=== PATIENT | female | born 1960 | race Two or more races ===

== ENCOUNTER 2021-04-17 10:52 | Outpatient (REF) | payer OTHER, SELFPAY ==
[2021-04-17 12:49] LABS: Thyroid Stimulating Hormone 1.47 uIU/mL (0.32-4.0)
[2021-04-17 12:56] LABS: Alanine Aminotransferase 59 U/L (0-31); Albumin Level 3.8 g/dL (3.5-5.0); Alkaline Phosphatase 232 U/L (39-117); Anion Gap 12 (12-20); Aspartate Amino Transferase 63 U/L (5-31); Bilirubin Total 1.5 mg/dL (0.0-1.0); Blood Urea Nitrogen 18 mg/dL (9-16); C Reactive Protein 2.39 mg/dL (< or = 0.50); Calcium 9.5 mg/dL (8.4-10.2); Carbon Dioxide 27 mmol/L (22-29); Chloride 106 mmol/L (96-108); Estimated Glomerular Filt Rate > 60; Glucose Fasting 97 mg/dL (60-99); Potassium 4.5 mmol/L (3.3-5.1); Rheumatoid Factor < 15.0 IU/mL (<15.0); Sodium 140 mmol/L (135-145); Total Protein 7.2 g/dL (6.5-8.0)
[2021-04-17 13:26] LABS: Erythrocyte Sedimentation Rate 28 MM/HR (0-20)
[2021-04-18 14:31] LABS: Cyclic Citrullinated Peptide <16 UNITS
[2021-04-19 22:56] LABS: Anti Nuclear Antibody Screen POSITIVE (NEGATIVE)
[2021-04-19 23:06] LABS: Anti Nuclear Antibody Pattern Mitotic, Centrosome; Anti Nuclear Antibody Titer 1:40 titer
[2021-04-22 13:25] LABS: Vitamin D 25-OH, D2 <4 ng/mL; Vitamin D 25-OH, D3 29 ng/mL; Vitamin D 25-OH, Total 29 ng/mL (30-100)
[2021-04-22 15:00] LABS: HLA B27 Negative (Negative)
== END 2021-04-17 10:53 | disposition home or self-care (01) ==
LOC: HO.LAB 10:52
PROVIDERS: PCP Internal Medicine; Visit Provider Internal Medicine
DX: M25.50 Pain in unspecified joint (principal); G44.52 New daily persistent headache (NDPH); L65.9 Nonscarring hair loss, unspecified; E55.9 Vitamin D deficiency, unspecified
CPT/HCPCS: 36415; 80053; 82306; 84443; 85652; 86038; 86039; 86140; 86200; 86431; 86812

== ENCOUNTER 2021-05-31 08:30 | Outpatient (REF) | payer OTHER, SELFPAY ==
--- NOTE | ~2021-05-31 | MR_ITS ---
MRI OF THE BRAIN WITHOUT IV CONTRAST INDICATION: New daily persistent headache. COMPARISON: None available. TECHNIQUE: Multiplanar multisequence MR imaging of the brain was obtained without IV contrast. FINDINGS: There is a possible 1.2 cm lesion within the left jugular foramen or alternatively this could reflect a patulous left jugular bulb with altered signal characteristics. An IAC protocol MRI with and without IV contrast inclusive of this area would be helpful in further assessment. There is no hydrocephalus, extra-axial surface collection, or herniation. Mild chronic microangiopathy. The major flow voids at the skull base are preserved. There is no acute infarct on diffusion-weighted imaging. There is no intracranial hemorrhage on the gradient recalled echo acquisition. The midline structures are normal. The cerebellar tonsils are normally positioned. The cerebellum and brainstem are normal. The craniocervical junction is normal. MR/MR head/brain wo con IMPRESSION: There is a possible 1.2 cm lesion within the left jugular foramen or alternatively this could reflect a patulous left jugular bulb with altered signal characteristics. An IAC protocol MRI with and without IV contrast inclusive of this area would be helpful in further assessment.
== END 2021-05-31 08:31 | disposition home or self-care (01) ==
LOC: HO.MRI 08:30
PROVIDERS: Visit Provider Internal Medicine
DX: G44.52 New daily persistent headache (NDPH) (principal)
CPT/HCPCS: 70551

== ENCOUNTER 2021-09-11 08:55 | Outpatient (REF) | payer OTHER, SELFPAY ==
[2021-09-11 09:22] LABS: MANUAL DIFF FLAG NO
[2021-09-11 09:51] LABS: Basophils Absolute Auto 0.1 X10*3/uL (0.0-0.2); Basophils Percent Auto 0.8 % (0-2); Eosinophils Absolute Auto 0.2 X10*3/uL (0.0-0.4); Eosinophils Percent Auto 2.1 % (0-4); Hematocrit 47.9 % (37.0-47.0); Hemoglobin 15.9 g/dl (12.0-16.0); Imm Gran Abs Auto 0.07 X10*3/uL (0.00-0.03); Imm Gran Pct Auto 0.8 % (0.0-0.4); Lymphocytes Absolute Auto 2.5 X10*3/uL (1.2-4.9); Lymphocytes Percent Auto 29.7 % (20-40); Mean Corpuscular HGB Conc 33.2 g/dl (31.0-35.0); Mean Corpuscular Hemoglobin 30.7 pg (27.0-33.0); Mean Corpuscular Volume 92.5 fL (80.0-98.0); Mean Platelet Volume 10.7 fL (9.4-12.3); Monocytes Absolute Auto 0.6 X10*3/uL (0.1-1.2); Monocytes Percent Auto 7.6 % (2-11); Neutrophils Absolute Auto 4.9 x10*3/uL (2.0-8.3); Platelet Count 166 X10*3/uL (160-400); Red Blood Count 5.18 X10*6/uL (4.20-5.50); Red Cell Distribution Width 14.1 % (11.0-16.0); White Blood Count 8.4 X10*3/uL (4.8-10.8)
[2021-09-11 10:22] LABS: Alanine Aminotransferase 84 U/L (0-31); Albumin Level 3.9 g/dL (3.5-5.0); Alkaline Phosphatase 211 U/L (39-117); Anion Gap 13 (12-20); Aspartate Amino Transferase 57 U/L (5-31); Bilirubin Total 3.3 mg/dL (0.0-1.0); Blood Urea Nitrogen 15 mg/dL (9-16); Calcium 10.3 mg/dL (8.4-10.2); Carbon Dioxide 27 mmol/L (22-29); Chloride 105 mmol/L (96-108); Cholesterol 225 mg/dL; Estimated Glomerular Filt Rate > 60; Glucose Fasting 117 mg/dL (60-99); HDL Cholesterol 27 mg/dL; LDL Cholesterol Calculated 171 mg/dl; Potassium 4.7 mmol/L (3.3-5.1); Rheumatoid Factor < 15.0 IU/mL (<15.0); Sodium 140 mmol/L (135-145); Total Protein 7.7 g/dL (6.5-8.0); Triglycerides 139 mg/dL
[2021-09-11 11:03] LABS: Erythrocyte Sedimentation Rate 20 MM/HR (0-20)
[2021-09-13 01:32] LABS: Cyclic Citrullinated Peptide <16 UNITS
[2021-09-18 14:46] LABS: Vitamin D 25-OH, D2 <4 ng/mL; Vitamin D 25-OH, D3 24 ng/mL; Vitamin D 25-OH, Total 24 ng/mL (30-100)
== END 2021-09-11 08:56 | disposition home or self-care (01) ==
LOC: HO.LAB 08:55
PROVIDERS: PCP Internal Medicine; Visit Provider Internal Medicine
DX: Z00.00 Encounter for general adult medical examination without abnormal findings (principal); M25.50 Pain in unspecified joint; D64.9 Anemia, unspecified; E78.5 Hyperlipidemia, unspecified; E55.9 Vitamin D deficiency, unspecified; R74.01 Elevation of levels of liver transaminase levels
CPT/HCPCS: 36415; 80053; 80061; 82306; 85025; 85652; 86140; 86200; 86431

== ENCOUNTER 2021-10-31 08:10 | Outpatient (REF) | payer OTHER, SELFPAY ==
--- NOTE | ~2021-10-31 | US_ITS ---
EXAMINATION: US COMPLETE ABDOMEN WITH LIVER ELASTOGRAPHY CLINICAL INFORMATION: Transaminitis COMPARISON: HIDA scan dated 09/30/2019 TECHNIQUE: Real-time imaging of the abdominal viscera. Noninvasive ultrasound liver fibrosis assessment is performed using [employer]on ElastPQ point quantification shear wave elastography (2D-SWE) with a C5-2 MHz transducer. Multiple elastography samples are obtained. FINDINGS: PANCREAS: Normal. The visualized pancreatic head and body are normal in appearance. The remainder of the pancreas is obscured from visualization by the overlying bowel gas. ABDOMINAL AORTA: The proximal, middle, and distal aortic segments are normal in caliber. INFERIOR VENA CAVA: Visualized portions are normal. LIVER: Morphologically cirrhotic liver exhibiting diffusely heterogeneous hepatic parenchymal echotexture and a nodular surface contour. No focal liver lesions. No intrahepatic biliary ductal dilatation. The right lobe measures 13.3 cm in length. The left lobe measures 15.0 cm in length. Portal flow is towards the liver (hepatopetal). Shear wave liver elastography median stiffness is 2.11 m/s (reference: normal median stiffness is 1.3 m/s or less). IQR/median stiffness to assess sampling precision is 0.13 (reference: good quality data set is IQR/median stiffness of 0.15 or less). GALLBLADDER: Normal. The gallbladder is physiologically distended without evidence of stones, sludge, polyps, wall thickening or pericholecystic fluid. COMMON BILE DUCT: Normal in caliber measuring 0.55 cm in diameter. There is a echogenic filling defect within the common bile duct as seen on static image 53. RIGHT KIDNEY: Normal. No hydronephrosis. No renal calculi or focal parenchymal lesions. The kidney measures 10.5 cm in maximum dimension. LEFT KIDNEY: Normal. No hydronephrosis. No renal calculi or focal parenchymal lesions. The kidney measures 11.7 cm in maximum dimension. SPLEEN: Normal. The spleen measures 12.2 cm in maximum dimension. FREE FLUID: None. US/US abdomen comp w elastography IMPRESSION: * Morphologically cirrhotic liver. No focal liver lesions. * Liver elastography: Measuremensts are consistent with compensated advanced chronic liver disease. * There is a filling defect within the common bile duct measuring 10 x 4 mm, possibly choledocholithiasis. No significant intrahepatic biliary duct dilatation suggesting that this is not completely obstructive. Nevertheless, recommend MRI/MRCP without and with contrast to exclude neoplastic etiology. REFERENCE: Society of Radiologists in Ultrasound Liver Stiffness Thresholds (2020): LIVER STIFFNESS THRESHOLDS: *Liver Stiffness equal or less than 1.3 m/s: High probability of being normal. *Liver Stiffness less than 1.7 m/s: In the absence of other known clinical signs, rules out compensated advanced chronic liver disease. *Liver Stiffness 1.7-2.1 m/s: Suggestive of compensated advanced chronic liver disease but need further test for confirmation. *Liver Stiffness over 2.1 m/s: Rules in compensated advanced chronic liver disease. *Liver Stiffness over 2.4 m/s: Suggestive of clinically significant portal hypertension. QUALITY OF DATA SET: *IQR/Median value equal or less than 0.15 implies a quality data set. *IQR/Median value over 0.15 implies a poor quality data set. SIGNIFICANT CHANGE FROM PRIOR EXAM: Significant change if liver stiffness measurement is 10% or greater from prior exam. OTHER CONSIDERATIONS: The stage of liver fibrosis may be overestimated in the setting of acute hepatitis, liver inflammation, elevated liver function tests, hepatic vascular congestion, obstructive cholestasis, non-fasting state, and infiltrative diseases such as amyloidosis and lymphoma. In some patients with NAFLD, the liver stiffness thresholds for compensated advanced chronic liver disease may be lower. In causes other than viral hepatitis and NAFLD, liver stiffness thresholds are not well established.
[2021-10-31 09:35] LABS: Blood Urea Nitrogen 24 mg/dL (9-16); Estimated Glomerular Filt Rate > 60
== END 2021-10-31 08:11 | disposition home or self-care (01) ==
LOC: HO.US 08:10
PROVIDERS: PCP Internal Medicine; Visit Provider Internal Medicine
DX: R74.01 Elevation of levels of liver transaminase levels (principal); G93.9 Disorder of brain, unspecified
CPT/HCPCS: 36415; 76705; 76981; 82565; 84520

== ENCOUNTER 2021-12-05 09:36 | Outpatient (REF) | payer OTHER, SELFPAY ==
--- NOTE | ~2021-12-05 | MR_ITS ---
EXAMINATION: MR BRAIN WITHOUT AND WITH CONTRAST CLINICAL INFORMATION: New daily persistent headache. COMPARISON: MRI scan of the brain 05/31/2021. TECHNIQUE: Multiplanar, multisequence MRI of the brain was obtained before and after the intravenous administration of 7 mL Gadavist. FINDINGS: There is a well-defined relatively intense and uniformly enhancing mass in the left jugular foramen which measures 1.26 x 1.3 x 1.0 cm in AP, transverse and craniocaudal dimensions. It displaces the jugular bulb posteriorly. There is equivocal communication between this lesion and the proximal left internal jugular vein (image 4/15, sequence 11). No diffusion abnormalities are identified to suggest an acute or subacute infarct. No mass effect or midline shift is seen. The ventricles and sulci appear normal. There are a few scattered foci of hyperintense T2 and FLAIR consistent with chronic microangiopathic changes. No extra-axial fluid collections are seen. The brainstem appears normal. On postcontrast imaging, there is no abnormal parenchymal or leptomeningeal enhancement. No pathologic magnetic susceptibility artifact is identified on the gradient refocused acquisition. The cerebellar tonsils have normal contour and position, and the craniocervical junction appears normal. Marrow signal and midline structures are normal. There is tortuosity of the cavernous left internal carotid artery, which has a larger caliber compared to the right. The dural venous sinus flow-voids are maintained. The mastoid air cells are well aerated. There is mild mucoperiosteal thickening of the ethmoid sinuses. MR/MR head/brain wo/w con IMPRESSION: 1. There is a well-defined intensely enhancing mass at the left jugular foramen. It is difficult to separate the area from the adjacent proximal left internal jugular vein. 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 2. There is tortuosity of the cavernous left internal carotid artery which has a larger caliber compared to the right. An aneurysm cannot be excluded, and recommend MRA or CTA of the head for further assessment. 3. There are no acute bleeds or infarcts. There are no other masses or areas of abnormal enhancement. There are mild chronic microvascular ischemic changes.
== END 2021-12-05 09:37 | disposition home or self-care (01) ==
LOC: HO.MRI 09:36
PROVIDERS: Visit Provider Internal Medicine
DX: G44.52 New daily persistent headache (NDPH) (principal)
CPT/HCPCS: 70553; A9585

== ENCOUNTER 2021-12-27 09:41 | Outpatient (REF) | payer OTHER, SELFPAY ==
--- NOTE | ~2021-12-27 | MR_ITS ---
MR ANGIOGRAPHY BRAIN WITHOUT CONTRAST CLINICAL INFORMATION: Headache. Arterial stricture. COMPARISON: Brain MRI 12/05/2021. TECHNIQUE: A noncontrast [id number] MRA of the head is obtained. Vascular post-processing, including 2-dimensional and 3-dimensional reformatted images were created and reviewed on an independent workstation under concurrent physician supervision. Stenoses are graded per criteria similar to NASCET. FINDINGS: There is normal antegrade flow related signal throughout the anterior and posterior intracranial arterial circulations. As noted on the previous brain MRI, the carotid siphons are tortuous however there are no discrete aneurysms arising from these vascular segments. There is a 2 mm infundibulum versus aneurysm at the likely combined origin of the left superior cerebellar artery and the hypoplastic left posterior cerebral artery. Combined infundibular origin of a right MCA trifurcation. 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 -type REGRINDER OPERATOR on the left side. A left jugular foramen mass that remains most suggestive of a glomus jugulare is better demonstrated on the previous diagnostic MRI of the brain. MR/MR angio head wo con IMPRESSION: - There is a 2 mm infundibulum versus aneurysm at the likely combined origin of the left superior cerebellar artery and the hypoplastic left posterior cerebral artery. - Tortuosity of the carotid siphons bilaterally. - A left jugular foramen mass that remains most suggestive of a glomus jugulare is better demonstrated on the previous diagnostic MRI of the brain.
== END 2021-12-27 09:42 | disposition home or self-care (01) ==
LOC: HO.MRI 09:41
PROVIDERS: Visit Provider Internal Medicine
DX: I77.1 Stricture of artery (principal)
CPT/HCPCS: 70544

== ENCOUNTER 2022-01-08 16:26 | Emergency (ER) | payer OTHER, SELFPAY ==
--- NOTE | 2022-01-08 | ECG_ITS ---
Test Reason : weakness Blood Pressure : / mmHG Vent. Rate : 051 BPM Atrial Rate : 051 BPM P-R Int : 168 ms QRS Dur : 102 ms QT Int : 472 ms P-R-T Axes : 016 -15 025 degrees QTc Int : 435 ms Sinus bradycardia Minimal voltage criteria for LVH, may be normal variant ( Freddy product ) Inferior infarct , age undetermined Abnormal ECG No previous ECGs available Referred By: Generic ED Physician Electronically Signed By:SMOOTH NEWBERRY MD
[2022-01-08 16:37] VITALS: BP 167/81; PULSE 53; RESP 20; TEMP 35.7; O2SAT 97; BMI 30.2
[2022-01-08 17:01] LABS: MANUAL DIFF FLAG NO
[2022-01-08 17:14] LABS: Basophils Percent Auto 0.5 % (0-2); Eosinophils Absolute Auto 0.2 X10*3/uL (0.0-0.4); Hemoglobin 15.2 g/dl (12.0-16.0); Imm Gran Abs Auto 0.03 X10*3/uL (0.00-0.03); Imm Gran Pct Auto 0.4 % (0.0-0.4); Lymphocytes Absolute Auto 2.4 X10*3/uL (1.2-4.9); Lymphocytes Percent Auto 29.5 % (20-40); Mean Corpuscular HGB Conc 33.8 g/dl (31.0-35.0); Mean Corpuscular Hemoglobin 30.6 pg (27.0-33.0); Mean Corpuscular Volume 90.5 fL (80.0-98.0); Mean Platelet Volume 10.9 fL (9.4-12.3); Monocytes Absolute Auto 0.6 X10*3/uL (0.1-1.2); Neutrophils Absolute Auto 4.9 x10*3/uL (2.0-8.3); Neutrophils Percent Auto 60.6 % (45-73); Platelet Count 129 X10*3/uL (160-400); Red Blood Count 4.97 X10*6/uL (4.20-5.50); Red Cell Distribution Width 13.3 % (11.0-16.0); White Blood Count 8.1 X10*3/uL (4.8-10.8)
[2022-01-08 17:18] LABS: Anion Gap 11 (12-20); Blood Urea Nitrogen 21 mg/dL (9-16); Calcium 10.2 mg/dL (8.4-10.2); Carbon Dioxide 29 mmol/L (22-29); Chloride 105 mmol/L (96-108); Estimated Glomerular Filt Rate > 60; Glucose Random 106 mg/dL (60-115); Potassium 4.6 mmol/L (3.3-5.1); Sodium 140 mmol/L (135-145)
[2022-01-08 19:08] LABS: Add Laboratory Test SN
[2022-01-08 19:30] LABS: Troponin-I High Sensitivity < 3.5 ng/L (<3.5-17.0)
[2022-01-08 20:27] VITALS: BP 199/105; PULSE 54; RESP 16; TEMP 36.5; O2SAT 95
--- NOTE | 2022-01-08 20:40 | ED.DIZZY ---
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 followed by Neurosurgery on 01/03 plan to get metanephrine 24 hours urine level comes here for dizziness vertiginous feeling just prior to arrival and noticed blood pressure was on the higher side 200/110 at home patient used to be on losartan about 5 years ago which she stopped of her own patient denies any significant headache no nausea no vomiting focal weakness no attacks Related Data Previous Rx's Medication Instructions Recorded atorvastatin 20 mg tablet 20 mg PO BEDTIME 90 Days #90 tab 09/11/21 losartan 50 mg tablet 50 mg PO DAILY #30 tab 01/08/22 meclizine 25 mg tablet 25 mg PO TID PRN #20 tab 01/08/22 Allergies Allergy/AdvReac Type Severity Reaction Status Date / Time No Known Allergies Allergy Verified 09/11/21 08:28 Review of Systems Review of Systems: Yes all other systems are reviewed and are negative FORMERLY [facility] Past Medical History Medical History Brain lesion Hair loss New daily persistent headache Obstructive jaundice Physical exam Polyarthralgia Pure hypercholesterolemia Tortuosity of artery Transaminitis Surgical History H/O hysterectomy for benign disease Family History Family History Father CAD (coronary artery disease) Mother Stomach cancer Social History Social History Housing: House Alcohol intake: current Alcohol intake frequency: a few times a month Alcohol type: beer, wine and hard liquor Patient Tobacco Use Status: Never used Tobacco e-Cigarette/Vaping Use: Never Used Second Hand Smoke Exposure: No Advance Directives: No Advance Directives Information Provided: Yes service: No Current occupational status: employed Current occupational exposures/hazards: No Physical Exam Vital Signs: Vital Signs: Last Vital Signs Temp 97.7 F 01/08/22 20:27 Pulse 54 01/08/22 20:27 Resp 16 01/08/22 20:27 BP 199/105 H 01/08/22 20:27 Pulse Ox 95 01/08/22 20:27 BMI result Body Mass Index 30.2 Appearance: Alert. Oriented X3. No acute distress. Eyes: PERRLA, No Nystagmus ENT: Pharynx normal. Oral Mucosa moist Neck: Normal inspection. Neck supple. CVS: Normal heart rate and rhythm. Pulses normal. Respiratory: No respiratory distress. Equal air entry bilateral, no wheezing/rales/rhonchi Abdomen: Soft and nontender. Bowel sounds are present, no mass palpable, no CVA tenderness Skin: Skin warm and dry. Normal skin color. Normal skin turgor. Extremities: No lower extremity edema. No calf tenderness Neuro: Oriented X 3. No motor deficit. No sensory deficit.No cerebellar signs , cranial nerves II-XII intact MDM - Dizziness MDM Narrative Medical decision making narrative: ;10Patient with benign positional vertigo symptoms improved after meclizine also patient has history of hypertension. Her medication a long time ago restarted on losartan repeat blood pressure was 156/70 will discharge patient home Lab Data Attestation: I reviewed the patient's lab results. Result diagrams: 01/08/22 16:57 01/08/22 16:57 Labs: Lab Results 01/08/22 01/08/22 01/08/22 Range/Units 16:57 16:57 16:57 WBC 8.1 (4.8-10.8) X10*3/uL RBC 4.97 (4.20-5.50) X10*6/uL Hgb 15.2 (12.0-16.0) g/dl Hct 45.0 (37.0-47.0) % MCV 90.5 (80.0-98.0) fL MCH 30.6 (27.0-33.0) pg MCHC 33.8 (31.0-35.0) g/dl RDW 13.3 (11.0-16.0) % Plt Count 129 L (160-400) X10*3/uL MPV 10.9 (9.4-12.3) fL Immature Gran % (Auto) 0.4 (0.0-0.4) % Neut % (Auto) 60.6 (45-73) % Lymph % (Auto) 29.5 (20-40) % Williamson % (Auto) 7.0 (2-11) % Eos % (Auto) 2.0 (0-4) % Baso % (Auto) 0.5 (0-2) % Lymph # (Auto) 2.4 (1.2-4.9) X10*3/uL Williamson # (Auto) 0.6 (0.1-1.2) X10*3/uL Eos # (Auto) 0.2 (0.0-0.4) X10*3/uL Baso # (Auto) 0.0 (0.0-0.2) X10*3/uL Abs Immat Gran (auto) 0.03 (0.00-0.03) X10*3/uL Absolute Neuts (auto) 4.9 (2.0-8.3) x10*3/uL Absolute Nucleated RBC 0.000 (0.0-0.012) X10*3/uL Nucleated RBC % (auto) 0.0 (0.0-0.2) /100WBC Sodium 140 (135-145) mmol/L Potassium 4.6 (3.3-5.1) mmol/L Chloride 105 (96-108) mmol/L Carbon Dioxide 29 (22-29) mmol/L Anion Gap 11 L (12-20) BUN 21 H (9-16) mg/dL Creatinine 0.72 (0.5-1.4) mg/dL Estim Creat Clear Calc 70.0 Estimated GFR > 60 Random Glucose 106 (60-115) mg/dL Calcium 10.2 (8.4-10.2) mg/dL Troponin I High Sens < 3.5 (<3.5-17.0) ng/L ECG Data Attestation: I personally reviewed and interpreted this ECG as follows: Interpretation: Sinus bradycardia with heart rate 51 beats per minute LVH no acute ST wave changes no acute ischemic changes Discharge Plan Discharge Clinical Impression: Hypertension, Benign paroxysmal positional vertigo Patient Disposition: Home, Self-Care Instructions: Chronic Hypertension (ED), Benign Paroxysmal Positional Vertigo (ED) Additional Instructions: Take blood pressure medication as prescribed Decrease salt intake Meclizine 1 tablet every 8 hours as needed for dizziness Follow-up with PCP/neurosurgery as scheduled [place] los medicamentos para la presi?n arterial seg?n lo prescrito Disminuir la ingesta de kayleigh Meclizine 1 tableta cada 8 horas seg?n sea necesario para los mareos Seguimiento con PCP/neurocirug?a seg?n lo programado Prescriptions: New meclizine 25 mg tablet 25 mg PO TID PRN (Reason: dizziness) Qty: 20 0RF losartan 50 mg tablet 50 mg PO DAILY Qty: 30 0RF No Action atorvastatin 20 mg tablet 20 mg PO BEDTIME 90 Days Qty: 90 1RF Print Language: Kinyarwanda
[2022-01-08] MEDS: Losartan Potassium 50 MG TABLET PO (21:24)
[2022-01-08] MEDS: Meclizine HCl 25 MG TABLET PO (21:24)
[2022-01-08 22:16] VITALS: BP 156/70; PULSE 58; RESP 16; O2SAT 95
== END 2022-01-08 22:23 | disposition home or self-care (01) ==
PROVIDERS: Emergency Provider Internal Medicine; PCP Internal Medicine
DX: H81.13 Benign paroxysmal vertigo, bilateral (principal); I10 Essential (primary) hypertension; Z79.899 Other long term (current) drug therapy
CPT/HCPCS: 36415; 80048; 84484; 85025; 93005; 99282; 99283

== ENCOUNTER 2022-01-14 08:37 | Outpatient (REF) | payer OTHER, SELFPAY ==
[2022-01-14 09:38] LABS: Cholesterol 179 mg/dL; HDL Cholesterol 52 mg/dL; LDL Cholesterol Calculated 112 mg/dl; Triglycerides 75 mg/dL
[2022-01-19 15:47] LABS: Metanephrine, Free 42 pg/mL (<=57); Normetanephrines, Free 130 pg/mL (<=148); Total Metanephrine, Free 172 pg/mL (<=205)
== END 2022-01-14 08:38 | disposition home or self-care (01) ==
LOC: HO.LAB 08:37
PROVIDERS: PCP Internal Medicine; Visit Provider Internal Medicine
DX: I10 Essential (primary) hypertension (principal); E78.5 Hyperlipidemia, unspecified
CPT/HCPCS: 36415; 80061; 83835

== ENCOUNTER 2022-01-17 14:33 | Outpatient (REF) | payer OTHER, SELFPAY ==
[2022-01-23 01:12] LABS: Metanephrine, Free 24U 96 mcg/24 h (90-315); Normetanephrine, Free 24U 408 mcg/24 h (122-676); Total Metanephrine, Free 24U 504 mcg/24 h (224-832); Total Volume 24U 1400 mL
[2022-01-23 16:07] LABS: CATF, 24 Ur Volume 1400 mL; CATF-24Ur Creatinine 0.98 g/24 h (0.50-2.15); Catecholamines,Tot. (E+NE) 24U 50 mcg/24 h (26-121); Dopamine, 24 Ur 268 mcg/24 h (52-480); Norepinephrine, 24 Ur 50 mcg/24 h (15-100)
== END 2022-01-17 14:34 | disposition home or self-care (01) ==
LOC: HO.LNP 14:33
PROVIDERS: Visit Provider Internal Medicine
DX: I10 Essential (primary) hypertension (principal)
CPT/HCPCS: 82384; 83835

== ENCOUNTER 2022-07-07 10:37 | Outpatient (REF) | payer OTHER, SELFPAY ==
[2022-07-07 11:24] LABS: COVID-19 Test Negative (Negative)
== END 2022-07-07 10:38 | disposition home or self-care (01) ==
LOC: HO.LAB 10:37
PROVIDERS: Nurse Practitioner Family; PCP Internal Medicine; Visit Provider Internal Medicine
DX: Z20.822 Contact with and (suspected) exposure to COVID-19 (principal); R05.9 Cough, unspecified
CPT/HCPCS: 87635; C9803

== ENCOUNTER 2022-12-18 08:59 | Outpatient (REF) | payer OTHER, SELFPAY ==
[2022-12-18 09:54] LABS: Alanine Aminotransferase 75 U/L (0-31); Albumin Level 4.1 g/dL (3.5-5.0); Alkaline Phosphatase 161 U/L (39-117); Anion Gap 11 (12-20); Aspartate Amino Transferase 49 U/L (5-31); Bilirubin Total 0.9 mg/dL (0.0-1.0); Blood Urea Nitrogen 25 mg/dL (9-16); Calcium 9.7 mg/dL (8.4-10.2); Carbon Dioxide 29 mmol/L (22-29); Chloride 106 mmol/L (96-108); Cholesterol 174 mg/dL; Estimated Glomerular Filt Rate > 60; Glucose Fasting 100 mg/dL (60-99); HDL Cholesterol 49 mg/dL; LDL Cholesterol Calculated 106 mg/dl; Potassium 4.8 mmol/L (3.3-5.1); Sodium 141 mmol/L (135-145); Total Protein 6.9 g/dL (6.5-8.0); Triglycerides 99 mg/dL
== END 2022-12-18 09:00 | disposition home or self-care (01) ==
LOC: HO.LAB 08:59
PROVIDERS: PCP Internal Medicine; Visit Provider Internal Medicine
DX: E78.5 Hyperlipidemia, unspecified (principal); I10 Essential (primary) hypertension; I67.1 Cerebral aneurysm, nonruptured
CPT/HCPCS: 36415; 80053; 80061

== ENCOUNTER 2023-01-20 09:31 | Outpatient (REF) | payer OTHER, SELFPAY ==
--- NOTE | ~2023-01-20 | XR_ITS ---
EXAMINATION: XR KNEE, RIGHT XR KNEE, LEFT XR KNEE AP STANDING CLINICAL INFORMATION: Primary osteoarthritis of the bilateral knees. COMPARISON: None available. TECHNIQUE: Frontal, lateral and axial views of the right knee were obtained. Frontal, lateral and axial views of the left knee were obtained. AP bilateral standing view of the knees was obtained. FINDINGS: RIGHT KNEE: Bony alignment and mineralization are normal. The lateral, medial and patellofemoral joint space compartments are well-maintained. There is mild peripheral osteophyte formation of the medial and patellofemoral joint space compartments. There is chondrocalcinosis. No fracture, dislocation or significant joint effusion is seen. There is no foreign body. LEFT KNEE: Bony alignment and mineralization are normal. The lateral, medial and patellofemoral joint space compartments are well-maintained. There is mild peripheral osteophyte formation of the medial and patellofemoral joint space compartments. No fracture, dislocation or significant joint effusion is seen. No foreign body is noted. XR/XR knee standing BI IMPRESSION: 1. There is mild osteoarthritic change of the medial and patellofemoral joint space compartments of the right knee. 2. There is right knee chondrocalcinosis, which can be associated with CPPD. 3. There is mild osteoarthritic change of the medial and patellofemoral joint space compartments of the left knee. 4. No fracture, dislocation or significant joint effusion is seen of the bilateral knees.
--- NOTE | ~2023-01-20 | XR_ITS ---
EXAMINATION: XR KNEE, RIGHT XR KNEE, LEFT XR KNEE AP STANDING CLINICAL INFORMATION: Primary osteoarthritis of the bilateral knees. COMPARISON: None available. TECHNIQUE: Frontal, lateral and axial views of the right knee were obtained. Frontal, lateral and axial views of the left knee were obtained. AP bilateral standing view of the knees was obtained. FINDINGS: RIGHT KNEE: Bony alignment and mineralization are normal. The lateral, medial and patellofemoral joint space compartments are well-maintained. There is mild peripheral osteophyte formation of the medial and patellofemoral joint space compartments. There is chondrocalcinosis. No fracture, dislocation or significant joint effusion is seen. There is no foreign body. LEFT KNEE: Bony alignment and mineralization are normal. The lateral, medial and patellofemoral joint space compartments are well-maintained. There is mild peripheral osteophyte formation of the medial and patellofemoral joint space compartments. No fracture, dislocation or significant joint effusion is seen. No foreign body is noted. XR/XR knee LT 3V IMPRESSION: 1. There is mild osteoarthritic change of the medial and patellofemoral joint space compartments of the right knee. 2. There is right knee chondrocalcinosis, which can be associated with CPPD. 3. There is mild osteoarthritic change of the medial and patellofemoral joint space compartments of the left knee. 4. No fracture, dislocation or significant joint effusion is seen of the bilateral knees.
--- NOTE | ~2023-01-20 | XR_ITS ---
EXAMINATION: XR KNEE, RIGHT XR KNEE, LEFT XR KNEE AP STANDING CLINICAL INFORMATION: Primary osteoarthritis of the bilateral knees. COMPARISON: None available. TECHNIQUE: Frontal, lateral and axial views of the right knee were obtained. Frontal, lateral and axial views of the left knee were obtained. AP bilateral standing view of the knees was obtained. FINDINGS: RIGHT KNEE: Bony alignment and mineralization are normal. The lateral, medial and patellofemoral joint space compartments are well-maintained. There is mild peripheral osteophyte formation of the medial and patellofemoral joint space compartments. There is chondrocalcinosis. No fracture, dislocation or significant joint effusion is seen. There is no foreign body. LEFT KNEE: Bony alignment and mineralization are normal. The lateral, medial and patellofemoral joint space compartments are well-maintained. There is mild peripheral osteophyte formation of the medial and patellofemoral joint space compartments. No fracture, dislocation or significant joint effusion is seen. No foreign body is noted. XR/XR knee RT 3V IMPRESSION: 1. There is mild osteoarthritic change of the medial and patellofemoral joint space compartments of the right knee. 2. There is right knee chondrocalcinosis, which can be associated with CPPD. 3. There is mild osteoarthritic change of the medial and patellofemoral joint space compartments of the left knee. 4. No fracture, dislocation or significant joint effusion is seen of the bilateral knees.
== END 2023-01-20 09:32 | disposition home or self-care (01) ==
LOC: HO.XRAY 09:31
PROVIDERS: PCP Internal Medicine; Visit Provider Student in an Organized Health Care Education/Training Program
DX: M17.0 Bilateral primary osteoarthritis of knee (principal); G56.03 Carpal tunnel syndrome, bilateral upper limbs
CPT/HCPCS: 73562; 73564; 73565; 99202

== ENCOUNTER 2023-01-27 15:22 | Outpatient (REF) | payer OTHER, SELFPAY ==
--- NOTE | ~2023-01-27 | MR_ITS ---
EXAMINATION: MR ANGIOGRAPHY BRAIN WITHOUT CONTRAST CLINICAL INFORMATION: Follow up for cerebral aneurysm, unruptured. COMPARISON: 12/27/2021 MR angiogram. TECHNIQUE: 3-D [id number] MR angiography of the intracranial circulation was done with multiplanar reformatted reconstructions. FINDINGS: Anterior circulation: Redemonstrated is tortuosity of the carotid siphons, particularly on the left with a larger caliber to the entire intracranial left ICA compared to the right stable in appearance from previous exam with no definite aneurysm associated with these findings. A slightly prominent left posterior communicating artery supplies the left CHANNEL LAYER in conjunction with a partially hypoplastic left P1 segment, which is an anatomic variant, unchanged. The right A1 segment is hypoplastic unchanged in appearance with a normal appearance to the left A1 segment, anterior communicating artery and both A2 branches, unchanged in appearance. The M1 segments are normal in caliber and patent with a normal appearance to the MCA bifurcations. The left M2 branches appear more prominent than the right likely reflecting the larger caliber of the left ICA compared to the right. Posterior circulation: The intradural vertebral arteries are patent with the left being slightly dominant, stable in appearance. The left PICA is visualized and is normal in caliber. The anterior inferior cerebellar arteries are visualized bilaterally with a probable small infundibulum at the origin of the right anterior inferior cerebellar artery, stable in appearance. The basilar artery is otherwise normal in caliber and patent with smooth contours. Redemonstrated is a 2 mm outpouching of flow-related enhancement adjacent to the origin of the left superior cerebellar artery stable in appearance from previous exam consistent with a small aneurysm. The left CHANNEL LAYER shows less flow-related enhancement than the right likely reflecting the anatomic variation as described above. There is mild luminal irregularity suspected in the P2 segments of both radio technician without significant focal stenosis, stable in appearance. MR/MR angio head wo con IMPRESSION: Stable 2 mm aneurysm versus prominent infundibulum adjacent to the superior cerebellar artery origin on the left and hypoplastic left P1 segment of the CHANNEL LAYER. Small infundibulum arising from the origin of the right anterior inferior cerebellar artery stable in appearance. Tortuosity of the carotid siphons, left more than right with differential size of the ICAs, left larger than right, stable in appearance. Possible atheromatous changes of the P2 segments of both radio technician stable in appearance without significant focal stenosis or segmental occlusion. Left jugular foramen mass similar in appearance to the previous study again noted with a maximum transverse diameter of 1.7 cm stable in appearance.
== END 2023-01-27 15:23 | disposition home or self-care (01) ==
LOC: HO.MRI 15:22
PROVIDERS: PCP Internal Medicine; Visit Provider Internal Medicine
DX: I67.1 Cerebral aneurysm, nonruptured (principal)
CPT/HCPCS: 70544

== ENCOUNTER 2023-03-19 10:08 | Outpatient (REF) | payer OTHER, SELFPAY ==
--- NOTE | 2023-03-19 10:11 | EMG_ITS ---
Bilateral median and ulnar motor and sensory studies were performed. Bilateral radial sensory studies were performed and paraspinal muscles were tested with a needle. IMPRESSION: Mild bilateral ulnar neuropathy across elbow. MD TONI Alicea/NIALL / [id number]
== END 2023-03-19 10:09 | disposition home or self-care (01) ==
LOC: HO.NEURO 10:08
PROVIDERS: PCP Internal Medicine; Visit Provider Student in an Organized Health Care Education/Training Program
DX: G56.03 Carpal tunnel syndrome, bilateral upper limbs (principal)
CPT/HCPCS: 95911

== ENCOUNTER 2023-07-15 10:39 | Outpatient (AMB) | payer OTHER, SELFPAY ==
--- NOTE | 2023-07-15 10:43 | MHC.OFFVIS ---
Intake Vital Signs 07/15/23 10:44 Height 5 ft Weight 163 lb 9.328 oz BMI 31.9 BP 124/80 Blood Pressure Location Rt brachial Position Sitting Pulse 64 Pulse Source Pulse Oximeter Temp 96.9 F Temp Source Skin Pulse Oximetry (%) 98 Intake Visit Reasons: OA Intake Note: Pt last seen 01/20/23, presents today for follow up and test results. Managing pains with aleve. Is requesting handicap marcus, Railway Signal Technician Required: Yes Railway Signal Technician Name: Carolyn [id number] Accompanied by: Self / Same As Patient Allergies No Known Allergies Allergy (Verified 07/15/23 10:46) Medication List - Last Reconciled 07/15/23 by Archana Alcocer MD losartan 50 mg PO DAILY 90 days naproxen sodium (Aleve) 220 mg PO Q8H PRN [wrist splint wear as much as possible throughout the day & all night] HPI HPI Comments History of Present Illness Details 62-year-old female with generalized osteoarthritis returns for follow-up. Her EMG showed bilateral ulnar neuropathy across the cubital tunnel. I called patient and referred her to Hand surgery. She was unable to make the appointment. She states that she has been having bilateral knee pain. Worse with walking. She states that the parking at her job is quite far from her work place. She has to walk a substantial distance. Recently she has been having right shoulder pain. States that she has been has been using a machine to chop onions. Using her right shoulder a lot Initial hx:This is a 62-year-old female who presents for evaluation of multiple joint pain. Patient states that she has had diffuse joint pain for many years. 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 She has pain in her lower back radiating to her hips. She also has bilateral knee pain as well as bilateral hand pain. She feels that she has reduced strength in her hands especially the right hand. She also has right elbow pain [facility] Medical History (Updated 07/15/23 @ 11:08 by Archana Alcocer MD) Bilateral primary osteoarthritis of knee Right tennis elbow Degenerative disc disease, lumbar Cough Blurry vision Class 1 obesity with body mass index (BMI) of 30.0 to 30.9 in adult Hypertension Tortuosity of artery Transaminitis Pure hypercholesterolemia Physical exam Brain lesion Hair loss New daily persistent headache Polyarthralgia Obstructive jaundice Surgical History History of endoscopy H/O hysterectomy for benign disease Family History Father CAD (coronary artery disease) Mother Stomach cancer Social History Housing: House Alcohol intake: current Alcohol intake frequency: a few times a month Alcohol type: beer, wine and hard liquor Patient Tobacco Use Status: Never used Tobacco e-Cigarette/Vaping Use: Never Used Second Hand Smoke Exposure: No service: No Current occupational status: employed 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 [employer] Current occupational exposures/hazards: No Cognitive needs: No Hearing needs: No Vision needs: Yes (only for reading) Review of Systems Musc Reports arthralgias, Reports limited range of motion and Reports stiffness Physical Exam Vital Signs: Last Vital Signs Temp 96.9 F 07/15/23 10:44 Pulse 64 07/15/23 10:44 BP 124/80 07/15/23 10:44 Pulse Ox 98 07/15/23 10:44 BMI result Body Mass Index 31.9 Const General: cooperative and healthy appearing Nutritional Appearance: obese Orientation/consciousness: patient oriented x3 Limitations: no limitations HEENT Head: Yes normocephalic and Yes atraumatic Mouth: moist mucous membranes Resp Effort & Inspection: normal respiratory effort and able to speak in complete sentences Auscultation: clear to auscultation bilaterally Cardio Rate: regular rate Rhythm: regular rhythm Neuro General: patient oriented x3 Extrem Other: Bilateral osteoarthritic changes of both hands with no active synovitis Positive speed's test, positive rotator cuff provocative maneuvers on the right shoulder. Assessment & Plan Assessment & Plan (1) Bilateral primary osteoarthritis of knee: Code(s): M17.0 - Bilateral primary osteoarthritis of knee Plan: This is a 62-year-old female who presents for evaluation of diffuse joint pain. I do not see any signs of autoimmune rheumatic disease. Previous serology showed negative RF/CCP and JEANMARIE was 1-40. Bilateral knee x-rays show osteoarthritis. Patient has significant difficulty and bilateral knee pain when walking from where she huff her car to her work place. Handicap placard application signed. Follow-up as needed (2) Ulnar neuropathy of both upper extremities: Code(s): G56.23 - Lesion of ulnar nerve, bilateral upper limbs Plan: Follow-up with hand surgery Plan I spent 16 minutes reviewing patient's chart, evaluating patient, counseling patient and documenting in the chart Coding Level of Care Code Est Pt Level 3 (89908) Diagnoses Bilateral primary osteoarthritis of knee M17.0 Ulnar neuropathy of both upper extremities G56.23
[2023-07-15 10:44] VITALS: BP 124/80; PULSE 64; TEMP 36.1; O2SAT 98; BMI 31.9
== END 2023-07-15 11:04 | disposition home or self-care (01) ==
PROVIDERS: PCP Internal Medicine; Visit Provider Student in an Organized Health Care Education/Training Program
DX: M17.0 Bilateral primary osteoarthritis of knee (principal); G56.23 Lesion of ulnar nerve, bilateral upper limbs
CPT/HCPCS: 99213

== ENCOUNTER → 2023-07-15 10:39 | Outpatient (BNVA) | payer OTHER, SELFPAY | PROVIDERS: PCP Internal Medicine; Visit Provider Student in an Organized Health Care Education/Training Program | DX: M17.0 Bilateral primary osteoarthritis of knee (principal); G56.23 Lesion of ulnar nerve, bilateral upper limbs | CPT/HCPCS: 99212 ==

== ENCOUNTER 2023-09-08 17:22 | Emergency (ER) | payer OTHER, SELFPAY ==
--- NOTE | ~2023-09-08 | XR_ITS ---
EXAMINATION: XR CHEST CLINICAL INFORMATION: Cough COMPARISON: None available. TECHNIQUE: Frontal view of the chest was obtained. FINDINGS: No significant abnormality is noted involving the heart, lungs, mediastinum, bony thorax or soft tissues. XR/XR chest 1V IMPRESSION: Unremarkable examination.
[2023-09-08 18:06] VITALS: BP 181/71; PULSE 58; RESP 18; TEMP 37.2; O2SAT 96; BMI 32.4
--- NOTE | 2023-09-08 18:10 | ED.GENADULT ---
HPI - General Adult General Chief complaint: Upper Respiratory Symptoms Stated complaint: fever, flu like symptoms/covid? Time Seen by Provider: 09/08/23 20:02 Source: patient Mode of arrival: ambulatory Limitations: no limitations History of Present Illness HPI narrative: 62 yold female with pmh of TIA, HTN, and high cholesterol presents to the ED for coughnig, amalaise, back pain, and green phleghm when coughing. Related Data Home Medications Medication Instructions Recorded Confirmed naproxen sodium 220 mg tablet 220 mg PO Q8H PRN 07/15/23 (Aleve) Previous Rx's Medication Instructions Recorded wrist splint #2 ea 01/20/23 losartan 50 mg tablet 50 mg PO DAILY 90 days #90 tabs 04/20/23 Allergies Allergy/AdvReac Type Severity Reaction Status Date / Time No Known Allergies Allergy Verified 07/15/23 10:46 Review of Systems Review of Systems: COughing, malaise, back pain Yes all other systems are reviewed and are negative PMFSH Past Medical History Onset Date is defined in the Problem List Problems that require an onset date and time if occurred within 24 hrs of arrival to the ED Aortic Dissection and Rupture; Neurologic impairment; Cardiopulmonary Arrest; Endotracheal Intubation; Insertion or Replacement of Mechanical Circulatory Assist Device Medical History (Updated 09/08/23 @ 19:55 by LUCAS Dalton) Bilateral primary osteoarthritis of knee Right tennis elbow Degenerative disc disease, lumbar Cough Blurry vision Class 1 obesity with body mass index (BMI) of 30.0 to 30.9 in adult Hypertension Tortuosity of artery Transaminitis Pure hypercholesterolemia Physical exam Brain lesion Hair loss New daily persistent headache Polyarthralgia Obstructive jaundice Surgical History History of endoscopy H/O hysterectomy for benign disease Family History Family History Father CAD (coronary artery disease) Mother Stomach cancer Social History Social History Housing: House Alcohol intake: current Alcohol intake frequency: a few times a month Alcohol type: beer, wine and hard liquor Patient Tobacco Use Status: Never used Tobacco e-Cigarette/Vaping Use: Never Used Second Hand Smoke Exposure: No Advance Directives: No Advance Directives Information Provided: No service: No Current occupational status: employed 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 [employer] Current occupational exposures/hazards: No Cognitive needs: No Hearing needs: No Vision needs: Yes (only for reading) Physical Exam ED Vital Signs: Vital Signs - 24 hr 09/08/23 18:06 Temperature 98.9 F Pulse Rate 58 Respiratory Rate 18 Blood Pressure 181/71 H Pulse Oximetry 96 Oxygen Delivery Method Room Air BMI result Body Mass Index 32.4 Const General: cooperative, healthy appearing, comfortable, no acute distress, well developed, alert and awake Orientation/consciousness: oriented to person, oriented to place, oriented to time and patient oriented x3 HENMT Head: Yes normal to inspection, Yes No palpable skull fracture present, Yes normocephalic and Yes atraumatic Ears: hearing grossly normal bilaterally, external ears normal, TM's normal bilaterally, TM normal on the right, TM normal on the left, EAC's normal, mastoids normal and no periauricular adenopathy Throat: Yes posterior oropharynx normal, Yes tonsils normal and Yes uvula midline Eyes General: appearance normal, both eyes and all related structures Neck Neck: Yes normal visual inspection, Yes full ROM, Yes no lymphadenopathy, Yes no meningeal signs, Yes trachea midline, Yes supple, No anterior neck swelling and No tender Chest Chest palpation & inspection: normal inspection of the chest and normal palpation of entire chest wall Resp Effort & Inspection: normal respiratory effort and able to speak in complete sentences Auscultation: clear to auscultation bilaterally Cardio Jugular venous distension: no JVD Heart sounds: S1 normal heart sound present and S2 normal heart sound present GI Inspection: Yes normal to inspection Palpation (GI): Soft to palpation, not firm, nontender, no guarding and not rigid General: Yes no CVA tenderness Back/Spine/Pelvis Back: no CVA tenderness and No back tenderness Skin General skin exam: no rashes or lesions noted, elasticity normal and turgor normal Neuro General: oriented to person, oriented to place, oriented to time, patient oriented x3, gait normal, tone normal, moves all extremities, Normal light touch and pain sensation, no meningeal signs and no focal motor deficits Extrem General: Yes normal to inspection, Yes full ROM and Yes capillary refill normal Psych Appearance: grossly normal, well kempt and not disheveled Course Course Course Narrative: RME: 62-year-old female presents to ED for coughing phlegm, fever and chills. Patient did a home test today positive for COVID. SARs x-ray ordered. 7:51pm: Chest x-ray normal. Positive for COVID. Patient not in distress. Patient is slightly hypertensive history of high blood pressure negative for signs of stroke. Medical Decision Making Medical Decision Making MDM Narrative: 62 yold female presents to the ED for URi SYmptoms. Patietn positive for covid. patient is not toxic appearing. Chest xray is normal. Vital signs stable Differential Diagnosis Differential Diagnoses: The differential diagnosis associated with the presentation includes (Covid, INflunexa, RSV) Lab Data MDM Lab Attestation statement: I reviewed the patient's lab results. Labs: Lab Results 09/08/23 Range/Units 18:13 Influenza Type A (PCR) NEGATIVE (Negative) Influenza Type B (PCR) NEGATIVE (Negative) RSV RNA Qual (PCR) NEGATIVE (Negative) SARS-CoV-2 RNA (RT-PCR) POSITIVE A (Negative) Independent Interpretation I performed an independent interpretation of an: Plain X-Ray Radiology Impression Discussion of test interpretation with radiology: I have reviewed the radiologist's reading. External Record Review External record reviewed: Other (Prior visits) Chronic Conditions Patient?s care impacted by: Other (obestiy) Discharge Plan Discharge Clinical Impression: COVID-19 Patient Disposition: Home, Self-Care Instructions: COVID-19 (Coronavirus Disease 2019) (ED) Additional Instructions: Tu positivo por COVID. La radiograf?a de t?rax result? normal. Regrese al servicio de urgencias de inmediato si presenta dolor en el pecho, dificultad para respirar, tos con davide, hinchaz?n de las piernas, dolor en la pantorrilla, dolor en el pecho al inspirar, debilidad, mareos, nivel de saturaci?n de ox?mateus por debajo del 94% en el pulsiox?metro port?til de la farmacia o cualquier otra inquietud. s?ntomas. Your positive for COVID. Chest x-ray came back normal. Return to the ED immediately for any chest pain, shortness of breath, coughing up blood, leg swelling, calf pain, chest pain inspiration, weakness, dizziness, oxygen saturation level falling below 94% on portable pulse ox from pharmacy, or any other concerning symptoms. Prescriptions: No Action losartan 50 mg tablet 50 mg PO DAILY 90 Days Qty: 90 3RF naproxen sodium [Aleve] 220 mg tablet 220 mg PO Q8H PRN (DME) wrist splint See Rx Instructions .Route .MEDSUPPLY Qty: 2 0RF Rx Instructions: wear as much as possible throughout the day & all night Stand Alone Forms: Work/School Release Interventions: ED Discharge Assessment Last Done: 09/08/23 20:33 Discharge Date/Time: 09/08/23 20:33 Print Language: [place]
[2023-09-08 18:55] LABS: Influenza A PCR NEGATIVE (Negative); Influenza B PCR NEGATIVE (Negative); Resp Syncy Virus RNA Qual PCR NEGATIVE (Negative); SARS COV2 PCR INHOUSE POSITIVE (Negative)
== END 2023-09-08 20:33 | disposition home or self-care (01) ==
PROVIDERS: Physician Assistant; Emergency Provider Student in an Organized Health Care Education/Training Program; PCP Internal Medicine
DX: U07.1 COVID-19 (principal); R50.9 Fever, unspecified; I10 Essential (primary) hypertension; R05.9 Cough, unspecified; M54.50 Low back pain, unspecified
CPT/HCPCS: 0241U; 71045; 99282; 99283

== ENCOUNTER 2024-12-14 08:22 | Outpatient (REF) | payer MEDICARE, SELFPAY ==
[2024-12-14 10:35] LABS: MANUAL DIFF FLAG NO
[2024-12-14 11:43] LABS: Basophils Absolute Auto 0.1 X10*3/uL (0.0-0.2); Basophils Percent Auto 0.8 % (0-2); Eosinophils Absolute Auto 0.1 X10*3/uL (0.0-0.4); Eosinophils Percent Auto 1.3 % (0-4); Hematocrit 43.1 % (37.0-47.0); Hemoglobin 14.3 g/dl (12.0-16.0); Imm Gran Abs Auto 0.03 X10*3/uL (0.00-0.03); Imm Gran Pct Auto 0.5 % (0.0-0.4); Lymphocytes Absolute Auto 1.9 X10*3/uL (1.2-4.9); Lymphocytes Percent Auto 30.2 % (20-40); Mean Corpuscular HGB Conc 33.2 g/dl (31.0-35.0); Mean Corpuscular Volume 93.3 fL (80.0-98.0); Mean Platelet Volume 11.7 fL (9.4-12.3); Monocytes Absolute Auto 0.4 X10*3/uL (0.1-1.2); Neutrophils Absolute Auto 3.7 x10*3/uL (2.0-8.3); Neutrophils Percent Auto 60.2 % (45-73); Platelet Count 126 X10*3/uL (160-400); Red Blood Count 4.62 X10*6/uL (4.20-5.50); Red Cell Distribution Width 14.2 % (11.0-16.0); White Blood Count 6.2 X10*3/uL (4.8-10.8)
[2024-12-14 12:51] LABS: Alanine Aminotransferase 85 U/L (0-31); Albumin Level 4.3 g/dL (3.5-5.0); Alkaline Phosphatase 166 U/L (39-117); Anion Gap 10 (12-20); Aspartate Amino Transferase 57 U/L (5-31); Bilirubin Total 0.7 mg/dL (0.0-1.0); Blood Urea Nitrogen 22 mg/dL (9-16); Calcium 10.3 mg/dL (8.4-10.2); Carbon Dioxide 27 mmol/L (22-29); Chloride 108 mmol/L (96-108); Estimated Glomerular Filt Rate > 60; Glucose Random 103 mg/dL (60-115); Potassium 4.4 mmol/L (3.3-5.1); Sodium 141 mmol/L (135-145); Total Protein 7.6 g/dL (6.5-8.0)
== END 2024-12-14 08:23 | disposition home or self-care (01) ==
LOC: HO.LAB 08:22
PROVIDERS: PCP Internal Medicine
DX: K80.50 Calculus of bile duct without cholangitis or cholecystitis without obstruction (principal)
CPT/HCPCS: 36415; 80053; 85025; 96127; 99212

== ENCOUNTER 2024-12-14 08:22 | Outpatient (AMB) | payer OTHER, SELFPAY ==
--- NOTE | 2024-12-14 08:25 | A.OFFPC_ITS ---
Vital Signs 12/14/24 08:27 Height 5 ft Weight 162 lb 6 oz BMI 31.7 BP 120/76 Blood Pressure Location Lt brachial Position Sitting Pulse 64 Pulse Source Pulse Oximeter Temp 97.5 F Temp Source Temporal Artery Scan Pulse Oximetry (%) 97 Oxygen Delivery Method Room Air Intake Visit Reasons: Follow up Intake Note: Patient is here today for post kidney stone removal and had bacteria infection in blood after done in [facility] in October 2024. Partner Alliance Manager Required: Yes Partner Alliance Manager Language: Mobility Specialist Name: Alejo Sheriff ([id number]) Information Interpreted: non-clinical & clinical Motel Maid: Not Required per policy Accompanied by: Self / Same As Patient Allergies No Known Allergies Allergy (Verified 12/14/24 08:26) Tobacco use date assessed: 12/14/24 Fall risk assessment: No Falls in past year Last assessed Fall Risk: 12/14/24 Dental Screening Dental Screen Date: 12/14/24 Did you have a dental visit in the last 12 months?: No Did you have a dental problem in the last 6 months where you did not have access to dental care?: No Was dental information given to patient?: No HPI Follow up HPI Details The patient is a 64-year-old female presenting with a follow-up for previous postoperative issues. She has a history of a cholecystectomy and recently had complications due to a retained gallstone in the common bile duct. The complication led to an infection, eventually resulting in bacteremia and hypotension, requiring her hospitalization in the ICU. She underwent an ERCP procedure to address the bile duct blockage. Post-procedure, the patient received a 12-day antibiotic course to treat the infection. Although the patient completed this treatment, she sometimes reports ongoing right flank pain. There is no indication from the records if the gallstone was removed, necessitating further evaluation. Her intestinal routine has changed, with increased frequency in bowel movements, attributed to antibiotic side effects. She denies abdominal or urinary symptoms like blood in the urine. [facility] Medical History Bilateral primary osteoarthritis of knee Right tennis elbow Degenerative disc disease, lumbar Cough Blurry vision Class 1 obesity with body mass index (BMI) of 30.0 to 30.9 in adult Hypertension Tortuosity of artery Transaminitis Pure hypercholesterolemia Physical exam Brain lesion Hair loss New daily persistent headache Polyarthralgia Obstructive jaundice Surgical History History of removal of calculus of renal pelvis through percutaneous nephrostomy History of endoscopy H/O hysterectomy for benign disease Family History Father CAD (coronary artery disease) Mother Stomach cancer Social History Housing: House Alcohol intake: current Alcohol intake frequency: a few times a month Alcohol type: beer, wine and hard liquor Patient Tobacco Use Status: Never used Tobacco e-Cigarette/Vaping Use: Never Used Second Hand Smoke Exposure: No service: No Current occupational status: employed 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 1. Little interest or pleasure in doing things: not at all 2. Feeling down, depressed, or hopeless: not at all 3. Trouble falling or staying asleep, or sleeping too much: not at all 4. Feeling tired or having little energy: not at all 5. Poor appetite or overeating: not at all 6. Feeling bad about yourself - or that you are a failure or have let yourself or your family down: not at all 7. Trouble concentrating on things, such as reading the newspaper or watching television: not at all 8. Moving or speaking so slowly that other people could have noticed. Or the opposite - being so fidgety or restless that you have been moving around a lot more than usual: not at all 9. Thoughts that you would be better off or of hurting yourself in some way: not at all Total score: 0 Depression Screening Interpretation: Negative Depression Screening Done: Yes 50141 - PHQ-9 Billing: Yes Source: Developed by Drs. Eran Eid, Malika Hutchinson, Juan Connell and colleagues, with an educational paula from [employer]. Thrive Questionnaire Date Thrive assessed: 12/14/24 I am a: Patient What is your living situation today?: I have a steady place to live Within the past 12 months, did the food you bought not last and you didn't have the money to get more?: Never true Within the past 12 months, did you worry whether your food would run out before you got money to buy more?: Never true Do you have trouble paying for medicines?: No Do you have trouble getting transportation to medical appointments?: No Do you have trouble paying your heating and electricity bill?: No Do you have trouble taking care of your child, family member or friend?: No Do you have trouble with day-to-day activities such as bathing, preparing meals, shopping, managing finances, etc.?: No Are you currently unemployed and looking for a job?: No Are you interested in more education?: No Please select the resources that you would like help with: None Currently or been in a relationship where the following occur: No concerns reported THRIVE Score: 0 AUDIT C Alcohol Use Questionnaire (AUDIT-C) 1. How often do you have a drink containing alcohol?: Monthly or less 2. How many drinks containing alcohol do you have on a typical day when you are drinking?: 1 or 2 Total Score: 1 MG-7 AMB Questionnaire MG-7 Date MG - 7 assessed: 12/14/24 Feeling nervous, anxious, or on edge: 0 = Not at all Not being able to stop or control worryin = Not at all Worrying too much about different things: 0 = Not at all Trouble relaxin = Not at all Being so restless that it is hard to sit still: 0 = Not at all Becoming easily annoyed or irritable: 0 = Not at all Feeling afraid as if something awful might happen: 0 = Not at all Total MG-7 score (0-4 normal; 5-9 mild; 10-14 moderate; 15-21 severe): 0 Source: Developed by Drs. Eran Eid, Malika Hutchinson, Juan Connell and colleagues, with an educational paula from [employer]. MG-7 Assessment Billing MG-7 Assessment Tool: MG-7 Assessment 26061 Review of Systems Const Denies headache(s) Eyes Denies loss of vision ENT Denies vertigo, Denies dizziness, Denies headache(s) and Denies sore throat Card Denies chest pain, Denies leg edema and Denies lightheadedness Resp Denies cough and Denies hemoptysis GI Reports abdominal pain (right flank pain), Denies melena, Denies constipation, Denies diarrhea, Denies vomiting and Reports other Denies urinary frequency, Denies dysuria and Denies urinary urgency Neuro Denies Abnormal speech present, Denies vertigo, Denies dizziness, Denies headache(s) and Denies loss of vision Physical exam (Primary Care) Vital Signs: Last Vital Signs Temp 97.5 F 12/14/24 08:27 Pulse 64 12/14/24 08:27 BP 120/76 12/14/24 08:27 Pulse Ox 97 12/14/24 08:27 Oxygen Delivery Method Room Air 12/14/24 08:27 BMI result Body Mass Index 31.7 Tobacco/Smoking Status: Tobacco use Status Tobacco use date assessed 12/14/24 12/14/24 08:32 Patient Tobacco Use Status Never used Tobacco 12/14/24 08:32 e-Cigarette/Vaping Use Never Used 12/14/24 08:32 PHQ-9: PHQ-9 Score PHQ-9: Total score 0 12/14/24 08:32 Depression Screening Interpretation: Negative Thrive Assessment: Date of Thrive Assessment Date Thrive assessed 12/14/24 12/14/24 08:32 Currently or been in a relationship where the following occur: No concerns repor timo Const General: healthy appearing, no acute distress, alert and awake Nutritional Appearance: well nourished Orientation/consciousness: oriented to person, oriented to place and oriented to time HENMT Ears: external ears normal General nose exam: Normal external nose present Eyes Conjunctivae: conjunctivae normal Sclerae: sclerae normal Pupils: Equal, round and reactive pupils present Neck Neck: Yes no lymphadenopathy and Yes no JVD Thyroid: Thyroid normal Carotids: no bruits Resp Effort & Inspection: normal respiratory effort and not tachypneic Auscultation: no crackles, no rales, no rhonchi and no wheezes Cardio Rate: regular rate Rhythm: regular rhythm Heart sounds: no murmurs and normal S1 and S2 GI Palpation (GI): Soft to palpation and nontender Percussion: Yes Other (mild right flanks pain) Auscultation: normal bowel sounds Neuro General: oriented to person, oriented to place and oriented to time Cranial nerves: Yes Equal, round and reactive pupils present Speech: No Abnormal speech present Gait exam (Neuro): Normal gait present Psych Mental Status: mental status grossly normal Speech and movement: Normal speech and movement present Affect: normal affect Attitude: cooperative Thought process: Normal thought process present Coding Level of Care Code Est Pt Level 3 (73903) Diagnoses Choledocholithiasis K80.50 Additional Codes PHQ-9 - 82273 - PHQ-9 Billing: Yes ([id number]) MG-7 Assessment Billing - MG-7 Assessment Tool: MG-7 Assessment 11651 ([id number]) Time Spent (min) 35 Assessment & Plan Assessment & Plan (1) Choledocholithiasis: Code(s): K80.50 - Calculus of bile duct without cholangitis or cholecystitis without obstruction Category: Medical Plan: I will arrange for an abdominal ultrasound to evaluate the status of the gallstone in the common bile duct. Additionally, I will arrange laboratory tests to check for any signs of continued infection or inflammation. The patient should complete these evaluations promptly. [facility] is more convenient for the patient and she would like to be referred there instead of going back to [facility]. Will put in a referral. The patient to follow-up with Dr. Santos as scheduled to review her condition and adjust treatment plans if needed based on the findings from the tests. Patient was informed and verbally consented to the use of an ambient scribe for clinic note documentation during this visit. Orders: Orders US abdomen complete Today K80.50 - Calculus of bile duct without cholangitis or cholecystitis without obstruction UA CC w/rflx Micro + Cult Today K80.50 - Calculus of bile duct without cholangitis or cholecystitis without obstruction Complete Blood Count Auto Diff Today K80.50 - Calculus of bile duct without cholangitis or cholecystitis without obstruction Comprehensive Met. Panel Today K80.50 - Calculus of bile duct without cholangitis or cholecystitis without obstruction Referrals Gastroenterology Referral K80.50 - Calculus of bile duct without cholangitis or cholecystitis without obstruction Medications: Refilled losartan 50 mg PO DAILY 90 days 90 tabs 3RF
[2024-12-14 08:27] VITALS: BP 120/76; PULSE 64; TEMP 36.4; O2SAT 97; BMI 31.7
--- OUTSIDE RECORDS SUMMARY | 2024-12-14 08:34 | XMS_ITS | Data Portability ---
Author Organization [facility], , [facility] Address [address] [place] [address] Care Team Providers Care Gallery Host Name Role Phone XANDER BENTLEY Primary Care Provider Assessment Encounter Date Assessment Date Assessment LastModified by Organization Details LastModified Time 05/27/2016 05/27/2016 After a discussion of treatment options, which included consideration of best practices and patient preferences, the following treatment plan and objectives were adopted: pkeough Not available 05/27/2016 16:47:52 05/29/2017 05/29/2017 After a discussion of treatment options, which included consideration of best practices and patient preferences, the following treatment plan and objectives were adopted: pkeough Not available 05/29/2017 10:44:10 05/31/2018 05/31/2018 After a discussion of treatment options, which included consideration of best practices and patient preferences, the following treatment plan and objectives were adopted: BP not at goal of < 140/90 very elevated readings will increase lisinopril to 20 mg labs below ekg showed q waves in III, AVF- ? old infarct will send for exercise stress test consulted with Dr. Franz pkeough Not available 05/31/2018 13:30:23 Plan of Treatment Reminders Order Date Submit Date Provider Last Modified By Organization Details Last Modified Time Details Appointments None recorded . Lab CMP, serum or plasma 2017 [facility], [address] [place] [address], [address], 8 09:44:32 C-reacti ve protein, quantita tive, serum or plasma [address] [facility], [address] [place], [address], 8 09:44:[address] [facility], [address] [place] [address], [address], 8 09:49:56 TSH, serum or plasma [address] [facility], [address] [place] [address], [address], 8 12:11:02 HbA1c (hemoglo bin A1c), blood [address] [facility], [address] [place] [address], [address], 8 11:28:38 pap, LB + reflex HR HPV if ASC-U, ASC-H, LSIL, HSIL, AZAM - Reflex HPV testing for ASCUS and LGSIL 2016 017 [facility] (Outpatient), [address] [place], [address], 7 11:59:23 HSV (1+2) DNA, qual, PCR, unspecif ied specimen 2015 016 [id number] [facility], [address] [place] [address], [address], 6 04:07:46 hepatiti s C virus Ab, serum [address] [facility], [address] [place] [address], [address], 5 18:36:26 TSH, serum or plasma [address] [facility], [address] [place] [address], [address], 5 17:06:34 [address] [facility], [address] [place] [address], [address], 5 13:01:04 CMP, serum or plasma [address] [facility], [address] [place] [address], [address], 5 14:53:58 Referral gynecolo gist referral - vaginal dryness, dyspaure cristo . prefers to see OIL EXPERT 2015 016 [id number]_ [id number] [facility], [address] [place] [address] , [place], [address], 6 04:07:24 Procedures colonosc opy procedur e (PROC) - 54 yo Angolan speaking woman with HTN. Well controll ed. Surg past- ZEENAT. Not seen by GI. Will need interpre ter. 2014 Jocelin martinez [facility], [address] [place], [address], 5 09:59:28 Surgeries None recorded . Imaging MAMMO, screenin g, tomosynt filiberto osborne l [address] (Imaging), [address], [place], [address], 9 10:43:25 exercise stress test - pt with hx of HTN- no known hx of CAD with abn ekg q wave in III, AVF.//wt 155//Spa matthew speaking //please call patient to schedule //no meds//ok to exercise 2017 018 [facility], [address], [place], [address], 9 05:00:56 electroc francis rao [address] [facility], [address] [place] [address], [address], 8 13:32:49 MAMMO, screenin g, digital, bilarnaldoa l [address] [facility] (Imaging), [address], [place], [address], 5 15:03:34 Medication Orders lisinopr il 20 mg tablet 2017 018 INTERFACE [facility], [address] [place], [address], 8 11:41:15 lisinopr il 10 mg tablet 2016 017 [facility], [address] [place], [address], 8 10:50:55 losartan 50 mg tablet 2015 016 pkeough [facility], [address] [place], [address], 7 11:07:42 Patient TargetsNo targets recorded. Patient Instructions Encounter Date Encounter Id Patient Instructions Last Modified By Organization Details Last Modified Time 03/27/2015 [id number] well visit, wome n 50 to 65: care instructions pkeough Not available 03/27/2015 12:28:03 05/27/2016 [id number] mamograf? ? ?a: beau lopez - [mammogram: about this test] Not available 05/27/2016 16:22:00 Please start trying to walk at least 20minute a day. Try to eat 10 fruits or veggies a day. Discussed the Plate method as a way to control portions. pkeough Not available 05/27/2016 16:48:01 09/16/2016 [id number] RX given for glasses No need for surgical treatment of growth on left eye Family history of glaucoma-pressure not checked without drops-optic nerves look healthy Eyes healthy to extent seen without dilation jmerlin Not available 09/16/2016 10:00:53 05/29/2017 [id number] well visit, wome n 50 to 65: care instructions Not available 05/29/2017 11:09:38 Please start trying to walk at least 20minute a day. Try to eat 10 fruits or veggies a day. pkeough Not available 05/29/2017 11:08:22 Reason for Referral Dispute Resolution Analyst Referral for At rophic vaginitis vaginal dryness, dyspaurenia . prefers to see OIL EXPERT Referring Physician: Xander Bentley, Family Medicine, Encounter Date: 05/27/2016 Results Created Date Observation Date Name Description Value Unit Range Abnormal Flag Note LastModifiedBy Organization Detail LastModifiedTime 03/27/20 15 03/27/2015 CBC WBC 8.8 K/? ? ?L 4.0-10 .0 Not Available [address], [address], 03/27/2015 13:01:04 03/27/20 15 03/27/2015 CBC RBC 4.91 M/? ? ?L 3.93-5 .22 Not Available [address], [address], 03/27/2015 13:01:04 03/27/20 15 03/27/2015 CBC HGB 15.0 g/dL 11.2-1 5.7 Not Available [address], [address], 03/27/2015 13:01:04 03/27/20 15 03/27/2015 CBC HCT 45.2 % 34.1-4 4.9 high Not Available [address], [address], 03/27/2015 13:01:04 03/27/20 15 03/27/2015 CBC MCV 92.1 ? ? ?L 79.4-9 4.8 Not Available [address], [address], 03/27/2015 13:01:04 03/27/20 15 03/27/2015 CBC MCH 30.5 pg 25.6-3 2.2 Not Available [address], [address], 03/27/2015 13:01:04 03/27/20 15 03/27/2015 CBC MCHC 33.2 g/dL 32.2-3 5.5 Not Available [address], [address], 03/27/2015 13:01:04 03/27/20 15 03/27/2015 CBC plt 258.0 K/? ? ?L 182.0- 369.0 Not Available [address], [address], 03/27/2015 13:01:04 03/27/20 15 03/27/2015 CBC MPV 10.3 9.4-12 .3 Not Available [address], [address], 03/27/2015 13:01:04 03/27/20 15 03/27/2015 CBC neut% 53.2 % 34.0-7 1.1 Not Available [address], [address], 03/27/2015 13:01:04 03/27/20 15 03/27/2015 CBC neut# 4.7 1.6-6. 1 Not Available [address], [address], 03/27/2015 13:01:04 03/27/20 15 03/27/2015 CBC lymph % 35.2 % 19.3-5 1.7 Not Available [address], [address], 03/27/2015 13:01:04 03/27/20 15 03/27/2015 CBC lymph # 3.1 K/? ? ?L 1.2-3. 7 Not Available [address], [address], 03/27/2015 13:01:04 03/27/20 15 03/27/2015 CBC mono% 9.9 % 4.7-12 .5 Not Available [address], [address], 03/27/2015 13:01:04 03/27/20 15 03/27/2015 CBC mono# 0.9 0.2-0. 4 high Not Available [address], [address], 03/27/2015 13:01:04 03/27/20 15 03/27/2015 CBC eo% 1.4 % 0.7-5. 8 Not Available [address], [address], 03/27/2015 13:01:04 03/27/20 15 03/27/2015 CBC eo# 0.1 0.0-0. 4 Not Available [address], [address], 03/27/2015 13:01:04 03/27/20 15 03/27/2015 CBC baso% 0.3 % 0.1-1. 2 Not Available [address], [address], 03/27/2015 13:01:04 03/27/20 15 03/27/2015 CBC baso# 0.0 0.0-0. 1 low Not Available [address], [address], 03/27/2015 13:01:04 03/27/20 15 03/27/2015 CBC RDW-CV 13.2 % 11.7-1 4.4 Not Available [address], [address], 03/27/2015 13:01:04 03/27/20 15 03/27/2015 TSH, serum or plasm a TSH 1.85 uIU/m L 0.50-6 .00 [facility] and [facility] can Thy[facility] id Assoc iatio n recom mend goal TSH value s betwe en 0.4-4 .0 mIU/m L. Not Available [address], [address], 03/27/2015 17:06:34 03/27/20 15 03/28/2015 hepat itis C virus Ab, serum hepatitis C antibody NON-RE ACTIVE non-re active normal Not Available [facility] [address], [address], 03/28/2015 18:36:26 03/27/20 15 03/28/2015 hepat itis C virus Ab, serum signal to cut-off 0.02 <1.00 normal Not Available [facility] [address], [address], 03/28/2015 18:36:26 03/27/20 15 03/29/2015 CMP, serum or plasm a glucose 74 mg/dL 70-100 Not Available [address], [address], 03/29/2015 14:53:58 03/27/20 15 03/29/2015 CMP, serum or plasm a BUN 19 mg/dL 7-18 high Not Available [address], [address], 03/29/2015 14:53:58 03/27/20 15 03/29/2015 CMP, serum or plasm a creatinine 0.8 mg/dL 0.8-1. 3 Not Available [address], [address], 03/29/2015 14:53:58 03/27/20 15 03/29/2015 CMP, serum or plasm a B/C 23.8 ratio Not Available [address], [address], 03/29/2015 14:53:58 03/27/20 15 03/29/2015 CMP, serum or plasm a GFR 83.1 mL/mi n Recom mahi d GFR by the Natio nal Kidne y Found ation >60 mL/mi n/1.7 3m2 - Windy l <60 mL/mi n/1.7 3m2 - Chron ic Kidne y Disea se <15 mL/mi n/1.7 3m2 - Kidne y Failu re Not Available [address], [address], 03/29/2015 14:53:58 03/27/20 15 03/29/2015 CMP, serum or plasm a GFR - if 95.6 mL/mi n For Afric an Ameri can patie nts: Resul ts Multi plied by 1.21 Not Available [address], [address], 03/29/2015 14:53:58 03/27/20 15 03/29/2015 CMP, serum or plasm a sodium 142 mmol/ L 136-14 5 Not Available [address], [address], 03/29/2015 14:53:58 03/27/20 15 03/29/2015 CMP, serum or plasm a potassium 4.4 mmol/ L 3.5-5. 1 Not Available [address], [address], 03/29/2015 14:53:58 03/27/20 15 03/29/2015 CMP, serum or plasm a chloride 102 mmol/ L 96-107 Not Available [address], [address], 03/29/2015 14:53:58 03/27/20 15 03/29/2015 CMP, serum or plasm a anion gap 9.0 5.0-15 .0 Not Available [address], [address], 03/29/2015 14:53:58 03/27/20 15 03/29/2015 CMP, serum or plasm a CO2 31 mmol/ L 21-32 Not Available [address], [address], 03/29/2015 14:53:58 03/27/20 15 03/29/2015 CMP, serum or plasm a calcium 10.2 mg/dL 8.5-10 .3 Not Available [address], [address], 03/29/2015 14:53:58 03/27/20 15 03/29/2015 CMP, serum or plasm a total protein 7.7 g/dL 6.4-8. 2 Not Available [address], [address], 03/29/2015 14:53:58 03/27/20 15 03/29/2015 CMP, serum or plasm a albumin 4.3 g/dL 3.4-5. 0 Not Available [address], [address], 03/29/2015 14:53:58 03/27/20 15 03/29/2015 CMP, serum or plasm a globulin 3.4 g/dL Not Available [address], [address], 03/29/2015 14:53:58 03/27/20 15 03/29/2015 CMP, serum or plasm a A/G 1.3 ratio 0.8-2. 0 Not Available [address], [address], 03/29/2015 14:53:58 03/27/20 15 03/29/2015 CMP, serum or plasm a total bilirubin 0.30 mg/dL 0.00-1 .00 Not Available [address], [address], 03/29/2015 14:53:58 03/27/20 15 03/29/2015 CMP, serum or plasm a AST 37 U/L 15-37 Not Available [address], [address], 03/29/2015 14:53:58 03/27/20 15 03/29/2015 CMP, serum or plasm a ALT 75 U/L 30-65 high Not Available [address], [address], 03/29/2015 14:53:58 03/27/20 15 03/29/2015 CMP, serum or plasm a alk. phos. 89 U/L 50-136 Not Available [address], [address], 03/29/2015 14:53:58 05/27/20 16 05/28/2016 BMP, serum or plasm a glucose 102 mg/dL 70-100 high Not Available [address], [address], 05/28/2016 11:54:59 05/27/20 16 05/28/2016 BMP, serum or plasm a BUN 22 mg/dL 7-18 high Not Available [address], [address], 05/28/2016 11:54:59 05/27/20 16 05/28/2016 BMP, serum or plasm a creatinine 0.8 mg/dL 0.8-1. 3 Not Available [address], [address], 05/28/2016 11:54:59 05/27/20 16 05/28/2016 BMP, serum or plasm a B/C 27.5 ratio Not Available [address], [address], 05/28/2016 11:54:59 05/27/20 16 05/28/2016 BMP, serum or plasm a GFR -non 82.8 mL/mi n Recom mahi d GFR by the Natio nal Kidne y Found ation >60 mL/mi n/1.7 3m2 - Windy l <60 mL/mi n/1.7 3m2 - Chron ic Kidne y Disea se <15 mL/mi n/1.7 3m2 - Kidne y Failu re Not Available [address], [address], 05/28/2016 11:54:59 05/27/20 16 05/28/2016 BMP, serum or plasm a GFR - if 95.2 mL/mi n For Afric an Ameri can patie nts: Resul ts Multi plied by 1.21 Not Available [address], [address], 05/28/2016 11:54:59 05/27/20 16 05/28/2016 BMP, serum or plasm a sodium 142 mmol/ L 136-14 5 Not Available [address], [address], 05/28/2016 11:54:59 05/27/20 16 05/28/2016 BMP, serum or plasm a potassium 4.9 mmol/ L 3.5-5. 1 Not Available [address], [address]96, 05/28/2016 11:54:59 05/27/20 16 05/28/2016 BMP, serum or plasm a chloride 104 mmol/ L 96-107 Not Available [address], [address], 05/28/2016 11:54:59 05/27/20 16 05/28/2016 BMP, serum or plasm a anion gap 9.1 5.0-15 .0 Not Available [address], [address], 05/28/2016 11:54:59 05/27/20 16 05/28/2016 BMP, serum or plasm a CO2 29 mmol/ L 21-32 Not Available [address], [address], 05/28/2016 11:54:59 05/27/20 16 05/28/2016 BMP, serum or plasm a calcium 9.6 mg/dL 8.5-10 .3 Not Available [address], [address], 05/28/2016 11:54:59 05/27/20 16 05/28/2016 LDL, direc t, serum direct LDL 129 mg/dL RISK CATEG ORY LDL GOAL _ CHD or CHD Risk Equiv alent s <100 mg/dl (10-y ear risk >20%) 2+ Risk Facto rs <130 mg/dl (10-y ear risk <= 20%) 0-1 Risk Facto r? <160 mg/dl ? Almos t all peopl e with 0-1 risk facto r have a 10 year risk <10%, thus 10 year risk asses ment in peopl e with 0-1 risk facto r is not rick campos. Not Available [address], [address], 05/28/2016 11:55:01 05/27/20 16 05/28/2016 lipid panel , serum cholesterol 207 mg/dL <200 mg/dl Domenico able 200-2 39 mg/dl Borde rline High >240 mg/dl High Not Available [address], [address], 05/28/2016 12:40:24 05/27/20 16 05/28/2016 lipid panel , serum triglyceride s 140 mg/dL <150 mg/dL Windy l 150-1 99 mg/dL Borde rline High 200-4 99 mg/dL High >500 mg/dL Very High Not Available [address], [address], 05/28/2016 12:40:24 05/27/20 16 05/28/2016 lipid panel , serum direct HDL 41 mg/dL Not Available [address], [address], 05/28/2016 12:40:24 05/27/20 16 05/29/2016 HSV (1+2) DNA, qual, PCR, unspe cifie d speci men source SEE NOTE LEFT HIP Not Available [facility] [address] [place] [address], [address], 05/29/2016 15:27:20 05/27/20 16 05/29/2016 HSV (1+2) DNA, qual, PCR, unspe cifie d speci men hsv 1 DNA NOT DETECT ED not detect ed Not Available [facility] [address], [place], [address], 05/29/2016 15:27:20 05/27/20 16 05/29/2016 HSV (1+2) DNA, qual, PCR, unspe cifie d speci men hsv 2 DNA DETECT ED not detect ed abnormal Pleas e note: The minim um volum e of speci men requi red for this test, inclu ding CSF, is 200 uL (0.2 mL). The sensi tivit y of this test is based on using this volum e of sampl e. Use of lower amoun ts may lead to false negat geena resul ts. There fore, pleas e be aware that submi ssion of sampl es with less than 200 uL (0.2 mL) will be rejec timo for testi ng. This test was devel oped and its nikolay tical perfo rmanc e palma cteri stics have been deter mined by [facility] gary olivarez [facility]ush, [place], [place]. It has not been clear ed or appro guicho by the FDA. This assay has been valid ated pursu ant to the CLIA regul ation s and is used for clini bashir purpo ses. Not Available [facility] [address], [place], [address], 05/29/2016 15:27:20 05/22/20 17 05/25/2017 BMP, serum or plasm a glucose 107 mg/dL 70-100 high LIPS= Speci men Sligh tly Lipem ic. Chem Resul ts may be effec timo. Not Available [address], [address], 05/25/2017 09:53:42 05/22/20 17 05/25/2017 BMP, serum or plasm a BUN 24 mg/dL 7-18 high Not Available [address], [address], 05/25/2017 09:53:42 05/22/20 17 05/25/2017 BMP, serum or plasm a creatinine 0.7 mg/dL 0.8-1. 3 low Not Available [address], [address], 05/25/2017 09:53:42 05/22/20 17 05/25/2017 BMP, serum or plasm a B/C 34.3 ratio Not Available [address], [address], 05/25/2017 09:53:42 05/22/20 17 05/25/2017 BMP, serum or plasm a GFR -non 96.3 mL/mi n Recom mahi d GFR by the Natio nal Kidne y Found ation >60 mL/mi n/1.7 3m2 - Windy l <60 mL/mi n/1.7 3m2 - Chron ic Kidne y Disea se <15 mL/mi n/1.7 3m2 - Kidne y Failu re Not Available [address], [address], 05/25/2017 09:53:42 05/22/20 17 05/25/2017 BMP, serum or plasm a GFR - if 110.7 mL/mi n For Afric an Ameri can patie nts: Resul ts Multi plied by 1.21 Not Available [address], [address], 05/25/2017 09:53:42 05/22/20 17 05/25/2017 BMP, serum or plasm a sodium 144 mmol/ L 136-14 5 Not Available [address], [address], 05/25/2017 09:53:42 05/22/20 17 05/25/2017 BMP, serum or plasm a potassium 4.1 mmol/ L 3.5-5. 1 Not Available [address], [address], 05/25/2017 09:53:42 05/22/20 17 05/25/2017 BMP, serum or plasm a chloride 105 mmol/ L 96-107 Not Available [address], [address], 05/25/2017 09:53:42 05/22/20 17 05/25/2017 BMP, serum or plasm a anion gap 8.4 5.0-15 .0 Not Available [address], [address], 05/25/2017 09:53:42 05/22/20 17 05/25/2017 BMP, serum or plasm a CO2 31 mmol/ L 21-32 Not Available [address], [address], 05/25/2017 09:53:42 05/22/20 17 05/25/2017 BMP, serum or plasm a calcium 9.6 mg/dL 8.5-10 .3 Not Available [address], [address]15, 05/25/2017 09:53:42 05/31/20 18 06/01/2018 CMP, serum or plasm a glucose 111 mg/dL 70-100 high Not Available [address], [address], 06/01/2018 09:44:32 05/31/20 18 06/01/2018 CMP, serum or plasm a BUN 17 mg/dL 7-18 Not Available [address], 8[address], 06/01/2018 09:44:32 05/31/20 18 06/01/2018 CMP, serum or plasm a creatinine 0.7 mg/dL 0.8-1. 3 low Not Available [address], [address], 06/01/2018 09:44:32 05/31/20 18 06/01/2018 CMP, serum or plasm a B/C 24.3 ratio Not Available [address], [address], 06/01/2018 09:44:32 05/31/20 18 06/01/2018 CMP, serum or plasm a GFR -non 95.9 mL/mi n Recom mahi d GFR by the Natio nal Kidne y Found ation >60 mL/mi n/1.7 3m2 - Windy l <60 mL/mi n/1.7 3m2 - Chron ic Kidne y Disea se <15 mL/mi n/1.7 3m2 - Kidne y Failu re Not Available [address], [address], 06/01/2018 09:44:32 05/31/20 18 06/01/2018 CMP, serum or plasm a GFR - if 110.3 mL/mi n For Afric an Ameri can patie nts: Resul ts Multi plied by 1.21 Not Available [address], [address], 06/01/2018 09:44:32 05/31/20 18 06/01/2018 CMP, serum or plasm a sodium 141 mmol/ L 136-14 5 Not Available [address], [address]67[address], 06/01/2018 09:44:32 05/31/20 18 06/01/2018 CMP, serum or plasm a potassium 4.7 mmol/ L 3.5-5. 1 Not Available [address], [address], 06/01/2018 09:44:32 05/31/20 18 06/01/2018 CMP, serum or plasm a chloride 103 mmol/ L 96-107 Not Available [address], [address], 06/01/2018 09:44:32 05/31/20 18 06/01/2018 CMP, serum or plasm a anion gap 7.7 5.0-15 .0 Not Available [address], [address]60, 06/01/2018 09:44:32 05/31/20 18 06/01/2018 CMP, serum or plasm a CO2 30 mmol/ L 21-32 Not Available [address], 15984, 06/01/2018 09:44:32 05/31/20 18 06/01/2018 CMP, serum or plasm a calcium 9.5 mg/dL 8.5-10 .3 Not Available [address], 71694, 06/01/2018 09:44:32 05/31/20 18 06/01/2018 CMP, serum or plasm a total protein 7.6 g/dL 6.4-8. 2 Not Available [address], [address], 06/01/2018 09:44:32 05/31/2006/01/2018 CMP, serum or plasm a albumin 3.4 g/dL 3.4-5. 0 Not Available [address], 89629, 06/01/2018 09:44:32 05/31/2006/01/2018 CMP, serum or plasm a globulin 4.2 g/dL Not Available [address], [address]84[address], 06/01/2018 09:44:32 05/31/2006/01/2018 CMP, serum or plasm a A/G 0.8 ratio 0.8-2. 0 Not Available [address], 01545, 06/01/2018 09:44:32 05/31/2006/01/2018 CMP, serum or plasm a total bilirubin 0.80 mg/dL 0.00-1 .00 Not Available [address], 05496, 06/01/2018 09:44:32 05/31/2006/01/2018 CMP, serum or plasm a AST 91 U/L 15-37 high Not Available [address], [address]82, 06/01/2018 09:44:32 05/31/20 18 06/01/2018 CMP, serum or plasm a ALT 188 U/L 30-65 high Not Available [address], [address], 06/01/2018 09:44:32 05/31/20 18 06/01/2018 CMP, serum or plasm a alk. phos. 405 U/L 50-136 high Not Available [address], [address], 06/01/2018 09:44:32 05/31/20 18 06/01/2018 lipid panel , serum cholesterol 252 mg/dL <200 mg/dl Domenico able 200-2 39 mg/dl Borde rline High >240 mg/dl High Not Available [address], [address]66, 06/01/2018 09:44:33 05/31/20 18 06/01/2018 lipid panel , serum triglyceride s 98 mg/dL <150 mg/dL Windy l 150-1 99 mg/dL Borde rline High 200-4 99 mg/dL High >500 mg/dL Very High Not Available [address], [address]41, 06/01/2018 09:44:33 05/31/20 18 06/01/2018 lipid panel , serum direct HDL 61 mg/dL <40 mg/dl - Major Risk for CHD >60 mg/dl - Negat geena Risk for CHD Not Available [address], [address]62, 06/01/2018 09:44:33 05/31/20 18 06/01/2018 C-matt ctive prote in, quant itati ve, serum or plasm a C-reactive protein -quant 16.7 mg/L 0.0-9. 0 high Not Available [address], 13284, 06/01/2018 09:44:35 05/31/20 18 06/01/2018 LDL, calcu lated , serum (OBS) LDL - calculated 171.4 RISK CATEG ORY LDL GOAL _ CHD or CHD Risk Equiv alent s <100 mg/dl (10-y ear risk >20%) 2+ Risk Facto rs <130 mg/dl (10-y ear risk <= 20%) 0-1 Risk Facto r? <160 mg/dl ? Almos t all peopl e with 0-1 risk facto r have a 10 year risk <10%, thus 10 year risk asses ment in peopl e with 0-1 risk facto r is not rick campos. Not Available [address], [address], 06/01/2018 09:44:36 05/31/20 18 06/01/2018 CBC WBC 8.6 K/? ? ?L 4.0-10 .0 Not Available [address], [address]62, 06/01/2018 09:49:55 05/31/20 18 06/01/2018 CBC RBC 4.78 M/? ? ?L 3.93-5 .22 Not Available [address], 89404, 06/01/2018 09:49:55 05/31/20 18 06/01/2018 CBC HGB 15.1 g/dL 11.2-1 5.7 Not Available [address], [address]18, 06/01/2018 09:49:55 05/31/20 18 06/01/2018 CBC HCT 47.4 % 34.1-4 4.9 high Not Available [address], [address]60, 06/01/2018 09:49:55 05/31/20 18 06/01/2018 CBC MCV 99.2 ? ? ?L 79.4-9 4.8 high Not Available [address], [address]79, 06/01/2018 09:49:55 05/31/20 18 06/01/2018 CBC MCH 31.6 pg 25.6-3 2.2 Not Available [address], 36693, 06/01/2018 09:49:55 05/31/20 18 06/01/2018 CBC MCHC 31.9 g/dL 32.2-3 5.5 low Not Available [address], [address]63, 06/01/2018 09:49:55 05/31/20 18 06/01/2018 CBC plt 227.0 K/? ? ?L 182.0- 369.0 Not Available [address], [address]78, 06/01/2018 09:49:55 05/31/20 18 06/01/2018 CBC MPV 11.5 9.4-12 .3 Not Available [address], 79645, 06/01/2018 09:49:55 05/31/20 18 06/01/2018 CBC neut% 68.5 % 34.0-7 1.1 Not Available [address], [address]89, 06/01/2018 09:49:55 05/31/20 18 06/01/2018 CBC neut# 5.9 1.6-6. 1 Not Available [address], [address]99, 06/01/2018 09:49:55 05/31/20 18 06/01/2018 CBC lymph % 22.7 % 19.3-5 1.7 Not Available [address], 89018, 06/01/2018 09:49:55 05/31/20 18 06/01/2018 CBC lymph # 2.0 K/? ? ?L 1.2-3. 7 Not Available [address], [address], 06/01/2018 09:49:55 05/31/20 18 06/01/2018 CBC mono% 7.2 % 4.7-12 .5 Not Available [address], [address], 06/01/2018 09:49:55 05/31/20 18 06/01/2018 CBC mono# 0.6 0.2-0. 6 high Not Available [address], [address], 06/01/2018 09:49:55 05/31/20 18 06/01/2018 CBC eo% 1.4 % 0.7-5. 8 Not Available [address], [address], 06/01/2018 09:49:55 05/31/20 18 06/01/2018 CBC eo# 0.1 0.0-0. 4 Not Available [address], [address], 06/01/2018 09:49:55 05/31/20 18 06/01/2018 CBC baso% 0.2 % 0.1-1. 2 Not Available [address], [address], 06/01/2018 09:49:55 05/31/20 18 06/01/2018 CBC baso# 0.0 0.0-0. 1 Not Available [address], [address], 06/01/2018 09:49:55 05/31/20 18 06/01/2018 CBC RDW-CV 14.5 % 11.7-1 4.4 high Not Available [address], [address], 06/01/2018 09:49:55 05/31/20 18 06/01/2018 HbA1c (hemo globi n A1c), blood hemoglobin A1C 5.8 % 4.8-6. 0 Goal: <7% in Patie nts with Diabe ines Not Available [address], [address], 06/01/2018 11:28:38 05/31/20 18 06/01/2018 HbA1c (hemo globi n A1c), blood estimated average glucose 119.8 mg/dL Not Available [address], [address], 06/01/2018 11:28:38 05/31/20 18 06/01/2018 TSH, serum or plasm a TSH 1.49 uIU/m L 0.50-6 .00 The [employer] Endoc rinol ogy and Ameri can Thyro id Assoc iatio n recom mend goal TSH value s betwe en 0.4-4 .0 mIU/m L. Not Available [address], [address], 06/01/2018 12:11:02 05/31/20 18 05/31/2018 kennedi patel am Result NSR, q wave in III, AVF Not Available [address], [address], 05/31/2018 11:08:11 06/03/20 18 06/04/2018 hepat ic funct ion panel , serum total protein 7.5 g/dL 6.4-8. 2 Not Available [address], [address], 06/04/2018 10:17:48 06/03/20 18 06/04/2018 hepat ic funct ion panel , serum albumin 3.4 g/dL 3.4-5. 0 Not Available [address], [address], 06/04/2018 10:17:48 06/03/20 18 06/04/2018 hepat ic funct ion panel , serum globulin 4.1 g/dL Not Available [address], [address], 06/04/2018 10:17:48 06/03/20 18 06/04/2018 hepat ic funct ion panel , serum A/G 0.8 ratio 0.8-2. 0 Not Available [address], [address], 06/04/2018 10:17:48 06/03/20 18 06/04/2018 hepat ic funct ion panel , serum total bilirubin 0.70 mg/dL 0.00-1 .00 Not Available [address], [address], 06/04/2018 10:17:48 06/03/20 18 06/04/2018 hepat ic funct ion panel , serum direct bilirubin 0.40 mg/dL 0.00-0 .30 high Not Available [address], [address], 06/04/2018 10:17:48 06/03/20 18 06/04/2018 hepat ic funct ion panel , serum AST 78 U/L 15-37 high Not Available [address], [address], 06/04/2018 10:17:48 06/03/20 18 06/04/2018 hepat ic funct ion panel , serum ALT 146 U/L 30-65 high Not Available [address], [address], 06/04/2018 10:17:48 06/03/20 18 06/04/2018 hepat ic funct ion panel , serum alk. phos. 379 U/L 50-136 high Not Available [address], [address], 06/04/2018 10:17:48 06/03/20 18 06/08/2018 hepat itis panel (A+B+ C), acute , serum hepatitis A IgM NON-RE ACTIVE non-re active normal Not Available [facility] [address] [place] [address] Jonah B, [place], [address], 06/08/2018 06:02:46 06/03/20 18 06/08/2018 hepat itis panel (A+B+ C), acute , serum hepatitis B surface antigen NON-RE ACTIVE non-re active normal Not Available [facility] [place] [facility] [address] [place], [address], 06/08/2018 06:02:46 06/03/2006/08/2018 hepat itis panel (A+B+ C), acute , serum hepatitis B core antibody (IgM) NON-RE ACTIVE non-re active normal Not Available [facility] [place] [facility] [address] [place], [place], [address], 06/08/2018 06:02:46 06/03/20 18 06/08/2018 hepat itis panel (A+B+ C), acute , serum hepatitis C antibody NON-RE ACTIVE non-re active normal Not Available [facility] [address] [place], [place], [address], 06/08/2018 06:02:46 06/03/20 18 06/08/2018 hepat itis panel (A+B+ C), acute , serum signal to cut-off 0.02 <1.00 normal Not Available [facility] [address] [place], [place], [address], 06/08/2018 06:02:46 06/03/2006/08/2018 alkal ine phosp hatas e isoen zymes , serum or plasm a alkaline phosphatase 336 U/L 33-130 high Not Available [facility] [place] [facility] [address] [place], [place], [address], 06/08/2018 06:02:46 06/03/20 18 06/08/2018 alkal ine phosp hatas e isoen zymes , serum or plasm a intestinal isoenzymes 3 % 1-24 Not Available [facility] [address] [place], [place], [address], 06/08/2018 06:02:46 06/03/20 18 06/08/2018 alkal ine phosp hatas e isoen zymes , serum or plasm a bone isoenzymes 23 % 28-66 low Not Available [facility] [place] [facility] [address], [address], 06/08/2018 06:02:46 06/03/20 18 06/08/2018 alkal ine phosp hatas e isoen zymes , serum or plasm a liver isoenzymes 75 % 25-69 high Not Available [facility] [place] [facility] [address], [address], 06/08/2018 06:02:46 06/03/20 18 06/08/2018 alkal ine phosp hatas e isoen zymes , serum or plasm a placental isoenzymes 0 % <=0 Not Available [facility] [place] [facility] [address], [address], 06/08/2018 06:02:46 06/03/20 18 06/08/2018 alkal ine phosp hatas e isoen zymes , serum or plasm a macrohepatic isoenzymes 0 % <=0 Not Available [facility] [place] [facility] [address], [address], 06/08/2018 06:02:46 05/09/20 19 05/09/2019 CBC w/ auto diff WBC 12.28 K/uL 3.40-1 1.20 high Not Available [facility] [address] [place], [address], 05/09/2019 16:17:31 05/09/20 19 05/09/2019 CBC w/ auto diff RBC 4.56 M/uL 3.80-4 .80 Not Available [facility] [address] [place], [address], 05/09/2019 16:17:31 05/09/20 19 05/09/2019 CBC w/ auto diff HGB 14.3 g/dL 12.0-1 5.0 Not Available [facility] [address] [place], [address], 05/09/2019 16:17:31 05/09/20 19 05/09/2019 CBC w/ auto diff HCT 42.2 % 36.0-4 6.0 Not Available [facility] ([facility] [address] [place], [address], 05/09/2019 16:17:31 05/09/20 19 05/09/2019 CBC w/ auto diff plt 210 K/uL 130-40 0 Not Available [facility] [address] [place], [address], 05/09/2019 16:17:31 05/09/20 19 05/09/2019 CBC w/ auto diff MCV 92.5 fL 79.0-9 8.0 Not Available [facility] [address] [place], [address], 05/09/2019 16:17:31 05/09/20 19 05/09/2019 CBC w/ auto diff MCH 31.4 pg 27.0-3 4.8 Not Available [facility] ([facility] [address] [place], [address], 05/09/2019 16:17:31 05/09/20 19 05/09/2019 CBC w/ auto diff MCHC 33.9 g/dL 31.5-3 6.0 Not Available [facility] ([facility] [address] [place], [address], 05/09/2019 16:17:31 05/09/20 19 05/09/2019 CBC w/ auto diff RDW 13.3 % 10.8-1 4.6 Not Available [facility] ([facility] [address] [place], [address], 05/09/2019 16:17:31 05/09/20 19 05/09/2019 CBC w/ auto diff MPV 10.5 fL 9.4-12 .4 Not Available [facility] [address] [place], [address], 05/09/2019 16:17:31 05/09/20 19 05/09/2019 CBC w/ auto diff NRBC 0.00 /100_ WBCs 0.00 Not Available [facility] [address] [place], [address], 05/09/2019 16:17:31 05/09/20 19 05/09/2019 CBC w/ auto diff absolute NRBC 0.00 K/uL 0.00 Not Available [facility] [address] [place], [address], 05/09/2019 16:17:31 05/09/20 19 05/09/2019 CBC w/ auto diff diff method Auto Not Available [facility] [address] [place], [address], 05/09/2019 16:17:31 05/09/20 19 05/09/2019 CBC w/ auto diff neuts 80.9 % 45.30- 77.70 high Not Available [facility] [address] [place], [address], 05/09/2019 16:17:31 05/09/20 19 05/09/2019 CBC w/ auto diff lymphs 13.3 % 12.30- 39.70 Not Available [facility] [address] [place], [address], 05/09/2019 16:17:31 05/09/20 19 05/09/2019 CBC w/ auto diff monos 4.4 % 4.10-1 2.80 Not Available [facility] ([facility] [address] [place], [address], 05/09/2019 16:17:31 05/09/20 19 05/09/2019 CBC w/ auto diff eos 0.7 % 0-7.2 Not Available [facility] [address] [place], [address], 05/09/2019 16:17:31 05/09/20 19 05/09/2019 CBC w/ auto diff basos 0.3 % 0-2.80 Not Available [facility] [address] [place], [address], 05/09/2019 16:17:31 05/09/20 19 05/09/2019 CBC w/ auto diff granulocytes , immature (%) 0.4 % 0.0-0. 9 Not Available [facility] [address] [place], [address], 05/09/2019 16:17:31 05/09/20 19 05/09/2019 CBC w/ auto diff absolute neuts 9.94 K/uL 1.40-7 .70 high Not Available [facility] [address] [place], [address], 05/09/2019 16:17:31 05/09/20 19 05/09/2019 CBC w/ auto diff absolute lymphs 1.63 K/uL 0.60-3 .20 Not Available [facility] [address] [place], [address], 05/09/2019 16:17:31 05/09/20 19 05/09/2019 CBC w/ auto diff absolute monos 0.54 K/uL 0.11-0 .59 Not Available [facility] ([facility] [address] [place], [address], 05/09/2019 16:17:31 05/09/20 19 05/09/2019 CBC w/ auto diff absolute eos 0.08 K/uL 0.01-0 .50 Not Available [facility] [address] [place], [address], 05/09/2019 16:17:31 05/09/20 19 05/09/2019 CBC w/ auto diff absolute basos 0.04 K/uL 0.00-0 .08 Not Available [facility] ([facility] [address] [place], [address], 05/09/2019 16:17:31 05/09/20 19 05/09/2019 CBC w/ auto diff granulocytes , immature 0.05 K/uL 0.00-0 .05 Not Available [facility] [address] [place], [address], 05/09/2019 16:17:31 05/09/20 19 05/09/2019 BMP, blood sodium 138 mmol/ L 133-14 6 Not Available [facility] [address] [place], [address], 05/09/2019 16:36:49 05/09/20 19 05/09/2019 BMP, blood chloride 103 mmol/ L 96-108 Not Available [facility] [address] [place], [address], 05/09/2019 16:36:49 05/09/20 19 05/09/2019 BMP, blood potassium 4.3 mmol/ L 3.3-5. 1 Not Available [facility] [address] [place], [address], 05/09/2019 16:36:49 05/09/20 19 05/09/2019 BMP, blood CO2 25 mmol/ L 21-35 Not Available [facility] [address] [place], [address], 05/09/2019 16:36:49 05/09/20 19 05/09/2019 BMP, blood BUN 20 mg/dL 6-19 high Not Available [facility] [address] [place], [address], 05/09/2019 16:36:49 05/09/20 19 05/09/2019 BMP, blood creatinine 0.90 mg/dL 0.5-1. 5 Not Available [facility] [address] [place], [address], 05/09/2019 16:36:49 05/09/20 19 05/09/2019 BMP, blood glucose 99 mg/dL 70-99 Not Available [facility] [address] [place], [address], 05/09/2019 16:36:49 05/09/20 19 05/09/2019 BMP, blood calcium 9.2 mg/dL 8.4-10 .3 Not Available [facility] ([facility] [address] [place], [address], 05/09/2019 16:36:49 05/09/20 19 05/09/2019 BMP, blood eGFR 69 mL/mi n/1.7 3m2 >59 If patie nt is black , multi ply resul t by 1.159 . Estim ated glome rular filtr ation rate calcu lated using the CKD-E PI equat ion. Not Available [facility] [address] [place], [address], 05/09/2019 16:36:49 05/09/20 19 05/09/2019 BMP, blood anion gap 14 mmol/ L 10-20 Not Available [facility] [address] [place], [address], 05/09/2019 16:36:49 05/09/20 19 05/09/2019 lfts (hepa tic panel ) alkaline phosphatase 435 U/L 39-117 high Not Available [facility] [address] [place], [address], 05/09/2019 16:36:51 05/09/20 19 05/09/2019 lfts (hepa tic panel ) total bilirubin 1.1 mg/dL 0.0-1. 2 Not Available [facility] ([facility] [address] [place], [address], 05/09/2019 16:36:51 05/09/20 19 05/09/2019 lfts (hepa tic panel ) direct bilirubin 0.5 mg/dL 0-0.3 high Not Available [facility] ([facility] [address] [place], [address], 05/09/2019 16:36:51 05/09/20 19 05/09/2019 lfts (hepa tic panel ) bilirubin (indirect) 0.6 mg/dL 0-1.5 Not Available [facility] (Out[facility]) [address] [place], [address], 05/09/2019 16:36:51 05/09/20 19 05/09/2019 lfts (hepa tic panel ) AST 89 U/L 0-37 high Not Available [facility] ([facility]) [address] [place], [address], 05/09/2019 16:36:51 05/09/20 19 05/09/2019 lfts (hepa tic panel ) ALT 103 U/L 0-40 high Not Available [facility] ([facility]) [address] [place], [address], 05/09/2019 16:36:51 05/09/20 19 05/09/2019 lfts (hepa tic panel ) total protein 7.5 g/dL 6.5-8. 0 Not Available [facility] ([facility]) [address] [place], [address], 05/09/2019 16:36:51 05/09/20 19 05/09/2019 lfts (hepa tic panel ) albumin 3.3 g/dL 3.9-4. 8 low Not Available [facility] ([facility]) [address] [place], [address], 05/09/2019 16:36:51 05/09/20 19 05/09/2019 lfts (hepa tic panel ) globulin 4.2 g/dL 1-4.8 Not Available [facility] ([facility]) [address] [place], [address], 05/09/2019 16:36:51 05/09/20 19 05/09/2019 lfts (hepa tic panel ) A/G ratio 0.79 ratio 1.00-4 .80 low Not Available [facility] ([facility]) [address] [place], [address], 05/09/2019 16:36:51 05/09/20 19 05/09/2019 tropo rachel T, serum troponin-T, high sensitivity (gen 5) <6 NG/L 0-9 Not Available [facility] ([facility] [address] [place], [address], 05/09/2019 16:36:59 05/09/20 19 05/09/2019 tropo rachel T, serum troponin-T, high sensitivity (gen 5) <6 NG/L 0-9 Not Available [facility] ([facility]) [address] [place], [address], 05/09/2019 18:02:06 05/09/20 19 05/09/2019 urine sedim ent WBC 0-4 /hpf none seen abnormal Not Available [facility] ([facility]) [address] [place], [address], 05/09/2019 19:40:35 05/09/2005/09/2019 urine sedim ent RBC 3-5 /hpf none seen abnormal Not Available [facility] ([facility]) [address] [place], [address], 05/09/2019 19:40:35 05/09/20 19 05/09/2019 urine sedim ent urine epithelial 0-4 none seen abnormal Not Available [facility] ([facility]) [address] [place], [address], 05/09/2019 19:40:35 05/09/20 19 05/09/2019 urine sedim ent mucus 2+ /hpf none seen abnormal Not Available [facility] ([facility] [address] [place], [address], 05/09/2019 19:40:35 05/09/20 19 05/09/2019 urine sedim ent bacteria 1+ none seen abnormal Not Available [facility] ([facility]) [address] [place], [address], 05/09/2019 19:40:35 05/09/20 19 05/09/2019 urine sedim ent crystals 1+ AMORP HOUS Not Available [facility] ([facility] [address] [place], [address], 05/09/2019 19:40:35 05/09/20 19 05/10/2019 urina lysis , refle x cultu re color Yellow yellow Not Available [facility] [address] [place], [address], 05/10/2019 08:27:19 05/09/2005/10/2019 urina lysis , refle x cultu re clarity Clear Not Available [facility] ([facility] [address] [place], [address], 05/10/2019 08:27:19 05/09/2005/10/2019 urina lysis , refle x cultu re glucose Negati ve negati ve Not Available [facility] ([facility] [address] [place], [address], 05/10/2019 08:27:19 05/09/2005/10/2019 urina lysis , refle x cultu re bili 1+ negati ve abnormal Not Available [facility] ([facility] [address] [place], [address], 05/10/2019 08:27:19 05/09/2005/10/2019 urina lysis , refle x cultu re ketones Trace negati ve abnormal Not Available [facility] ([facility]) [address] [place], [address], 05/10/2019 08:27:19 05/09/2005/10/2019 urina lysis , refle x cultu re specific gravity >1.030 1.005- 1.030 Not Available [facility] ([facility]) [address] [place], [address], 05/10/2019 08:27:19 05/09/2005/10/2019 urina lysis , refle x cultu re blood Negati ve negati ve Not Available [facility] ([facility]) [address] [place], [address], 05/10/2019 08:27:19 05/09/2005/10/2019 urina lysis , refle x cultu re pH 5.5 5.0-8. 0 Not Available [facility] (Out[facility]) [address] [place], [address], 05/10/2019 08:27:19 05/09/2005/10/2019 urina lysis , refle x cultu re protein 1+ negati ve abnormal Not Available [facility] (Out[facility]) [address] [place], [address], 05/10/2019 08:27:19 05/09/2005/10/2019 urina lysis , refle x cultu re nitrite Negati ve negati ve Not Available [facility] (Outpatient) [address] [place], [address], 05/10/2019 08:27:19 05/09/2005/10/2019 urina lysis , refle x cultu re leukocyte esterase, ur Negati ve negati ve Not Available [facility] (Outpatient) [address] [place], [address], 05/10/2019 08:27:19 05/09/20 19 05/09/2019 cultu re, urine special requests None Not Available [facility] ([facility] [address] [place], [address], 05/11/2019 09:00:23 05/09/20 19 05/10/2019 cultu re, urine gram stain Rare GRAM POSITI VE RODS Not Available [facility] (Outpatient) [address] [place], [address], 05/11/2019 09:00:23 05/09/2005/11/2019 cultu re, urine urine culture abnormal >100, 000 colon y formi ng units per mL MIXED ELDER (3 OR MORE COLON Y TYPES ) Cultu re indic ates conta minat ion. Pleas e resub lexi if neces andres. Not Available [facility] (Outpatient) [address] [place], [address], 05/11/2019 09:00:23 04/03/20 15 04/03/2015 scree ana- bilat eral mammo graph y OBSERV ATION: Bilate ral Digita l Screen ing Mammog bertin 54-yea r-old female with no curren t breast sympto ms. No prior mammog argenis for compar dwayne limiti ng interp retati on. Interp retati on made in conjun ction with comput er-aid ed detect ion. There are scatte red areas of fibrog landul ar densit y. There are scatte red benign bilate ral calcif icatio ns. There is a nodula r asymme try in the superi or right breast on the MLO view only. There are no suspic ious masses , areas of valentina ectura l distor tion, or suspic ious cluste rs of microc alcifi cation s. IMPRES NICOLE: Limite d withou t prior mammog argenis for compar dwayne. Recomm end recall ing the patien t for a right breast nodula r asymme try which may repres ent superi mposed fibrog landul ar tissue . Radiol ogy depart ment will attemp t to recall the patien t. Patien t notifi ed by letter . BI-RAD S CATEGO RY 0 - INCOMP LETE NEED ADDITI ONAL IMAGIN G Recall views: Spot compre ssion right MLO view. Densit y - 2 Code: G0202, [address]3908 POS - VMG Electr onical ly signed Readin g Physic kerry: Jerardo brush MD [facility] ([facility]) [address], [place], [address], 05/27/2016 15:36:45 04/20/20 15 04/20/2015 MAMMO , diagn ostic , digit al, unila teral OBSERV ATION: Diagno stic Mammog bertin Unilat eral right Histor y: Asymme try seen on baseli ne mammog bertin Compar dwayne: Prior dating back to 03 April 2015. Findin gs: 3 additi onal views are obtain ed. There is no eviden ce of mass, valentina ectura l distor tion, or calcif icatio ns IMPRES NICOLE: Normal negati ve The patien t was inform ed of the findin gs Patien t notifi ed by letter . BI-RAD S CATEGO RY 1 - NEGATI VE Routin e screen ing recomm ended in one year: POS: VMG Code: G0206, 53744 Electr onical ly signed Readin g Physic kerry: Joey Golden [facility]) [address], [place], [address], 05/27/2016 15:36:45 05/28/20 16 05/27/2016 MAMMO , scree ana, digit al, bilat eral OBSERV ATION: Screen ing Mammog bertin, Bilate ral with utiliz ation of comput er aided detect ion. Histor y: Routin e Compar dwayne: dating back to 2014. Findin gs: No suspic ious masses or suspic ious cluste red microc alcifi cation s are presen t. No valentina ectura l distor tion or signif icant asymme try is presen t. IMPRES NICOLE: Normal negati ve. Annual screen ing is recomm ended. Patien t notifi ed by letter . BI-RAD S CATEGO RY 1 - NEGATI VE Densit y: 2: SCATTE RED FIBROG LANDUL AR TISSUE POS: VMG Electr onical ly signed Margarita connn: Joey Golden [facility] ([facility]) [address], [place], [address], 05/29/2017 10:42:14 05/31/20 18 elect rocar diogr am No observ ation record ed. [email or web address] Not Available 2017 13:32:54 06/25/20 18 06/22/2018 cardi ac stres s test No observ ation record ed. [address] Cardiovascula r [facility] [address], [place], [address], 07/20/2018 07:58:55 06/30/20 18 06/22/2018 exerc ise stres s test No observ ation record ed. [address] Cardiovascula r [facility] [address], [place], [address], 07/28/2018 08:38:12 05/09/20 19 05/09/2019 CT, head, w/o contr ast COMPAR DWAYNE: None. TECHNI QUE: Nonenh anced head CT from skull base to vertex with multi- planar reform ats. Manual dose reduct ion techni que tailor ed for patien t and site of imagin g. CT HEAD FINDIN GS: Brain: There is no acute intrac ranial hemorr faye, infarc t, or intrac ranial mass. No mass effect , midlin e shift or extra- axial fluid collec tions. Negrete-w jose matter differ entiat ion is preser guicho. Basal cister ns are patent . Pituit lalo gland is not enlarg ed. Ventri cles: No hydroc ephalu s. Vascul ature: Mild bilate ral cavern ous caroti d artery calcif ied plaque . Orbits : Normal . Mastoi ds/Mid dle Ear/Ex t Canals /Paran paul Sinuse s: Normal . Scalp/ Soft Tissue s: No acute soft tissue findin gs. There is asymme tric soft tissue fullne ss in the utilization coordinator ior left nasoph arynge al pharyn x. Bones: No acute bony abnorm ality. IMPRES NICOLE: 1. No acute intrac ranial findin gs. 2. Asymme tric left utilization coordinator ior nasoph arynge al soft tissue fullne ss which may be due to a true lesion or volume averag ing. Direct visual izatio n is recomm ended to evalua te for an inflam matory or neopla stic lesion . TOTAL CTDIvo l: 58.4 mGy POS - CDHRAD BOARDW S10 Electr onical ly Signed by: JERARDO BRUSH MD on 05/09/20 7:55 PM Interp reted by: Jerardo brush MD Signed by: Jerardo brush MD 05/09/19 CC Recipi ents: Ama L Furcol o, DO - Fax Final result AMA L FURCOL O [facility] [address] [place] [address], [address], 05/10/2019 08:38:02 05/09/2005/09/2019 CT, head, w/o contr ast No observ ation record ed. [address], [address], 05/10/2019 08:38:02 Result Notes None recorded. Problems Name Problem SNOMED Code Status Onset Date Resolution Date Notes Provider Name and Address Organization Details Recorded Time Benign essential hypertension [id number] Active Kylah hinds, [facility] 6 13:22:17 Problem Notes None recorded. Procedures Surgical History Date Name Laterality Status Provider Name and Address Organization Details Recorded Time Total Hysterectomy completed Xander Bentley NP [address] [place], [id number], [facility] 06/28/2014 15:32:49 Imaging Results Imaging Date Name Status LastModified by Organization Details LastModified Time 04/03/2015 screening-bilateral mammography completed [facility] [address], [place], [address], 05/27/2016 15:36:45 04/20/2015 MAMMO, diagnostic, digital, unilateral completed [facility] [address], [place], [address], 05/27/2016 15:36:45 05/27/2016 MAMMO, screening, digital, bilateral completed [facility] [address], [place], [address], 05/29/2017 10:42:14 05/31/2018 electrocardiogram completed [facility] Informa tion not available 05/31/2018 13:32:54 06/22/2018 cardiac stress test completed [facility] [address], [place], [address], 07/20/2018 07:58:55 06/22/2018 exercise stress test completed [facility] [address], [place], [address], 07/28/2018 08:38:12 05/09/2019 CT, head, w/o contrast completed [facility] [address] [place] [address], [address], 05/10/2019 08:38:02 05/09/2019 CT, head, w/o contrast completed [address], [address], 05/10/2019 08:38:02 Procedure Notes None recorded. Medical Equipment None Reported. Allergies No known drug allergies Medications Name Sig Start Date Stop Date Status Note LastModified by Organization Details LastModified Time losartan potassium 50 mg tabs 05/27 completed Not Available Not Available Not Available losartan 50 mg tablet TAKE ONE TABLET BY MOUTH ONCE DAILY DIRECTED 05/29 completed pt felt was making her ill- stopped Not Available Not Available Not Available lisinopri l 20 mg tablet Take 1 tablet every day by oral route as directed . 2017 active Not Available Not Available Not Avai lable lisinopri l 10 mg tablet Take 1 tablet every day by oral route as directed . active 05/31/18 states not taking it-doesn 't like it SR/LS Not Available Not Available Not Available Valtrex 500 mg tablet Take 1 tablet twice a day by oral route as directed for 3 days. 05/29 completed Not Available Not Available Not Available losartan active she doesn't remember strength Not Available Not Available Not Available Aleve 220 mg capsule Take by oral route. active Not Available Not Available No t Available Vitals Date Recorded Body height Body mass index (BMI) Body weight Heart rate Systolic blood pressure Diastolic blood pressure Provider Name and Address Organization Details Last Updated DateTime 7 174.63 cm 26 kg/m2 68582.6 6 g 56 /min 142 mm[Hg] 94 mm[Hg] Oneida Jones MA [facility] 7 10:37:28 Date Recorded Body weight Provider Name an d Address Organization Details Last Updated DateTime 05/31/2018 [address] [facility] 05/31/2018 10:35:24 Date Recorded Body mass index (BMI) Body height Heart rate Heart rate Heart rate Systolic blood pressure Diastolic blood pressure Systolic blood pressure Diastolic blood pressure Systolic blood pressure Diastolic blood pressure Provider Name and Address Organization Details Last Updated DateTime 8 23.1 kg/m2 174.63 cm 63 /min 63 /min 70 /min 144 mm[Hg] 108 mm[Hg] 146 mm[Hg] 110 mm[Hg] 142 mm[Hg] 110 mm[Hg] Oneida Jones MA [facility] 8 10:50:12 Date Recorded Body height Body mass index (BMI) Body weight Heart rate Systolic blood pressure Diastolic blood pressure Provider Name and Address Organization Details Last Updated DateTime 5 149.225 cm 35.9 kg/m2 88432.6 00612 g 84 /min 108 mm[Hg] 62 mm[Hg] Oneida Jones MA [facility] 5 10:52:55 Date Recorded Body height Body weight Body mass index (BMI) Heart rate Systolic blood pressure Diastolic blood pressure Provider Name and Address Organization Details Last Updated DateTime 6 149.23 cm 22908.8 4 g 37.4 kg/m2 72 /min 152 mm[Hg] 92 mm[Hg] [facility] 15:32:45 Social History Question Answer Notes LastModified by Organizat ion Details LastModified Time Tobacco Smoking Status Never Smoker Oneida Hutchinson LPN [facility], [facility] 06/28/2014 15:19:18 What Is Your Level Of Alcohol Consumption? Occasional Information not available 03/27/2015 How Much Tobacco Do You Chew? None Information not available 03/27/2015 What Type Of Diet Are You Following? REGULAR [email or web address] Information not available 06/28/2014 Education 4 Year College [email or web address] Informat ion not available 06/28/2014 What Is Your Occupation? [employer] [email or web address] Information not available 06/28/2014 How Many Days In The Past Year Have You Had A Heavy Drinking Consumption (4+ Female, 5+ Male)? 0 Information not available 03/27/2015 Live Alone Or With Others? With Others With Son Information not available 06/28/2014 Patient Has Health Care Proxy Signed And In Chart No 05/29/17 [email or web address] Information not available 06/28/2014 Marital Status Moved From [facility] To 2008 Information not available 06/28/2014 Mosquito Repellent Used Routinely Yes Information not available 05/29/2017 What Was The Date Of Your Most Recent Tobacco Screening? 05/31/2018 Information not available 03/23/2019 How Many Children Do You Have? 2 [email or web address] Information not available 06/28/2014 Seat Belts Used Routinely Yes Information not available 03/27/2015 Smoke Alarm In Home Yes Information not available 03/27/2015 General Stress Level Medium Information not available 05/29/2017 Do You Use Sunscreen Routinely? Yes Information not available 05/29/2017 Sex: Unknown Functional Status None recorded. Mental Status None recorded. Family History Relationship Description Onset Age of this Age Resolved Age Notes LastModified by Organization Details LastModified Time Father Myocardial infarction 61 [email or web address] Not available 06/28 15:32:49 Notes:No DM in family Medical History Condition Response Hypertension Y Gynecological History Statement/Question Response Hysterectomy Y History of Abnormal Pap Obstetrics History GPAL:G 0 P 0 0 0 0 Past Encounters Encounter ID Performer Location Encounter Start Date Encounter Closed Date Diagnosis/Indication Diagnosis SNOMED-CT Code Diagnosis ICD10 Code Diagnosis Note [id number] [facility], OFFICE [address] [place] [address] 06/28/2014 15:01:22 06/29/2014 12:06:47 Benign essential hypertension 1966509 Blood pressure NOT at goal. been off meds 1 month unsure of dose but will restart at 50 mg Will get labs RTO 1 month Biceps tendinitis 191328564 R bicep tendonitis given handout with exercises to start advised ice after activity, work RTO 1 month [id number] Sue Austingo [facility], OFFICE [address] [place] [address] 08/09/2014 08:22:01 08/09/2014 08:54:30 Screening for malignant neoplasm of colon 866536912 Referral for a DIRECT booked colonoscop y. This patient is a healthy ASA Class 1 or 2 patient (only mild systemic disease), or a STABLE, well controlled insulin dependent diabetic. They do not have serious cardiac disease ie HI/angiopl asty within 1 year, symptomati c CHF; renal failure with CKD 4 or 5; take Coumadin, Plavix, Aggrenox, etc; nor take chronic narcotics. 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 This patient is a healthy ASA Class 1 or 2 patient (only mild systemic disease), or a STABLE, well controlled insulin dependent diabetic. They do not have serious cardiac disease ie HI/angiopl asty within 1 year, symptomati c CHF; renal failure with CKD 4 or 5; take Coumadin, Plavix, Aggrenox, etc; nor take chronic narcotics. [Patients who take chronic narcotics should be referred to [facility] for a propofol procedure due to possible inability to sedate adequately with conscious sedation.] Lifestyle 354543499 Adult [facility] th examination [id number] see Risk Assessment and Lifestyle Change Counseling section above HM: Due for mammo, colonoscop y, labs no pap- d/t ZEENAT Counseling 512212090 Benign ess ential hypertension 9883797 At goal LDL at goal HDL a bit low- encouraged more regular exercise C/W losartan Sweating 368108990 likel y hormonal will check labs below [id number] Xander Bentley NP , [facility] [place] [address] [place] [address] 05/27/2016 15:26:39 05/28/2016 09:03:40 Adult health examination 716295183 Z00.00 see Risk Assessment and Lifestyle Change Counseling section above HM: mammo - will get todaycolon oscopy 05/16/15 with 10 yr repeatdue labs- will get today no pap- d/t ZEENAT Benign ess ential hypertension 6150796 I10 BP elevated-w as running late for apptwill check outside of officeGOal < 140/90get labs today Screening mammography 24 441838 Z12.31 today Atrophic vaginitis 33138 000 N95.2 Obesity 065804099 E66.9 BMI 37 Discussed weight loss with exercise and diet will refer for MNT Skin lesion 56071079 L98 .9 L hip? herpescx submitted Mastitis 97845275 N61 tender L breast, firm aeorlalast mammo 05/15will get today [id number] Didier Meeks, [facility], [facility] [address] [place] [address] 09/16/2016 09:03:35 09/16/2016 10:06:27 Presbyopia 38865343 H52.4 Regular astigmatism 6890 5002 H52.223 Pterygium 77468681 H11.0 02 Nasally-no t visually significan t [id number] EUGENIA Fong, [facility] [place] [address] [place] [address] 05/29/2017 10:25:31 05/29/2017 11:07:36 Benign essential hypertension 5400925 I10 BP not at goal of < 140/90had stopped losartanwi ll c/w dc and start lisinopril 10 mgrto 4 weeks Adult heal th examination 164861241 Z00.00 see Risk Assessment and Lifestyle Change Counseling section aboveHM: Pap todayBMP utd, Lipid dueColon 05/16/ w/10 yr repeatMamm o 05/2016 Counseling 630325980 Z71 .9 Screening for malignant neoplasm of cervix 206599338 Z12.4 Impaired f asting glycemia 294393513 R73.01 FBS 107- down from 114 discussed reducing breads, pasta, rice and jello and juice [id number] Xander Bentley NP , [facility] [place] [address] [place] [address] 05/31/2018 10:30:54 05/31/2018 11:19:32 Screening mammography 59552973 Z12.31 Palpitations 82370161 R0 0.2 Benign ess ential hypertension 2091583 I10 Unintentio nal weight loss 554280219 R63.4 EKG: Q wave abnormal 164 796581 R94.31 Health Concerns Section Related Observation LastModified by Organization Detai ls LastModified Time None Recorded Concern Status LastModified by Organization Details LastModified Time None Recorded Advance Directives Directive None Recorded Payers Encounter Date Sequence Insurance Name Policy Number Policy Allen Covered Member ID Allen Member ID Guarantor Name 03/27/2015 1 [facility] (MEDICAID O) [id number] Aarti Boone [id number] Aarti Boone 05/27/2016 1 [place] Aarti Boone [id number] Aarti Boone 09/16/2016 1 [place] Aarti Boone [id number] Aarti Boone 05/29/2017 1 [place] [facility] Aarti Boone [id number] Aarti Boone 05/31/2018 1 [facility] [id number] Aarti Rm Paolo [id number] Aarti Rm Paolo Notes Date Note Type Note Provider Name and Address Organization Details Recorded Time 6 text/html Physical Exam/FemaleReported bypatient.PHAPatient is here for a Personal Health Appraisal. She describes her health status as good. Patient's health is last year.Risk Assessment and Lifestyle Change Counseling 50-64Reported bypatient.Coronary Artery Disease Risk Assessment:Family History of Coronary Artery Disease; No personal history of diabetes; No history of peripheral vascular disease, AAA, or carotid disease; No personal history of coronary artery disease Breast Cancer Risk Assessment:No family history of breast cancer Colon Cancer Risk Assessment:No family history of colon polyps or cancer Diet:Counseled about eating a diet low in trans and saturated fats and high in fiber, fruits and vegetables; Discussed the value of a Mediterranean diet , and eating more fruits and vegetables Exercise counseling:Discussed the importance of daily physical activity; Discussed the importance of weight bearing exercise Safety:Counseled about protecting skin from the sun and lowering the risk of skin cancer Xander Bentley NP [address] [place] [address], [phone], [facility] 05/27/2016 16:48:20 7 text/html Comprehensive Eye ExamReported bypatient.Quality:2 year exam; no blurred vision Location:bilateral Context:currently wears glasses Modifying factors:wears glasses for readers only Associated Symptoms:no redness; no itching; no floaters; no dryness Didier Meeks OD [address] [place] [address], [phone], [facility] 09/16/2016 10:00:58 7 text/html Physical Exam/FemaleReported bypatient.PHAPatient is here for a Wellness Visit. She describes her health status as good. Patient's health is last year.Risk Assessment and Lifestyle Change Counseling 50-64Reported bypatient.Coronary Artery Disease Risk Assessment:Family History of Coronary Artery Disease; No personal history of diabetes; No history of peripheral vascular disease, AAA, or carotid disease; No personal history of coronary artery disease Breast Cancer Risk Assessment:No family history of breast cancer Colon Cancer Risk Assessment:No family history of colon polyps or cancer Diet:Counseled about eating a diet low in trans and saturated fats and high in fiber, fruits and vegetables; Discussed the value of a Mediterranean diet , and eating more fruits and vegetables Exercise counseling:Discussed the importance of daily physical activity; Discussed the importance of weight bearing exercise Safety:Counseled about protecting skin from the sun and lowering the risk of skin cancerVMG HypertensionReported bypatient.Control:Patient understands medications are to lower blood pressure Compliance:Noncompliant with medications; stopped losartan 5 days ago- bc was not feeling well with med after she started new bottole . sweating at night. feels a bit better since stopping. Self Care:not doing home bp monitoring Context:No ischemic heart disease; No kidney disease; No history of CVA; No congestive heart failure; No history of transient ischemic attacks; No peripheral vascular disease; No history of diabetes; impaired fasting glucose Ability to Manage Self CarePatient feels confident in ability to self manage condition Xander Bentley NP [address] [place], [phone], [facility] 05/29/2017 11:08:58 8 text/html Aarti is not feeling well x 2 weeksat night- palpitations, headache, very tired.once had abdominal pain with no bowel issue or NVlost 20 lbs in past 3 months- not trying to lose weight.eats and immediately gets full.vision changes- needs eye exam.not sleeping well.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
== END 2024-12-14 09:35 | disposition home or self-care (01) ==
LOC: HO.HMCH 08:23
PROVIDERS: PCP Internal Medicine
DX: K80.50 Calculus of bile duct without cholangitis or cholecystitis without obstruction (principal)

== ENCOUNTER 2024-12-26 10:34 | Outpatient (REF) | payer MEDICARE, SELFPAY ==
--- NOTE | ~2024-12-26 | US_ITS ---
EXAMINATION: US ABDOMEN LIMITED CLINICAL INFORMATION: Choledocholithiasis. COMPARISON: 10/31/2021. TECHNIQUE: Real-time imaging of the right upper quadrant abdominal viscera. FINDINGS: PANCREAS: Visualized portions are unremarkable. LIVER: The liver is normal in size. Right hepatic lobe measures 14.3 cm. The liver contour is somewhat nodular. There is increased and heterogeneous parenchymal echogenicity present. No focal hepatic lesion. There is no intrahepatic biliary duct dilatation seen. GALLBLADDER: Gallbladder is surgically absent. COMMON BILE DUCT: Normal in caliber measuring 0.5 cm in diameter. RIGHT KIDNEY: No hydronephrosis. No renal calculi or focal parenchymal lesions. The kidney measures 9.1 cm in maximum dimension. FREE FLUID: None. US/US abdomen limited IMPRESSION: 1. Liver with cirrhotic morphology and increased/coarsened echogenicity. No suspicious focal lesions seen. 2. Cholecystectomy. 3. No biliary duct dilatation. The common bile duct measures 0.5 cm in diameter. Electronically signed by: Jose Menezes MD 12/26/2024 11:59 AM EDT
--- OUTSIDE RECORDS SUMMARY | 2024-12-26 12:28 | XMS_ITS | Data Portability ---
Author Organization [facility], , [facility] Address [address] [place] [address] Care Team Providers Care Production Sampler Name Role Phone XANDER BENTLEY Primary Care [...] . Lab CMP, serum or plasma 2017 [facility], [address] [place] [address], [address], 8 09:44:32 C-reacti ve protein, quantita tive, serum or plasma 2017 018 [facility], [address] [place], [address], 8 09:44:35 CBC 2017 018 [facility], [address] [place] [address], [address], 8 09:49:56 TSH, serum or plasma 2017 018 [facility], [address] [place] [address], [address], 8 12:11:02 HbA1c (hemoglo bin A1c), blood 2017 018 [facility], [address] [place] [address], [address], 8 11:28:38 pap, LB + reflex HR HPV if ASC-U, ASC-H, LSIL, HSIL, AZAM - Reflex HPV testing for ASCUS and LGSIL 2016 017 [facility] (Outpatient), [address] [place], [address], 7 11:59:23 HSV (1+2) DNA, qual, PCR, unspecif ied specimen 2015 016 [id number] [facility], [address] [place] [address], [address], 6 04:07:46 hepatiti s C virus Ab, serum 2014 015 [facility], [address] [place] [address], [address], 5 18:36:26 TSH, serum or plasma 2014 015 [facility], [address] [place] [address], [address], 5 17:06:34 CBC 2014 015 [facility], [address] [place] [address], [address], 5 13:01:04 CMP, serum or plasma 2014 015 [facility], [address] [place] [address], 265[address], 5 14:53:58 Referral gynecolo gist referral - vaginal dryness, dyspaure cristo . prefers to see HSE SPECIALIST 2015 016 [id number] [facility], [address] [place] [address] , [place], [address], 6 04:07:24 Procedures colonosc opy procedur e (PROC) - 54 yo Zimbabwean speaking woman with HTN. Well controll ed. Surg past- ZEENAT. Not seen by GI. Will need interpre ter. 2014 Jocelin martinez [facility], [address] [place], [address], 5 09:59:28 Surgeries None recorded . Imaging MAMMO, screenin g, tomosynt filiberto osborne l [address] (Imaging), [address], [place], [address], 9 10:43:25 exercise stress test - pt with hx of HTN- no known hx of CAD with abn ekg q wave in III, AVF.//wt 155//Spa matthew speaking //please call patient to schedule //no meds//ok to exercise 2017 018 [facility], operated by [facility], [address], [place], [address], 9 05:00:56 electroc francsi rao 2017 018 [facility], [address] [place] [address], [address], 8 13:32:49 MAMMO, screenin g, digital, bilarnaldoa l 2014 015 [facility] (Imaging), [address], [place], [address], 5 15:03:34 Medication Orders lisinopr il 20 mg tablet 2017 018 INTERFACE [facility], [address] [place], [address], 8 11:41:15 lisinopr il 10 mg tablet 2016 017 [facility], [address] [place], [address], 8 10:50:55 losartan 50 mg tablet 2015 016 pkeough [facility], [address] [place], [address], 7 11:07:42 Patient TargetsNo targets recorded. Patient Instructions Encounter Date Encounter Id Patient Instructions Last Modified By Organization Details Last Modified Time 03/27/2015 [id number] well visit, wome n 50 to 65: care instructions pkeough Not available 03/27/2015 12:28:03 05/27/2016 [id number] mamograf? ? ?a: beau lopez - [mammogram: about this test] Not available 05/27/2016 16:22:00 Please start trying to walk at least 20minute a day. Try to eat 10 fruits or veggies a day. Discussed the Plate method as a way to control portions. pkeough Not available 05/27/2016 16:48:01 09/16/2016 [id number] RX given for glasses No need for surgical treatment of growth on left eye Family history of glaucoma-pressure not checked without drops-optic nerves look healthy Eyes healthy to extent seen without dilation jmerlin Not available 09/16/2016 10:00:53 05/29/2017 [id number] well visit, wome n 50 to 65: care instructions Not available 05/29/2017 11:09:38 Please start trying to walk at least 20minute a day. Try to eat 10 fruits or veggies a day. pkeough Not available 05/29/2017 11:08:22 Reason for Referral [employer] Referral for At rophic vaginitis vaginal dryness, dyspaurenia . prefers to see HSE SPECIALIST Referring Physician: Xander Bentley, Family Medicine, Encounter Date: 05/27/2016 Results Created Date Observation Date Name Description Value Unit Range Abnormal Flag Note LastModifiedBy Organization Detail LastModifiedTime 03/27/20 15 03/27/2015 CBC WBC 8.8 K/? ? ?L 4.0-10 .0 Not Available [address], [address], 03/27/2015 13:01:04 03/27/20 15 03/27/2015 CBC RBC 4.91 M/? ? ?L 3.93-5 .22 Not Available [address], [address], 03/27/2015 13:01:04 03/27/20 15 03/27/2015 CBC HGB 15.0 g/dL 11.2-1 5.7 Not Available [address], [address], 03/27/2015 13:01:04 03/27/20 15 03/27/2015 CBC HCT 45.2 % 34.1-4 4.9 high Not Available [address], [address], 03/27/2015 13:01:04 03/27/20 15 03/27/2015 CBC MCV 92.1 ? ? ?L 79.4-9 4.8 Not Available [address], [address], 03/27/2015 13:01:04 03/27/20 15 03/27/2015 CBC MCH 30.5 pg 25.6-3 2.2 Not Available [address], [address], 03/27/2015 13:01:04 03/27/20 15 03/27/2015 CBC MCHC 33.2 g/dL 32.2-3 5.5 Not Available [address], [address], 03/27/2015 13:01:04 03/27/20 15 03/27/2015 CBC plt 258.0 K/? ? ?L 182.0- 369.0 Not Available [address], [address], 03/27/2015 13:01:04 03/27/20 15 03/27/2015 CBC MPV 10.3 9.4-12 .3 Not Available [address], [address], 03/27/2015 13:01:04 03/27/20 15 03/27/2015 CBC neut% 53.2 % 34.0-7 1.1 Not Available [address], [address], 03/27/2015 13:01:04 03/27/20 15 03/27/2015 CBC neut# 4.7 1.6-6. 1 Not Available [address], 73147, 03/27/2015 13:01:04 03/27/20 15 03/27/2015 CBC lymph % 35.2 % 19.3-5 1.7 Not Available [address], [address], 03/27/2015 13:01:04 03/27/20 15 03/27/2015 CBC lymph # 3.1 K/? ? ?L 1.2-3. 7 Not Available [address], [address], 03/27/2015 13:01:04 03/27/20 15 03/27/2015 CBC mono% 9.9 % 4.7-12 .5 Not Available [address], [address], 03/27/2015 13:01:04 03/27/20 15 03/27/2015 CBC mono# 0.9 0.2-0. 4 high Not Available [address], [address], 03/27/2015 13:01:04 03/27/20 15 03/27/2015 CBC eo% 1.4 % 0.7-5. 8 Not Available [address], [address], 03/27/2015 13:01:04 03/27/20 15 03/27/2015 CBC eo# 0.1 0.0-0. 4 Not Available [address], [address], 03/27/2015 13:01:04 03/27/20 15 03/27/2015 CBC baso% 0.3 % 0.1-1. 2 Not Available [address], 08166, 03/27/2015 13:01:04 03/27/20 15 03/27/2015 CBC baso# 0.0 0.0-0. 1 low Not Available [address], [address], 03/27/2015 13:01:04 03/27/20 15 03/27/2015 CBC RDW-CV 13.2 % 11.7-1 4.4 Not Available [address], [address], 03/27/2015 13:01:04 03/27/20 15 03/27/2015 TSH, serum or plasm a TSH 1.85 uIU/m L 0.50-6 .00 The [facility] ge of Endoc rinol ogy and [facility]ondra can Thyro id Assoc iatio n recom mend goal TSH value s betwe en 0.4-4 .0 mIU/m L. Not Available [address], [address], 03/27/2015 17:06:34 03/27/20 15 03/28/2015 hepat itis C virus Ab, serum hepatitis C antibody NON-RE ACTIVE non-re active normal Not Available [facility] [place] [facility] [address], [address], 03/28/2015 18:36:26 03/27/20 15 03/28/2015 hepat itis C virus Ab, serum signal to cut-off 0.02 <1.00 normal Not Available [facility] [address], [address], 03/28/2015 18:36:26 03/27/20 15 03/29/2015 CMP, serum or plasm a glucose 74 mg/dL 70-100 Not Available [address], [address], 03/29/2015 14:53:58 03/27/20 15 03/29/2015 CMP, serum or plasm a BUN 19 mg/dL 7-18 high Not Available [address], [address], 03/29/2015 14:53:58 03/27/20 15 03/29/2015 CMP, serum or plasm a creatinine 0.8 mg/dL 0.8-1. 3 Not Available [address], [address], 03/29/2015 14:53:58 03/27/20 15 03/29/2015 CMP, serum or plasm a B/C 23.8 ratio Not Available [address], [address], 03/29/2015 14:53:58 03/27/20 15 03/29/2015 CMP, serum or plasm a GFR 83.1 mL/mi n Recom mahi d GFR by the Natio nal Kidne y Found ation >60 mL/mi n/1.7 3m2 - Windy l <60 mL/mi n/1.7 3m2 - Chron ic Kidne y Disea se <15 mL/mi n/1.7 3m2 - Kidne y Failu re Not Available [address], [address], 03/29/2015 14:53:58 03/27/20 15 03/29/2015 CMP, serum or plasm a GFR - if 95.6 mL/mi n For Afric an Ameri can patie nts: Resul ts Multi plied by 1.21 Not Available [address], [address], 03/29/2015 14:53:58 03/27/20 15 03/29/2015 CMP, serum or plasm a sodium 142 mmol/ L 136-14 5 Not Available [address], [address], 03/29/2015 14:53:58 03/27/20 15 03/29/2015 CMP, serum or plasm a potassium 4.4 mmol/ L 3.5-5. 1 Not Available [address], 8[address]67, 03/29/2015 14:53:58 03/27/20 15 03/29/2015 CMP, serum or plasm a chloride 102 mmol/ L 96-107 Not Available [address], [address]28, 03/29/2015 14:53:58 03/27/20 15 03/29/2015 CMP, serum or plasm a anion gap 9.0 5.0-15 .0 Not Available [address], [address], 03/29/2015 14:53:58 03/27/20 15 03/29/2015 CMP, serum or plasm a CO2 31 mmol/ L 21-32 Not Available [address], [address], 03/29/2015 14:53:58 03/27/20 15 03/29/2015 CMP, serum or plasm a calcium 10.2 mg/dL 8.5-10 .3 Not Available [address], [address], 03/29/2015 14:53:58 03/27/20 15 03/29/2015 CMP, serum or plasm a total protein 7.7 g/dL 6.4-8. 2 Not Available [address], [address], 03/29/2015 14:53:58 03/27/20 15 03/29/2015 CMP, serum or plasm a albumin 4.3 g/dL 3.4-5. 0 Not Available [address], [address], 03/29/2015 14:53:58 03/27/20 15 03/29/2015 CMP, serum or plasm a globulin 3.4 g/dL Not Available [address], [address], 03/29/2015 14:53:58 03/27/20 15 03/29/2015 CMP, serum or plasm a A/G 1.3 ratio 0.8-2. 0 Not Available [address], [address], 03/29/2015 14:53:58 03/27/20 15 03/29/2015 CMP, serum or plasm a total bilirubin 0.30 mg/dL 0.00-1 .00 Not Available [address], [address], 03/29/2015 14:53:58 03/27/20 15 03/29/2015 CMP, serum or plasm a AST 37 U/L 15-37 Not Available [address], [address], 03/29/2015 14:53:58 03/27/20 15 03/29/2015 CMP, serum or plasm a ALT 75 U/L 30-65 high Not Available [address], [address]60, 03/29/2015 14:53:58 03/27/20 15 03/29/2015 CMP, serum or plasm a alk. phos. 89 U/L 50-136 Not Available [address], [address], 03/29/2015 14:53:58 05/27/20 16 05/28/2016 BMP, serum or plasm a glucose 102 mg/dL 70-100 high Not Available [address], [address], 05/28/2016 11:54:59 05/27/20 16 05/28/2016 BMP, serum or plasm a BUN 22 mg/dL 7-18 high Not Available [address], 3[address], 05/28/2016 11:54:59 05/27/20 16 05/28/2016 BMP, serum or plasm a creatinine 0.8 mg/dL 0.8-1. 3 Not Available [address], [address], 05/28/2016 11:54:59 05/27/20 16 05/28/2016 BMP, serum or plasm a B/C 27.5 ratio Not Available [address], [address]26, 05/28/2016 11:54:59 05/27/20 16 05/28/2016 BMP, serum or plasm a GFR -non 82.8 mL/mi n Recom mahi d GFR by the Natio nal Kidne y Found ation >60 mL/mi n/1.7 3m2 - Windy l <60 mL/mi n/1.7 3m2 - Chron ic Kidne y Disea se <15 mL/mi n/1.7 3m2 - Kidne y Failu re Not Available [address], [address], 05/28/2016 11:54:59 05/27/20 16 05/28/2016 BMP, serum or plasm a GFR - if 95.2 mL/mi n For Afric an Ameri can patie nts: Resul ts Multi plied by 1.21 Not Available [address], [address], 05/28/2016 11:54:59 05/27/20 16 05/28/2016 BMP, serum or plasm a sodium 142 mmol/ L 136-14 5 Not Available [address], 86783, 05/28/2016 11:54:59 05/27/20 16 05/28/2016 BMP, serum or plasm a potassium 4.9 mmol/ L 3.5-5. 1 Not Available [address], [address]63, 05/28/2016 11:54:59 05/27/20 16 05/28/2016 BMP, serum or plasm a chloride 104 mmol/ L 96-107 Not Available [address], 8[address], 05/28/2016 11:54:59 05/27/20 16 05/28/2016 BMP, serum or plasm a anion gap 9.1 5.0-15 .0 Not Available [address], 7[address], 05/28/2016 11:54:59 05/27/20 16 05/28/2016 BMP, serum or plasm a CO2 29 mmol/ L 21-32 Not Available [address], [address], 05/28/2016 11:54:59 05/27/20 16 05/28/2016 BMP, serum or plasm a calcium 9.6 mg/dL 8.5-10 .3 Not Available [address], [address], 05/28/2016 11:54:59 05/27/20 16 05/28/2016 LDL, direc [...] r is not rick campos. Not Available [address], [address], 05/28/2016 11:55:01 05/27/20 16 05/28/2016 lipid panel , serum cholesterol 207 mg/dL <200 mg/dl Domenico able 200-2 39 mg/dl Borde rline High >240 mg/dl High Not Available [address], [address], 05/28/2016 12:40:24 05/27/20 16 05/28/2016 lipid panel , serum triglyceride s 140 mg/dL <150 mg/dL Windy l 150-1 99 mg/dL Borde rline High 200-4 99 mg/dL High >500 mg/dL Very High Not Available [address], [address], 05/28/2016 12:40:24 05/27/20 16 05/28/2016 lipid panel , serum direct HDL 41 mg/dL Not Available [address], [address], 05/28/2016 12:40:24 05/27/20 16 05/29/2016 HSV (1+2) DNA, qual, PCR, unspe cifie d speci men source SEE NOTE LEFT HIP Not Available [facility] [address] [place] [address], [address], 05/29/2016 15:27:20 05/27/20 16 05/29/2016 HSV (1+2) DNA, qual, PCR, unspe cifie d speci men hsv 1 DNA NOT DETECT ED not detect ed Not Available [facility] [address], [place], [address], 05/29/2016 15:27:20 05/27/20 16 05/29/2016 HSV (1+2) [...] deter mined by [facility] gary olivarez [facility], [place], [place]. It has not been clear ed or appro guicho by the FDA. This assay has been valid ated pursu ant to the CLIA regul ation s and is used for clini bashir purpo ses. Not Available [facility] [place] [facility] [address], [place], [address], 05/29/2016 15:27:20 05/22/20 17 05/25/2017 BMP, serum or plasm a glucose 107 mg/dL 70-100 high LIPS= Speci men Sligh tly Lipem ic. Chem Resul ts may be effec timo. Not Available [address], [address], 05/25/2017 09:53:42 05/22/20 17 05/25/2017 BMP, serum or plasm a BUN 24 mg/dL 7-18 high Not Available [address], [address], 05/25/2017 09:53:42 05/22/20 17 05/25/2017 BMP, serum or plasm a creatinine 0.7 mg/dL 0.8-1. 3 low Not Available [address], [address]45, 05/25/2017 09:53:42 05/22/20 17 05/25/2017 BMP, serum or plasm a B/C 34.3 ratio Not Available [address], [address], 05/25/2017 09:53:42 05/22/20 17 05/25/2017 BMP, serum or plasm a GFR -non 96.3 mL/mi n Recom mahi d GFR by the Natio nal Kidne y Found ation >60 mL/mi n/1.7 3m2 - Windy l <60 mL/mi n/1.7 3m2 - Chron ic Kidne y Disea se <15 mL/mi n/1.7 3m2 - Kidne y Failu re Not Available [address], [address], 05/25/2017 09:53:42 05/22/20 17 05/25/2017 BMP, serum or plasm a GFR - if 110.7 mL/mi n For Afric an Ameri can patie nts: Resul ts Multi plied by 1.21 Not Available [address], [address], 05/25/2017 09:53:42 05/22/20 17 05/25/2017 BMP, serum or plasm a sodium 144 mmol/ L 136-14 5 Not Available [address], 12[address], 05/25/2017 09:53:42 05/22/20 17 05/25/2017 BMP, serum or plasm a potassium 4.1 mmol/ L 3.5-5. 1 Not Available [address], [address], 05/25/2017 09:53:42 05/22/20 17 05/25/2017 BMP, serum or plasm a chloride 105 mmol/ L 96-107 Not Available [address], [address], 05/25/2017 09:53:42 05/22/20 17 05/25/2017 BMP, serum or plasm a anion gap 8.4 5.0-15 .0 Not Available [address], 23[address], 05/25/2017 09:53:42 05/22/20 17 05/25/2017 BMP, serum or plasm a CO2 31 mmol/ L 21-32 Not Available [address], [address], 05/25/2017 09:53:42 05/22/20 17 05/25/2017 BMP, serum or plasm a calcium 9.6 mg/dL 8.5-10 .3 Not Available [address], [address], 05/25/2017 09:53:42 05/31/20 18 06/01/2018 CMP, serum or plasm a glucose 111 mg/dL 70-100 high Not Available [address], [address], 06/01/2018 09:44:32 05/31/20 18 06/01/2018 CMP, serum or plasm a BUN 17 mg/dL 7-18 Not Available [address], [address], 06/01/2018 09:44:32 05/31/20 18 06/01/2018 CMP, serum or plasm a creatinine 0.7 mg/dL 0.8-1. 3 low Not Available [address], 6[address], 06/01/2018 09:44:32 05/31/20 18 06/01/2018 CMP, serum or plasm a B/C 24.3 ratio Not Available [address], 17965, 06/01/2018 09:44:32 05/31/20 18 06/01/2018 CMP, serum or plasm a GFR -non 95.9 mL/mi n Recom mahi d GFR by the Natio nal Kidne y Found ation >60 mL/mi n/1.7 3m2 - Windy l <60 mL/mi n/1.7 3m2 - Chron ic Kidne y Disea se <15 mL/mi n/1.7 3m2 - Kidne y Failu re Not Available [address], [address]47[address], 06/01/2018 09:44:32 05/31/20 18 06/01/2018 CMP, serum or plasm a GFR - if 110.3 mL/mi n For Afric an Ameri can patie nts: Resul ts Multi plied by 1.21 Not Available [address], [address], 06/01/2018 09:44:32 05/31/20 18 06/01/2018 CMP, serum or plasm a sodium 141 mmol/ L 136-14 5 Not Available [address], 25186, 06/01/2018 09:44:32 05/31/20 18 06/01/2018 CMP, serum or plasm a potassium 4.7 mmol/ L 3.5-5. 1 Not Available [address], 835[address], 06/01/2018 09:44:32 05/31/20 18 06/01/2018 CMP, serum or plasm a chloride 103 mmol/ L 96-107 Not Available [address], 07[address], 06/01/2018 09:44:32 05/31/20 18 06/01/2018 CMP, serum or plasm a anion gap 7.7 5.0-15 .0 Not Available [address], 67[address], 06/01/2018 09:44:32 05/31/20 18 06/01/2018 CMP, serum or plasm a CO2 30 mmol/ L 21-32 Not Available [address], 80637, 06/01/2018 09:44:32 05/31/20 18 06/01/2018 CMP, serum or plasm a calcium 9.5 mg/dL 8.5-10 .3 Not Available [address], 00382, 06/01/2018 09:44:32 05/31/20 18 06/01/2018 CMP, serum or plasm a total protein 7.6 g/dL 6.4-8. 2 Not Available [address], [address], 06/01/2018 09:44:32 05/31/2006/01/2018 CMP, serum or plasm a albumin 3.4 g/dL 3.4-5. 0 Not Available [address], 7[address]83, 06/01/2018 09:44:32 05/31/2006/01/2018 CMP, serum or plasm a globulin 4.2 g/dL Not Available [address], 87[address], 06/01/2018 09:44:32 05/31/2006/01/2018 CMP, serum or plasm a A/G 0.8 ratio 0.8-2. 0 Not Available [address], 97769, 06/01/2018 09:44:32 05/31/2006/01/2018 CMP, serum or plasm a total bilirubin 0.80 mg/dL 0.00-1 .00 Not Available [address], 63334, 06/01/2018 09:44:32 05/31/2006/01/2018 CMP, serum or plasm a AST 91 U/L 15-37 high Not Available [address], 36452, 06/01/2018 09:44:32 05/31/20 18 06/01/2018 CMP, serum or plasm a ALT 188 U/L 30-65 high Not Available [address], 61597, 06/01/2018 09:44:32 05/31/20 18 06/01/2018 CMP, serum or plasm a alk. phos. 405 U/L 50-136 high Not Available [address], 41579, 06/01/2018 09:44:32 05/31/20 18 06/01/2018 lipid panel , serum cholesterol 252 mg/dL <200 mg/dl Domenico able 200-2 39 mg/dl Borde rline High >240 mg/dl High Not Available [address], [address], 06/01/2018 09:44:33 05/31/20 18 06/01/2018 lipid panel , serum triglyceride s 98 mg/dL <150 mg/dL Windy l 150-1 99 mg/dL Borde rline High 200-4 99 mg/dL High >500 mg/dL Very High Not Available [address], [address], 06/01/2018 09:44:33 05/31/20 18 06/01/2018 lipid panel , serum direct HDL 61 mg/dL <40 mg/dl - Major Risk for CHD >60 mg/dl - Negat geena Risk for CHD Not Available [address], [address]64, 06/01/2018 09:44:33 05/31/20 18 06/01/2018 C-matt ctive prote in, quant itati ve, serum or plasm a C-reactive protein -quant 16.7 mg/L 0.0-9. 0 high Not Available [address], 87948, 06/01/2018 09:44:35 05/31/20 18 06/01/2018 LDL, calcu [...] r is not rick campos. Not Available [address], [address], 06/01/2018 09:44:36 05/31/20 18 06/01/2018 CBC WBC 8.6 K/? ? ?L 4.0-10 .0 Not Available [address], 27[address], 06/01/2018 09:49:55 05/31/20 18 06/01/2018 CBC RBC 4.78 M/? ? ?L 3.93-5 .22 Not Available [address], 36[address], 06/01/2018 09:49:55 05/31/20 18 06/01/2018 CBC HGB 15.1 g/dL 11.2-1 5.7 Not Available [address], 11774, 06/01/2018 09:49:55 05/31/20 18 06/01/2018 CBC HCT 47.4 % 34.1-4 4.9 high Not Available [address], 95746, 06/01/2018 09:49:55 05/31/20 18 06/01/2018 CBC MCV 99.2 ? ? ?L 79.4-9 4.8 high Not Available [address], 19558, 06/01/2018 09:49:55 05/31/20 18 06/01/2018 CBC MCH 31.6 pg 25.6-3 2.2 Not Available [address], 68814, 06/01/2018 09:49:55 05/31/20 18 06/01/2018 CBC MCHC 31.9 g/dL 32.2-3 5.5 low Not Available [address], 88158, 06/01/2018 09:49:55 05/31/20 18 06/01/2018 CBC plt 227.0 K/? ? ?L 182.0- 369.0 Not Available [address], 87418, 06/01/2018 09:49:55 05/31/20 18 06/01/2018 CBC MPV 11.5 9.4-12 .3 Not Available [address], 17327, 06/01/2018 09:49:55 05/31/20 18 06/01/2018 CBC neut% 68.5 % 34.0-7 1.1 Not Available [address], 99687, 06/01/2018 09:49:55 05/31/20 18 06/01/2018 CBC neut# 5.9 1.6-6. 1 Not Available [address], 27484, 06/01/2018 09:49:55 05/31/20 18 06/01/2018 CBC lymph % 22.7 % 19.3-5 1.7 Not Available [address], 13776, 06/01/2018 09:49:55 05/31/20 18 06/01/2018 CBC lymph # 2.0 K/? ? ?L 1.2-3. 7 Not Available [address], 74238, 06/01/2018 09:49:55 05/31/20 18 06/01/2018 CBC mono% 7.2 % 4.7-12 .5 Not Available [address], 12487, 06/01/2018 09:49:55 05/31/20 18 06/01/2018 CBC mono# 0.6 0.2-0. 6 high Not Available [address], 66711, 06/01/2018 09:49:55 05/31/20 18 06/01/2018 CBC eo% 1.4 % 0.7-5. 8 Not Available [address], 77674, 06/01/2018 09:49:55 05/31/20 18 06/01/2018 CBC eo# 0.1 0.0-0. 4 Not Available [address], 84201, 06/01/2018 09:49:55 05/31/20 18 06/01/2018 CBC baso% 0.2 % 0.1-1. 2 Not Available [address], 52917, 06/01/2018 09:49:55 05/31/20 18 06/01/2018 CBC baso# 0.0 0.0-0. 1 Not Available [address], 35323, 06/01/2018 09:49:55 05/31/20 18 06/01/2018 CBC RDW-CV 14.5 % 11.7-1 4.4 high Not Available [address], 33290, 06/01/2018 09:49:55 05/31/20 18 06/01/2018 HbA1c (hemo globi n A1c), blood hemoglobin A1C 5.8 % 4.8-6. 0 Goal: <7% in Patie nts with Diabe ines Not Available [address], [address], 06/01/2018 11:28:38 05/31/20 18 06/01/2018 HbA1c (hemo globi n A1c), blood estimated average glucose 119.8 mg/dL Not Available [address], 77427, 06/01/2018 11:28:38 05/31/20 18 06/01/2018 TSH, serum or plasm a TSH 1.49 uIU/m L 0.50-6 .00 The Ameri can Colle ge of Endoc rinol ogy and Ameri can Thyro id Assoc iatio n recom mend goal TSH value s betwe en 0.4-4 .0 mIU/m L. Not Available [address], [address], 06/01/2018 12:11:02 05/31/20 18 05/31/2018 kennedi patel am Result NSR, q wave in III, AVF Not Available [address], 80620, 05/31/2018 11:08:11 06/03/20 18 06/04/2018 hepat ic funct ion panel , serum total protein 7.5 g/dL 6.4-8. 2 Not Available [address], [address], 06/04/2018 10:17:48 06/03/20 18 06/04/2018 hepat ic funct ion panel , serum albumin 3.4 g/dL 3.4-5. 0 Not Available [address], [address], 06/04/2018 10:17:48 06/03/20 18 06/04/2018 hepat ic funct ion panel , serum globulin 4.1 g/dL Not Available [address], [address], 06/04/2018 10:17:48 06/03/20 18 06/04/2018 hepat ic funct ion panel , serum A/G 0.8 ratio 0.8-2. 0 Not Available [address], [address], 06/04/2018 10:17:48 06/03/20 18 06/04/2018 hepat ic funct ion panel , serum total bilirubin 0.70 mg/dL 0.00-1 .00 Not Available [address], [address], 06/04/2018 10:17:48 06/03/20 18 06/04/2018 hepat ic funct ion panel , serum direct bilirubin 0.40 mg/dL 0.00-0 .30 high Not Available [address], [address], 06/04/2018 10:17:48 06/03/20 18 06/04/2018 hepat ic funct ion panel , serum AST 78 U/L 15-37 high Not Available [address], [address], 06/04/2018 10:17:48 06/03/20 18 06/04/2018 hepat ic funct ion panel , serum ALT 146 U/L 30-65 high Not Available [address], [address], 06/04/2018 10:17:48 06/03/20 18 06/04/2018 hepat ic funct ion panel , serum alk. phos. 379 U/L 50-136 high Not Available [address], [address], 06/04/2018 10:17:48 06/03/20 18 06/08/2018 hepat itis panel (A+B+ C), acute , serum hepatitis A IgM NON-RE ACTIVE non-re active normal Not Available [facility] Lab [address] [place] [address] Jonah B, [place], [address], 06/08/2018 06:02:46 06/03/20 18 06/08/2018 hepat itis panel (A+B+ C), acute , serum hepatitis B surface antigen NON-RE ACTIVE non-re active normal Not Available [facility] [place] [facility] [address] [place], [address], 06/08/2018 06:02:46 06/03/2006/08/2018 hepat itis panel (A+B+ C), acute , serum hepatitis B core antibody (IgM) NON-RE ACTIVE non-re active normal Not Available [facility] [place] [facility] [address] [place], [place], [address], 06/08/2018 06:02:46 06/03/20 18 06/08/2018 hepat itis panel (A+B+ C), acute , serum hepatitis C antibody NON-RE ACTIVE non-re active normal Not Available [facility] [address] [place], [place], [address], 06/08/2018 06:02:46 06/03/20 18 06/08/2018 hepat itis panel (A+B+ C), acute , serum signal to cut-off 0.02 <1.00 normal Not Available [facility] [address] [place], [place], [address], 06/08/2018 06:02:46 06/03/2006/08/2018 alkal ine phosp hatas e isoen zymes , serum or plasm a alkaline phosphatase 336 U/L 33-130 high Not Available [facility] [place] [facility] [address] [place], [place], [address], 06/08/2018 06:02:46 06/03/20 18 06/08/2018 alkal ine phosp hatas e isoen zymes , serum or plasm a intestinal isoenzymes 3 % 1-24 Not Available [facility] [address] [place], [place], [address], 06/08/2018 06:02:46 06/03/20 18 06/08/2018 alkal ine phosp hatas e isoen zymes , serum or plasm a bone isoenzymes 23 % 28-66 low Not Available [facility] [place] [facility] [address], [address], 06/08/2018 06:02:46 06/03/20 18 06/08/2018 alkal ine phosp hatas e isoen zymes , serum or plasm a liver isoenzymes 75 % 25-69 high Not Available [facility] [place] [facility] [address], [address], 06/08/2018 06:02:46 06/03/20 18 06/08/2018 alkal ine phosp hatas e isoen zymes , serum or plasm a placental isoenzymes 0 % <=0 Not Available [facility] [place] [facility] [address], [address], 06/08/2018 06:02:46 06/03/20 18 06/08/2018 alkal ine phosp hatas e isoen zymes , serum or plasm a macrohepatic isoenzymes 0 % <=0 Not Available [facility] [place] [facility] [address], [address], 06/08/2018 06:02:46 05/09/20 19 05/09/2019 CBC w/ auto diff WBC 12.28 K/uL 3.40-1 1.20 high Not Available [facility] (Outpatient) [address] [place], [address], 05/09/2019 16:17:31 05/09/20 19 05/09/2019 CBC w/ auto diff RBC 4.56 M/uL 3.80-4 .80 Not Available [facility] (Outpatient) [address] [place], [address], 05/09/2019 16:17:31 05/09/20 19 05/09/2019 CBC w/ auto diff HGB 14.3 g/dL 12.0-1 5.0 Not Available [facility] (Outpatient) [address] [place], [address], 05/09/2019 16:17:31 05/09/20 19 05/09/2019 CBC w/ auto diff HCT 42.2 % 36.0-4 6.0 Not Available [facility] (Outpatient) [address] [place], [address], 05/09/2019 16:17:31 05/09/20 19 05/09/2019 CBC w/ auto diff plt 210 K/uL 130-40 0 Not Available [facility] (Outpatient) [address] [place], [address], 05/09/2019 16:17:31 05/09/20 19 05/09/2019 CBC w/ auto diff MCV 92.5 fL 79.0-9 8.0 Not Available [facility] (Outpatient) [address] [place], [address], 05/09/2019 16:17:31 05/09/20 19 05/09/2019 CBC w/ auto diff MCH 31.4 pg 27.0-3 4.8 Not Available [facility] (Outpatient) [address] [place], [address], 05/09/2019 16:17:31 05/09/20 19 05/09/2019 CBC w/ auto diff MCHC 33.9 g/dL 31.5-3 6.0 Not Available [facility] (Outpatient) [address] [place], [address], 05/09/2019 16:17:31 05/09/20 19 05/09/2019 CBC w/ auto diff RDW 13.3 % 10.8-1 4.6 Not Available [facility] (Outpatient) [address] [place], [address], 05/09/2019 16:17:31 05/09/20 19 05/09/2019 CBC w/ auto diff MPV 10.5 fL 9.4-12 .4 Not Available [facility] (Outpatient) [address] [place], [address], 05/09/2019 16:17:31 05/09/20 19 05/09/2019 CBC w/ auto diff NRBC 0.00 /100_ WBCs 0.00 Not Available [facility] (Outpatient) [address] [place], [address], 05/09/2019 16:17:31 05/09/20 19 05/09/2019 CBC w/ auto diff absolute NRBC 0.00 K/uL 0.00 Not Available [facility] (Outpatient) [address] [place], [address], 05/09/2019 16:17:31 05/09/20 19 05/09/2019 CBC w/ auto diff diff method Auto Not Available [facility] (Outpatient) [address] [place], [address], 05/09/2019 16:17:31 05/09/20 19 05/09/2019 CBC w/ auto diff neuts 80.9 % 45.30- 77.70 high Not Available [facility] (Outpatient) [address] [place], [address], 05/09/2019 16:17:31 05/09/20 19 05/09/2019 CBC w/ auto diff lymphs 13.3 % 12.30- 39.70 Not Available [facility] (Outpatient) [address] [place], [address], 05/09/2019 16:17:31 05/09/20 19 05/09/2019 CBC w/ auto diff monos 4.4 % 4.10-1 2.80 Not Available [facility] (Outpatient) [address] [place], [address], 05/09/2019 16:17:31 05/09/20 19 05/09/2019 CBC w/ auto diff eos 0.7 % 0-7.2 Not Available [facility] (Outpatient) [address] [place], [address], 05/09/2019 16:17:31 05/09/20 19 05/09/2019 CBC w/ auto diff basos 0.3 % 0-2.80 Not Available [facility] (Outpatient) [address] [place], [address], 05/09/2019 16:17:31 05/09/20 19 05/09/2019 CBC w/ auto diff granulocytes , immature (%) 0.4 % 0.0-0. 9 Not Available [facility] (Outpatient) [address] [place], [address], 05/09/2019 16:17:31 05/09/20 19 05/09/2019 CBC w/ auto diff absolute neuts 9.94 K/uL 1.40-7 .70 high Not Available [facility] (Outpatient) [address] [place], [address], 05/09/2019 16:17:31 05/09/20 19 05/09/2019 CBC w/ auto diff absolute lymphs 1.63 K/uL 0.60-3 .20 Not Available [facility] (Outpatient) [address] [place], [address], 05/09/2019 16:17:31 05/09/20 19 05/09/2019 CBC w/ auto diff absolute monos 0.54 K/uL 0.11-0 .59 Not Available [facility] (Outpatient) [address] [place], [address], 05/09/2019 16:17:31 05/09/20 19 05/09/2019 CBC w/ auto diff absolute eos 0.08 K/uL 0.01-0 .50 Not Available [facility] (Outpatient) [address] [place], [address], 05/09/2019 16:17:31 05/09/20 19 05/09/2019 CBC w/ auto diff absolute basos 0.04 K/uL 0.00-0 .08 Not Available [facility] (Outpatient) [address] [place], [address], 05/09/2019 16:17:31 05/09/20 19 05/09/2019 CBC w/ auto diff granulocytes , immature 0.05 K/uL 0.00-0 .05 Not Available [facility] (Outpatient) [address] [place], [address], 05/09/2019 16:17:31 05/09/20 19 05/09/2019 BMP, blood sodium 138 mmol/ L 133-14 6 Not Available [facility] (Outpatient) [address] [place], [address], 05/09/2019 16:36:49 05/09/20 19 05/09/2019 BMP, blood chloride 103 mmol/ L 96-108 Not Available [facility] (Outpatient) [address] [place], [address], 05/09/2019 16:36:49 05/09/20 19 05/09/2019 BMP, blood potassium 4.3 mmol/ L 3.3-5. 1 Not Available [facility] (Outpatient) [address] [place], [address], 05/09/2019 16:36:49 05/09/20 19 05/09/2019 BMP, blood CO2 25 mmol/ L 21-35 Not Available [facility] (Outpatient) [address] [place], [address], 05/09/2019 16:36:49 05/09/20 19 05/09/2019 BMP, blood BUN 20 mg/dL 6-19 high Not Available [facility] (Outpatient) [address] [place], [address], 05/09/2019 16:36:49 05/09/20 19 05/09/2019 BMP, blood creatinine 0.90 mg/dL 0.5-1. 5 Not Available [facility] (Outpatient) [address] [place], [address], 05/09/2019 16:36:49 05/09/20 19 05/09/2019 BMP, blood glucose 99 mg/dL 70-99 Not Available [facility] (Outpatient) [address] [place], [address], 05/09/2019 16:36:49 05/09/20 19 05/09/2019 BMP, blood calcium 9.2 mg/dL 8.4-10 .3 Not Available [facility] (Outpatient) [address] [place], [address], 05/09/2019 16:36:49 05/09/20 19 05/09/2019 BMP, blood eGFR 69 mL/mi n/1.7 3m2 >59 If patie nt is black , multi ply resul t by 1.159 . Estim ated glome rular filtr ation rate calcu lated using the CKD-E PI equat ion. Not Available [facility] (Outpatient) [address] [place], [address], 05/09/2019 16:36:49 05/09/20 19 05/09/2019 BMP, blood anion gap 14 mmol/ L 10-20 Not Available [facility] (Outpatient) [address] [place], [address], 05/09/2019 16:36:49 05/09/20 19 05/09/2019 lfts (hepa tic panel ) alkaline phosphatase 435 U/L 39-117 high Not Available [facility] (Outpatient) [address] [place], [address], 05/09/2019 16:36:51 05/09/20 19 05/09/2019 lfts (hepa tic panel ) total bilirubin 1.1 mg/dL 0.0-1. 2 Not Available [facility] (Outpatient) [address] [place], [address], 05/09/2019 16:36:51 05/09/20 19 05/09/2019 lfts (hepa tic panel ) direct bilirubin 0.5 mg/dL 0-0.3 high Not Available [facility] (Outpatient) [address] [place], [address], 05/09/2019 16:36:51 05/09/20 19 05/09/2019 lfts (hepa tic panel ) bilirubin (indirect) 0.6 mg/dL 0-1.5 Not Available [facility] (Outpatient) [address] [place], [address], 05/09/2019 16:36:51 05/09/20 19 05/09/2019 lfts (hepa tic panel ) AST 89 U/L 0-37 high Not Available [facility] (Outpatient) [address] [place], [address], 05/09/2019 16:36:51 05/09/20 19 05/09/2019 lfts (hepa tic panel ) ALT 103 U/L 0-40 high Not Available [facility] (Outpatient) [address] [place], [address], 05/09/2019 16:36:51 05/09/20 19 05/09/2019 lfts (hepa tic panel ) total protein 7.5 g/dL 6.5-8. 0 Not Available [facility] (Outpatient) [address] [place], [address], 05/09/2019 16:36:51 05/09/20 19 05/09/2019 lfts (hepa tic panel ) albumin 3.3 g/dL 3.9-4. 8 low Not Available [facility] (Outpatient) [address] [place], [address], 05/09/2019 16:36:51 05/09/20 19 05/09/2019 lfts (hepa tic panel ) globulin 4.2 g/dL 1-4.8 Not Available [facility] (Outpatient) [address] [place], [address], 05/09/2019 16:36:51 05/09/20 19 05/09/2019 lfts (hepa tic panel ) A/G ratio 0.79 ratio 1.00-4 .80 low Not Available [facility] (Outpatient) [address] [place], [address], 05/09/2019 16:36:51 05/09/20 19 05/09/2019 tropo rachel T, serum troponin-T, high sensitivity (gen 5) <6 NG/L 0-9 Not Available [facility] (Outpatient) [address] [place], [address], 05/09/2019 16:36:59 05/09/20 19 05/09/2019 tropo rachel T, serum troponin-T, high sensitivity (gen 5) <6 NG/L 0-9 Not Available [facility] (Outpatient) [address] [place], [address], 05/09/2019 18:02:06 05/09/20 19 05/09/2019 urine sedim ent WBC 0-4 /hpf none seen abnormal Not Available [facility] (Outpatient) [address] [place], [address], 05/09/2019 19:40:35 05/09/2005/09/2019 urine sedim ent RBC 3-5 /hpf none seen abnormal Not Available [facility] (Outpatient) [address] [place], [address], 05/09/2019 19:40:35 05/09/20 19 05/09/2019 urine sedim ent urine epithelial 0-4 none seen abnormal Not Available [facility] (Outpatient) [address] [place], [address], 05/09/2019 19:40:35 05/09/20 19 05/09/2019 urine sedim ent mucus 2+ /hpf none seen abnormal Not Available [facility] (Outpatient) [address] [place], [address], 05/09/2019 19:40:35 05/09/20 19 05/09/2019 urine sedim ent bacteria 1+ none seen abnormal Not Available [facility] (Outpatient) [address] [place], [address], 05/09/2019 19:40:35 05/09/20 19 05/09/2019 urine sedim ent crystals 1+ AMORP HOUS Not Available [facility] (Outpatient) [address] [place], [address], 05/09/2019 19:40:35 05/09/20 19 05/10/2019 urina lysis , refle x cultu re color Yellow yellow Not Available [facility] (Outpatient) [address] [place], [address], 05/10/2019 08:27:19 05/09/2005/10/2019 urina lysis , refle x cultu re clarity Clear Not Available [facility] (Outpatient) [address] [place], [address], 05/10/2019 08:27:19 05/09/2005/10/2019 urina lysis , refle x cultu re glucose Negati ve negati ve Not Available [facility] (Outpatient) [address] [place], [address], 05/10/2019 08:27:19 05/09/2005/10/2019 urina lysis , refle x cultu re bili 1+ negati ve abnormal Not Available [facility] (Outpatient) [address] [place], [address], 05/10/2019 08:27:19 05/09/2005/10/2019 urina lysis , refle x cultu re ketones Trace negati ve abnormal Not Available [facility] (Outpatient) [address] [place], [address], 05/10/2019 08:27:19 05/09/2005/10/2019 urina lysis , refle x cultu re specific gravity >1.030 1.005- 1.030 Not Available [facility] (Outpatient) [address] [place], [address], 05/10/2019 08:27:19 05/09/2005/10/2019 urina lysis , refle x cultu re blood Negati ve negati ve Not Available [facility] (Outpatient) [address] [place], [address], 05/10/2019 08:27:19 05/09/2005/10/2019 urina lysis , refle x cultu re pH 5.5 5.0-8. 0 Not Available [facility] (Outpatient) [address] [place], [address], 05/10/2019 08:27:19 05/09/2005/10/2019 urina lysis , refle x cultu re protein 1+ negati ve abnormal Not Available [facility] (Outpatient) [address] [place], [address], 05/10/2019 08:27:19 05/09/2005/10/2019 urina lysis , refle x cultu re nitrite Negati ve negati ve Not Available [facility] (Outpatient) [address] [place], [address], 05/10/2019 08:27:19 05/09/2005/10/2019 urina lysis , refle x cultu re leukocyte esterase, ur Negati ve negati ve Not Available [facility] (Outpatient) [address] [place], [address], 05/10/2019 08:27:19 05/09/20 19 05/09/2019 cultu re, urine special requests None Not Available [facility] (Outpatient) [address] [place], [address], 05/11/2019 09:00:23 05/09/20 19 05/10/2019 cultu re, urine gram stain Rare GRAM POSITI VE RODS Not Available [facility] (Outpatient) [address] [place], [address], 05/11/2019 09:00:23 05/09/2005/11/2019 cultu re, urine urine culture abnormal >100, 000 colon y formi ng units per mL MIXED ELDER (3 OR MORE COLON Y TYPES ) Cultu re indic ates conta minat ion. Pleas e resub lexi if neces andres. Not Available [facility] (Outpatient) [address] [place], [address], 05/11/2019 09:00:23 04/03/20 15 04/03/2015 scree ana- [...] view. Densit y - 2 Code: G0202, 38288 POS - VMG Electr onical ly signed Readin g Physic kerry: Jerardo brush MD [facility] (Imaging) [address], [place], [address], 05/27/2016 15:36:45 04/20/20 15 04/20/2015 MAMMO , [...] in one year: POS: VMG Code: G0206, 97292 Electr onical ly signed Readin g Physic kerry: Joey Golden [facility] (Imaging) [address], [place], [address], 05/27/2016 15:36:45 05/28/20 16 05/27/2016 MAMMO , [...] onical ly signed Margarita connn: Joey Golden [facility] (Imaging) [address], [place], [address], 05/29/2017 10:42:14 05/31/20 18 elect rocar diogr am No observ ation record ed. [email or web address] Not Available 2017 13:32:54 06/25/20 18 06/22/2018 cardi ac stres s test No observ ation record ed. [address] [facility] [address], [place], [address], 07/20/2018 07:58:55 06/30/20 18 06/22/2018 exerc ise stres s test No observ ation record ed. [address] [facility] [address], [place], [address], 07/28/2018 08:38:12 05/09/20 19 05/09/2019 CT, head, [...] tric soft tissue fullne ss in the spooler operator automatic ior left nasoph arynge al pharyn x. Bones: No acute bony abnorm ality. IMPRES NICOLE: 1. No acute intrac ranial findin gs. 2. Asymme tric left spooler operator automatic ior nasoph arynge al soft tissue fullne [...] Fax Final result AMA L FURCOL O [facility] [address] [place] [address], [address], 05/10/2019 08:38:02 05/09/2005/09/2019 CT, head, w/o contr ast No observ ation record ed. [address], [address], 05/10/2019 08:38:02 Result Notes None recorded. Problems Name Problem SNOMED Code Status Onset Date Resolution Date Notes Provider Name and Address Organization Details Recorded Time Benign essential hypertension 5914862 Active Kylah hinds, [facility] 6 13:22:17 Problem Notes None recorded. Procedures Surgical History Date Name Laterality Status Provider Name and Address Organization Details Recorded Time Total Hysterectomy completed Xander Bentley NP [address] [place], [address], [facility] 06/28/2014 15:32:49 Imaging Results Imaging Date Name Status LastModified by Organization Details LastModified Time 04/03/2015 screening-bilateral mammography completed [facility] (Imaging) [address], [place], [address], 05/27/2016 15:36:45 04/20/2015 MAMMO, diagnostic, digital, unilateral completed [facility] (Imaging) [address], [place], [address], 05/27/2016 15:36:45 05/27/2016 MAMMO, screening, digital, bilateral completed [facility] (Imaging) [address], [place], [address], 05/29/2017 10:42:14 05/31/2018 electrocardiogram completed [facility] Informa tion not available 05/31/2018 13:32:54 06/22/2018 cardiac stress test completed [facility] [address], [place], [address], 07/20/2018 07:58:55 06/22/2018 exercise stress test completed [facility] [address], [place], [address], 07/28/2018 08:38:12 05/09/2019 CT, head, w/o contrast completed [facility] [address] [place] [address], [address], 05/10/2019 08:38:02 05/09/2019 CT, head, w/o contrast completed [address], [address], 05/10/2019 08:38:02 Procedure Notes None recorded. Medical [...] Updated DateTime 7 174.63 cm 26 kg/m2 15871.6 6 g 56 /min 142 mm[Hg] 94 mm[Hg] Oneida Jones MA [facility] 7 10:37:28 Date Recorded Body weight Provider Name an d Address Organization Details Last Updated DateTime 05/31/2018 39225.82 g Aracely Pope [facility] 05/31/2018 10:35:24 Date Recorded Body mass index [...] 142 mm[Hg] 110 mm[Hg] Oneida Jones MA [facility] 8 10:50:12 Date Recorded Body height Body mass index (BMI) Body weight Heart rate Systolic blood pressure Diastolic blood pressure Provider Name and Address Organization Details Last Updated DateTime 5 149.225 cm 35.9 kg/m2 60607.6 87832 g 84 /min 108 mm[Hg] 62 mm[Hg] Oneida Jones MA [facility] 5 10:52:55 Date Recorded Body height Body weight Body mass index (BMI) Heart rate Systolic blood pressure Diastolic blood pressure Provider Name and Address Organization Details Last Updated DateTime 6 149.23 cm 43631.8 4 g 37.4 kg/m2 72 /min 152 mm[Hg] 92 mm[Hg] [facility] 15:[facility]:45 Social History Question Answer Notes LastModified by Organizat ion Details LastModified Time Tobacco Smoking Status Never Smoker Oneida Hutchinson LPN [facility], [facility] 06/28/2014 15:19:18 What Is Your Level Of Alcohol Consumption? Occasional Information not available 03/27/2015 How Much Tobacco Do You Chew? None Information not available 03/27/2015 What Type Of Diet Are You Following? REGULAR [email or web address] Information not available 06/28/2014 Education 4 Year College [email or web address] Informat ion not available 06/28/2014 What Is Your Occupation? [employer] [email or web address] Information not available 06/28/2014 How Many Days In The Past Year Have You Had A Heavy Drinking Consumption (4+ Female, 5+ Male)? 0 Information not available 03/27/2015 Live Alone Or With Others? With Others With Son Information not available 06/28/2014 Patient Has Health Care Proxy Signed And In Chart No 05/29/17 [email or web address] Information not available 06/28/2014 Marital Status Moved From [facility] To [facility] Information not available 06/28/2014 Mosquito Repellent Used Routinely Yes Information not available 05/29/2017 What Was The Date Of Your Most Recent Tobacco Screening? 05/31/2018 Information not available 03/23/2019 How Many Children Do You Have? 2 [email or web address] Information not available 06/28/2014 Seat Belts Used [...] SNOMED-CT Code Diagnosis ICD10 Code Diagnosis Note [id number] [facility], OFFICE [address] [place] [address] 06/28/2014 15:01:22 06/29/2014 12:06:47 Benign essential hypertension 4062436 Blood pressure NOT at goal. been off meds 1 month unsure of dose but will restart at 50 mg Will get labs RTO 1 month Biceps tendinitis [id number] R bicep tendonitis given handout with exercises to start advised ice after activity, work RTO [id number] [facility], OFFICE [address] [place] [address] 08/09/2014 08:22:01 08/09/2014 08:54:30 Screening for malignant neoplasm of colon [id number] Referral for a DIRECT booked colonoscop y. This patient is a healthy ASA Class 1 or 2 patient (only mild systemic disease), or a STABLE, well controlled insulin dependent diabetic. They do not have serious cardiac disease ie DC/angiopl asty within 1 year, symptomati c CHF; renal failure with CKD 4 or 5; take Coumadin, Plavix, Aggrenox, etc; nor take chronic narcotics. 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, OFFICE [address] [place] [address] 03/27/2015 10:38:09 03/27/2015 11:22:54 Screening mammography [id number] Screening for malignant neoplasm of colon [id number] Referral for a DIRECT booked colonoscop y. This patient is a healthy ASA Class 1 or 2 patient (only mild systemic disease), or a STABLE, well controlled insulin dependent diabetic. They do not have serious cardiac disease ie DC/angiopl asty within 1 year, symptomati c CHF; renal failure with CKD 4 or 5; take Coumadin, Plavix, Aggrenox, etc; nor take chronic narcotics. [Patients who take chronic narcotics should be referred to [facility] for a propofol procedure due to possible inability to sedate adequately with conscious sedation.] Lifestyle [id number] Adult [facility] th examination [id number] see Risk Assessment and Lifestyle Change Counseling section above HM: Due for mammo, colonoscop y, labs no pap- d/t ZEENAT Counseling [id number] Benign ess ential hypertension 1893407 At goal LDL at goal HDL a bit low- encouraged more regular exercise C/W losartan Sweating [id number] likel y hormonal will check labs below [id number] Xander Bentley NP , [facility] [place] [place] [address] [place] [address] 05/27/2016 15:26:39 05/28/2016 09:03:40 Adult health examination [id number] Z00.00 see Risk Assessment and Lifestyle Change Counseling section above HM: mammo - will get todaycolon oscopy 05/16/15 with 10 yr repeatdue labs- will get today no pap- d/t ZEENAT Benign ess ential hypertension 9118650 I10 BP elevated-w as running late for apptwill check outside of officeGOal < 140/90get labs today Screening mammography 24 191446 Z12.31 today Atrophic vaginitis 01556 000 N95.2 Obesity 580047316 E66.9 BMI 37 Discussed weight loss with exercise and diet will refer for MNT Skin lesion 95395432 L98 .9 L hip? herpescx submitted Mastitis 28266242 N61 tender L breast, firm aeorlalast mammo 05/15will get today [id number] Didier Meeks, [facility], [facility] [place] [address] [place] [address] 09/16/2016 09:03:35 09/16/2016 10:06:27 Presbyopia 73955288 H52.4 Regular astigmatism 6890 5002 H52.223 Pterygium 30124828 H11.0 02 Nasally-no t visually significan t 3534909 EUGENIA Fong, [facility] [place], OFFICE [address] [place] [address] 05/29/2017 10:25:31 05/29/2017 11:07:36 Benign essential hypertension 5894680 I10 BP not at goal of < 140/90had stopped losartanwi ll c/w dc and start lisinopril 10 mgrto 4 weeks Adult heal th examination 076755187 Z00.00 see Risk Assessment and Lifestyle Change Counseling section aboveHM: Pap todayBMP utd, Lipid dueColon 05/16/ w/10 yr repeatMamm o 05/2016 Counseling 451364625 Z71 .9 Screening for malignant neoplasm of cervix 058272002 Z12.4 Impaired f asting glycemia 468522104 R73.01 FBS 107- down from 114 discussed reducing breads, pasta, rice and jello and juice [id number] Xander Bentley NP , [facility] [place], [address]ICE [address] [place] [address] 05/31/2018 10:30:54 05/31/2018 11:19:32 Screening mammography 56670558 Z12.31 Palpitations 12515465 R0 0.2 Benign ess ential hypertension 6023458 I10 Unintentio nal weight loss 135065941 R63.4 EKG: Q wave abnormal 164 161473 R94.31 Health Concerns Section Related Observation LastModified by Organization Detai ls LastModified Time None Recorded Concern Status LastModified by Organization Details LastModified Time None Recorded Advance Directives Directive None Recorded Payers Encounter Date Sequence Insurance Name Policy Number Policy Allen Covered Member ID Allen Member ID Guarantor Name 03/27/2015 1 [facility] (MEDICAID O) [id number] Aarti Boone [id number] Aarti Boone 05/27/2016 1 [place] [facility] Aarti Boone [id number] Aarti Boone 09/16/2016 1 [place] Aarti Boone [id number] Aarti Boone 05/29/2017 1 [place] [facility] Aarti Boone [id number] 3 Aarti Boone 05/31/2018 1 [facility] [id number] Aarti Rm Paolo [id number] Aarti Rm Paolo Notes Date Note Type [...] risk of skin cancer Xander Bentley NP [address] [place] [address], [phone], [facility] 05/27/2016 16:48:20 7 text/html Comprehensive Eye ExamReported bypatient.Quality:2 year exam; no blurred vision Location:bilateral Context:currently wears glasses Modifying factors:wears glasses for readers only Associated Symptoms:no redness; no itching; no floaters; no dryness Didier Meeks OD [address] [place] [address], [phone], [facility] 09/16/2016 10:00:58 7 text/html Physical Exam/FemaleReported bypatient.PHAPatient [...] self manage condition Xander Bentley NP [address] [place], [address], [facility] 05/29/2017 11:08:58 8 text/html Aarti is not feeling well x 2 weeksat night- palpitations, headache, very tired.once had abdominal pain with no bowel issue or NVlost 20 lbs in past 3 months- not trying to lose weight.eats and immediately gets full.vision changes- needs eye exam.not sleeping well.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
[2024-12-26 13:00] LABS: Appearance Urine Clear; Color Urine Yellow; Glucose Urine UA Negative (Negative); Leukocyte Esterase Urine Small (1+) (Negative); Nitrite Urine Negative (Negative); PH 5.5 (5.0-9.0); Specific Gravity - Urine 1.015 (1.005-1.025); UMIC TRIGGER UACC YES; Urine Blood Negative (Negative); Urine Ketones Negative (Negative); Urine Protein Negative (Neg-Trace)
[2024-12-26 13:07] LABS: Bacteria Urine 4+ (None Seen); Hyaline Casts Urine 0-2 /LPF (0-2); RBC Urine 0-2 /HPF (0-2); UACC Culture Trigger YES
== END 2024-12-26 10:35 | disposition home or self-care (01) ==
LOC: HO.HMGCX 10:34
PROVIDERS: PCP Internal Medicine
DX: K80.50 Calculus of bile duct without cholangitis or cholecystitis without obstruction (principal); Z13.89 Encounter for screening for other disorder
CPT/HCPCS: 76705; 81001; 81003; 87086

== ENCOUNTER → 2024-12-26 11:09 | Outpatient (BNV) | payer MEDICARE, SELFPAY | PROVIDERS: PCP Internal Medicine; Visit Provider Radiology Diagnostic Radiology | DX: K74.69 Other cirrhosis of liver (principal) | CPT/HCPCS: 76705 ==

== ENCOUNTER 2025-01-27 12:18 | Outpatient (REF) | payer MEDICARE, SELFPAY ==
--- OUTSIDE RECORDS SUMMARY | 2025-01-27 12:52 | XMS_ITS | Data Portability ---
Author Organization [facility], , [facility] Address [address] [place] [address] Care Team Providers Care Plant Tour Guide Name Role Phone XANDER BENTLEY Primary Care Provider [phone] Assessment Encounter Date Assessment Date Assessment LastModified [...] . Lab CMP, serum or plasma 2017 [facility], [address] [place] [address], [address], 8 09:44:32 C-reacti ve protein, quantita tive, serum or plasma 2017 018 [facility], [address] [place], [address], 8 09:44:35 CBC 2017 018 [facility], [address] [place] [address], [address], 8 09:49:56 TSH, serum or plasma 2017 018 [facility], [address] [place] [address], [address], 8 12:11:02 HbA1c (hemoglo bin A1c), blood 2017 018 [facility], [address] [place] [address], [address], 8 11:28:38 pap, LB + reflex HR HPV if ASC-U, ASC-H, LSIL, HSIL, AZAM - Reflex HPV testing for ASCUS and LGSIL 2016 017 [facility] (Outpatient), [address] [place], [address], 7 11:59:23 HSV (1+2) DNA, qual, PCR, unspecif ied specimen 2015 016 [id number] [facility], [address] [place] [address], [address], 6 04:07:46 hepatiti s C virus Ab, serum 2014 015 [facility], [address] [place] [address], [address], 5 18:36:26 TSH, serum or plasma 2014 015 [facility], [address] [place] [address], [address], 5 17:06:34 CBC 2014 015 [facility], [address] [place] [address], [address], 5 13:01:04 CMP, serum or plasma 2014 015 [facility], [address] [place] [address], [address], 5 14:53:58 Referral gynecolo gist referral - vaginal dryness, dyspaure cristo . prefers to see OILER HELPER 2015 016 [id number]_ [id number] [facility], [address] [place] [address] , [place], [address], 6 04:07:24 Procedures colonosc opy procedur e (PROC) - 54 yo Macanese speaking woman with HTN. Well controll ed. Surg past- ZEENAT. Not seen by GI. Will need interpre ter. 2014 Jocelin martinez [facility], [address] [place], [address], 5 09:59:28 Surgeries None recorded . Imaging MAMMO, screenin g, tomosynt filiberto osborne l [address] (Imaging), [address], [place], [address], 9 10:43:25 exercise stress test - pt with hx of HTN- no known hx of CAD with abn ekg q wave in III, AVF.//wt 155//Spa matthew speaking //please call patient to schedule //no meds//ok to exercise 2017 018 [facility], [place], operated by [facility], [address], [place], [address], 9 05:00:56 electroc francis rao 2017 018 [facility], [address] [place] [address], [address], 8 13:32:49 MAMMO, screenin g, digital, bilarnaldoa l 2014 015 [facility] (Imaging), [address], [place], [address], 5 15:03:34 Medication Orders lisinopr il 20 mg tablet 2017 018 INTERFACE [facility], [address] [place], [address], 8 11:41:15 lisinopr il 10 mg tablet 2016 017 [facility], [address] [place], [address], 8 10:50:55 losartan 50 mg tablet 2015 016 pkeough [facility], [address] [place], [address], 7 11:07:42 Patient TargetsNo targets recorded. Patient Instructions Encounter Date Encounter Id Patient Instructions Last Modified By Organization Details Last Modified Time 03/27/2015 [id number] well visit, wome n 50 to 65: care instructions pkeough Not available 03/27/2015 12:28:03 05/27/2016 [id number] mamograf? ? ?a: beau lopze - [mammogram: about this test] Not available 05/27/2016 16:22:00 Please start trying to walk at least 20minute a day. Try to eat 10 fruits or veggies a day. Discussed the Plate method as a way to control portions. pkeough Not available 05/27/2016 16:48:01 09/16/2016 [id number] RX given for glasses No need for surgical treatment of growth on left eye Family history of glaucoma-pressure not checked without drops-optic nerves look healthy Eyes healthy to extent seen without dilation jmerlin Not available 09/16/2016 10:00:53 05/29/2017 [id number] well visit, wome n 50 to 65: care instructions Not available 05/29/2017 11:09:38 Please start trying to walk at least 20minute a day. Try to eat 10 fruits or veggies a day. 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 prefers to see OILER HELPER Referring Physician: Xander Bentley, Family Medicine, Encounter Date: 05/27/2016 Results Created Date Observation Date Name Description Value Unit Range Abnormal Flag Note LastModifiedBy Organization Detail LastModifiedTime 03/27/20 15 03/27/2015 CBC WBC 8.8 K/? ? ?L 4.0-10 .0 Not Available [address], [address], 03/27/2015 13:01:04 03/27/20 15 03/27/2015 CBC RBC 4.91 M/? ? ?L 3.93-5 .22 Not Available [address], [address], 03/27/2015 13:01:04 03/27/20 15 03/27/2015 CBC HGB 15.0 g/dL 11.2-1 5.7 Not Available [address], [address], 03/27/2015 13:01:04 03/27/20 15 03/27/2015 CBC HCT 45.2 % 34.1-4 4.9 high Not Available [address], [address], 03/27/2015 13:01:04 03/27/20 15 03/27/2015 CBC MCV 92.1 ? ? ?L 79.4-9 4.8 Not Available [address], [address], 03/27/2015 13:01:04 03/27/20 15 03/27/2015 CBC MCH 30.5 pg 25.6-3 2.2 Not Available [address], [address], 03/27/2015 13:01:04 03/27/20 15 03/27/2015 CBC MCHC 33.2 g/dL 32.2-3 5.5 Not Available [address], [address], 03/27/2015 13:01:04 03/27/20 15 03/27/2015 CBC plt 258.0 K/? ? ?L 182.0- 369.0 Not Available [address], [address], 03/27/2015 13:01:04 03/27/20 15 03/27/2015 CBC MPV 10.3 9.4-12 .3 Not Available [address], [address], 03/27/2015 13:01:04 03/27/20 15 03/27/2015 CBC neut% 53.2 % 34.0-7 1.1 Not Available [address], [address], 03/27/2015 13:01:04 03/27/20 15 03/27/2015 CBC neut# 4.7 1.6-6. 1 Not Available [address], [address], 03/27/2015 13:01:04 03/27/20 15 03/27/2015 CBC lymph % 35.2 % 19.3-5 1.7 Not Available [address], [address], 03/27/2015 13:01:04 03/27/20 15 03/27/2015 CBC lymph # 3.1 K/? ? ?L 1.2-3. 7 Not Available [address], [address], 03/27/2015 13:01:04 03/27/20 15 03/27/2015 CBC mono% 9.9 % 4.7-12 .5 Not Available [address], [address], 03/27/2015 13:01:04 03/27/20 15 03/27/2015 CBC mono# 0.9 0.2-0. 4 high Not Available [address], [address], 03/27/2015 13:01:04 03/27/20 15 03/27/2015 CBC eo% 1.4 % 0.7-5. 8 Not Available [address], [address], 03/27/2015 13:01:04 03/27/20 15 03/27/2015 CBC eo# 0.1 0.0-0. 4 Not Available [address], 8[address], 03/27/2015 13:01:04 03/27/20 15 03/27/2015 CBC baso% 0.3 % 0.1-1. 2 Not Available [address], [address], 03/27/2015 13:01:04 03/27/20 15 03/27/2015 CBC baso# 0.0 0.0-0. 1 low Not Available [address], [address], 03/27/2015 13:01:04 03/27/20 15 03/27/2015 CBC RDW-CV 13.2 % 11.7-1 4.4 Not Available [address], [address], 03/27/2015 13:01:04 03/27/20 15 03/27/2015 TSH, serum or plasm a TSH 1.85 uIU/m L 0.50-6 .00 The [facility] ge of Endoc rinol ogy and [facility]ondra can Thyro id Assoc iatio n recom mend goal TSH value s betwe en 0.4-4 .0 mIU/m L. Not Available [address], [address], 03/27/2015 17:06:34 03/27/20 15 03/28/2015 hepat itis C virus Ab, serum hepatitis C antibody NON-RE ACTIVE non-re active normal Not Available [facility] [address], [address], 03/28/2015 18:36:26 03/27/20 15 03/28/2015 hepat itis C virus Ab, serum signal to cut-off 0.02 <1.00 normal Not Available [facility] [address], [address], 03/28/2015 18:36:26 03/27/20 15 03/29/2015 CMP, serum or plasm a glucose 74 mg/dL 70-100 Not Available [address], [address], 03/29/2015 14:53:58 03/27/20 15 03/29/2015 CMP, serum or plasm a BUN 19 mg/dL 7-18 high Not Available [address], [address], 03/29/2015 14:53:58 03/27/20 15 03/29/2015 CMP, serum or plasm a creatinine 0.8 mg/dL 0.8-1. 3 Not Available [address], [address], 03/29/2015 14:53:58 03/27/20 15 03/29/2015 CMP, serum or plasm a B/C 23.8 ratio Not Available [address], [address], 03/29/2015 14:53:58 03/27/20 15 03/29/2015 CMP, serum or plasm a GFR 83.1 mL/mi n Recom mahi d GFR by the Natio nal Kidne y Found ation >60 mL/mi n/1.7 3m2 - Windy l <60 mL/mi n/1.7 3m2 - Chron ic Kidne y Disea se <15 mL/mi n/1.7 3m2 - Kidne y Failu re Not Available [address], [address], 03/29/2015 14:53:58 03/27/20 15 03/29/2015 CMP, serum or plasm a GFR - if 95.6 mL/mi n For Afric an Ameri can patie nts: Resul ts Multi plied by 1.21 Not Available [address], [address], 03/29/2015 14:53:58 03/27/20 15 03/29/2015 CMP, serum or plasm a sodium 142 mmol/ L 136-14 5 Not Available [address], [address], 03/29/2015 14:53:58 03/27/20 15 03/29/2015 CMP, serum or plasm a potassium 4.4 mmol/ L 3.5-5. 1 Not Available [address], [address], 03/29/2015 14:53:58 03/27/20 15 03/29/2015 CMP, serum or plasm a chloride 102 mmol/ L 96-107 Not Available [address], [address], 03/29/2015 14:53:58 03/27/20 15 03/29/2015 CMP, serum or plasm a anion gap 9.0 5.0-15 .0 Not Available [address], [address], 03/29/2015 14:53:58 03/27/20 15 03/29/2015 CMP, serum or plasm a CO2 31 mmol/ L 21-32 Not Available [address], [address], 03/29/2015 14:53:58 03/27/20 15 03/29/2015 CMP, serum or plasm a calcium 10.2 mg/dL 8.5-10 .3 Not Available [address], [address], 03/29/2015 14:53:58 03/27/20 15 03/29/2015 CMP, serum or plasm a total protein 7.7 g/dL 6.4-8. 2 Not Available [address], [address], 03/29/2015 14:53:58 03/27/20 15 03/29/2015 CMP, serum or plasm a albumin 4.3 g/dL 3.4-5. 0 Not Available [address], [address], 03/29/2015 14:53:58 03/27/20 15 03/29/2015 CMP, serum or plasm a globulin 3.4 g/dL Not Available [address], [address], 03/29/2015 14:53:58 03/27/20 15 03/29/2015 CMP, serum or plasm a A/G 1.3 ratio 0.8-2. 0 Not Available [address], [address], 03/29/2015 14:53:58 03/27/20 15 03/29/2015 CMP, serum or plasm a total bilirubin 0.30 mg/dL 0.00-1 .00 Not Available [address], [address], 03/29/2015 14:53:58 03/27/20 15 03/29/2015 CMP, serum or plasm a AST 37 U/L 15-37 Not Available [address], [address], 03/29/2015 14:53:58 03/27/20 15 03/29/2015 CMP, serum or plasm a ALT 75 U/L 30-65 high Not Available [address], [address], 03/29/2015 14:53:58 03/27/20 15 03/29/2015 CMP, serum or plasm a alk. phos. 89 U/L 50-136 Not Available [address], [address], 03/29/2015 14:53:58 05/27/20 16 05/28/2016 BMP, serum or plasm a glucose 102 mg/dL 70-100 high Not Available [address], [address], 05/28/2016 11:54:59 05/27/20 16 05/28/2016 BMP, serum or plasm a BUN 22 mg/dL 7-18 high Not Available [address], [address], 05/28/2016 11:54:59 05/27/20 16 05/28/2016 BMP, serum or plasm a creatinine 0.8 mg/dL 0.8-1. 3 Not Available [address], [address], 05/28/2016 11:54:59 05/27/20 16 05/28/2016 BMP, serum or plasm a B/C 27.5 ratio Not Available [address], [address], 05/28/2016 11:54:59 05/27/20 16 05/28/2016 BMP, serum or plasm a GFR -non 82.8 mL/mi n Recom mahi d GFR by the Natio nal Kidne y Found ation >60 mL/mi n/1.7 3m2 - Windy l <60 mL/mi n/1.7 3m2 - Chron ic Kidne y Disea se <15 mL/mi n/1.7 3m2 - Kidne y Failu re Not Available [address], [address], 05/28/2016 11:54:59 05/27/20 16 05/28/2016 BMP, serum or plasm a GFR - if 95.2 mL/mi n For Afric an Ameri can patie nts: Resul ts Multi plied by 1.21 Not Available [address], [address], 05/28/2016 11:54:59 05/27/20 16 05/28/2016 BMP, serum or plasm a sodium 142 mmol/ L 136-14 5 Not Available [address], [address], 05/28/2016 11:54:59 05/27/20 16 05/28/2016 BMP, serum or plasm a potassium 4.9 mmol/ L 3.5-5. 1 Not Available [address], [address], 05/28/2016 11:54:59 05/27/20 16 05/28/2016 BMP, serum or plasm a chloride 104 mmol/ L 96-107 Not Available [address], 928[address], 05/28/2016 11:54:59 05/27/20 16 05/28/2016 BMP, serum or plasm a anion gap 9.1 5.0-15 .0 Not Available [address], [address], 05/28/2016 11:54:59 05/27/20 16 05/28/2016 BMP, serum or plasm a CO2 29 mmol/ L 21-32 Not Available [address], [address], 05/28/2016 11:54:59 05/27/20 16 05/28/2016 BMP, serum or plasm a calcium 9.6 mg/dL 8.5-10 .3 Not Available [address], [address], 05/28/2016 11:54:59 05/27/20 16 05/28/2016 LDL, direc [...] r is not rick campos. Not Available [address], [address], 05/28/2016 11:55:01 05/27/20 16 05/28/2016 lipid panel , serum cholesterol 207 mg/dL <200 mg/dl Domenico able 200-2 39 mg/dl Borde rline High >240 mg/dl High Not Available [address], [address], 05/28/2016 12:40:24 05/27/20 16 05/28/2016 lipid panel , serum triglyceride s 140 mg/dL <150 mg/dL Windy l 150-1 99 mg/dL Borde rline High 200-4 99 mg/dL High >500 mg/dL Very High Not Available [address], [address], 05/28/2016 12:40:24 05/27/20 16 05/28/2016 lipid panel , serum direct HDL 41 mg/dL Not Available [address], [address], 05/28/2016 12:40:24 05/27/20 16 05/29/2016 HSV (1+2) DNA, qual, PCR, unspe cifie d speci men source SEE NOTE LEFT HIP Not Available [facility] [address] [place] [address], [address], 05/29/2016 15:27:20 05/27/20 16 05/29/2016 HSV (1+2) DNA, qual, PCR, unspe cifie d speci men hsv 1 DNA NOT DETECT ED not detect ed Not Available [facility] [address], [place], [address], 05/29/2016 15:27:20 05/27/20 16 05/29/2016 HSV (1+2) [...] deter mined by [facility] gary olivarez [facility], [place], [place]. It has not been clear ed or appro guicho by the FDA. This assay has been valid ated pursu ant to the CLIA regul ation s and is used for clini bashir purpo ses. Not Available [facility] [address], [place], [address], 05/29/2016 15:27:20 05/22/20 17 05/25/2017 BMP, serum or plasm a glucose 107 mg/dL 70-100 high LIPS= Speci men Sligh tly Lipem ic. Chem Resul ts may be effec timo. Not Available [address], [address], 05/25/2017 09:53:42 05/22/20 17 05/25/2017 BMP, serum or plasm a BUN 24 mg/dL 7-18 high Not Available [address], [address], 05/25/2017 09:53:42 05/22/20 17 05/25/2017 BMP, serum or plasm a creatinine 0.7 mg/dL 0.8-1. 3 low Not Available [address], [address], 05/25/2017 09:53:42 05/22/20 17 05/25/2017 BMP, serum or plasm a B/C 34.3 ratio Not Available [address], [address], 05/25/2017 09:53:42 05/22/20 17 05/25/2017 BMP, serum or plasm a GFR -non 96.3 mL/mi n Recom mahi d GFR by the Natio nal Kidne y Found ation >60 mL/mi n/1.7 3m2 - Windy l <60 mL/mi n/1.7 3m2 - Chron ic Kidne y Disea se <15 mL/mi n/1.7 3m2 - Kidne y Failu re Not Available [address], [address], 05/25/2017 09:53:42 05/22/20 17 05/25/2017 BMP, serum or plasm a GFR - if 110.7 mL/mi n For Afric an Ameri can patie nts: Resul ts Multi plied by 1.21 Not Available [address], [address], 05/25/2017 09:53:42 05/22/20 17 05/25/2017 BMP, serum or plasm a sodium 144 mmol/ L 136-14 5 Not Available [address], [address], 05/25/2017 09:53:42 05/22/20 17 05/25/2017 BMP, serum or plasm a potassium 4.1 mmol/ L 3.5-5. 1 Not Available [address], [address], 05/25/2017 09:53:42 05/22/20 17 05/25/2017 BMP, serum or plasm a chloride 105 mmol/ L 96-107 Not Available [address], [address], 05/25/2017 09:53:42 05/22/20 17 05/25/2017 BMP, serum or plasm a anion gap 8.4 5.0-15 .0 Not Available [address], [address], 05/25/2017 09:53:42 05/22/20 17 05/25/2017 BMP, serum or plasm a CO2 31 mmol/ L 21-32 Not Available [address], [address], 05/25/2017 09:53:42 05/22/20 17 05/25/2017 BMP, serum or plasm a calcium 9.6 mg/dL 8.5-10 .3 Not Available [address], [address], 05/25/2017 09:53:42 05/31/20 18 06/01/2018 CMP, serum or plasm a glucose 111 mg/dL 70-100 high Not Available [address], [address], 06/01/2018 09:44:32 05/31/20 18 06/01/2018 CMP, serum or plasm a BUN 17 mg/dL 7-18 Not Available [address], 8[address], 06/01/2018 09:44:32 05/31/20 18 06/01/2018 CMP, serum or plasm a creatinine 0.7 mg/dL 0.8-1. 3 low Not Available [address], [address], 06/01/2018 09:44:32 05/31/20 18 06/01/2018 CMP, serum or plasm a B/C 24.3 ratio Not Available [address], [address]79[address], 06/01/2018 09:44:32 05/31/20 18 06/01/2018 CMP, serum or plasm a GFR -non 95.9 mL/mi n Recom mahi d GFR by the Natio nal Kidne y Found ation >60 mL/mi n/1.7 3m2 - Windy l <60 mL/mi n/1.7 3m2 - Chron ic Kidne y Disea se <15 mL/mi n/1.7 3m2 - Kidne y Failu re Not Available [address], [address], 06/01/2018 09:44:32 05/31/20 18 06/01/2018 CMP, serum or plasm a GFR - if 110.3 mL/mi n For Afric an Ameri can patie nts: Resul ts Multi plied by 1.21 Not Available [address], [address], 06/01/2018 09:44:32 05/31/20 18 06/01/2018 CMP, serum or plasm a sodium 141 mmol/ L 136-14 5 Not Available [address], 12[address], 06/01/2018 09:44:32 05/31/20 18 06/01/2018 CMP, serum or plasm a potassium 4.7 mmol/ L 3.5-5. 1 Not Available [address], [address], 06/01/2018 09:44:32 05/31/20 18 06/01/2018 CMP, serum or plasm a chloride 103 mmol/ L 96-107 Not Available [address], [address], 06/01/2018 09:44:32 05/31/20 18 06/01/2018 CMP, serum or plasm a anion gap 7.7 5.0-15 .0 Not Available [address], [address], 06/01/2018 09:44:32 05/31/20 18 06/01/2018 CMP, serum or plasm a CO2 30 mmol/ L 21-32 Not Available [address], [address], 06/01/2018 09:44:32 05/31/20 18 06/01/2018 CMP, serum or plasm a calcium 9.5 mg/dL 8.5-10 .3 Not Available [address], [address], 06/01/2018 09:44:32 05/31/20 18 06/01/2018 CMP, serum or plasm a total protein 7.6 g/dL 6.4-8. 2 Not Available [address], [address], 06/01/2018 09:44:32 05/31/2006/01/2018 CMP, serum or plasm a albumin 3.4 g/dL 3.4-5. 0 Not Available [address], [address]56, 06/01/2018 09:44:32 05/31/2006/01/2018 CMP, serum or plasm a globulin 4.2 g/dL Not Available [address], [address], 06/01/2018 09:44:32 05/31/2006/01/2018 CMP, serum or plasm a A/G 0.8 ratio 0.8-2. 0 Not Available [address], [address], 06/01/2018 09:44:32 05/31/2006/01/2018 CMP, serum or plasm a total bilirubin 0.80 mg/dL 0.00-1 .00 Not Available [address], [address], 06/01/2018 09:44:32 05/31/2006/01/2018 CMP, serum or plasm a AST 91 U/L 15-37 high Not Available [address], [address], 06/01/2018 09:44:32 05/31/20 18 06/01/2018 CMP, serum or plasm a ALT 188 U/L 30-65 high Not Available [address], 16[address], 06/01/2018 09:44:32 05/31/20 18 06/01/2018 CMP, serum or plasm a alk. phos. 405 U/L 50-136 high Not Available [address], [address], 06/01/2018 09:44:32 05/31/20 18 06/01/2018 lipid panel , serum cholesterol 252 mg/dL <200 mg/dl Domenico able 200-2 39 mg/dl Borde rline High >240 mg/dl High Not Available [address], [address], 06/01/2018 09:44:33 05/31/20 18 06/01/2018 lipid panel , serum triglyceride s 98 mg/dL <150 mg/dL Windy l 150-1 99 mg/dL Borde rline High 200-4 99 mg/dL High >500 mg/dL Very High Not Available [address], [address], 06/01/2018 09:44:33 05/31/20 18 06/01/2018 lipid panel , serum direct HDL 61 mg/dL <40 mg/dl - Major Risk for CHD >60 mg/dl - Negat geena Risk for CHD Not Available [address], [address], 06/01/2018 09:44:33 05/31/20 18 06/01/2018 C-matt ctive prote in, quant itati ve, serum or plasm a C-reactive protein -quant 16.7 mg/L 0.0-9. 0 high Not Available [address], [address], 06/01/2018 09:44:35 05/31/20 18 06/01/2018 LDL, calcu [...] r is not rick campos. Not Available [address], [address], 06/01/2018 09:44:36 05/31/20 18 06/01/2018 CBC WBC 8.6 K/? ? ?L 4.0-10 .0 Not Available [address], [address], 06/01/2018 09:49:55 05/31/20 18 06/01/2018 CBC RBC 4.78 M/? ? ?L 3.93-5 .22 Not Available [address], 70042, 06/01/2018 09:49:55 05/31/20 18 06/01/2018 CBC HGB 15.1 g/dL 11.2-1 5.7 Not Available [address], 49534, 06/01/2018 09:49:55 05/31/20 18 06/01/2018 CBC HCT 47.4 % 34.1-4 4.9 high Not Available [address], 47282, 06/01/2018 09:49:55 05/31/20 18 06/01/2018 CBC MCV 99.2 ? ? ?L 79.4-9 4.8 high Not Available [address], 69162, 06/01/2018 09:49:55 05/31/20 18 06/01/2018 CBC MCH 31.6 pg 25.6-3 2.2 Not Available [address], 76515, 06/01/2018 09:49:55 05/31/20 18 06/01/2018 CBC MCHC 31.9 g/dL 32.2-3 5.5 low Not Available [address], 84369, 06/01/2018 09:49:55 05/31/20 18 06/01/2018 CBC plt 227.0 K/? ? ?L 182.0- 369.0 Not Available [address], 78245, 06/01/2018 09:49:55 05/31/20 18 06/01/2018 CBC MPV 11.5 9.4-12 .3 Not Available [address], 35044, 06/01/2018 09:49:55 05/31/20 18 06/01/2018 CBC neut% 68.5 % 34.0-7 1.1 Not Available [address], [address]8436, 06/01/2018 09:49:55 05/31/20 18 06/01/2018 CBC neut# 5.9 1.6-6. 1 Not Available [address], 79803, 06/01/2018 09:49:55 05/31/20 18 06/01/2018 CBC lymph % 22.7 % 19.3-5 1.7 Not Available [address], 92235, 06/01/2018 09:49:55 05/31/20 18 06/01/2018 CBC lymph # 2.0 K/? ? ?L 1.2-3. 7 Not Available [address], 19555, 06/01/2018 09:49:55 05/31/20 18 06/01/2018 CBC mono% 7.2 % 4.7-12 .5 Not Available [address], 87841, 06/01/2018 09:49:55 05/31/20 18 06/01/2018 CBC mono# 0.6 0.2-0. 6 high Not Available [address], [address]82, 06/01/2018 09:49:55 05/31/20 18 06/01/2018 CBC eo% 1.4 % 0.7-5. 8 Not Available [address], [address]241, 06/01/2018 09:49:55 05/31/20 18 06/01/2018 CBC eo# 0.1 0.0-0. 4 Not Available [address], 28503, 06/01/2018 09:49:55 05/31/20 18 06/01/2018 CBC baso% 0.2 % 0.1-1. 2 Not Available [address], 74237, 06/01/2018 09:49:55 05/31/20 18 06/01/2018 CBC baso# 0.0 0.0-0. 1 Not Available [address], 20653, 06/01/2018 09:49:55 05/31/20 18 06/01/2018 CBC RDW-CV 14.5 % 11.7-1 4.4 high Not Available [address], 26[address], 06/01/2018 09:49:55 05/31/20 18 06/01/2018 HbA1c (hemo globi n A1c), blood hemoglobin A1C 5.8 % 4.8-6. 0 Goal: <7% in Patie nts with Diabe ines Not Available [address], [address], 06/01/2018 11:28:38 05/31/20 18 06/01/2018 HbA1c (hemo globi n A1c), blood estimated average glucose 119.8 mg/dL Not Available [address], 44[address], 06/01/2018 11:28:38 05/31/20 18 06/01/2018 TSH, serum or plasm a TSH 1.49 uIU/m L 0.50-6 .00 The Ameri can Colle ge of Endoc rinol ogy and Ameri can Thyro id Assoc iatio n recom mend goal TSH value s betwe en 0.4-4 .0 mIU/m L. Not Available [address], [address], 06/01/2018 12:11:02 05/31/20 18 05/31/2018 kennedi patel am Result NSR, q wave in III, AVF Not Available [address], [address], 05/31/2018 11:08:11 06/03/20 18 06/04/2018 hepat ic funct ion panel , serum total protein 7.5 g/dL 6.4-8. 2 Not Available [address], [address], 06/04/2018 10:17:48 06/03/20 18 06/04/2018 hepat ic funct ion panel , serum albumin 3.4 g/dL 3.4-5. 0 Not Available [address], [address], 06/04/2018 10:17:48 06/03/20 18 06/04/2018 hepat ic funct ion panel , serum globulin 4.1 g/dL Not Available [address], [address], 06/04/2018 10:17:48 06/03/20 18 06/04/2018 hepat ic funct ion panel , serum A/G 0.8 ratio 0.8-2. 0 Not Available [address], [address], 06/04/2018 10:17:48 06/03/20 18 06/04/2018 hepat ic funct ion panel , serum total bilirubin 0.70 mg/dL 0.00-1 .00 Not Available [address], [address], 06/04/2018 10:17:48 06/03/20 18 06/04/2018 hepat ic funct ion panel , serum direct bilirubin 0.40 mg/dL 0.00-0 .30 high Not Available [address], [address], 06/04/2018 10:17:48 06/03/20 18 06/04/2018 hepat ic funct ion panel , serum AST 78 U/L 15-37 high Not Available [address], [address], 06/04/2018 10:17:48 06/03/20 18 06/04/2018 hepat ic funct ion panel , serum ALT 146 U/L 30-65 high Not Available [address], [address], 06/04/2018 10:17:48 06/03/20 18 06/04/2018 hepat ic funct ion panel , serum alk. phos. 379 U/L 50-136 high Not Available [address], [address], 06/04/2018 10:17:48 06/03/20 18 06/08/2018 hepat itis panel (A+B+ C), acute , serum hepatitis A IgM NON-RE ACTIVE non-re active normal Not Available [facility] [address] [place] [address] Jonah B, [place], [address], 06/08/2018 06:02:46 06/03/20 18 06/08/2018 hepat itis panel (A+B+ C), acute , serum hepatitis B surface antigen NON-RE ACTIVE non-re active normal Not Available [facility] [address] [place], [address], 06/08/2018 06:02:46 06/03/2006/08/2018 hepat itis panel (A+B+ C), acute , serum hepatitis B core antibody (IgM) NON-RE ACTIVE non-re active normal Not Available [facility] [place] [facility] [address] [place], [place], [address], 06/08/2018 06:02:46 06/03/20 18 06/08/2018 hepat itis panel (A+B+ C), acute , serum hepatitis C antibody NON-RE ACTIVE non-re active normal Not Available [facility] [address] [place], [place], [address], 06/08/2018 06:02:46 06/03/20 18 06/08/2018 hepat itis panel (A+B+ C), acute , serum signal to cut-off 0.02 <1.00 normal Not Available [facility] [address] [place], [place], [address], 06/08/2018 06:02:46 06/03/2006/08/2018 alkal ine phosp hatas e isoen zymes , serum or plasm a alkaline phosphatase 336 U/L 33-130 high Not Available [facility] [place] [facility] [address] [place], [place], [address], 06/08/2018 06:02:46 06/03/20 18 06/08/2018 alkal ine phosp hatas e isoen zymes , serum or plasm a intestinal isoenzymes 3 % 1-24 Not Available [facility] [address] [place], [place], [address], 06/08/2018 06:02:46 06/03/20 18 06/08/2018 alkal ine phosp hatas e isoen zymes , serum or plasm a bone isoenzymes 23 % 28-66 low Not Available [facility] [place] [facility] [address], [address], 06/08/2018 06:02:46 06/03/20 18 06/08/2018 alkal ine phosp hatas e isoen zymes , serum or plasm a liver isoenzymes 75 % 25-69 high Not Available [facility] [place] [facility] [address], [address], 06/08/2018 06:02:46 06/03/20 18 06/08/2018 alkal ine phosp hatas e isoen zymes , serum or plasm a placental isoenzymes 0 % <=0 Not Available [facility] [place] [facility] [address], [address], 06/08/2018 06:02:46 06/03/20 18 06/08/2018 alkal ine phosp hatas e isoen zymes , serum or plasm a macrohepatic isoenzymes 0 % <=0 Not Available [facility] [place] [facility] [address], [address], 06/08/2018 06:02:46 05/09/20 19 05/09/2019 CBC w/ auto diff WBC 12.28 K/uL 3.40-1 1.20 high Not Available [facility] [address] [place], [address], 05/09/2019 16:17:31 05/09/20 19 05/09/2019 CBC w/ auto diff RBC 4.56 M/uL 3.80-4 .80 Not Available [facility] ([facility] [address] [place], [address], 05/09/2019 16:17:31 05/09/20 19 05/09/2019 CBC w/ auto diff HGB 14.3 g/dL 12.0-1 5.0 Not Available [facility] ([facility] [address] [place], [address], 05/09/2019 16:17:31 05/09/20 19 05/09/2019 CBC w/ auto diff HCT 42.2 % 36.0-4 6.0 Not Available [facility] ([facility] [address] [place], [address], 05/09/2019 16:17:31 05/09/20 19 05/09/2019 CBC w/ auto diff plt 210 K/uL 130-40 0 Not Available [facility] ([facility] [address] [place], [address], 05/09/2019 16:17:31 05/09/20 19 05/09/2019 CBC w/ auto diff MCV 92.5 fL 79.0-9 8.0 Not Available [facility] ([facility] [address] [place], [address], 05/09/2019 16:17:31 05/09/20 19 05/09/2019 CBC w/ auto diff MCH 31.4 pg 27.0-3 4.8 Not Available [facility] ([facility] [address] [place], [address], 05/09/2019 16:17:31 05/09/20 19 05/09/2019 CBC w/ auto diff MCHC 33.9 g/dL 31.5-3 6.0 Not Available [facility] ([facility] [address] [place], [address], 05/09/2019 16:17:31 05/09/20 19 05/09/2019 CBC w/ auto diff RDW 13.3 % 10.8-1 4.6 Not Available [facility] ([facility] [address] [place], [address], 05/09/2019 16:17:31 05/09/20 19 05/09/2019 CBC w/ auto diff MPV 10.5 fL 9.4-12 .4 Not Available [facility] [address] [place], [address], 05/09/2019 16:17:31 05/09/20 19 05/09/2019 CBC w/ auto diff NRBC 0.00 /100_ WBCs 0.00 Not Available [facility] [address] [place], [address], 05/09/2019 16:17:31 05/09/20 19 05/09/2019 CBC w/ auto diff absolute NRBC 0.00 K/uL 0.00 Not Available [facility] ([facility] [address] [place], [address], 05/09/2019 16:17:31 05/09/20 19 05/09/2019 CBC w/ auto diff diff method Auto Not Available [facility] ([facility] [address] [place], [address], 05/09/2019 16:17:31 05/09/20 19 05/09/2019 CBC w/ auto diff neuts 80.9 % 45.30- 77.70 high Not Available [facility] ([facility] [address] [place], [address], 05/09/2019 16:17:31 05/09/20 19 05/09/2019 CBC w/ auto diff lymphs 13.3 % 12.30- 39.70 Not Available [facility] ([facility] [address] [place], [address], 05/09/2019 16:17:31 05/09/20 19 05/09/2019 CBC w/ auto diff monos 4.4 % 4.10-1 2.80 Not Available [facility] ([facility] [address] [place], [address], 05/09/2019 16:17:31 05/09/20 19 05/09/2019 CBC w/ auto diff eos 0.7 % 0-7.2 Not Available [facility] ([facility] [address] [place], [address], 05/09/2019 16:17:31 05/09/20 19 05/09/2019 CBC w/ auto diff basos 0.3 % 0-2.80 Not Available [facility] ([facility] [address] [place], [address], 05/09/2019 16:17:31 05/09/20 19 05/09/2019 CBC w/ auto diff granulocytes , immature (%) 0.4 % 0.0-0. 9 Not Available [facility] ([facility] [address] [place], [address], 05/09/2019 16:17:31 05/09/20 19 05/09/2019 CBC w/ auto diff absolute neuts 9.94 K/uL 1.40-7 .70 high Not Available [facility] ([facility] [address] [place], [address], 05/09/2019 16:17:31 05/09/20 19 05/09/2019 CBC w/ auto diff absolute lymphs 1.63 K/uL 0.60-3 .20 Not Available [facility] ([facility] [address] [place], [address], 05/09/2019 16:17:31 05/09/20 19 05/09/2019 CBC w/ auto diff absolute monos 0.54 K/uL 0.11-0 .59 Not Available [facility] ([facility] [address] [place], [address], 05/09/2019 16:17:31 05/09/20 19 05/09/2019 CBC w/ auto diff absolute eos 0.08 K/uL 0.01-0 .50 Not Available [facility] ([facility] [address] [place], [address], 05/09/2019 16:17:31 05/09/20 19 05/09/2019 CBC w/ auto diff absolute basos 0.04 K/uL 0.00-0 .08 Not Available [facility] ([facility] [address] [place], [address], 05/09/2019 16:17:31 05/09/20 19 05/09/2019 CBC w/ auto diff granulocytes , immature 0.05 K/uL 0.00-0 .05 Not Available [facility] [address] [place], [address], 05/09/2019 16:17:31 05/09/20 19 05/09/2019 BMP, blood sodium 138 mmol/ L 133-14 6 Not Available [facility] [address] [place], [address], 05/09/2019 16:36:49 05/09/20 19 05/09/2019 BMP, blood chloride 103 mmol/ L 96-108 Not Available [facility] ([facility] [address] [place], [address], 05/09/2019 16:36:49 05/09/20 19 05/09/2019 BMP, blood potassium 4.3 mmol/ L 3.3-5. 1 Not Available [facility] [address] [place], [address], 05/09/2019 16:36:49 05/09/20 19 05/09/2019 BMP, blood CO2 25 mmol/ L 21-35 Not Available [facility] [address] [place], [address], 05/09/2019 16:36:49 05/09/20 19 05/09/2019 BMP, blood BUN 20 mg/dL 6-19 high Not Available [facility] ([facility] [address] [place], [address], 05/09/2019 16:36:49 05/09/20 19 05/09/2019 BMP, blood creatinine 0.90 mg/dL 0.5-1. 5 Not Available [facility] [address] [place], [address], 05/09/2019 16:36:49 05/09/20 19 05/09/2019 BMP, blood glucose 99 mg/dL 70-99 Not Available [facility] ([facility] [address] [place], [address], 05/09/2019 16:36:49 05/09/20 19 05/09/2019 BMP, blood calcium 9.2 mg/dL 8.4-10 .3 Not Available [facility] ([facility] [address] [place], [address], 05/09/2019 16:36:49 05/09/20 19 05/09/2019 BMP, blood eGFR 69 mL/mi n/1.7 3m2 >59 If patie nt is black , multi ply resul t by 1.159 . Estim ated glome rular filtr ation rate calcu lated using the CKD-E PI equat ion. Not Available [facility] ([facility] [address] [place], [address], 05/09/2019 16:36:49 05/09/20 19 05/09/2019 BMP, blood anion gap 14 mmol/ L 10-20 Not Available [facility] ([facility] [address] [place], [address], 05/09/2019 16:36:49 05/09/20 19 05/09/2019 lfts (hepa tic panel ) alkaline phosphatase 435 U/L 39-117 high Not Available [facility] ([facility] [address] [place], [address], 05/09/2019 16:36:51 05/09/20 19 05/09/2019 lfts (hepa tic panel ) total bilirubin 1.1 mg/dL 0.0-1. 2 Not Available [facility] ([facility] [address] [place], [address], 05/09/2019 16:36:51 05/09/20 19 05/09/2019 lfts (hepa tic panel ) direct bilirubin 0.5 mg/dL 0-0.3 high Not Available [facility] ([facility] [address] [place], [address], 05/09/2019 16:36:51 05/09/20 19 05/09/2019 lfts (hepa tic panel ) bilirubin (indirect) 0.6 mg/dL 0-1.5 Not Available [facility] (Out[facility]) [address] [place], [address], 05/09/2019 16:36:51 05/09/20 19 05/09/2019 lfts (hepa tic panel ) AST 89 U/L 0-37 high Not Available [facility] ([facility] [address] [place], [address], 05/09/2019 16:36:51 05/09/20 19 05/09/2019 lfts (hepa tic panel ) ALT 103 U/L 0-40 high Not Available [facility] ([facility] [address] [place], [address], 05/09/2019 16:36:51 05/09/20 19 05/09/2019 lfts (hepa tic panel ) total protein 7.5 g/dL 6.5-8. 0 Not Available [facility] ([facility]) [address] [place], [address], 05/09/2019 16:36:51 05/09/20 19 05/09/2019 lfts (hepa tic panel ) albumin 3.3 g/dL 3.9-4. 8 low Not Available [facility] ([facility] [address] [place], [address], 05/09/2019 16:36:51 05/09/20 19 05/09/2019 lfts (hepa tic panel ) globulin 4.2 g/dL 1-4.8 Not Available [facility] ([facility]) [address] [place], [address], 05/09/2019 16:36:51 05/09/20 19 05/09/2019 lfts (hepa tic panel ) A/G ratio 0.79 ratio 1.00-4 .80 low Not Available [facility] ([facility]) [address] [place], [address], 05/09/2019 16:36:51 05/09/20 19 05/09/2019 tropo rachel T, serum troponin-T, high sensitivity (gen 5) <6 NG/L 0-9 Not Available [facility] ([facility] [address] [place], [address], 05/09/2019 16:36:59 05/09/20 19 05/09/2019 tropo rachel T, serum troponin-T, high sensitivity (gen 5) <6 NG/L 0-9 Not Available [facility] ([facility] [address] [place], [address], 05/09/2019 18:02:06 05/09/20 19 05/09/2019 urine sedim ent WBC 0-4 /hpf none seen abnormal Not Available [facility] ([facility] [address] [place], [address], 05/09/2019 19:40:35 05/09/2005/09/2019 urine sedim ent RBC 3-5 /hpf none seen abnormal Not Available [facility] ([facility]) [address] [place], [address], 05/09/2019 19:40:35 05/09/20 19 05/09/2019 urine sedim ent urine epithelial 0-4 none seen abnormal Not Available [facility] ([facility]) [address] [place], [address], 05/09/2019 19:40:35 05/09/20 19 05/09/2019 urine sedim ent mucus 2+ /hpf none seen abnormal Not Available [facility] ([facility]) [address] [place], [address], 05/09/2019 19:40:35 05/09/20 19 05/09/2019 urine sedim ent bacteria 1+ none seen abnormal Not Available [facility] ([facility] [address] [place], [address], 05/09/2019 19:40:35 05/09/20 19 05/09/2019 urine sedim ent crystals 1+ AMORP HOUS Not Available [facility] ([facility] [address] [place], [address], 05/09/2019 19:40:35 05/09/20 19 05/10/2019 urina lysis , refle x cultu re color Yellow yellow Not Available [facility] ([facility] [address] [place], [address], 05/10/2019 08:27:19 05/09/2005/10/2019 urina lysis , refle x cultu re clarity Clear Not Available [facility] ([facility] [address] [place], [address], 05/10/2019 08:27:19 05/09/2005/10/2019 urina lysis , refle x cultu re glucose Negati ve negati ve Not Available [facility] ([facility] [address] [place], [address], 05/10/2019 08:27:19 05/09/2005/10/2019 urina lysis , refle x cultu re bili 1+ negati ve abnormal Not Available [facility] ([facility] [address] [place], [address], 05/10/2019 08:27:19 05/09/2005/10/2019 urina lysis , refle x cultu re ketones Trace negati ve abnormal Not Available [facility] ([facility]) [address] [place], [address], 05/10/2019 08:27:19 05/09/2005/10/2019 urina lysis , refle x cultu re specific gravity >1.030 1.005- 1.030 Not Available [facility] ([facility] [address] [place], [address], 05/10/2019 08:27:19 05/09/2005/10/2019 urina lysis , refle x cultu re blood Negati ve negati ve Not Available [facility] ([facility]) [address] [place], [address], 05/10/2019 08:27:19 05/09/2005/10/2019 urina lysis , refle x cultu re pH 5.5 5.0-8. 0 Not Available [facility] ([facility]) [address] [place], [address], 05/10/2019 08:27:19 05/09/2005/10/2019 urina lysis , refle x cultu re protein 1+ negati ve abnormal Not Available [facility] ([facility] [address] [place], [address], 05/10/2019 08:27:19 05/09/2005/10/2019 urina lysis , refle x cultu re nitrite Negati ve negati ve Not Available [facility] ([facility]) [address] [place], [address], 05/10/2019 08:27:19 05/09/2005/10/2019 urina lysis , refle x cultu re leukocyte esterase, ur Negati ve negati ve Not Available [facility] (Outpatient) [address] [place], [address], 05/10/2019 08:27:19 05/09/20 19 05/09/2019 cultu re, urine special requests None Not Available [facility] ([facility] [address] [place], [address], 05/11/2019 09:00:23 05/09/20 19 05/10/2019 cultu re, urine gram stain Rare GRAM POSITI VE RODS Not Available [facility] ([facility]) [address] [place], [address], 05/11/2019 09:00:23 05/09/2005/11/2019 cultu re, urine urine culture abnormal >100, 000 colon y formi ng units per mL MIXED ELDER (3 OR MORE COLON Y TYPES ) Cultu re indic ates conta minat ion. Pleas e resub lexi if neces andres. Not Available [facility] (Out[facility]) [address] [place], [address], 05/11/2019 09:00:23 04/03/20 15 04/03/2015 scree ana- [...] view. Densit y - 2 Code: G0202, 90135 POS - VMG Electr onical ly signed Readin g Physic kerry: Jerardo brush MD [facility] (Imaging) [address], [place], [address], 05/27/2016 15:36:45 04/20/20 15 04/20/2015 MAMMO , [...] in one year: POS: VMG Code: G0206, 56066 Electr onical ly signed Readin g Physic kerry: Joey Golden [facility] (Imaging) [address], [place], [address], 05/27/2016 15:36:45 05/28/20 16 05/27/2016 MAMMO , [...] onical ly signed Margarita connn: Joey Golden [facility] (Imaging) [address], [place], [address], 05/29/2017 10:42:14 05/31/20 18 elect rocar diogr am No observ ation record ed. pkeough Not Available 2017 13:32:54 06/25/20 18 06/22/2018 cardi ac stres s test No observ ation record ed. [address] Cardi[facility]as[facility] r [facility] [address], [place], [address], 07/20/2018 07:58:55 06/30/20 18 06/22/2018 exerc ise stres s test No observ ation record ed. 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 Bones: No acute bony abnorm ality. IMPRES NICOLE: 1. No acute intrac ranial findin gs. 2. 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 [address], [address], 05/10/2019 08:38:02 Result Notes None recorded. Problems Name Problem SNOMED Code Status Onset Date Resolution Date Notes Provider Name and Address Organization Details Recorded Time Benign essential hypertension 6528742 Active Kylah hinds, [facility] 6 13:22:17 Problem Notes None recorded. Procedures Surgical History Date Name Laterality Status Provider Name and Address Organization Details Recorded Time Total Hysterectomy completed Xander Bentley NP [address] [place], [address], [facility] 06/28/2014 15:32:49 Imaging Results None recorded. Procedure Notes None recorded. Medical Equipment None [...] Updated DateTime 5 149.225 cm 35.9 kg/m2 78767.6 84077 g 84 /min 108 mm[Hg] 62 mm[Hg] Oneida Jones MA [facility] 5 10:52:55 Date Recorded Body height Body weight Body mass index (BMI) Heart rate Systolic blood pressure Diastolic blood pressure Provider Name and Address Organization Details Last Updated DateTime 6 149.23 cm 64704.8 4 g 37.4 kg/m2 72 /min 152 mm[Hg] 92 mm[Hg] Oneida Jones MA [facility] 6 15:32:45 Date Recorded Body height Body mass index (BMI) Body weight Heart rate Systolic blood pressure Diastolic blood pressure Provider Name and Address Organization Details Last Updated DateTime 7 174.63 cm 26 kg/m2 36594.6 6 g 56 /min 142 mm[Hg] 94 mm[Hg] Oneida Jones MA [facility] 7 10:37:28 Date Recorded Body weight Provider Name an d Address Organization Details Last Updated DateTime 05/31/2018 [address] [facility] 05/31/2018 10:35:24 Date Recorded Body mass index [...] mm[Hg] 142 mm[Hg] 110 mm[Hg] Oneida Jones [facility] 8 10:50:12 Social History Question Answer Notes LastModified by Organizat ion Details LastModified Time Tobacco Smoking Status [facility] 15:19:18 How Much Tobacco Do You Chew? None Information not available 03/27/2015 What Type Of Diet Are You Following? REGULAR [email or web address] Information not available 06/28/2014 Education 4 Year College [email or web address] Information not available 06/28/2014 How Many Days In The Past Year Have You Had A Heavy Drinking Consumption (4+ Female, 5+ Male)? 0 Information not available 03/27/2015 Live Alone Or With Others? With Others With Son Information not available 06/28/2014 Patient Has Health Care Proxy Signed And In Chart No 05/29/17 Information not available 06/28/2014 Marital Status Moved From [facility] To 2008 Information not available 06/28/2014 Mosquito Repellent Used Routinely Yes Information not available 05/29/2017 What Was The Date Of Your Most Recent Tobacco Screening? 05/31/2018 Information not available 03/23/2019 How Many Children Do You Have? 2 [email or web address] Information not available 06/28/2014 Seat Belts Used Routinely Yes Information not available 03/27/2015 Smoke Alarm In Home Yes Information not available 03/27/2015 General Stress Level Medium Information not available 05/29/2017 Do You Use Sunscreen Routinely? Yes Information not available 05/29/2017 Sex: Unknown Functional Status Question Answer Note LastModified by Organizat ion Details LastModified Time What is your level of alcohol consumption? Occasional Information not available 03/27/2015 What is your occupation? [employer] [email or web address] Information not available 06/28/2014 Mental Status None recorded. Family History Relationship [...] SNOMED-CT Code Diagnosis ICD10 Code Diagnosis Note [id number] Ama Franz D.O. [facility], OFFICE [address] [place] [address] 06/28/2014 15:01:22 06/29/2014 12:06:47 Benign essential hypertension 0133621 Blood pressure NOT at goal. been off meds 1 month unsure of dose but will restart at 50 mg Will get labs RTO 1 month Biceps tendinitis 871562814 R bicep tendonitis given handout with exercises to start advised ice after activity, work RTO 1 month [id number] Ama Franz D.[facility], OFFICE [address] [place] [address] 08/09/2014 08:22:01 08/09/2014 08:54:30 Screening for malignant neoplasm of colon [id number] Referral for a DIRECT booked colonoscop y. This patient is a healthy ASA Class 1 or 2 patient (only mild systemic disease), or a STABLE, well controlled insulin dependent diabetic. They do not have serious cardiac disease ie DE/angiopl asty within 1 year, symptomati c CHF; renal failure with CKD 4 or 5; take Coumadin, Plavix, Aggrenox, etc; nor take chronic narcotics. [Patients who take chronic narcotics should be referred to [facility] for a propofol procedure due to possible inability to sedate adequately with conscious sedation.] Screening mammography 36603209 Benign ess ential hypertension 0516209 At goal LDL at goal HDL a bit low- encouraged more regular exercise C/W losartan Impaired f asting glycemia 852037312 FBS 114 states diet low in sugars, carbs though does eat rice will refer for MNT Obesity 531839491 BMI 35 Discussed weight loss with exercise and diet will refer for MNT Acquired t cut out stitcher finger 4694728 R middle finger tolerating with massage in morning declines further eval [id number] Ama Franz D.[facility], OFFICE [address] [place] [address] 03/27/2015 10:38:09 03/27/2015 11:22:54 Screening mammography [id number] Screening for malignant neoplasm of colon 571674868 Referral for a DIRECT booked colonoscop y. This patient is a healthy ASA Class 1 or 2 patient (only mild systemic disease), or a STABLE, well controlled insulin dependent diabetic. They do not have serious cardiac disease ie DE/angiopl asty within 1 year, symptomati c CHF; renal failure with CKD 4 or 5; take Coumadin, Plavix, Aggrenox, etc; nor take chronic narcotics. [Patients who take chronic narcotics should be referred to [facility] for a propofol procedure due to possible inability to sedate adequately with conscious sedation.] Lifestyle 218625501 Adult [facility] th examination [id number] see Risk Assessment and Lifestyle Change Counseling section above HM: Due for mammo, colonoscop y, labs no pap- d/t ZEENAT Counseling [id number] Benign ess ential hypertension 5947151 At goal LDL at goal HDL a bit low- encouraged more regular exercise C/W losartan Sweating 687063770 likel y hormonal will check labs below [id number] Ama Franz D.O. [facility], OFFICE [address] [place] [address] 05/27/2016 15:26:39 05/28/2016 09:03:40 Adult health examination [id number] Z00.00 see Risk Assessment and Lifestyle Change Counseling section above HM: mammo - will get todaycolon oscopy 05/16/15 with 10 yr repeatdue labs- will get today no pap- d/t ZEEANT Benign ess ential hypertension 7846959 I10 BP elevated-w as running late for apptwill check outside of officeGOal < 140/90get labs today Screening mammography 24 702570 Z12.31 today Atrophic vaginitis 56433 000 N95.2 Obesity 110383306 E66.9 BMI 37 Discussed weight loss with exercise and diet will refer for MNT Skin lesion 48634078 L98 .9 L hip? herpescx submitted Mastitis 34135993 N61 tender L breast, firm aeorlalast mammo 05/15will get today [id number] Didier Meeks, OD [facility], [facility] [address] [place] [address] 09/16/2016 09:03:35 09/16/2016 10:06:27 Presbyopia 22295498 H52.4 Regular astigmatism 6890 5002 H52.223 Pterygium 36308789 H11.0 02 Nasally-no t visually significan t [id number] Ama MuhammadOMartir , [facility], OFFICE [address] [place] [address] 05/29/2017 10:25:31 05/29/2017 11:07:36 Benign essential hypertension 0795854 I10 BP not at goal of < 140/90had stopped losartanwi ll c/w dc and start lisinopril 10 mgrto 4 weeks Adult heal th examination 686864605 Z00.00 see Risk Assessment and Lifestyle Change Counseling section aboveHM: Pap todayBMP utd, Lipid dueColon 05/16/15 w/10 yr repeatMamm o 05/2016 Counseling 137035317 Z71 .9 Screening for malignant neoplasm of cervix 138177231 Z12.4 Impaired f asting glycemia 771840798 R73.01 FBS 107- down from 114 discussed reducing breads, pasta, rice and jello and juice [id number] Ama Franz D.O. , [facility], OFFICE [address] [place] [address] 05/31/2018 10:30:54 05/31/2018 11:19:32 Screening mammography 14650218 Z12.31 Palpitations [id number] R0 0.2 Benign ess ential hypertension [id number] I10 Unintentio nal weight loss [id number] R63.4 EKG: Q wave abnormal 164 [id number] R94.31 Health Concerns Section Related Observation LastModified by Organization Detai ls LastModified Time None Recorded Concern Status LastModified by Organization Details LastModified Time None Recorded Advance Directives Directive None Recorded Payers Encounter Date Sequence Insurance Name Policy Number Policy Allen Covered Member ID Allen Member ID Guarantor Name 03/27/2015 1 [facility] [employer] (MEDICAID HMO) [id number] Aarti Boone [id number] Aarti Rm Paolo 05/27/2016 1 [place] [facility] Aarti Boone [id number] Aarti Boone 09/16/2016 1 [place] [facility] Aarti Boone [id number] Aarti Boone 05/29/2017 1 [place] [facility] Aarti Rm Paolo [id number] Aarti Boone 05/31/2018 1 [facility] [id number] Aarti Rm Paolo [id number] Aarti Rm Paolo Notes Date Note Type [...] risk of skin cancer Xander Bentley NP [address] [place] [address], [phone], [facility] 05/27/2016 16:48:20 7 text/html Comprehensive Eye ExamReported bypatient.Quality:2 year exam; no blurred vision Location:bilateral Context:currently wears glasses Modifying factors:wears glasses for readers only Associated Symptoms:no redness; no itching; no floaters; no dryness Didier Meeks OD [address] [place], [phone], [facility] 09/16/2016 10:00:58 7 text/html Physical Exam/FemaleReported bypatient.PHAPatient [...] to self manage condition Xander Bentley NP [address] [place] [address], [phone], [facility] 05/29/2017 11:08:58 8 text/html Aarti is not feeling well x 2 weeksat night- palpitations, headache, very tired.once had abdominal pain with no bowel issue or NVlost 20 lbs in past 3 months- not trying to lose weight.eats and immediately gets full.vision changes- needs eye exam.not sleeping well.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
[2025-01-27 13:25] LABS: Alanine Aminotransferase 83 U/L (0-31); Albumin Level 4.2 g/dL (3.5-5.0); Alkaline Phosphatase 137 U/L (39-117); Aspartate Amino Transferase 65 U/L (5-31); Bilirubin Direct 0.2 mg/dL (0.0-0.5); Bilirubin Total 0.7 mg/dL (0.0-1.0); Gamma Glutamyl Transpeptidase 467 U/L (7-33); Total Protein 7.5 g/dL (6.5-8.0)
[2025-01-27 13:32] LABS: HBS Num1 0.62 mIU/mL (0-7.99); HBc Num1 0.12 S/CO (0.00-0.79); HBsAGNum1 0.27 S/CO (0.00-0.99); Hepatitis A Antibody IgM 0.33 Index (0-0.79); Hepatitis B Core Antibody Nonreactive (Nonreactive); Hepatitis B Surface Antigen Negative (Negative); ~HepC Num1 0.12 S/CO (0.00-0.79); ~Hepatitis A Antibody IgM Nonreactive (Nonreactive); ~Hepatitis B Surface Antibody NONREACTIVE (Nonreactive); ~Hepatitis C Antibody Nonreactive (Nonreactive)
[2025-01-31 07:42] LABS: Mitochondrial Antibodies NEGATIVE (NEGATIVE)
== END 2025-01-27 12:19 | disposition home or self-care (01) ==
LOC: HO.LAB 12:18
PROVIDERS: PCP Internal Medicine; Visit Provider Internal Medicine
DX: R74.01 Elevation of levels of liver transaminase levels (principal)
CPT/HCPCS: 36415; 80076; 82977; 86381; 86704; 86706; 86709; 86803; 87340

== ENCOUNTER 2025-03-01 13:17 | Outpatient (AMB) | payer MEDICARE, SELFPAY ==
--- NOTE | 2025-03-01 13:18 | MHC.OFFVIS ---
Vital Signs 03/01/25 13:20 Height 5 ft Weight 167 lb 8.821 oz BMI 32.7 BP 171/78 H Blood Pressure Location Lt radial Position Sitting Pulse 77 Intake Visit Reasons: Abnormal findings on diag imaging of abd. regions Intake Note: Aarti presents in the office as a new patient for ABD findings on her imaging. CC: Pains in the stomach and states she has lots of inflammation in the stomach. She said at night her stomach feels very heavy - her urination and bowels are not an issue. 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 regions: Details: Patient is a [place] speaking 64-year-old female with PMH of obesity, hypertension, hyperlipidemia and headaches. Aarti is a patient referred by her primary care provider for further evaluation of her liver following an abnormal ultrasound. She has a history of gallbladder removal and a recent ERCP procedure to remove bile duct blockage, which resulted in a 10-day hospitalization due to infection. The patient reports that her recovery from the ERCP procedure was difficult, with certain foods causing discomfort and upset stomach. Although she improved after 2 months, she has recently experienced recurrence of symptoms over the past 10 days. These include right lower back pain at the waist level, abdominal bloating, and a feeling of heaviness in her stomach, particularly at night. The back pain is exacerbated by physical exertion or lifting objects. She denies nausea, blood in stools, or recent fever. She has made dietary changes to manage her symptoms, avoiding spicy and fried foods and consuming minimal salt. She reports no alcohol consumption for the past 3 months and denies use of coffe. She previously took Aleve 2?3 times daily for body pain related to her physically demanding job but stopped 6?8 months ago due to stomach irritation. Social hx: - Low-salt diet; avoids spicy and fried foods -No tobacco, recreational drugs, or vaping use - Alcohol abstinent for 3 months; previously 1?2 drinks weekly - Lives in [place] - family hx as below -denies personal hx of CA -denies significant cardiopulmonary history -tolerated anesthesia in the past without difficulty. normal colo 10 years ago [facility] Medical History (Updated 03/01/25 @ 13:58 by Esme Molina CNP) Bloating Bilateral primary osteoarthritis of knee Right tennis elbow Degenerative disc disease, lumbar Cough Blurry vision Class 1 obesity with body mass index (BMI) of 30.0 to 30.9 in adult Hypertension Tortuosity of artery Transaminitis Pure hypercholesterolemia Physical exam Brain lesion Hair loss New daily persistent headache Polyarthralgia Obstructive jaundice Surgical History Hx of colonoscopy History of removal of calculus of renal pelvis through percutaneous nephrostomy History of endoscopy H/O hysterectomy for benign disease Family History (Updated 03/01/25 @ 13:51 by Esme Molina CNP) Father CAD (coronary artery disease) Mother Stomach cancer Daughter Uterine cancer Son Intestinal disease Social History Housing: House Alcohol intake: current Alcohol intake frequency: a few times a month Alcohol type: beer, wine and hard liquor Patient Tobacco Use Status: Never used Tobacco e-Cigarette/Vaping Use: Never Used Second Hand Smoke Exposure: No service: No Current occupational status: employed 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 [employer] Current occupational exposures/hazards: No Cognitive needs: No Hearing needs: No Vision needs: Yes (only for reading) Review of Systems Const Reports as per HPI ENT Reports as per HPI Card Reports as per HPI Resp Reports as per HPI GI Reports as per HPI Reports as per HPI Physical Exam Vital Signs: Last Vital Signs Pulse 77 03/01/25 13:20 BP 171/78 H 03/01/25 13:20 BMI result Body Mass Index 32.7 Const General: healthy appearing, no acute distress and well developed Nutritional Appearance: well nourished Orientation/consciousness: patient oriented x3 HEENT Head: Yes normal to inspection, Yes normocephalic and Yes atraumatic Face and sinus: Yes normal facial exam Eyes General: appearance normal, both eyes and all related structures Neck Neck: Yes normal visual inspection Resp Effort & Inspection: normal respiratory effort, able to speak in complete sentences, no tracheal deviation and symmetric chest movement Auscultation: clear to auscultation bilaterally Cardio Jugular venous distension: no JVD Rate: regular rate Rhythm: regular rhythm Heart sounds: S1 normal heart sound present, S2 normal heart sound present, no gallops and no murmurs GI Inspection: Yes normal to inspection, No distended, Yes obesity and Yes striae Palpation (GI): Soft to palpation, not firm, nontender and No hepatosplenomegaly present Auscultation: normal bowel sounds Neuro General: patient oriented x3 Gait exam (Neuro): Normal gait present Psych Appearance: grossly normal Mental Status: mental status grossly normal Speech and movement: Normal speech and movement present Affect: normal affect Attitude: cooperative Thought process: Normal thought process present Thought content: Normal thought content present Insight: Good insight present (Psych) Judgement: Good judgement present (Psych) Results Reviewed Results Reviewed: Date of Service: 12/26/24 Procedure(s): US abdomen limited Accession Number(s): [id number] cc: Silvana Funes MD; Torey Wiggins~ EXAMINATION: US ABDOMEN LIMITED CLINICAL INFORMATION: Choledocholithiasis. COMPARISON: 10/31/2021. TECHNIQUE: Real-time imaging of the right upper quadrant abdominal viscera. FINDINGS: PANCREAS: Visualized portions are unremarkable. LIVER: The liver is normal in size. Right hepatic lobe measures 14.3 cm. The liver contour is somewhat nodular. There is increased and heterogeneous parenchymal echogenicity present. No focal hepatic lesion. There is no intrahepatic biliary duct dilatation seen. GALLBLADDER: Gallbladder is surgically absent. COMMON BILE DUCT: Normal in caliber measuring 0.5 cm in diameter. RIGHT KIDNEY: No hydronephrosis. No renal calculi or focal parenchymal lesions. The kidney measures 9.1 cm in maximum dimension. FREE FLUID: None. US/US abdomen limited IMPRESSION: 1. Liver with cirrhotic morphology and increased/coarsened echogenicity. No suspicious focal lesions seen. 2. Cholecystectomy. 3. No biliary duct dilatation. The common bile duct measures 0.5 cm in diameter. Assessment & Plan Assessment & Plan (1) Transaminitis: Code(s): R74.01 - Elevation of levels of liver transaminase levels Category: Medical Plan: 12/26/24 ultrasound findings suggest advanced liver scarring, likely cirrhosis. No biliary duct seen. Reviewed potential causes, hepatitis and HIV have been excluded; further workup to rule out metabolic and/or autoimmune. - Order fasting labs -we will need hepatitis-B vaccine, to discuss at future visit - Obtain records from [facility] for previous endoscopy results. - Advise complete abstinence from alcohol. - Recommend well-balanced diet, low in high-fat and fried foods. (2) Bloating: Code(s): R14.0 - Abdominal distension (gaseous) Category: Medical Plan: Abdominal bloating, particularly at night, with associated heaviness in the stomach. - Perform breath test to check for stomach bacteria (H. pylori). - Consider upper endoscopy pending review of previous records; screening colonoscopy - Educate patient on dietary modifications. Plan Follow-up in 4 weeks or sooner as needed Time: I spent a total of 60 minutes on the date of encounter which includes: Preparing to see the patient (reviewed previous documentation, test results and medical history) Performing a medically appropriate exam and/or evaluation Ordering medications, tests, and procedures Documenting clinical information in the health record Orders: Orders SILVANA Reflex Titer and Pattern Today Esme Molina CNP R74.01 - Elevation of levels of liver transaminase levels C Reactive Protein Today Esme Molina CNP R74.01 - Elevation of levels of liver transaminase levels Ferritin Today Esme Molina CNP R74.01 - Elevation of levels of liver transaminase levels Alkaline Phosphatase Isoenzyme Today Esme Molina CNP R74.01 - Elevation of levels of liver transaminase levels Immunoglobulins,IgG IgA IgM Today Esme Molina CNP R74.01 - Elevation of levels of liver transaminase levels Smooth Muscle Antibody Today Esme Molina CNP R74.01 - Elevation of levels of liver transaminase levels Hemoglobin A1c Today Esme Molina CNP R74.01 - Elevation of levels of liver transaminase levels IRON PROFILE Today Esme Molina CNP R74.01 - Elevation of levels of liver transaminase levels Liver Fibrosis Pnl Today Esme Molina CNP R74.01 - Elevation of levels of liver transaminase levels H Pylori Breath Test Today Esme Molina CNP R14.0 - Abdominal distension (gaseous) Prothrombin Time INR Today Esme Molina CNP R74.01 - Elevation of levels of liver transaminase levels Lipid Panel Today Esme Molina CNP R74.01 - Elevation of levels of liver transaminase levels Medications: Refilled losartan 50 mg PO DAILY 90 tabs 3RF 90 days Silvana Taylor MD Coding Level of Care Code New Pt New Pt Level 5 (50311) Patient Type New Diagnoses Transaminitis R74.01 Bloating R14.0
[2025-03-01 13:20] VITALS: BP 171/78; PULSE 77; BMI 32.7
--- OUTSIDE RECORDS SUMMARY | 2025-03-01 13:54 | XMS_ITS | Data Portability ---
Author Organization [facility], , [facility] Address [address] [place] [address] Care Team Providers Care Weaver Dobby Loom Name Role Phone XANDER BENTLEY Primary Care [...] . Lab CMP, serum or plasma 2017 [facility], [address] [place] [address], [address], 8 09:44:32 C-reacti ve protein, quantita tive, serum or plasma 2017 [facility], [address] [place] [address], [address], 8 09:44:35 CBC 2017 018 [facility], [address] [place] [address], [address], 8 09:49:56 TSH, serum or plasma 2017 018 [facility], [address] [place] [address], [address], 8 12:11:02 HbA1c (hemoglo bin A1c), blood 2017 018 [facility], [address] [place] [address], [address], 8 11:28:38 pap, LB + reflex HR HPV if ASC-U, ASC-H, LSIL, HSIL, AZAM - Reflex HPV testing for ASCUS and LGSIL 2016 017 [facility] (Outpatient), [address] [place], [address], 7 11:59:23 HSV (1+2) DNA, qual, PCR, unspecif ied specimen 2015 016 [id number] [facility], [address] [place] [address], [address], 6 04:07:46 hepatiti s C virus Ab, serum 2014 015 [facility], [address] [place] [address], [address], 5 18:36:26 TSH, serum or plasma 2014 015 [facility], [address] [place] [address], [address], 5 17:06:34 CBC 2014 015 [facility], [address] [place] [address], [address], 5 13:01:04 CMP, serum or plasma 2014 015 [facility], [address] [place] [address], [address], 5 14:53:58 Referral gynecolo gist referral - vaginal dryness, dyspaure cristo . prefers to see STAFFING ADMINISTRATOR 2015 016 [id number] [facility], [address] [place] [address] , [place], [address], 6 04:07:24 Procedures colonosc opy procedur e (PROC) - 54 yo Lao speaking woman with HTN. Well controll ed. Surg past- ZEENAT. Not seen by GI. Will need interpre ter. 2014 Jocelin [facility], [address] [place], [address], 5 09:59:28 Surgeries None recorded . Imaging MAMMO, screenin g, tomosynt filiberto osborne l [address] (Imaging), [address], [place], [address], 9 10:43:25 exercise stress test - pt with hx of HTN- no known hx of CAD with abn ekg q wave in III, AVF.//wt 155//Spa matthew speaking //please call patient to schedule //no meds//ok to exercise 2017 018 [facility], [address], [place], [address], 9 05:00:56 electroc francis rao 2017 018 [facility], [address] [place] [address], [address], 8 13:32:49 MAMMO, screenin g, digital, filiberto l 2014 015 [facility] (Imaging), [address], [place], [address], 5 15:03:34 Medication Orders lisinopr il 20 mg tablet 2017 018 INTERFACE [facility], [address] [place], [address], 8 11:41:15 lisinopr il 10 mg tablet 2016 017 [facility], [address] [place], [address], 8 10:50:55 losartan 50 mg tablet 2015 016 pkeough [facility], [address] [place], [address], 7 11:07:42 Patient TargetsNo targets recorded. Patient Instructions Encounter Date Encounter Id Patient Instructions Last Modified By Organization Details Last Modified Time 03/27/2015 [id number] well visit, wome n 50 to 65: care instructions pkeough Not available 03/27/2015 12:28:03 05/27/2016 [id number] mamograf a: beau lopez - [mammogram: about this test] Not available 05/27/2016 16:22:00 Please start trying to walk at least 20minute a day. Try to eat 10 fruits or veggies a day. Discussed the Plate method as a way to control portions. pkeough Not available 05/27/2016 16:48:01 09/16/2016 [id number] RX given for glasses No need for surgical treatment of growth on left eye Family history of glaucoma-pressure not checked without drops-optic nerves look healthy Eyes healthy to extent seen without dilation jmerlin Not available 09/16/2016 10:00:53 05/29/2017 [id number] well visit, wome n 50 to 65: care instructions Not available 05/29/2017 11:09:38 Please start trying to walk at least 20minute a day. Try to eat 10 fruits or veggies a day. 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 prefers to see STAFFING ADMINISTRATOR Referring Physician: Xander Bentley, Family Medicine, Encounter Date: 05/27/2016 Results Created Date Observation Date Name Description Value Unit Range Abnormal Flag Note LastModifiedBy Organization Detail LastModifiedTime 03/27/20 15 03/27/2015 CBC WBC 8.8 K/ L 4.0-10 .0 Not Available [address], [address], 03/27/2015 13:01:04 03/27/20 15 03/27/2015 CBC RBC 4.91 M/ L 3.93-5 .22 Not Available [address], [address], 03/27/2015 13:01:04 03/27/20 15 03/27/2015 CBC HGB 15.0 g/dL 11.2-1 5.7 Not Available [address], [address], 03/27/2015 13:01:04 03/27/20 15 03/27/2015 CBC HCT 45.2 % 34.1-4 4.9 high Not Available [address], [address], 03/27/2015 13:01:04 03/27/20 15 03/27/2015 CBC MCV 92.1 L 79.4-9 4.8 Not Available [address], [address], 03/27/2015 13:01:04 03/27/20 15 03/27/2015 CBC MCH 30.5 pg 25.6-3 2.2 Not Available [address], [address], 03/27/2015 13:01:04 03/27/20 15 03/27/2015 CBC MCHC 33.2 g/dL 32.2-3 5.5 Not Available [address], [address], 03/27/2015 13:01:04 03/27/20 15 03/27/2015 CBC plt 258.0 K/ L 182.0- 369.0 Not Available [address], [address], 03/27/2015 13:01:04 03/27/20 15 03/27/2015 CBC MPV 10.3 9.4-12 .3 Not Available [address], [address], 03/27/2015 13:01:04 03/27/20 15 03/27/2015 CBC neut% 53.2 % 34.0-7 1.1 Not Available [address], [address], 03/27/2015 13:01:04 03/27/20 15 03/27/2015 CBC neut# 4.7 1.6-6. 1 Not Available [address], [address], 03/27/2015 13:01:04 03/27/20 15 03/27/2015 CBC lymph % 35.2 % 19.3-5 1.7 Not Available [address], [address], 03/27/2015 13:01:04 03/27/20 15 03/27/2015 CBC lymph # 3.1 K/ L 1.2-3. 7 Not Available [address], [address], 03/27/2015 13:01:04 03/27/20 15 03/27/2015 CBC mono% 9.9 % 4.7-12 .5 Not Available [address], [address], 03/27/2015 13:01:04 03/27/20 15 03/27/2015 CBC mono# 0.9 0.2-0. 4 high Not Available [address], [address], 03/27/2015 13:01:04 03/27/20 15 03/27/2015 CBC eo% 1.4 % 0.7-5. 8 Not Available [address], [address], 03/27/2015 13:01:04 03/27/20 15 03/27/2015 CBC eo# 0.1 0.0-0. 4 Not Available [address], [address], 03/27/2015 13:01:04 03/27/20 15 03/27/2015 CBC baso% 0.3 % 0.1-1. 2 Not Available [address], 080[address], 03/27/2015 13:01:04 03/27/20 15 03/27/2015 CBC baso# 0.0 0.0-0. 1 low Not Available [address], [address], 03/27/2015 13:01:04 03/27/20 15 03/27/2015 CBC RDW-CV 13.2 % 11.7-1 4.4 Not Available [address], [address], 03/27/2015 13:01:04 03/27/20 15 03/27/2015 TSH, serum or plasm a TSH 1.85 uIU/m L 0.50-6 .00 The Ameri can Colle ge of Endoc rinol ogy and Ameri can Thyro id Assoc iatio n recom mend goal TSH value s betwe en 0.4-4 .0 mIU/m L. Not Available [address], [address], 03/27/2015 17:06:34 03/27/20 15 03/28/2015 hepat itis C virus Ab, serum hepatitis C antibody NON-RE ACTIVE non-re active normal Not Available [facility] [address] [place], [address], 03/28/2015 18:36:26 03/27/20 15 03/28/2015 hepat itis C virus Ab, serum signal to cut-off 0.02 <1.00 normal Not Available [facility] [address] [place], [address], 03/28/2015 18:36:26 03/27/20 15 03/29/2015 CMP, serum or plasm a glucose 74 mg/dL 70-100 Not Available [address], [address], 03/29/2015 14:53:58 03/27/20 15 03/29/2015 CMP, serum or plasm a BUN 19 mg/dL 7-18 high Not Available [address], [address], 03/29/2015 14:53:58 03/27/20 15 03/29/2015 CMP, serum or plasm a creatinine 0.8 mg/dL 0.8-1. 3 Not Available [address], [address]29[address], 03/29/2015 14:53:58 03/27/20 15 03/29/2015 CMP, serum or plasm a B/C 23.8 ratio Not Available [address], [address], 03/29/2015 14:53:58 03/27/20 15 03/29/2015 CMP, serum or plasm a GFR 83.1 mL/mi n Recom mahi d GFR by the Natio nal Kidne y Found ation >60 mL/mi n/1.7 3m2 - Windy l <60 mL/mi n/1.7 3m2 - Chron ic Kidne y Disea se <15 mL/mi n/1.7 3m2 - Kidne y Failu re Not Available [address], [address], 03/29/2015 14:53:58 03/27/20 15 03/29/2015 CMP, serum or plasm a GFR - if 95.6 mL/mi n For Afric an Ameri can patie nts: Resul ts Multi plied by 1.21 Not Available [address], [address], 03/29/2015 14:53:58 03/27/20 15 03/29/2015 CMP, serum or plasm a sodium 142 mmol/ L 136-14 5 Not Available [address], [address], 03/29/2015 14:53:58 03/27/20 15 03/29/2015 CMP, serum or plasm a potassium 4.4 mmol/ L 3.5-5. 1 Not Available [address], [address], 03/29/2015 14:53:58 03/27/2003/29/2015 CMP, serum or plasm a chloride 102 mmol/ L 96-107 Not Available [address], [address]9847, 03/29/2015 14:53:58 03/27/2003/29/2015 CMP, serum or plasm a anion gap 9.0 5.0-15 .0 Not Available [address], [address], 03/29/2015 14:53:58 03/27/2003/29/2015 CMP, serum or plasm a CO2 31 mmol/ L 21-32 Not Available [address], [address]171, 03/29/2015 14:53:58 03/27/2003/29/2015 CMP, serum or plasm a calcium 10.2 mg/dL 8.5-10 .3 Not Available [address], 839[address], 03/29/2015 14:53:58 03/27/20 15 03/29/2015 CMP, serum or plasm a total protein 7.7 g/dL 6.4-8. 2 Not Available [address], [address], 03/29/2015 14:53:58 03/27/20 15 03/29/2015 CMP, serum or plasm a albumin 4.3 g/dL 3.4-5. 0 Not Available [address], 055[address], 03/29/2015 14:53:58 03/27/20 15 03/29/2015 CMP, serum or plasm a globulin 3.4 g/dL Not Available [address], [address], 03/29/2015 14:53:58 03/27/20 15 03/29/2015 CMP, serum or plasm a A/G 1.3 ratio 0.8-2. 0 Not Available [address], [address], 03/29/2015 14:53:58 03/27/20 15 03/29/2015 CMP, serum or plasm a total bilirubin 0.30 mg/dL 0.00-1 .00 Not Available [address], [address], 03/29/2015 14:53:58 03/27/20 15 03/29/2015 CMP, serum or plasm a AST 37 U/L 15-37 Not Available [address], [address], 03/29/2015 14:53:58 03/27/20 15 03/29/2015 CMP, serum or plasm a ALT 75 U/L 30-65 high Not Available [address], [address], 03/29/2015 14:53:58 03/27/20 15 03/29/2015 CMP, serum or plasm a alk. phos. 89 U/L 50-136 Not Available [address], [address], 03/29/2015 14:53:58 05/27/20 16 05/28/2016 BMP, serum or plasm a glucose 102 mg/dL 70-100 high Not Available [address], [address], 05/28/2016 11:54:59 05/27/20 16 05/28/2016 BMP, serum or plasm a BUN 22 mg/dL 7-18 high Not Available [address], 732[address], 05/28/2016 11:54:59 05/27/20 16 05/28/2016 BMP, serum or plasm a creatinine 0.8 mg/dL 0.8-1. 3 Not Available [address], 61449, 05/28/2016 11:54:59 05/27/20 16 05/28/2016 BMP, serum or plasm a B/C 27.5 ratio Not Available [address], [address], 05/28/2016 11:54:59 05/27/20 16 05/28/2016 BMP, serum or plasm a GFR -non 82.8 mL/mi n Recom mahi d GFR by the Natio nal Kidne y Found ation >60 mL/mi n/1.7 3m2 - Windy l <60 mL/mi n/1.7 3m2 - Chron ic Kidne y Disea se <15 mL/mi n/1.7 3m2 - Kidne y Failu re Not Available [address], [address], 05/28/2016 11:54:59 05/27/20 16 05/28/2016 BMP, serum or plasm a GFR - if 95.2 mL/mi n For Afric an Ameri can patie nts: Resul ts Multi plied by 1.21 Not Available [address], 24[address], 05/28/2016 11:54:59 05/27/20 16 05/28/2016 BMP, serum or plasm a sodium 142 mmol/ L 136-14 5 Not Available [address], [address]1986, 05/28/2016 11:54:59 05/27/20 16 05/28/2016 BMP, serum or plasm a potassium 4.9 mmol/ L 3.5-5. 1 Not Available [address], [address], 05/28/2016 11:54:59 05/27/20 16 05/28/2016 BMP, serum or plasm a chloride 104 mmol/ L 96-107 Not Available [address], [address]67[address], 05/28/2016 11:54:59 05/27/20 16 05/28/2016 BMP, serum or plasm a anion gap 9.1 5.0-15 .0 Not Available [address], [address], 05/28/2016 11:54:59 05/27/20 16 05/28/2016 BMP, serum or plasm a CO2 29 mmol/ L 21-32 Not Available [address], 26689, 05/28/2016 11:54:59 05/27/20 16 05/28/2016 BMP, serum or plasm a calcium 9.6 mg/dL 8.5-10 .3 Not Available [address], 7[address], 05/28/2016 11:54:59 05/27/20 16 05/28/2016 LDL, direc t, serum direct LDL 129 mg/dL RISK CATEG ORY LDL GOAL _ CHD or CHD Risk Equiv alent s <100 mg/dl (10-y ear risk >20%) 2+ Risk Facto rs <130 mg/dl (10-y ear risk <= 20%) 0-1 Risk Facto r <160 mg/dl Almo st all peopl e with 0-1 risk facto r have a 10 year risk <10%, thus 10 year risk asses ment in peopl e with 0-1 risk facto r is not rick campos. Not Available [address], [address], 05/28/2016 11:55:01 05/27/20 16 05/28/2016 lipid panel , serum cholesterol 207 mg/dL <200 mg/dl Domenico able 200-2 39 mg/dl Borde rline High >240 mg/dl High Not Available [address], [address], 05/28/2016 12:40:24 05/27/20 16 05/28/2016 lipid panel , serum triglyceride s 140 mg/dL <150 mg/dL Windy l 150-1 99 mg/dL Borde rline High 200-4 99 mg/dL High >500 mg/dL Very High Not Available [address], [address], 05/28/2016 12:40:24 05/27/20 16 05/28/2016 lipid panel , serum direct HDL 41 mg/dL Not Available [address], [address], 05/28/2016 12:40:24 05/27/20 16 05/29/2016 HSV (1+2) DNA, qual, PCR, unspe cifie d speci men source SEE NOTE LEFT HIP Not Available [facility] [address], [address], 05/29/2016 15:27:20 05/27/20 16 05/29/2016 HSV (1+2) DNA, qual, PCR, unspe cifie d speci men hsv 1 DNA NOT DETECT ED not detect ed Not Available [facility] [address], [address], 05/29/2016 15:27:20 05/27/20 16 05/29/2016 HSV (1+2) [...] been deter mined by [facility] Justino olivarez [facility], [place], [place]. It has not been clear ed or appro guicho by the FDA. This assay has been valid ated pursu ant to the CLIA regul ation s and is used for clini bashir purpo ses. Not Available [email or web address] [address] [place], [place], [address], 05/29/2016 15:27:20 05/22/20 17 05/25/2017 BMP, serum or plasm a glucose 107 mg/dL 70-100 high LIPS= Speci men Sligh tly Lipem ic. Chem Resul ts may be effec timo. Not Available [address], [address], 05/25/2017 09:53:42 05/22/20 17 05/25/2017 BMP, serum or plasm a BUN 24 mg/dL 7-18 high Not Available [address], [address], 05/25/2017 09:53:42 05/22/20 17 05/25/2017 BMP, serum or plasm a creatinine 0.7 mg/dL 0.8-1. 3 low Not Available [address], [address], 05/25/2017 09:53:42 05/22/20 17 05/25/2017 BMP, serum or plasm a B/C 34.3 ratio Not Available [address], [address], 05/25/2017 09:53:42 05/22/20 17 05/25/2017 BMP, serum or plasm a GFR -non 96.3 mL/mi n Recom mahi d GFR by the Natio nal Kidne y Found ation >60 mL/mi n/1.7 3m2 - Windy l <60 mL/mi n/1.7 3m2 - Chron ic Kidne y Disea se <15 mL/mi n/1.7 3m2 - Kidne y Failu re Not Available [address], [address], 05/25/2017 09:53:42 05/22/20 17 05/25/2017 BMP, serum or plasm a GFR - if 110.7 mL/mi n For Afric an Ameri can patie nts: Resul ts Multi plied by 1.21 Not Available [address], [address], 05/25/2017 09:53:42 05/22/2005/25/2017 BMP, serum or plasm a sodium 144 mmol/ L 136-14 5 Not Available [address], 21047, 05/25/2017 09:53:42 05/22/2005/25/2017 BMP, serum or plasm a potassium 4.1 mmol/ L 3.5-5. 1 Not Available [address], [address], 05/25/2017 09:53:42 05/22/2005/25/2017 BMP, serum or plasm a chloride 105 mmol/ L 96-107 Not Available [address], 0[address], 05/25/2017 09:53:42 05/22/20 17 05/25/2017 BMP, serum or plasm a anion gap 8.4 5.0-15 .0 Not Available [address], 035[address], 05/25/2017 09:53:42 05/22/20 17 05/25/2017 BMP, serum or plasm a CO2 31 mmol/ L 21-32 Not Available [address], [address], 05/25/2017 09:53:42 05/22/20 17 05/25/2017 BMP, serum or plasm a calcium 9.6 mg/dL 8.5-10 .3 Not Available [address], 7[address], 05/25/2017 09:53:42 05/31/20 18 06/01/2018 CMP, serum or plasm a glucose 111 mg/dL 70-100 high Not Available [address], [address]77[address], 06/01/2018 09:44:32 05/31/20 18 06/01/2018 CMP, serum or plasm a BUN 17 mg/dL 7-18 Not Available [address], [address]10, 06/01/2018 09:44:32 05/31/20 18 06/01/2018 CMP, serum or plasm a creatinine 0.7 mg/dL 0.8-1. 3 low Not Available [address], [address], 06/01/2018 09:44:32 05/31/20 18 06/01/2018 CMP, serum or plasm a B/C 24.3 ratio Not Available [address], [address], 06/01/2018 09:44:32 05/31/20 18 06/01/2018 CMP, serum or plasm a GFR -non 95.9 mL/mi n Recom mahi d GFR by the Natio nal Kidne y Found ation >60 mL/mi n/1.7 3m2 - Windy l <60 mL/mi n/1.7 3m2 - Chron ic Kidne y Disea se <15 mL/mi n/1.7 3m2 - Kidne y Failu re Not Available [address], [address], 06/01/2018 09:44:32 05/31/20 18 06/01/2018 CMP, serum or plasm a GFR - if 110.3 mL/mi n For Afric an Ameri can patie nts: Resul ts Multi plied by 1.21 Not Available [address], 307[address], 06/01/2018 09:44:32 05/31/20 18 06/01/2018 CMP, serum or plasm a sodium 141 mmol/ L 136-14 5 Not Available [address], [address], 06/01/2018 09:44:32 05/31/20 18 06/01/2018 CMP, serum or plasm a potassium 4.7 mmol/ L 3.5-5. 1 Not Available [address], 14[address], 06/01/2018 09:44:32 05/31/2006/01/2018 CMP, serum or plasm a chloride 103 mmol/ L 96-107 Not Available [address], [address]1887, 06/01/2018 09:44:32 05/31/20 18 06/01/2018 CMP, serum or plasm a anion gap 7.7 5.0-15 .0 Not Available [address], [address], 06/01/2018 09:44:32 05/31/20 18 06/01/2018 CMP, serum or plasm a CO2 30 mmol/ L 21-32 Not Available [address], 15075, 06/01/2018 09:44:32 05/31/20 18 06/01/2018 CMP, serum or plasm a calcium 9.5 mg/dL 8.5-10 .3 Not Available [address], [address], 06/01/2018 09:44:32 05/31/20 18 06/01/2018 CMP, serum or plasm a total protein 7.6 g/dL 6.4-8. 2 Not Available [address], 13527, 06/01/2018 09:44:32 05/31/20 18 06/01/2018 CMP, serum or plasm a albumin 3.4 g/dL 3.4-5. 0 Not Available [address], 01145, 06/01/2018 09:44:32 05/31/20 18 06/01/2018 CMP, serum or plasm a globulin 4.2 g/dL Not Available [address], [address]57, 06/01/2018 09:44:32 05/31/20 18 06/01/2018 CMP, serum or plasm a A/G 0.8 ratio 0.8-2. 0 Not Available [address], [address]09, 06/01/2018 09:44:32 05/31/20 18 06/01/2018 CMP, serum or plasm a total bilirubin 0.80 mg/dL 0.00-1 .00 Not Available [address], 14441, 06/01/2018 09:44:32 05/31/20 18 06/01/2018 CMP, serum or plasm a AST 91 U/L 15-37 high Not Available [address], [address], 06/01/2018 09:44:32 05/31/20 18 06/01/2018 CMP, serum or plasm a ALT 188 U/L 30-65 high Not Available [address] [place], [address], 06/01/2018 09:44:32 05/31/2006/01/2018 CMP, serum or plasm a alk. phos. 405 U/L 50-136 high Not Available [address], [address], 06/01/2018 09:44:32 05/31/2006/01/2018 lipid panel , serum cholesterol 252 mg/dL <200 mg/dl Domenico able 200-2 39 mg/dl Borde rline High >240 mg/dl High Not Available [address], [address], 06/01/2018 09:44:33 05/31/20 18 06/01/2018 lipid panel , serum triglyceride s 98 mg/dL <150 mg/dL Windy l 150-1 99 mg/dL Borde rline High 200-4 99 mg/dL High >500 mg/dL Very High Not Available [address], [address], 06/01/2018 09:44:33 05/31/2006/01/2018 lipid panel , serum direct HDL 61 mg/dL <40 mg/dl - Major Risk for CHD >60 mg/dl - Negat geena Risk for CHD Not Available [address], [address], 06/01/2018 09:44:33 05/31/2006/01/2018 C-matt ctive prote in, quant itati ve, serum or plasm a C-reactive protein -quant 16.7 mg/L 0.0-9. 0 high Not Available [address], [address], 06/01/2018 09:44:35 05/31/20 18 06/01/2018 LDL, calcu lated , serum (OBS) LDL - calculated 171.4 RISK CATEG ORY LDL GOAL _ CHD or CHD Risk Equiv alent s <100 mg/dl (10-y ear risk >20%) 2+ Risk Facto rs <130 mg/dl (10-y ear risk <= 20%) 0-1 Risk Facto r <160 mg/[facility] with 0-1 risk facto r have a 10 year risk <10%, thus 10 year risk asses ment in peopl e with 0-1 risk facto r is not rick campos. Not Available [address], [address], 06/01/2018 09:44:36 05/31/2006/01/2018 CBC WBC 8.6 K/ L 4.0-10 .0 Not Available [address], [address], 06/01/2018 09:49:55 05/31/2006/01/2018 CBC RBC 4.78 M/ L 3.93-5 .22 Not Available [address], [address]647, 06/01/2018 09:49:55 05/31/2006/01/2018 CBC HGB 15.1 g/dL 11.2-1 5.7 Not Available [address], [address], 06/01/2018 09:49:55 05/31/2006/01/2018 CBC HCT 47.4 % 34.1-4 4.9 high Not Available [address], [address], 06/01/2018 09:49:55 05/31/2006/01/2018 CBC MCV 99.2 L 79.4-9 4.8 high Not Available [address], [address], 06/01/2018 09:49:55 05/31/20 18 06/01/2018 CBC MCH 31.6 pg 25.6-3 2.2 Not Available [address], [address]755, 06/01/2018 09:49:55 05/31/20 18 06/01/2018 CBC MCHC 31.9 g/dL 32.2-3 5.5 low Not Available [address], [address], 06/01/2018 09:49:55 05/31/2006/01/2018 CBC plt 227.0 K/ L 182.0- 369.0 Not Available [address], [address], 06/01/2018 09:49:55 05/31/2006/01/2018 CBC MPV 11.5 9.4-12 .3 Not Available [address], [address], 06/01/2018 09:49:55 05/31/2006/01/2018 CBC neut% 68.5 % 34.0-7 1.1 Not Available [address], [address]1967, 06/01/2018 09:49:55 05/31/2006/01/2018 CBC neut# 5.9 1.6-6. 1 Not Available [address], [address], 06/01/2018 09:49:55 05/31/2006/01/2018 CBC lymph % 22.7 % 19.3-5 1.7 Not Available [address], [address], 06/01/2018 09:49:55 05/31/2006/01/2018 CBC lymph # 2.0 K/ L 1.2-3. 7 Not Available [address], [address], 06/01/2018 09:49:55 05/31/20 18 06/01/2018 CBC mono% 7.2 % 4.7-12 .5 Not Available [address], [address], 06/01/2018 09:49:55 05/31/2006/01/2018 CBC mono# 0.6 0.2-0. 6 high Not Available [address], [address], 06/01/2018 09:49:55 05/31/20 18 06/01/2018 CBC eo% 1.4 % 0.7-5. 8 Not Available [address], [address], 06/01/2018 09:49:55 05/31/2006/01/2018 CBC eo# 0.1 0.0-0. 4 Not Available [address], [address], 06/01/2018 09:49:55 05/31/2006/01/2018 CBC baso% 0.2 % 0.1-1. 2 Not Available [address], 7[address], 06/01/2018 09:49:55 05/31/2006/01/2018 CBC baso# 0.0 0.0-0. 1 Not Available [address], [address], 06/01/2018 09:49:55 05/31/2006/01/2018 CBC RDW-CV 14.5 % 11.7-1 4.4 high Not Available [address], [address], 06/01/2018 09:49:55 05/31/2006/01/2018 HbA1c (hemo globi n A1c), blood hemoglobin A1C 5.8 % 4.8-6. 0 Goal: <7% in Patie nts with Diabe ines Not Available [address], [address], 06/01/2018 11:28:38 05/31/20 18 06/01/2018 HbA1c (hemo globi n A1c), blood estimated average glucose 119.8 mg/dL Not Available [address], [address], 06/01/2018 11:28:38 05/31/20 18 06/01/2018 TSH, serum or plasm a TSH 1.49 uIU/m L 0.50-6 .00 [facility] n recom mend goal TSH value s betwe en 0.4-4 .0 mIU/m L. Not Available [address], [address], 06/01/2018 12:11:02 05/31/20 18 05/31/2018 elect jose patel am Result NSR, q wave in III, AVF Not Available [address], [address], 05/31/2018 11:08:11 06/03/20 18 06/04/2018 hepat ic funct ion panel , serum total protein 7.5 g/dL 6.4-8. 2 Not Available [address], [address], 06/04/2018 10:17:48 06/03/20 18 06/04/2018 hepat ic funct ion panel , serum albumin 3.4 g/dL 3.4-5. 0 Not Available [address], [address], 06/04/2018 10:17:48 06/03/20 18 06/04/2018 hepat ic funct ion panel , serum globulin 4.1 g/dL Not Available [address], [address], 06/04/2018 10:17:48 06/03/20 18 06/04/2018 hepat ic funct ion panel , serum A/G 0.8 ratio 0.8-2. 0 Not Available [address], [address], 06/04/2018 10:17:48 06/03/20 18 06/04/2018 hepat ic funct ion panel , serum total bilirubin 0.70 mg/dL 0.00-1 .00 Not Available [address], [address], 06/04/2018 10:17:48 06/03/20 18 06/04/2018 hepat ic funct ion panel , serum direct bilirubin 0.40 mg/dL 0.00-0 .30 high Not Available [address], [address], 06/04/2018 10:17:48 06/03/20 18 06/04/2018 hepat ic funct ion panel , serum AST 78 U/L 15-37 high Not Available [address], [address], 06/04/2018 10:17:48 06/03/20 18 06/04/2018 hepat ic funct ion panel , serum ALT 146 U/L 30-65 high Not Available [address], [address], 06/04/2018 10:17:48 06/03/20 18 06/04/2018 hepat ic funct ion panel , serum alk. phos. 379 U/L 50-136 high Not Available [address], [address], 06/04/2018 10:17:48 06/03/20 18 06/08/2018 hepat itis panel (A+B+ C), acute , serum hepatitis A IgM NON-RE ACTIVE non-re active normal Not Available [email or web address] [address], [address], 06/08/2018 06:02:46 06/03/20 18 06/08/2018 hepat itis panel (A+B+ C), acute , serum hepatitis B surface antigen NON-RE ACTIVE non-re active normal Not Available [email or web address] [address] [place], [place], [address], 06/08/2018 06:02:46 06/03/20 18 06/08/2018 hepat itis panel (A+B+ C), acute , serum hepatitis B core antibody (IgM) NON-RE ACTIVE non-re active normal Not Available [facility] [place] [facility] [address] [place], [place], [address], 06/08/2018 06:02:46 06/03/20 18 06/08/2018 hepat itis panel (A+B+ C), acute , serum hepatitis C antibody NON-RE ACTIVE non-re active normal Not Available [facility] [address] [place], [place], [address], 06/08/2018 06:02:46 06/03/20 18 06/08/2018 hepat itis panel (A+B+ C), acute , serum signal to cut-off 0.02 <1.00 normal Not Available [facility] [place] [facility] [address] [place] [address] [place], [place], [address], 06/08/2018 06:02:46 06/03/20 18 06/08/2018 alkal ine phosp hatas e isoen zymes , serum or plasm a alkaline phosphatase 336 U/L 33-130 high Not Available [facility] [place] [facility] [address] [place] [address] [place], [place], [address], 06/08/2018 06:02:46 06/03/20 18 06/08/2018 alkal ine phosp hatas e isoen zymes , serum or plasm a intestinal isoenzymes 3 % 1-24 Not Available [facility] [place] [facility] [address] [place], [address], 06/08/2018 06:02:46 06/03/20 18 06/08/2018 alkal ine phosp hatas e isoen zymes , serum or plasm a bone isoenzymes 23 % 28-66 low Not Available [facility] [place] [facility] [address], [place], [address], 06/08/2018 06:02:46 06/03/20 18 06/08/2018 alkal ine phosp hatas e isoen zymes , serum or plasm a liver isoenzymes 75 % 25-69 high Not Available [facility] [place] [facility] [address], [address], 06/08/2018 06:02:46 06/03/20 18 06/08/2018 alkal ine phosp hatas e isoen zymes , serum or plasm a placental isoenzymes 0 % <=0 Not Available [facility] [place] [facility] [address], [place], [address], 06/08/2018 06:02:46 06/03/20 18 06/08/2018 alkal ine phosp hatas e isoen zymes , serum or plasm a macrohepatic isoenzymes 0 % <=0 Not Available [facility] [place] [facility] [address], [place], [address], 06/08/2018 06:02:46 05/09/20 19 05/09/2019 CBC w/ auto diff WBC 12.28 K/uL 3.40-1 1.20 high Not Available [facility] [address] [place] [address], [address], 05/09/2019 16:17:31 05/09/20 19 05/09/2019 CBC w/ auto diff RBC 4.56 M/uL 3.80-4 .80 Not Available [facility] ([facility]) [address] [place] [address], [address], 05/09/2019 16:17:31 05/09/20 19 05/09/2019 CBC w/ auto diff HGB 14.3 g/dL 12.0-1 5.0 Not Available [facility] ([facility]) [address] [place], [address], 05/09/2019 16:17:31 05/09/20 19 05/09/2019 CBC w/ auto diff HCT 42.2 % 36.0-4 6.0 Not Available [facility] ([facility]) [address] [place], [address], 05/09/2019 16:17:31 05/09/20 19 05/09/2019 CBC w/ auto diff plt 210 K/uL 130-40 0 Not Available [facility]) [address] [place], [address], 05/09/2019 16:17:31 05/09/20 19 05/09/2019 CBC w/ auto diff MCV 92.5 fL 79.0-9 8.0 Not Available [facility] [address] [place], [address], 05/09/2019 16:17:31 05/09/20 19 05/09/2019 CBC w/ auto diff MCH 31.4 pg 27.0-3 4.8 Not Available [facility] [address] [place], [address], 05/09/2019 16:17:31 05/09/20 19 05/09/2019 CBC w/ auto diff MCHC 33.9 g/dL 31.5-3 6.0 Not Available [facility] [address] [place], [address], 05/09/2019 16:17:31 05/09/20 19 05/09/2019 CBC w/ auto diff RDW 13.3 % 10.8-1 4.6 Not Available [facility] [address] [place], [address], 05/09/2019 16:17:31 05/09/20 19 05/09/2019 CBC w/ auto diff MPV 10.5 fL 9.4-12 .4 Not Available [facility] [address] [place], [address], 05/09/2019 16:17:31 05/09/20 19 05/09/2019 CBC w/ auto diff NRBC 0.00 /100_ WBCs 0.00 Not Available [facility] [address] [place], [address], 05/09/2019 16:17:31 05/09/20 19 05/09/2019 CBC w/ auto diff absolute NRBC 0.00 K/uL 0.00 Not Available [facility] [address] [place], [address], 05/09/2019 16:17:31 05/09/20 19 05/09/2019 CBC w/ auto diff diff method Auto Not Available [facility] [address] [place], [address], 05/09/2019 16:17:31 05/09/20 19 05/09/2019 CBC w/ auto diff neuts 80.9 % 45.30- 77.70 high Not Available [facility] [address] [place], [address], 05/09/2019 16:17:31 05/09/20 19 05/09/2019 CBC w/ auto diff lymphs 13.3 % 12.30- 39.70 Not Available [facility] [address] [place], [address], 05/09/2019 16:17:31 05/09/20 19 05/09/2019 CBC w/ auto diff monos 4.4 % 4.10-1 2.80 Not Available [facility] ([facility] [address] [place], [address], 05/09/2019 16:17:31 05/09/20 19 05/09/2019 CBC w/ auto diff eos 0.7 % 0-7.2 Not Available [facility] [address] [place], [address], 05/09/2019 16:17:31 05/09/20 19 05/09/2019 CBC w/ auto diff basos 0.3 % 0-2.80 Not Available [facility] [address] [place], [address], 05/09/2019 16:17:31 05/09/20 19 05/09/2019 CBC w/ auto diff granulocytes , immature (%) 0.4 % 0.0-0. 9 Not Available [facility] [address] [place], [address], 05/09/2019 16:17:31 05/09/20 19 05/09/2019 CBC w/ auto diff absolute neuts 9.94 K/uL 1.40-7 .70 high Not Available [facility] [address] [place], [address], 05/09/2019 16:17:31 05/09/20 19 05/09/2019 CBC w/ auto diff absolute lymphs 1.63 K/uL 0.60-3 .20 Not Available [facility] [address] [place], [address], 05/09/2019 16:17:31 05/09/20 19 05/09/2019 CBC w/ auto diff absolute monos 0.54 K/uL 0.11-0 .59 Not Available [facility] ([facility] [address] [place], [address], 05/09/2019 16:17:31 05/09/20 19 05/09/2019 CBC w/ auto diff absolute eos 0.08 K/uL 0.01-0 .50 Not Available [facility] [address] [place], [address], 05/09/2019 16:17:31 05/09/20 19 05/09/2019 CBC w/ auto diff absolute basos 0.04 K/uL 0.00-0 .08 Not Available [facility] ([facility] [address] [place], [address], 05/09/2019 16:17:31 05/09/20 19 05/09/2019 CBC w/ auto diff granulocytes , immature 0.05 K/uL 0.00-0 .05 Not Available [facility] [address] [place], [address], 05/09/2019 16:17:31 05/09/20 19 05/09/2019 BMP, blood sodium 138 mmol/ L 133-14 6 Not Available [facility] [address] [place], [address], 05/09/2019 16:36:49 05/09/20 19 05/09/2019 BMP, blood chloride 103 mmol/ L 96-108 Not Available [facility] [address] [place], [address], 05/09/2019 16:36:49 05/09/20 19 05/09/2019 BMP, blood potassium 4.3 mmol/ L 3.3-5. 1 Not Available [facility] [address] [place], [address], 05/09/2019 16:36:49 05/09/20 19 05/09/2019 BMP, blood CO2 25 mmol/ L 21-35 Not Available [facility] [address] [place], [address], 05/09/2019 16:36:49 05/09/20 19 05/09/2019 BMP, blood BUN 20 mg/dL 6-19 high Not Available [facility] [address] [place], [address], 05/09/2019 16:36:49 05/09/20 19 05/09/2019 BMP, blood creatinine 0.90 mg/dL 0.5-1. 5 Not Available [facility] [address] [place], [address], 05/09/2019 16:36:49 05/09/20 19 05/09/2019 BMP, blood glucose 99 mg/dL 70-99 Not Available [facility] [address] [place], [address], 05/09/2019 16:36:49 05/09/20 19 05/09/2019 BMP, blood calcium 9.2 mg/dL 8.4-10 .3 Not Available [facility] [address] [place], [address], 05/09/2019 16:36:49 05/09/20 19 05/09/2019 BMP, blood eGFR 69 mL/mi n/1.7 3m2 >59 If patie nt is black , multi ply resul t by 1.159 . Estim ated glome rular filtr ation rate calcu lated using the CKD-E PI equat ion. Not Available [facility] ([facility]) [address] [place], [address], 05/09/2019 16:36:49 05/09/20 19 05/09/2019 BMP, blood anion gap 14 mmol/ L 10-20 Not Available [facility] [address] [place], [address], 05/09/2019 16:36:49 05/09/2005/09/2019 lfts (hepa tic panel ) alkaline phosphatase 435 U/L 39-117 high Not Available [facility] ([facility] [address] [place], [address], 05/09/2019 16:36:51 05/09/2005/09/2019 lfts (hepa tic panel ) total bilirubin 1.1 mg/dL 0.0-1. 2 Not Available [facility] ([facility] [address] [place], [address], 05/09/2019 16:36:51 05/09/20 19 05/09/2019 lfts (hepa tic panel ) direct bilirubin 0.5 mg/dL 0-0.3 high Not Available [facility] ([facility] [address] [place], [address], 05/09/2019 16:36:51 05/09/20 19 05/09/2019 lfts (hepa tic panel ) bilirubin (indirect) 0.6 mg/dL 0-1.5 Not Available [facility] ([facility] [address] [place], [address], 05/09/2019 16:36:51 05/09/20 19 05/09/2019 lfts (hepa tic panel ) AST 89 U/L 0-37 high Not Available [facility] ([facility]) [address] [place], [address], 05/09/2019 16:36:51 05/09/20 19 05/09/2019 lfts (hepa tic panel ) ALT 103 U/L 0-40 high Not Available [facility] (Outpatient) [address] [place], [address], 05/09/2019 16:36:51 05/09/20 19 05/09/2019 lfts (hepa tic panel ) total protein 7.5 g/dL 6.5-8. 0 Not Available [facility] ([facility]) [address] [place], [address], 05/09/2019 16:36:51 05/09/2005/09/2019 lfts (hepa tic panel ) albumin 3.3 g/dL 3.9-4. 8 low Not Available [facility] (Outpatient) [address] [place], [address], 05/09/2019 16:36:51 05/09/20 19 05/09/2019 lfts (hepa tic panel ) globulin 4.2 g/dL 1-4.8 Not Available [facility] (Outpatient) [address] [place], [address], 05/09/2019 16:36:51 05/09/20 19 05/09/2019 lfts (hepa tic panel ) A/G ratio 0.79 ratio 1.00-4 .80 low Not Available [facility] ([facility]) [address] [place], [address], 05/09/2019 16:36:51 05/09/20 19 05/09/2019 tropo rachel T, serum troponin-T, high sensitivity (gen 5) <6 NG/L 0-9 Not Available [facility] ([facility]patient) [address] [place], [address], 05/09/2019 16:36:59 05/09/20 19 05/09/2019 tropo rachel T, serum troponin-T, high sensitivity (gen 5) <6 NG/L 0-9 Not Available [facility] ([facility]) [address] [place], [address], 05/09/2019 18:02:06 05/09/20 19 05/09/2019 urine sedim ent WBC 0-4 /hpf none seen abnormal Not Available [facility] ([facility]) [address] [place], [address], 05/09/2019 19:40:35 05/09/20 19 05/09/2019 urine sedim ent RBC 3-5 /hpf none seen abnormal Not Available [facility] (Outpatient) [address] [place], [address], 05/09/2019 19:40:35 05/09/20 19 05/09/2019 urine sedim ent urine epithelial 0-4 none seen abnormal Not Available [facility] (Outpatient) [address] [place], [address], 05/09/2019 19:40:35 05/09/20 19 05/09/2019 urine sedim ent mucus 2+ /hpf none seen abnormal Not Available [facility] (Outpatient) [address] [place], [address], 05/09/2019 19:40:35 05/09/20 19 05/09/2019 urine sedim ent bacteria 1+ none seen abnormal Not Available [facility] (Outpatient) [address] [place], [address], 05/09/2019 19:40:35 05/09/20 19 05/09/2019 urine sedim ent crystals 1+ AMORP HOUS Not Available [facility] (Outpatient) [address] [place], [address], 05/09/2019 19:40:35 05/09/20 19 05/10/2019 urina lysis , refle x cultu re color Yellow yellow Not Available [facility] ([facility]) [address] [place], [address], 05/10/2019 08:27:19 05/09/2005/10/2019 urina lysis , refle x cultu re clarity Clear Not Available [facility] ([facility]) [address] [place], [address], 05/10/2019 08:27:19 05/09/2005/10/2019 urina lysis , refle x cultu re glucose Negati ve negati ve Not Available [facility] (Outpatient) [address] [place], [address], 05/10/2019 08:27:19 05/09/2005/10/2019 urina lysis , refle x cultu re bili 1+ negati ve abnormal Not Available [facility] ([facility]) [address] [place], [address], 05/10/2019 08:27:19 05/09/2005/10/2019 urina lysis , refle x cultu re ketones Trace negati ve abnormal Not Available [facility] ([facility]) [address] [place], [address], 05/10/2019 08:27:19 05/09/2005/10/2019 urina lysis , refle x cultu re specific gravity >1.030 1.005- 1.030 Not Available [facility] (Outpatient) [address] [place], [address], 05/10/2019 08:27:19 05/09/2005/10/2019 urina lysis , refle x cultu re blood Negati ve negati ve Not Available [facility] ([facility]patient) [address] [place], [address], 05/10/2019 08:27:19 05/09/2005/10/2019 urina lysis , refle x cultu re pH 5.5 5.0-8. 0 Not Available [facility] ([facility]patient) [address] [place], [address], 05/10/2019 08:27:19 05/09/2005/10/2019 urina lysis , refle x cultu re protein 1+ negati ve abnormal Not Available [facility] (Outpatient) [address] [place], [address], 05/10/2019 08:27:19 05/09/2005/10/2019 urina lysis , refle x cultu re nitrite Negati ve negati ve Not Available [facility] (Outpatient) [address] [place], [address], 05/10/2019 08:27:19 05/09/2005/10/2019 urina lysis , refle x cultu re leukocyte esterase, ur Negati ve negati ve Not Available [facility] (Outpatient) [address] [place], [address], 05/10/2019 08:27:19 05/09/2005/09/2019 cultu re, urine special requests None Not Available [facility] ([facility]patient) [address] [place], [address], 05/11/2019 09:00:23 05/09/20 19 05/10/2019 cultu re, urine gram stain Rare GRAM POSITI VE RODS Not Available [facility] ([facility]patient) [address] [place], [address], 05/11/2019 09:00:23 05/09/20 19 05/11/2019 cultu re, urine urine culture abnormal >100, 000 colon y formi ng units per mL MIXED ELDER (3 OR MORE COLON Y TYPES ) Cultu re indic ates conta minat ion. Pleas e resub lexi if neces andres. Not Available [facility] (Outpatient) [address] [place], [address], 05/11/2019 09:00:23 04/03/20 15 04/03/2015 scree ana- [...] view. Densit y - 2 Code: G0202, 04965 POS - VMG Electr onical ly signed Readin g Physic kerry: Jerardo brush MD [facility] (Imaging) [address] [place], [address], 05/27/2016 15:36:45 04/20/20 15 04/20/2015 MAMMO , [...] in one year: POS: VMG Code: G0206, 92386 Electr onical ly signed Readin g Physic kerry: Joey Golden [facility] (Imaging) [address] [place], [address], 05/27/2016 15:36:45 05/28/20 16 05/27/2016 MAMMO , [...] TISSUE POS: VMG Electr onical ly signed Readin g Physic kerry: Joey Golden pkeough [facility] (Imaging) [address] , [place], [address], 05/29/2017 10:42:14 05/31/20 18 kennedi patel am No observ ation record ed. [email or web address] Not Available 2017 13:32:54 06/25/20 18 06/22/2018 cardi ac stres s test No observ ation record ed. [facility] [address], [place], [address], 07/20/2018 07:58:55 06/30/20 18 06/22/2018 exerc ise stres s test No observ ation record ed. [email or web address] [facility] [address], [place], [address], 07/28/2018 08:38:12 05/09/20 19 05/09/2019 CT, head, w/o contr ast COMPAR DWAYNE: None. TECHNI QUE: Nonenh anced head CT from skull base to vertex with multi- planar reform ats. Manual dose reduct ion techni que tailor ed for patien t and site of jermaine mantilla CT HEAD FINDIN GS: Brain: There is [...] tric soft tissue fullne ss in the field sales manager ior left nasoph arynge al pharyn x. Bones: No acute bony abnorm ality. IMPRES NICOLE: 1. No acute intrac ranial findin gs. 2. Asymme tric left field sales manager ior nasoph petty al soft tissue fullne ss which may [...] Fax Final result AMA L FURCOL O [facility] [address] [place] [address], [address], 05/10/2019 08:38:02 05/09/2005/09/2019 CT, head, w/o contr ast No observ ation record ed. [address], [address], 05/10/2019 08:38:02 Result Notes Documentation Provider Name and Address Organization Details Recorded Time Mammo, Screening, Digital, Bilateral : OBSERVATION: Screening Mammogram, Bilateral with utilization of computer aided detection. History: Routine Comparison: dating back to 2014. Findings: No suspicious masses or suspicious clustered microcalcifications are present. No architectural distortion or significant asymmetry is present. IMPRESSION: Normal negative. Annual screening is recommended. Patient notified by letter. BI-RADS CATEGORY 1 - NEGATIVE Density: 2: SCATTERED FIBROGLANDULAR TISSUE POS: VMG Electronically signed Reading Physician: Joey Bentley, EUGENIA [address] [place] [address], [phone], [facility] 05/29/2017 10:42:14 Ct, Head, W/o Contrast : COMPARISON: None. TECHNIQUE: Nonenhanced head CT from skull base to vertex with multi-planar reformats. Manual dose reduction technique tailored for patient and site of imaging. CT HEAD FINDINGS: Brain: There is no acute intracranial hemorrhage, infarct, or intracranial mass. No mass effect, midline shift or extra-axial fluid collections. Negrete-white matter differentiation is preserved. Basal cisterns are patent. Pituitary gland is not enlarged. Ventricles: No hydrocephalus. Vasculature: Mild bilateral cavernous carotid artery calcified plaque. Orbits: Normal. Mastoids/Middle Ear/Ext Canals/Paranasal Sinuses: Normal. Scalp/Soft Tissues: No acute soft tissue findings. There is asymmetric soft tissue fullness in the posterior left nasopharyngeal pharynx. Bones: No acute bony abnormality. IMPRESSION: 1. No acute intracranial findings. 2. Asymmetric left posterior nasopharyngeal soft tissue fullness which may be due to a true lesion or volume averaging. Direct visualization is recommended to evaluate for an inflammatory or neoplastic lesion. TOTAL CTDIvol: 58.4 mGy POS - [id number] Interpreted by: Jerardo Lopez MD Signed by: Jerardo Lopez MD 05/09/19 CC Recipients: Ama Franz DO - Fax Final result AMA Franz D.O. [address] [place] [address], [phone], [facility] 05/10/2019 08:38:02 Problems Name Problem SNOMED Code Status Onset Date Resolution Date Notes Provider Name and Address Organization Details Recorded Time Benign essential hypertension 4404031 [facility] 13:22:17 Problem Notes None recorded. Procedures Surgical History Date Name Laterality Status Provider Name and Address Organization Details Recorded Time Total Hysterectomy completed Xander Bentley NP [address] [place], [address], [facility] [...] Updated DateTime 5 149.225 cm 35.9 kg/m2 76274.6 86161 g 84 /min 108 mm[Hg] 62 mm[Hg] Oneida Jones MA [facility] 5 10:52:55 Date Recorded Body height Body weight Body mass index (BMI) Heart rate Systolic blood pressure Diastolic blood pressure Provider Name and Address Organization Details Last Updated DateTime 6 149.23 cm 28198.8 4 g 37.4 kg/m2 72 /min 152 mm[Hg] 92 mm[Hg] Oneida Jones MA [facility] 6 15:32:45 Date Recorded Body height Body mass index (BMI) Body weight Heart rate Systolic blood pressure Diastolic blood pressure Provider Name and Address Organization Details Last Updated DateTime 7 174.63 cm 26 kg/m2 36718.6 6 g 56 /min 142 mm[Hg] 94 mm[Hg] Oneida Jones MA [facility] 7 10:37:28 Date Recorded Body weight Provider Name an d Address Organization Details Last Updated DateTime 05/31/2018 32635.82 g Aracely Pope [facility] 05/31/2018 10:35:24 Date Recorded Body mass index [...] 142 mm[Hg] 110 mm[Hg] Oneida Jones MA [facility] 8 10:50:12 Social History Question Answer Notes LastModified by Organizat ion Details LastModified Time Tobacco Smoking Status Never Smoker Oneida Hutchinson LPN null, [facility] 06/28/2014 15:19:18 How Much Tobacco Do You Chew? None Information not available 03/27/2015 What Type Of Diet Are You Following? REGULAR [email or web address] Information not available 06/28/2014 Education 4 Year College [email or web address] Information not available 06/28/2014 How Many Days In The Past Year Have You Had A Heavy Drinking Consumption (4+ Female, 5+ Male)? 0 Information not available 03/27/2015 Live Alone Or With Others? With Others With Son Information not available 06/28/2014 Patient Has Health Care Proxy Signed And In Chart No 05/29/17 [email or web address] Information not available 06/28/2014 Marital Status Moved From [facility] To 2008 Information not available 06/28/2014 Mosquito Repellent Used Routinely Yes Information not available 05/29/2017 What Was The Date Of Your Most Recent Tobacco Screening? 05/31/2018 Information not available 03/23/2019 How Many Children Do You Have? 2 [email or web address] Information not available 06/28/2014 Seat Belts Used [...] 03/27/2015 What is your occupation? [employer] [email or web address] Information not available 06/28/2014 Mental Status None [...] SNOMED-CT Code Diagnosis ICD10 Code Diagnosis Note [id number] Ama Franz D.O. [facility], OFFICE [address] [place] [address] 06/28/2014 15:01:22 06/29/2014 12:06:47 Benign essential hypertension 6048203 Blood pressure NOT at goal. been off meds 1 month unsure of dose but will restart at 50 mg Will get labs RTO 1 month Biceps tendinitis [id number] R bicep tendonitis given handout with exercises to start advised ice after activity, work RTO 1 month [id number] Ama Franz D.O. [facility], OFFICE [address] [place] [address] 08/09/2014 08:22:01 08/09/2014 08:54:30 Screening for malignant neoplasm of colon [id number] Referral for a DIRECT booked colonoscop y. This patient is a healthy ASA Class 1 or 2 patient (only mild systemic disease), or a STABLE, well controlled insulin dependent diabetic. They do not have serious cardiac disease ie WI/angiopl asty within 1 year, symptomati c CHF; renal failure with CKD 4 or 5; take Coumadin, Plavix, Aggrenox, etc; nor take chronic narcotics. [Patients who take chronic narcotics should be referred to [facility] for a propofol procedure due to possible inability to sedate adequately with conscious sedation.] Screening mammography [id number] Benign ess ential hypertension 7324468 At goal LDL at goal HDL a bit low- encouraged more regular exercise C/W losartan Impaired f asting glycemia 634774787 FBS 114 states diet low in sugars, carbs though does eat rice will refer for MNT Obesity 895229362 BMI 35 Discussed weight loss with exercise and diet will refer for MNT Acquired t stone rigger finger 7766066 R middle finger tolerating with massage in morning declines further eval [id number] Ama Franz D.O. [facility], OFFICE [address] [place] [address] 03/27/2015 10:38:09 03/27/2015 11:22:54 Screening mammography [id number] Screening for malignant neoplasm of colon [id number] Referral for a DIRECT booked colonoscop y. This patient is a healthy ASA Class 1 or 2 patient (only mild systemic disease), or a STABLE, well controlled insulin dependent diabetic. They do not have serious cardiac disease ie WI/angiopl asty within 1 year, symptomati c CHF; renal failure with CKD 4 or 5; take Coumadin, Plavix, Aggrenox, etc; nor take chronic narcotics. [Patients who take chronic narcotics should be referred to [facility] for a propofol procedure due to possible inability to sedate adequately with conscious sedation.] Lifestyle [id number] Adult [facility] th examination [id number] see Risk Assessment and Lifestyle Change Counseling section above HM: Due for mammo, colonoscop y, labs no pap- d/t ZEENAT Counseling [id number] Benign ess ential hypertension 6373576 At goal LDL at goal HDL a bit low- encouraged more regular exercise C/W losartan Sweating [id number] likel y hormonal will check labs below [id number] Ama Franz D.O. , [facility] [place] [address] [place] [address] 05/27/2016 15:26:39 05/28/2016 09:03:40 Adult health examination [id number] Z00.00 see Risk Assessment and Lifestyle Change Counseling section above HM: mammo - will get todaycolon oscopy 05/16/15 with 10 yr repeatdue labs- will get today no pap- d/t ZEENAT Benign ess ential hypertension 8438860 I10 BP elevated-w as running late for apptwill check outside of officeGOal < 140/90get labs today Screening mammography 24 398184 Z12.31 today Atrophic vaginitis 00649 000 N95.2 Obesity 910183040 E66.9 BMI 37 Discussed weight loss with exercise and diet will refer for MNT Skin lesion 64074175 L98 .9 L hip? herpescx submitted Mastitis 87229705 N61 tender L breast, firm aeorlalast mammo 05/15will get today [id number] Didier Meeks, [facility], [facility] [place] [address] [place] [address] 09/16/2016 09:03:35 09/16/2016 10:06:27 Presbyopia 56295956 H52.4 Regular astigmatism 6890 5002 H52.223 Pterygium 39824473 H11.0 02 Nasally-no t visually significan t [id number] Ama Franz D.O. , [facility] [place] [address] [place] [address] 05/29/2017 10:25:31 05/29/2017 11:07:36 Benign essential hypertension 2679594 I10 BP not at goal of < 140/90had stopped losartanwi ll c/w dc and start lisinopril 10 mgrto 4 weeks Adult heal th examination [id number] Z00.00 see Risk Assessment and Lifestyle Change Counseling section aboveHM: Pap todayBMP utd, Lipid dueColon 05/16/15 w/10 yr repeatMamm o 05/2016 Counseling [id number] Z71 .9 Screening for malignant neoplasm of cervix 247883335 Z12.4 Impaired f asting glycemia 786693691 R73.01 FBS 107- down from 114 discussed reducing breads, pasta, rice and jello and juice [id number] Ama Franz D.O. , [facility] [place] [address] [place] [address] 05/31/2018 10:30:54 05/31/2018 11:19:32 Screening mammography 43697821 Z12.31 Palpitations 15440000 R0 0.2 Benign ess ential hypertension 6585602 I10 Unintentio nal weight loss 947452280 R63.4 EKG: Q wave abnormal 164 998386 R94.31 Health Concerns Section Related Observation LastModified by Organization Detai ls LastModified Time None Recorded Concern Status LastModified by Organization Details LastModified Time None Recorded Advance Directives Directive None Recorded Payers Insurance Date Sequence Insurance Name Policy Number Policy Allen Covered Member ID Allen Member ID Guarantor Name 11/07/[address] [place] [address] [id number] Aarti Boone [id number] Aarti Boone 11/07/2016 1 [place] [facility] Aarti Boone [id number] Aarti Boone 05/31/2018 1 [place] [facility] - [facility] PLAN Aarti Rm Paolo [id number] Aarti Rm Paolo 06/10/2018 1 [facility] - [facility] [id number] Aarti Boone [id number] Aarti Rm Paolo 11/17/2016 1 [place] [facility] Aarti Boone [id number] 3 Aarti Rm Paolo 11/07/2016 1 [place] [facility] Aarti Boone [id number] Aarti Rm Paolo 03/12/2015 1 *SELF PAY* Otto Rm Paolo 11/07/2016 1 [facility] (MEDICAID HMO) [id number] Aarti Rm Paolo [id number] Aarti Rm Paolo Notes Date Note Type [...] risk of skin cancer Xander Bentley NP [address] [place] [address], [phone], [facility] 05/27/2016 16:48:20 7 text/html Comprehensive Eye ExamReported bypatient.Quality:2 year exam; no blurred vision Location:bilateral Context:currently wears glasses Modifying factors:wears glasses for readers only Associated Symptoms:no redness; no itching; no floaters; no dryness Didier Meeks OD [address] [place], [phone], [facility] [...] to self manage condition Xander Bentley NP [address] [place] [address], [phone], [facility] 05/29/2017 11:08:58 8 text/html Aarti is not feeling well x 2 weeksat night- palpitations, headache, very tired.once had abdominal pain with no bowel issue or NVlost 20 lbs in past 3 months- not trying to lose weight.eats and immediately gets full.vision changes- needs eye exam.not sleeping well.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
== END 2025-03-01 14:35 | disposition home or self-care (01) ==
LOC: HO.HGI 13:17
PROVIDERS: PCP Internal Medicine; Visit Provider Nurse Practitioner Family
DX: R74.01 Elevation of levels of liver transaminase levels (principal); R14.0 Abdominal distension (gaseous)
CPT/HCPCS: 99205

== ENCOUNTER 2025-03-01 13:17 | Outpatient (REF) | payer MEDICARE, SELFPAY | END 2025-03-01 13:18 | disposition home or self-care (01) | LOC: HO.LNP 13:17 | PROVIDERS: PCP Internal Medicine; Visit Provider Nurse Practitioner Family | DX: R74.01 Elevation of levels of liver transaminase levels (principal); R14.0 Abdominal distension (gaseous) | CPT/HCPCS: 83013; 99202 ==

== ENCOUNTER 2025-03-02 09:00 | Outpatient (REF) | payer MEDICARE, SELFPAY ==
[2025-03-02 09:43] LABS: INTERNATIONAL NORM RATIO 1.0 (0.9-1.1); Prothrombin Time 11.5 SEC (10.9-12.4)
[2025-03-02 09:46] LABS: Hemoglobin A1C 148.6876 umol/L; Total Hemoglobin (HGBA1C) 4129.4138 umol/L
[2025-03-02 10:13] LABS: Cholesterol 178 mg/dL (<200); HDL Cholesterol 47 mg/dL (>40); Iron 89 mcg/dL (30-160); Percent Iron Saturation 32 % (15-50); Total Iron Binding Capacity 282 mcg/dL (228-428); Triglycerides 115 mg/dL (<150); Unsaturated Iron Binding 193 ug/dL
[2025-03-02 10:37] LABS: Ferritin 172 ng/mL (10-250)
[2025-03-06 17:13] LABS: Alk.Phos Iso. Macrohepatic 0 % (<=0); Alk.Phos Isoenzymes Bone 39 % (28-66); Alk.Phos Isoenzymes Intest 23 % (1-24); Alk.Phos Isoenzymes Liver 38 % (25-69); Alk.Phos Isoenzymes Placental 0 % (<=0); Alk.Phos Isoenzymes Total 92 U/L (37-153)
[2025-03-06 21:14] LABS: Anti Nuclear Antibody Screen NEGATIVE (NEGATIVE)
[2025-03-12 22:23] LABS: FIB-ALT 35 U/L (6-29); FIB-Alpha-2-Macroglobulin 259 mg/dL (106-279); FIB-Apolipoprotein A1 152 mg/dL (101-198); FIB-GGT 267 U/L (3-65); FIB-Haptoglobin 82 mg/dL (43-212); FIB-Total Bilirubin 0.5 mg/dL (0.2-1.2); Liver Fibrosis Score 0.64; Liver Fibrosis Stage F3; Nec Inflam Act Grade A0-A1; Nec Inflam Act Score 0.27
== END 2025-03-02 09:01 | disposition home or self-care (01) ==
LOC: HO.LAB 09:00
PROVIDERS: PCP Internal Medicine; Visit Provider Nurse Practitioner Family
DX: R74.01 Elevation of levels of liver transaminase levels (principal); R14.0 Abdominal distension (gaseous)
CPT/HCPCS: 36415; 80061; 81596; 82728; 82784; 83036; 83540; 84080; 85610; 86015; 86038; 86140

== ENCOUNTER 2025-03-23 08:46 | Outpatient (AMB) | payer MEDICARE, SELFPAY ==
--- NOTE | 2025-03-23 08:49 | MHC.OFFVIS ---
Vital Signs 03/23/25 08:51 Height 5 ft Weight 167 lb BMI 32.6 BP 159/73 H Blood Pressure Location Lt brachial Position Sitting Pulse 59 Pulse Oximetry (%) 95 Oxygen Delivery Method Room Air Intake Visit Reasons: 3/4 wks f/u H.pylori, labs, trans. Intake Note: Patient follow up for abdominal pain and lab/h pylori results. Patient cc: dark stool and this morning she saw some spot of red blood, abdominal bloating/she needed to know what to eat to help her, denies any other GI isues. Patient Safety Officer Required: Yes Accompanied by: Self / Same As Patient Allergies No Known Allergies Allergy (Verified 03/23/25 08:49) Medication List - Last Reconciled 03/23/25 by Esme Molina CNP bisacodyl 5 mg PO ONCE 1 day bismuth subsalicylate 524 mg (2 x 262 mg) PO QID 14 days Lactobacillus acidophilus 10,000 mmu cells PO BID losartan 50 mg PO DAILY 90 days metronidazole 500 mg PO TID omeprazole 20 mg PO BID polyethylene glycol 3350 (Miralax) 238 grams PO ONCE tetracycline 500 mg PO QID 14 days [wrist splint wear as much as possible throughout the day & all night] HPI HPI 3/4 wks f/u H.pylori, labs, trans.: Details: Patient is a 64-year-old female with PMH of obesity, hypertension, hyperlipidemia and headaches. Aarti presents for follow-up after positive H. pylori testing. She began a 14-day course of antibiotics on March 18, 2025, and is currently on day five of treatment. She initially experienced intolerance to the antibiotics, which has since improved. She reports increased frequency of bowel movements (now two to three times daily, previously once daily), with stools described as almost black and occasionally containing red blood. She notes bloating, sometimes despite minimal food intake. No current reflux symptoms. Fatigue is reported. She completed labs for further evaluation of elevated LFTs. She previously consumed wine with meals but is now abstinent from alcohol as of the last five months. She is a non-smoker. She has experienced an increase in blood pressure, which she manages with daily antihypertensive medication. Patient is aware of the need for a heart-healthy, liver-friendly diet, consume whole foods, and maintain complete abstinence from alcohol. No new or additional symptoms reported at this visit. [facility] Medical History (Updated 03/23/25 @ 13:46 by Esme Molina CNP) Positive H. pylori test Metabolic dysfunction-associated steatotic liver disease (MASLD) Bloating Bilateral primary osteoarthritis of knee Right tennis elbow Degenerative disc disease, lumbar Cough Blurry vision Class 1 obesity with body mass index (BMI) of 30.0 to 30.9 in adult Hypertension Tortuosity of artery Transaminitis Pure hypercholesterolemia Physical exam Brain lesion Hair loss New daily persistent headache Polyarthralgia Obstructive jaundice Surgical History Hx of colonoscopy History of removal of calculus of renal pelvis through percutaneous nephrostomy History of endoscopy H/O hysterectomy for benign disease Family History Father CAD (coronary artery disease) Mother Stomach cancer Daughter Uterine cancer Son Intestinal disease Social History Housing: House Alcohol intake: current Alcohol intake frequency: a few times a month Alcohol type: beer, wine and hard liquor Patient Tobacco Use Status: Never used Tobacco e-Cigarette/Vaping Use: Never Used Second Hand Smoke Exposure: No service: No Current occupational status: employed 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 [employer] Current occupational exposures/hazards: No Cognitive needs: No Hearing needs: No Vision needs: Yes (only for reading) Review of Systems Const Reports as per HPI ENT Reports as per HPI Card Reports as per HPI Resp Reports as per HPI GI Reports as per HPI Reports as per HPI Physical Exam Vital Signs: Last Vital Signs Pulse 59 03/23/25 08:51 BP 159/73 H 03/23/25 08:51 Pulse Ox 95 03/23/25 08:51 Oxygen Delivery Method Room Air 03/23/25 08:51 BMI result Body Mass Index 32.6 Const General: healthy appearing, no acute distress and well developed Nutritional Appearance: average body habitus Orientation/consciousness: patient oriented x3 HEENT Head: Yes normal to inspection, Yes normocephalic and Yes atraumatic Face and sinus: Yes normal facial exam Eyes General: appearance normal, both eyes and all related structures Neck Neck: Yes normal visual inspection Resp Effort & Inspection: normal respiratory effort, able to speak in complete sentences, no tracheal deviation and symmetric chest movement Cardio Jugular venous distension: no JVD Neuro General: patient oriented x3 Gait exam (Neuro): Normal gait present Psych Appearance: grossly normal Mental Status: mental status grossly normal Speech and movement: Normal speech and movement present Affect: normal affect Attitude: cooperative Thought process: Normal thought process present Thought content: Normal thought content present Insight: Good insight present (Psych) Judgement: Good judgement present (Psych) Assessment & Plan Assessment & Plan (1) Metabolic dysfunction-associated steatotic liver disease (MASLD): Comment: Fibrosis stage III, Child-Colon Score (03/08/2025) 5 points, Child Class A Code(s): K76.0 - Fatty (change of) liver, not elsewhere classified Category: Medical Plan: Reviewed imaging and labs findings c/w MASLD, stage 3 fibrosis . Educated the need for ongoing monitoring and risk factor modification to prevent progression; patient has comorbidities (HTN, obesity) contributing to liver risk. Medications: -need for hep B immunity we will obtain at future visit or upcoming PCP visit -Advise consultation with PCP or GI prior to starting any new medications or supplements to ensure hepatic safety. Lifestyle Changes: -Heart-healthy, liver-friendly diet (emphasize whole foods, minimize processed/fried foods, avoid lactose if symptomatic). -Complete abstinence from alcohol. -Increase physical activity as tolerated. Follow-Up: Coordinate with PCP for ongoing hypertension and metabolic risk management (2) Positive H. pylori test: Code(s): A04.8 - Other specified bacterial intestinal infections Category: Medical Plan: Positive H. pylori test with ongoing symptoms; quadruple therapy initiated without difficulty Additional Testing: Retest for H. pylori four weeks after completion of antibiotics (target: third week of May). Medications: Continue current antibiotic regimen as prescribed; consider OTC probiotic to mitigate GI side effects from antibiotics. (3) Class 1 obesity with body mass index (BMI) of 30.0 to 30.9 in adult: Code(s): E66.9 - Obesity, unspecified; Z68.30 - Body mass index [BMI] 30.0-30.9, adult Category: Medical Qualifiers: Obesity type: due to excess calories Serious obesity comorbidity presence: with serious comorbidity Qualified Code(s): E66.811 - Obesity, class 1; E66.09 - Other obesity due to excess calories; Z68.30 - Body mass index [BMI] 30.0-30.9, adult Plan: BMI 32.6 Referral to fulfillment associate placed Discussion on lifestyle modifications to promote healthy weight: -Well-balanced diet -Adequate hydration with water -150 minutes of moderate intensity exercise per week (4) Hypertension: Code(s): I10 - Essential (primary) hypertension Category: Medical Qualifiers: Hypertension type: unspecified Qualified Code(s): I10 - Essential (primary) hypertension Plan: SBP above guidelines Education and plan as above Plan Follow-up after colonoscopy or sooner as needed Time: I spent a total of 30 minutes on the date of encounter which includes: Preparing to see the patient (reviewed previous documentation, test results and medical history) Performing a medically appropriate exam and/or evaluation Ordering medications, tests, and procedures Documenting clinical information in the health record Orders: Referrals Nutrition/Dietitian Referral K76.0 - Fatty (change of) liver, not elsewhere classified Medications: New Lactobacillus acidophilus Take once tablet twice daily until complete 10,000 mmu cells PO BID 60 caps 0RF polyethylene glycol 3350 (Miralax) per colonoscopy prep instructions 238 grams PO ONCE 238 grams 0RF bisacodyl Take four tablets once for 1 day per colonoscopy instructions 5 mg PO ONCE 4 tabs 0RF 1 day Coding Level of Care Code Established Pt Est Pt Level 4 (39783) Patient Type Established Diagnoses Metabolic dysfunction-associated steatotic liver disease (MASLD) K76.0 Positive H. pylori test A04.8 Class 1 obesity due to excess calories with serious comorbidity and body mass index (BMI) of 30.0 to 30.9 in adult E66.811; E66.09; Z68.30 Obesity type: due to excess calories Serious obesity comorbidity presence: with serious comorbidity Hypertension, unspecified type I10 Hypertension type: unspecified
[2025-03-23 08:51] VITALS: BP 159/73; PULSE 59; O2SAT 95; BMI 32.6
--- OUTSIDE RECORDS SUMMARY | 2025-03-23 09:11 | XMS_ITS | Encounter Summary ---
Author Organization [facility] Address [address] [place] [phone] Phone Care Team Providers Care Rn Progressive Care Name Role Phone Silvana Funes MD Primary Care Provid er Encounter Details Date Type Department Care Team (Late st Contact Info) Description 03/27/2022 Procedure [facility], Ct Scan - [address] [address] Social History Tobacco Use Types Packs/Day Years Used Date Smoking Tobacco: Never Smokeless Tobacco: Never Alcohol Use Standard Drinks/Week Comments Yes 1 (1 standard drink = 0.6 oz pur e alcohol) Comments Unknown Sex and Gender Information Value Date Recorded Sex Assigned at Female 05/09/2019 2:44 PM EDT Legal Sex Female 10:35 PM EDT Gender Identity Female 05/09/2019 2:44 PM EDT Sexual Orientation Not on file documented as of this encounter Functional Status * Calculated C-SSRS Risk Score (Lifetime/Recent) Answer Date of Assessment Author No Risk Indicated 03/27/2022 4:14 PM EDT Emmanuel Carvalho RN * [place] Suicide Severity Rating Scale (Screener/Recent Self-Report) Question Answer Date of Assessment Author 1. Wish to be (Past 1 Month) No 03/27/2022 4:14 PM EDT Emmanuel Madrigal Ma, RN 2. Non-Specific Active Suicidal Thoughts (Past 1 Month) No 03/27/2022 4:14 PM EDT Emmanuel Madrigal Ma, RN 6. Suicidal Behavior (Lifetime) No 03/27/2022 4:14 PM EDT Emmanuel Madrigal Ma, RN documented as of this encounter Plan of Treatment Not on file documented as of this encounter Visit Diagnoses Not on filedocumented in this encounter Additional Health Concerns Infection Onset Date Last Indicated Resolved Time CoV-Risk Comment:Per note documentation 10/24/2024 10/24/2024 9:18 AM EST documented as of this encounter Care Teams Rn Progressive Care Relationship Specialty Start Date End Date Silvana Funes MD [address] [place] [address] PCP - General Internal Medicine 03/04/21 documented as of this encounter Additional Source Comments The information contained in this document represents components of the legal health record. It is not the complete legal health record.[facility]
--- OUTSIDE RECORDS SUMMARY | 2025-03-23 09:12 | XMS_ITS | Data Portability ---
Author Organization [facility], , [facility] Address [address] [place] [address] Care Team Providers Care Scout Leaser Name Role Phone XADNER BENTLEY Primary Care Provider [phone] Assessment Encounter Date Assessment Date Assessment LastModified [...] . Lab CMP, serum or plasma 2017 [facility], [address] [place] [address], [address], 8 09:44:32 C-reacti ve protein, quantita tive, serum or plasma 2017 [facility], [address] [place] [address], [address], 8 09:44:35 CBC 2017 018 [facility], [address] [place] [address], [address], 8 09:49:56 TSH, serum or plasma 2017 018 [facility], [address] [place] [address], [address], 8 12:11:02 HbA1c (hemoglo bin A1c), blood 2017 018 [facility], [address] [place] [address], [address], 8 11:28:38 pap, LB + reflex HR HPV if ASC-U, ASC-H, LSIL, HSIL, AZAM - Reflex HPV testing for ASCUS and LGSIL 2016 017 [facility] (Outpatient), [address] [place], [address], 7 11:59:23 HSV (1+2) DNA, qual, PCR, unspecif ied specimen 2015 016 [id number] [facility], [address] [place] [address], [address], 6 04:07:46 hepatiti s C virus Ab, serum 2014 015 [facility], [address] [place] [address], [address], 5 18:36:26 TSH, serum or plasma 2014 015 [facility], [address] [place] [address], [address], 5 17:06:34 CBC 2014 015 [facility], [address] [place] [address], [address], 5 13:01:04 CMP, serum or plasma 2014 015 [facility], [address] [place] [address], [address], 5 14:53:58 Referral gynecolo gist referral - vaginal dryness, dyspaure cristo . 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 Well controll ed. Surg past- ZEENAT. Not seen by GI. Will need interpre ter. 2014 Jocelin [facility], [address] [place], [address], 5 09:59:28 Surgeries None recorded . Imaging MAMMO, screenin g, tomosynt filiberto osborne l [address] (Imaging), [address], [place], [address], 9 10:43:25 exercise stress test - pt with hx of HTN- no known hx of CAD with abn ekg q wave in III, AVF.//wt 155//Spa matthew speaking //please call patient to schedule //no meds//ok to exercise 2017 018 [facility], [address], [place], [address], 9 05:00:56 electroc francis rao 2017 018 [facility], [address] [place] [address], [address], 8 13:32:49 MAMMO, screenin g, digital, filiberto l 2014 015 [facility] (Imaging), [address], [place], [address], 5 15:03:34 Medication Orders lisinopr il 20 mg tablet 2017 018 INTERFACE [facility], [address] [place], [address], 8 11:41:15 lisinopr il 10 mg tablet 2016 017 [facility], [address] [place], [address], 8 10:50:55 losartan 50 mg tablet 2015 016 pkeough [facility], [address] [place], [address], 7 11:07:42 Patient TargetsNo targets recorded. Patient Instructions Encounter Date Encounter Id Patient Instructions Last Modified By Organization Details Last Modified Time 03/27/2015 [id number] well visit, wome n 50 to 65: care instructions pkeough Not available 03/27/2015 12:28:03 05/27/2016 [id number] mamograf a: beau lopez - [mammogram: about this test] Not available 05/27/2016 16:22:00 Please start trying to walk at least 20minute a day. Try to eat 10 fruits or veggies a day. Discussed the Plate method as a way to control portions. pkeough Not available 05/27/2016 16:48:01 09/16/2016 [id number] RX given for glasses No need for surgical treatment of growth on left eye Family history of glaucoma-pressure not checked without drops-optic nerves look healthy Eyes healthy to extent seen without dilation jmerlin Not available 09/16/2016 10:00:53 05/29/2017 [id number] well visit, wome n 50 to 65: care instructions Not available 05/29/2017 11:09:38 Please start trying to walk at least 20minute a day. Try to eat 10 fruits or veggies a day. 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 prefers to see AIRCRAFT [employer]ANING SUPERVISOR Referring Physician: Xander Bentley, Family Medicine, Encounter Date: 05/27/2016 Results Created Date Observation Date Name Description Value Unit Range Abnormal Flag Note LastModifiedBy Organization Detail LastModifiedTime 03/27/20 15 03/27/2015 CBC WBC 8.8 K/ L 4.0-10 .0 Not Available [address], [address], 03/27/2015 13:01:04 03/27/20 15 03/27/2015 CBC RBC 4.91 M/ L 3.93-5 .22 Not Available [address], [address], 03/27/2015 13:01:04 03/27/20 15 03/27/2015 CBC HGB 15.0 g/dL 11.2-1 5.7 Not Available [address], [address], 03/27/2015 13:01:04 03/27/20 15 03/27/2015 CBC HCT 45.2 % 34.1-4 4.9 high Not Available [address], [address], 03/27/2015 13:01:04 03/27/20 15 03/27/2015 CBC MCV 92.1 L 79.4-9 4.8 Not Available [address], [address], 03/27/2015 13:01:04 03/27/20 15 03/27/2015 CBC MCH 30.5 pg 25.6-3 2.2 Not Available [address], [address], 03/27/2015 13:01:04 03/27/20 15 03/27/2015 CBC MCHC 33.2 g/dL 32.2-3 5.5 Not Available [address], [address], 03/27/2015 13:01:04 03/27/20 15 03/27/2015 CBC plt 258.0 K/ L 182.0- 369.0 Not Available [address], [address], 03/27/2015 13:01:04 03/27/20 15 03/27/2015 CBC MPV 10.3 9.4-12 .3 Not Available [address], 15663, 03/27/2015 13:01:04 03/27/20 15 03/27/2015 CBC neut% 53.2 % 34.0-7 1.1 Not Available [address], [address], 03/27/2015 13:01:04 03/27/20 15 03/27/2015 CBC neut# 4.7 1.6-6. 1 Not Available [address], [address], 03/27/2015 13:01:04 03/27/20 15 03/27/2015 CBC lymph % 35.2 % 19.3-5 1.7 Not Available [address], [address], 03/27/2015 13:01:04 03/27/20 15 03/27/2015 CBC lymph # 3.1 K/ L 1.2-3. 7 Not Available [address], [address], 03/27/2015 13:01:04 03/27/20 15 03/27/2015 CBC mono% 9.9 % 4.7-12 .5 Not Available [address], [address], 03/27/2015 13:01:04 03/27/20 15 03/27/2015 CBC mono# 0.9 0.2-0. 4 high Not Available [address], 67[address], 03/27/2015 13:01:04 03/27/20 15 03/27/2015 CBC eo% 1.4 % 0.7-5. 8 Not Available [address], [address], 03/27/2015 13:01:04 03/27/20 15 03/27/2015 CBC eo# 0.1 0.0-0. 4 Not Available [address], 70625, 03/27/2015 13:01:04 03/27/20 15 03/27/2015 CBC baso% 0.3 % 0.1-1. 2 Not Available [address], 15042, 03/27/2015 13:01:04 03/27/20 15 03/27/2015 CBC baso# 0.0 0.0-0. 1 low Not Available [address], 78[address], 03/27/2015 13:01:04 03/27/20 15 03/27/2015 CBC RDW-CV 13.2 % 11.7-1 4.4 Not Available [address], [address], 03/27/2015 13:01:04 03/27/20 15 03/27/2015 TSH, serum or plasm a TSH 1.85 uIU/m L 0.50-6 .00 The Ameri can Colle ge of Endoc rinol ogy and Ameri can Thyro id Assoc iatio n recom mend goal TSH value s betwe en 0.4-4 .0 mIU/m L. Not Available [address], [address], 03/27/2015 17:06:34 03/27/20 15 03/28/2015 hepat itis C virus Ab, serum hepatitis C antibody NON-RE ACTIVE non-re active normal Not Available [facility] [address] [place], [address], 03/28/2015 18:36:26 03/27/20 15 03/28/2015 hepat itis C virus Ab, serum signal to cut-off 0.02 <1.00 normal Not Available [facility] [address] [place], [address], 03/28/2015 18:36:26 03/27/20 15 03/29/2015 CMP, serum or plasm a glucose 74 mg/dL 70-100 Not Available [address], [address], 03/29/2015 14:53:58 03/27/20 15 03/29/2015 CMP, serum or plasm a BUN 19 mg/dL 7-18 high Not Available [address], [address], 03/29/2015 14:53:58 03/27/20 15 03/29/2015 CMP, serum or plasm a creatinine 0.8 mg/dL 0.8-1. 3 Not Available [address], 349[address], 03/29/2015 14:53:58 03/27/20 15 03/29/2015 CMP, serum or plasm a B/C 23.8 ratio Not Available [address], 27[address], 03/29/2015 14:53:58 03/27/20 15 03/29/2015 CMP, serum or plasm a GFR 83.1 mL/mi n Recom mahi d GFR by the Natio nal Kidne y Found ation >60 mL/mi n/1.7 3m2 - Windy l <60 mL/mi n/1.7 3m2 - Chron ic Kidne y Disea se <15 mL/mi n/1.7 3m2 - Kidne y Failu re Not Available [address], [address], 03/29/2015 14:53:58 03/27/20 15 03/29/2015 CMP, serum or plasm a GFR - if 95.6 mL/mi n For Afric an Ameri can patie nts: Resul ts Multi plied by 1.21 Not Available [address], [address], 03/29/2015 14:53:58 03/27/20 15 03/29/2015 CMP, serum or plasm a sodium 142 mmol/ L 136-14 5 Not Available [address], 0[address], 03/29/2015 14:53:58 03/27/20 15 03/29/2015 CMP, serum or plasm a potassium 4.4 mmol/ L 3.5-5. 1 Not Available [address], [address]26, 03/29/2015 14:53:58 03/27/2003/29/2015 CMP, serum or plasm a chloride 102 mmol/ L 96-107 Not Available [address], 09820, 03/29/2015 14:53:58 03/27/2003/29/2015 CMP, serum or plasm a anion gap 9.0 5.0-15 .0 Not Available [address], 91568, 03/29/2015 14:53:58 03/27/2003/29/2015 CMP, serum or plasm a CO2 31 mmol/ L 21-32 Not Available [address], 16[address], 03/29/2015 14:53:58 03/27/2003/29/2015 CMP, serum or plasm a calcium 10.2 mg/dL 8.5-10 .3 Not Available [address], 75[address], 03/29/2015 14:53:58 03/27/20 15 03/29/2015 CMP, serum or plasm a total protein 7.7 g/dL 6.4-8. 2 Not Available [address], 050[address], 03/29/2015 14:53:58 03/27/20 15 03/29/2015 CMP, serum or plasm a albumin 4.3 g/dL 3.4-5. 0 Not Available [address], [address], 03/29/2015 14:53:58 03/27/20 15 03/29/2015 CMP, serum or plasm a globulin 3.4 g/dL Not Available [address], [address], 03/29/2015 14:53:58 03/27/20 15 03/29/2015 CMP, serum or plasm a A/G 1.3 ratio 0.8-2. 0 Not Available [address], [address], 03/29/2015 14:53:58 03/27/20 15 03/29/2015 CMP, serum or plasm a total bilirubin 0.30 mg/dL 0.00-1 .00 Not Available [address], 40614, 03/29/2015 14:53:58 03/27/20 15 03/29/2015 CMP, serum or plasm a AST 37 U/L 15-37 Not Available [address], 95245, 03/29/2015 14:53:58 03/27/20 15 03/29/2015 CMP, serum or plasm a ALT 75 U/L 30-65 high Not Available [address], [address]76, 03/29/2015 14:53:58 03/27/20 15 03/29/2015 CMP, serum or plasm a alk. phos. 89 U/L 50-136 Not Available [address], [address], 03/29/2015 14:53:58 05/27/20 16 05/28/2016 BMP, serum or plasm a glucose 102 mg/dL 70-100 high Not Available [address], 8[address]60, 05/28/2016 11:54:59 05/27/20 16 05/28/2016 BMP, serum or plasm a BUN 22 mg/dL 7-18 high Not Available [address], 22566, 05/28/2016 11:54:59 05/27/20 16 05/28/2016 BMP, serum or plasm a creatinine 0.8 mg/dL 0.8-1. 3 Not Available [address], 50192, 05/28/2016 11:54:59 05/27/20 16 05/28/2016 BMP, serum or plasm a B/C 27.5 ratio Not Available [address], 62827, 05/28/2016 11:54:59 05/27/20 16 05/28/2016 BMP, serum or plasm a GFR -non 82.8 mL/mi n Recom mahi d GFR by the Natio nal Kidne y Found ation >60 mL/mi n/1.7 3m2 - Windy l <60 mL/mi n/1.7 3m2 - Chron ic Kidne y Disea se <15 mL/mi n/1.7 3m2 - Kidne y Failu re Not Available [address], [address], 05/28/2016 11:54:59 05/27/20 16 05/28/2016 BMP, serum or plasm a GFR - if 95.2 mL/mi n For Afric an Ameri can patie nts: Resul ts Multi plied by 1.21 Not Available [address], [address], 05/28/2016 11:54:59 05/27/20 16 05/28/2016 BMP, serum or plasm a sodium 142 mmol/ L 136-14 5 Not Available [address], 64[address], 05/28/2016 11:54:59 05/27/20 16 05/28/2016 BMP, serum or plasm a potassium 4.9 mmol/ L 3.5-5. 1 Not Available [address], 80289, 05/28/2016 11:54:59 05/27/20 16 05/28/2016 BMP, serum or plasm a chloride 104 mmol/ L 96-107 Not Available [address], 04539, 05/28/2016 11:54:59 05/27/20 16 05/28/2016 BMP, serum or plasm a anion gap 9.1 5.0-15 .0 Not Available [address], 36848, 05/28/2016 11:54:59 05/27/20 16 05/28/2016 BMP, serum or plasm a CO2 29 mmol/ L 21-32 Not Available [address], [address], 05/28/2016 11:54:59 05/27/20 16 05/28/2016 BMP, serum or plasm a calcium 9.6 mg/dL 8.5-10 .3 Not Available [address], 03671, 05/28/2016 11:54:59 05/27/20 16 05/28/2016 LDL, direc [...] r is not rick campos. Not Available [address], [address], 05/28/2016 11:55:01 05/27/20 16 05/28/2016 lipid panel , serum cholesterol 207 mg/dL <200 mg/dl Domenico able 200-2 39 mg/dl Borde rline High >240 mg/dl High Not Available [address], [address], 05/28/2016 12:40:24 05/27/20 16 05/28/2016 lipid panel , serum triglyceride s 140 mg/dL <150 mg/dL Windy l 150-1 99 mg/dL Borde rline High 200-4 99 mg/dL High >500 mg/dL Very High Not Available [address], 7[address]65, 05/28/2016 12:40:24 05/27/20 16 05/28/2016 lipid panel , serum direct HDL 41 mg/dL Not Available [address], [address], 05/28/2016 12:40:24 05/27/20 16 05/29/2016 HSV (1+2) DNA, qual, PCR, unspe cifie d speci men source SEE NOTE LEFT HIP Not Available [facility] [address], [address], 05/29/2016 15:27:20 05/27/20 16 05/29/2016 HSV (1+2) DNA, qual, PCR, unspe cifie d speci men hsv 1 DNA NOT DETECT ED not detect ed Not Available [facility] [address], [address], 05/29/2016 15:27:20 05/27/20 16 05/29/2016 HSV (1+2) [...] by [facility] Justino olivarez [facility], [place], [place]. It has not been clear ed or appro guicho by the FDA. This assay has been valid ated pursu ant to the CLIA regul ation s and is used for clini bashir purpo ses. Not Available [facility] [address] [place], [place], [address], 05/29/2016 15:27:20 05/22/20 17 05/25/2017 BMP, serum or plasm a glucose 107 mg/dL 70-100 high LIPS= Speci men Sligh tly Lipem ic. Chem Resul ts may be effec timo. Not Available [address], [address], 05/25/2017 09:53:42 05/22/20 17 05/25/2017 BMP, serum or plasm a BUN 24 mg/dL 7-18 high Not Available [address], [address], 05/25/2017 09:53:42 05/22/20 17 05/25/2017 BMP, serum or plasm a creatinine 0.7 mg/dL 0.8-1. 3 low Not Available [address], 6[address], 05/25/2017 09:53:42 05/22/20 17 05/25/2017 BMP, serum or plasm a B/C 34.3 ratio Not Available [address], [address], 05/25/2017 09:53:42 05/22/20 17 05/25/2017 BMP, serum or plasm a GFR -non 96.3 mL/mi n Recom mahi d GFR by the Natio nal Kidne y Found ation >60 mL/mi n/1.7 3m2 - Windy l <60 mL/mi n/1.7 3m2 - Chron ic Kidne y Disea se <15 mL/mi n/1.7 3m2 - Kidne y Failu re Not Available [address], [address], 05/25/2017 09:53:42 05/22/20 17 05/25/2017 BMP, serum or plasm a GFR - if 110.7 mL/mi n For Afric an Ameri can patie nts: Resul ts Multi plied by 1.21 Not Available [address], [address], 05/25/2017 09:53:42 05/22/2005/25/2017 BMP, serum or plasm a sodium 144 mmol/ L 136-14 5 Not Available [address], [address], 05/25/2017 09:53:42 05/22/2005/25/2017 BMP, serum or plasm a potassium 4.1 mmol/ L 3.5-5. 1 Not Available [address], 47[address], 05/25/2017 09:53:42 05/22/2005/25/2017 BMP, serum or plasm a chloride 105 mmol/ L 96-107 Not Available [address], 1944[address], 05/25/2017 09:53:42 05/22/20 17 05/25/2017 BMP, serum or plasm a anion gap 8.4 5.0-15 .0 Not Available [address], 05156, 05/25/2017 09:53:42 05/22/20 17 05/25/2017 BMP, serum or plasm a CO2 31 mmol/ L 21-32 Not Available [address], 40[address], 05/25/2017 09:53:42 05/22/20 17 05/25/2017 BMP, serum or plasm a calcium 9.6 mg/dL 8.5-10 .3 Not Available [address], 58[address], 05/25/2017 09:53:42 05/31/20 18 06/01/2018 CMP, serum or plasm a glucose 111 mg/dL 70-100 high Not Available [address], 35184, 06/01/2018 09:44:32 05/31/20 18 06/01/2018 CMP, serum or plasm a BUN 17 mg/dL 7-18 Not Available [address], [address], 06/01/2018 09:44:32 05/31/20 18 06/01/2018 CMP, serum or plasm a creatinine 0.7 mg/dL 0.8-1. 3 low Not Available [address], 57572, 06/01/2018 09:44:32 05/31/20 18 06/01/2018 CMP, serum or plasm a B/C 24.3 ratio Not Available [address], 71790, 06/01/2018 09:44:32 05/31/20 18 06/01/2018 CMP, serum or plasm a GFR -non 95.9 mL/mi n Recom mahi d GFR by the Natio nal Kidne y Found ation >60 mL/mi n/1.7 3m2 - Windy l <60 mL/mi n/1.7 3m2 - Chron ic Kidne y Disea se <15 mL/mi n/1.7 3m2 - Kidne y Failu re Not Available [address], [address], 06/01/2018 09:44:32 05/31/20 18 06/01/2018 CMP, serum or plasm a GFR - if 110.3 mL/mi n For Afric an Ameri can patie nts: Resul ts Multi plied by 1.21 Not Available [address], 29784, 06/01/2018 09:44:32 05/31/20 18 06/01/2018 CMP, serum or plasm a sodium 141 mmol/ L 136-14 5 Not Available [address], 216[address], 06/01/2018 09:44:32 05/31/20 18 06/01/2018 CMP, serum or plasm a potassium 4.7 mmol/ L 3.5-5. 1 Not Available [address], 0[address], 06/01/2018 09:44:32 05/31/2006/01/2018 CMP, serum or plasm a chloride 103 mmol/ L 96-107 Not Available [address], 23749, 06/01/2018 09:44:32 05/31/20 18 06/01/2018 CMP, serum or plasm a anion gap 7.7 5.0-15 .0 Not Available [address], [address]161, 06/01/2018 09:44:32 05/31/20 18 06/01/2018 CMP, serum or plasm a CO2 30 mmol/ L 21-32 Not Available [address], 79906, 06/01/2018 09:44:32 05/31/20 18 06/01/2018 CMP, serum or plasm a calcium 9.5 mg/dL 8.5-10 .3 Not Available [address], 42170, 06/01/2018 09:44:32 05/31/20 18 06/01/2018 CMP, serum or plasm a total protein 7.6 g/dL 6.4-8. 2 Not Available [address], 13075, 06/01/2018 09:44:32 05/31/20 18 06/01/2018 CMP, serum or plasm a albumin 3.4 g/dL 3.4-5. 0 Not Available [address], 34119, 06/01/2018 09:44:32 05/31/20 18 06/01/2018 CMP, serum or plasm a globulin 4.2 g/dL Not Available [address], [address]642, 06/01/2018 09:44:32 05/31/20 18 06/01/2018 CMP, serum or plasm a A/G 0.8 ratio 0.8-2. 0 Not Available [address], 36[address], 06/01/2018 09:44:32 05/31/20 18 06/01/2018 CMP, serum or plasm a total bilirubin 0.80 mg/dL 0.00-1 .00 Not Available [address], 690[address], 06/01/2018 09:44:32 05/31/20 18 06/01/2018 CMP, serum or plasm a AST 91 U/L 15-37 high Not Available [address], 40937, 06/01/2018 09:44:32 05/31/20 18 06/01/2018 CMP, serum or plasm a ALT 188 U/L 30-65 high Not Available [address] [place], [address], 06/01/2018 09:44:32 05/31/2006/01/2018 CMP, serum or plasm a alk. phos. 405 U/L 50-136 high Not Available [address], [address], 06/01/2018 09:44:32 05/31/2006/01/2018 lipid panel , serum cholesterol 252 mg/dL <200 mg/dl Domenico able 200-2 39 mg/dl Borde rline High >240 mg/dl High Not Available [address], 5[address], 06/01/2018 09:44:33 05/31/20 18 06/01/2018 lipid panel , serum triglyceride s 98 mg/dL <150 mg/dL Windy l 150-1 99 mg/dL Borde rline High 200-4 99 mg/dL High >500 mg/dL Very High Not Available [address], [address], 06/01/2018 09:44:33 05/31/2006/01/2018 lipid panel , serum direct HDL 61 mg/dL <40 mg/dl - Major Risk for CHD >60 mg/dl - Negat geena Risk for CHD Not Available [address], [address], 06/01/2018 09:44:33 05/31/2006/01/2018 C-matt ctive prote in, quant itati ve, serum or plasm a C-reactive protein -quant 16.7 mg/L 0.0-9. 0 high Not Available [address], [address], 06/01/2018 09:44:35 05/31/20 18 06/01/2018 LDL, calcu lated , serum (OBS) LDL - calculated 171.4 RISK CATEG ORY LDL GOAL _ CHD or CHD Risk Equiv alent s <100 mg/dl (10-y ear risk >20%) 2+ Risk Facto rs <130 mg/dl (10-y ear risk <= 20%) 0-1 Risk Facto r <160 mg/dl [facility] with 0-1 risk facto r have a 10 year risk <10%, thus 10 year risk asses ment in peopl e with 0-1 risk facto r is not rick campos. Not Available [address], [address], 06/01/2018 09:44:36 05/31/2006/01/2018 CBC WBC 8.6 K/ L 4.0-10 .0 Not Available [address], 26977, 06/01/2018 09:49:55 05/31/2006/01/2018 CBC RBC 4.78 M/ L 3.93-5 .22 Not Available [address], [address]9837, 06/01/2018 09:49:55 05/31/2006/01/2018 CBC HGB 15.1 g/dL 11.2-1 5.7 Not Available [address], 18416, 06/01/2018 09:49:55 05/31/2006/01/2018 CBC HCT 47.4 % 34.1-4 4.9 high Not Available [address], [address], 06/01/2018 09:49:55 05/31/2006/01/2018 CBC MCV 99.2 L 79.4-9 4.8 high Not Available [address], 93211, 06/01/2018 09:49:55 05/31/20 18 06/01/2018 CBC MCH 31.6 pg 25.6-3 2.2 Not Available [address], 01097, 06/01/2018 09:49:55 05/31/20 18 06/01/2018 CBC MCHC 31.9 g/dL 32.2-3 5.5 low Not Available [address], [address]64, 06/01/2018 09:49:55 05/31/2006/01/2018 CBC plt 227.0 K/ L 182.0- 369.0 Not Available [address], [address], 06/01/2018 09:49:55 05/31/2006/01/2018 CBC MPV 11.5 9.4-12 .3 Not Available [address], [address]61, 06/01/2018 09:49:55 05/31/2006/01/2018 CBC neut% 68.5 % 34.0-7 1.1 Not Available [address], [address]387, 06/01/2018 09:49:55 05/31/2006/01/2018 CBC neut# 5.9 1.6-6. 1 Not Available [address], 97621, 06/01/2018 09:49:55 05/31/2006/01/2018 CBC lymph % 22.7 % 19.3-5 1.7 Not Available [address], [address], 06/01/2018 09:49:55 05/31/2006/01/2018 CBC lymph # 2.0 K/ L 1.2-3. 7 Not Available [address], [address], 06/01/2018 09:49:55 05/31/20 18 06/01/2018 CBC mono% 7.2 % 4.7-12 .5 Not Available [address], [address], 06/01/2018 09:49:55 05/31/2006/01/2018 CBC mono# 0.6 0.2-0. 6 high Not Available [address], 90198, 06/01/2018 09:49:55 05/31/20 18 06/01/2018 CBC eo% 1.4 % 0.7-5. 8 Not Available [address], 7[address], 06/01/2018 09:49:55 05/31/2006/01/2018 CBC eo# 0.1 0.0-0. 4 Not Available [address], 11862, 06/01/2018 09:49:55 05/31/2006/01/2018 CBC baso% 0.2 % 0.1-1. 2 Not Available [address], [address], 06/01/2018 09:49:55 05/31/2006/01/2018 CBC baso# 0.0 0.0-0. 1 Not Available [address], 47100, 06/01/2018 09:49:55 05/31/2006/01/2018 CBC RDW-CV 14.5 % 11.7-1 4.4 high Not Available [address], [address], 06/01/2018 09:49:55 05/31/2006/01/2018 HbA1c (hemo globi n A1c), blood hemoglobin A1C 5.8 % 4.8-6. 0 Goal: <7% in Patie nts with Diabe ines Not Available [address], [address], 06/01/2018 11:28:38 05/31/20 18 06/01/2018 HbA1c (hemo globi n A1c), blood estimated average glucose 119.8 mg/dL Not Available [address], [address], 06/01/2018 11:28:38 05/31/20 18 06/01/2018 TSH, serum or plasm a TSH 1.49 uIU/m L 0.50-6 .00 The Ameri can Colle ge of Endoc rinol ogy and Ameri can Thyro id Assoc iatio n recom mend goal TSH value s betwe en 0.4-4 .0 mIU/m L. Not Available [address], [address], 06/01/2018 12:11:02 05/31/20 18 05/31/2018 elect jose patel am Result NSR, q wave in III, AVF Not Available [address], [address], 05/31/2018 11:08:11 06/03/20 18 06/04/2018 hepat ic funct ion panel , serum total protein 7.5 g/dL 6.4-8. 2 Not Available [address], [address], 06/04/2018 10:17:48 06/03/20 18 06/04/2018 hepat ic funct ion panel , serum albumin 3.4 g/dL 3.4-5. 0 Not Available [address], [address], 06/04/2018 10:17:48 06/03/20 18 06/04/2018 hepat ic funct ion panel , serum globulin 4.1 g/dL Not Available [address], [address], 06/04/2018 10:17:48 06/03/20 18 06/04/2018 hepat ic funct ion panel , serum A/G 0.8 ratio 0.8-2. 0 Not Available [address], [address], 06/04/2018 10:17:48 06/03/20 18 06/04/2018 hepat ic funct ion panel , serum total bilirubin 0.70 mg/dL 0.00-1 .00 Not Available [address], [address], 06/04/2018 10:17:48 06/03/20 18 06/04/2018 hepat ic funct ion panel , serum direct bilirubin 0.40 mg/dL 0.00-0 .30 high Not Available [address], [address], 06/04/2018 10:17:48 06/03/20 18 06/04/2018 hepat ic funct ion panel , serum AST 78 U/L 15-37 high Not Available [address], [address], 06/04/2018 10:17:48 06/03/20 18 06/04/2018 hepat ic funct ion panel , serum ALT 146 U/L 30-65 high Not Available [address], [address], 06/04/2018 10:17:48 06/03/20 18 06/04/2018 hepat ic funct ion panel , serum alk. phos. 379 U/L 50-136 high Not Available [address], [address], 06/04/2018 10:17:48 06/03/20 18 06/08/2018 hepat itis panel (A+B+ C), acute , serum hepatitis A IgM NON-RE ACTIVE non-re active normal Not Available [facility] [address], [address], 06/08/2018 06:02:46 06/03/20 18 06/08/2018 hepat itis panel (A+B+ C), acute , serum hepatitis B surface antigen NON-RE ACTIVE non-re active normal Not Available [facility] [address] [place], [place], [address], 06/08/2018 06:02:46 06/03/20 18 06/08/2018 hepat itis panel (A+B+ C), acute , serum hepatitis B core antibody (IgM) NON-RE ACTIVE non-re active normal Not Available [facility] [place] [facility] [address] [place], [place], [address], 06/08/2018 06:02:46 06/03/20 18 06/08/2018 hepat itis panel (A+B+ C), acute , serum hepatitis C antibody NON-RE ACTIVE non-re active normal Not Available [facility] [address] [place], [place], [address], 06/08/2018 06:02:46 06/03/20 18 06/08/2018 hepat itis panel (A+B+ C), acute , serum signal to cut-off 0.02 <1.00 normal Not Available [facility] [place] [facility] [address] [place] [address] [place], [place], [address], 06/08/2018 06:02:46 06/03/20 18 06/08/2018 alkal ine phosp hatas e isoen zymes , serum or plasm a alkaline phosphatase 336 U/L 33-130 high Not Available [facility] [place] [facility] [address] [place] [address] [place], [place], [address], 06/08/2018 06:02:46 06/03/20 18 06/08/2018 alkal ine phosp hatas e isoen zymes , serum or plasm a intestinal isoenzymes 3 % 1-24 Not Available [facility] [place] [facility] [address] [place], [address], 06/08/2018 06:02:46 06/03/20 18 06/08/2018 alkal ine phosp hatas e isoen zymes , serum or plasm a bone isoenzymes 23 % 28-66 low Not Available [facility] [place] [facility] [address], [place], [address], 06/08/2018 06:02:46 06/03/20 18 06/08/2018 alkal ine phosp hatas e isoen zymes , serum or plasm a liver isoenzymes 75 % 25-69 high Not Available [facility] [place] [facility] [address], [address], 06/08/2018 06:02:46 06/03/20 18 06/08/2018 alkal ine phosp hatas e isoen zymes , serum or plasm a placental isoenzymes 0 % <=0 Not Available [facility] [place] [facility] [address], [place], [address], 06/08/2018 06:02:46 06/03/20 18 06/08/2018 alkal ine phosp hatas e isoen zymes , serum or plasm a macrohepatic isoenzymes 0 % <=0 Not Available [facility] [place] [facility] [address], [place], [address], 06/08/2018 06:02:46 05/09/20 19 05/09/2019 CBC w/ auto diff WBC 12.28 K/uL 3.40-1 1.20 high Not Available [facility] (Outpatient) [address] [place] [address], [address], 05/09/2019 16:17:31 05/09/20 19 05/09/2019 CBC w/ auto diff RBC 4.56 M/uL 3.80-4 .80 Not Available [facility] (Outpatient) [address] [place] [address], [address], 05/09/2019 16:17:31 05/09/20 19 05/09/2019 CBC w/ auto diff HGB 14.3 g/dL 12.0-1 5.0 Not Available [facility] (Outpatient) [address] [place], [address], 05/09/2019 16:17:31 05/09/20 19 05/09/2019 CBC w/ auto diff HCT 42.2 % 36.0-4 6.0 Not Available [facility] (Outpatient) [address] [place], [address], 05/09/2019 16:17:31 05/09/20 19 05/09/2019 CBC w/ auto diff plt 210 K/uL 130-40 0 Not Available [facility] (Outpatient) [address] [place], [address], 05/09/2019 16:17:31 05/09/20 19 05/09/2019 CBC w/ auto diff MCV 92.5 fL 79.0-9 8.0 Not Available [facility] (Outpatient) [address] [place], [address], 05/09/2019 16:17:31 05/09/20 19 05/09/2019 CBC w/ auto diff MCH 31.4 pg 27.0-3 4.8 Not Available [facility] (Outpatient) [address] [place], [address], 05/09/2019 16:17:31 05/09/20 19 05/09/2019 CBC w/ auto diff MCHC 33.9 g/dL 31.5-3 6.0 Not Available [facility] (Outpatient) [address] [place], [address], 05/09/2019 16:17:31 05/09/20 19 05/09/2019 CBC w/ auto diff RDW 13.3 % 10.8-1 4.6 Not Available [facility] (Outpatient) [address] [place], [address], 05/09/2019 16:17:31 05/09/20 19 05/09/2019 CBC w/ auto diff MPV 10.5 fL 9.4-12 .4 Not Available [facility] (Outpatient) [address] [place], [address], 05/09/2019 16:17:31 05/09/20 19 05/09/2019 CBC w/ auto diff NRBC 0.00 /100_ WBCs 0.00 Not Available [facility] (Outpatient) [address] [place], [address], 05/09/2019 16:17:31 05/09/20 19 05/09/2019 CBC w/ auto diff absolute NRBC 0.00 K/uL 0.00 Not Available [facility] (Outpatient) [address] [place], [address], 05/09/2019 16:17:31 05/09/20 19 05/09/2019 CBC w/ auto diff diff method Auto Not Available [facility] (Outpatient) [address] [place], [address], 05/09/2019 16:17:31 05/09/20 19 05/09/2019 CBC w/ auto diff neuts 80.9 % 45.30- 77.70 high Not Available [facility] (Outpatient) [address] [place], [address], 05/09/2019 16:17:31 05/09/20 19 05/09/2019 CBC w/ auto diff lymphs 13.3 % 12.30- 39.70 Not Available [facility] (Outpatient) [address] [place], [address], 05/09/2019 16:17:31 05/09/20 19 05/09/2019 CBC w/ auto diff monos 4.4 % 4.10-1 2.80 Not Available [facility] (Outpatient) [address] [place], [address], 05/09/2019 16:17:31 05/09/20 19 05/09/2019 CBC w/ auto diff eos 0.7 % 0-7.2 Not Available [facility] (Outpatient) [address] [place], [address], 05/09/2019 16:17:31 05/09/20 19 05/09/2019 CBC w/ auto diff basos 0.3 % 0-2.80 Not Available [facility] (Outpatient) [address] [place], [address], 05/09/2019 16:17:31 05/09/20 19 05/09/2019 CBC w/ auto diff granulocytes , immature (%) 0.4 % 0.0-0. 9 Not Available [facility] (Outpatient) [address] [place], [address], 05/09/2019 16:17:31 05/09/20 19 05/09/2019 CBC w/ auto diff absolute neuts 9.94 K/uL 1.40-7 .70 high Not Available [facility] (Outpatient) [address] [place], [address], 05/09/2019 16:17:31 05/09/20 19 05/09/2019 CBC w/ auto diff absolute lymphs 1.63 K/uL 0.60-3 .20 Not Available [facility] (Outpatient) [address] [place], [address], 05/09/2019 16:17:31 05/09/20 19 05/09/2019 CBC w/ auto diff absolute monos 0.54 K/uL 0.11-0 .59 Not Available [facility] (Outpatient) [address] [place], [address], 05/09/2019 16:17:31 05/09/20 19 05/09/2019 CBC w/ auto diff absolute eos 0.08 K/uL 0.01-0 .50 Not Available [facility] (Outpatient) [address] [place], [address], 05/09/2019 16:17:31 05/09/20 19 05/09/2019 CBC w/ auto diff absolute basos 0.04 K/uL 0.00-0 .08 Not Available [facility] (Outpatient) [address] [place], [address], 05/09/2019 16:17:31 05/09/20 19 05/09/2019 CBC w/ auto diff granulocytes , immature 0.05 K/uL 0.00-0 .05 Not Available [facility] (Outpatient) [address] [place], [address], 05/09/2019 16:17:31 05/09/20 19 05/09/2019 BMP, blood sodium 138 mmol/ L 133-14 6 Not Available [facility] (Outpatient) [address] [place], [address], 05/09/2019 16:36:49 05/09/20 19 05/09/2019 BMP, blood chloride 103 mmol/ L 96-108 Not Available [facility] (Outpatient) [address] [place], [address], 05/09/2019 16:36:49 05/09/20 19 05/09/2019 BMP, blood potassium 4.3 mmol/ L 3.3-5. 1 Not Available [facility] (Outpatient) [address] [place], [address], 05/09/2019 16:36:49 05/09/20 19 05/09/2019 BMP, blood CO2 25 mmol/ L 21-35 Not Available [facility] (Outpatient) [address] [place], [address], 05/09/2019 16:36:49 05/09/20 19 05/09/2019 BMP, blood BUN 20 mg/dL 6-19 high Not Available [facility] (Outpatient) [address] [place], [address], 05/09/2019 16:36:49 05/09/20 19 05/09/2019 BMP, blood creatinine 0.90 mg/dL 0.5-1. 5 Not Available [facility] (Outpatient) [address] [place], [address], 05/09/2019 16:36:49 05/09/20 19 05/09/2019 BMP, blood glucose 99 mg/dL 70-99 Not Available [facility] (Outpatient) [address] [place], [address], 05/09/2019 16:36:49 05/09/20 19 05/09/2019 BMP, blood calcium 9.2 mg/dL 8.4-10 .3 Not Available [facility] (Outpatient) [address] [place], [address], 05/09/2019 16:36:49 05/09/20 19 05/09/2019 BMP, blood eGFR 69 mL/mi n/1.7 3m2 >59 If patie nt is black , multi ply resul t by 1.159 . Estim ated glome rular filtr ation rate calcu lated using the CKD-E PI equat ion. Not Available [facility] (Outpatient) [address] [place], [address], 05/09/2019 16:36:49 05/09/20 19 05/09/2019 BMP, blood anion gap 14 mmol/ L 10-20 Not Available [facility] (Outpatient) [address] [place], [address], 05/09/2019 16:36:49 05/09/2005/09/2019 lfts (hepa tic panel ) alkaline phosphatase 435 U/L 39-117 high Not Available [facility] (Outpatient) [address] [place], [address], 05/09/2019 16:36:51 05/09/2005/09/2019 lfts (hepa tic panel ) total bilirubin 1.1 mg/dL 0.0-1. 2 Not Available [facility] (Outpatient) [address] [place], [address], 05/09/2019 16:36:51 05/09/20 19 05/09/2019 lfts (hepa tic panel ) direct bilirubin 0.5 mg/dL 0-0.3 high Not Available [facility] (Outpatient) [address] [place], [address], 05/09/2019 16:36:51 05/09/20 19 05/09/2019 lfts (hepa tic panel ) bilirubin (indirect) 0.6 mg/dL 0-1.5 Not Available [facility] (Outpatient) [address] [place], [address], 05/09/2019 16:36:51 05/09/20 19 05/09/2019 lfts (hepa tic panel ) AST 89 U/L 0-37 high Not Available [facility] (Outpatient) [address] [place], [address], 05/09/2019 16:36:51 05/09/20 19 05/09/2019 lfts (hepa tic panel ) ALT 103 U/L 0-40 high Not Available [facility] (Outpatient) [address] [place], [address], 05/09/2019 16:36:51 05/09/20 19 05/09/2019 lfts (hepa tic panel ) total protein 7.5 g/dL 6.5-8. 0 Not Available [facility] (Outpatient) [address] [place], [address], 05/09/2019 16:36:51 05/09/2005/09/2019 lfts (hepa tic panel ) albumin 3.3 g/dL 3.9-4. 8 low Not Available [facility] (Outpatient) [address] [place], [address], 05/09/2019 16:36:51 05/09/20 19 05/09/2019 lfts (hepa tic panel ) globulin 4.2 g/dL 1-4.8 Not Available [facility] (Outpatient) [address] [place], [address], 05/09/2019 16:36:51 05/09/20 19 05/09/2019 lfts (hepa tic panel ) A/G ratio 0.79 ratio 1.00-4 .80 low Not Available [facility] (Outpatient) [address] [place], [address], 05/09/2019 16:36:51 05/09/20 19 05/09/2019 tropo rachel T, serum troponin-T, high sensitivity (gen 5) <6 NG/L 0-9 Not Available [facility] (Outpatient) [address] [place], [address], 05/09/2019 16:36:59 05/09/20 19 05/09/2019 tropo rachel T, serum troponin-T, high sensitivity (gen 5) <6 NG/L 0-9 Not Available [facility] (Outpatient) [address] [place], [address], 05/09/2019 18:02:06 05/09/20 19 05/09/2019 urine sedim ent WBC 0-4 /hpf none seen abnormal Not Available [facility] (Outpatient) [address] [place], [address], 05/09/2019 19:40:35 05/09/20 19 05/09/2019 urine sedim ent RBC 3-5 /hpf none seen abnormal Not Available [facility] (Outpatient) [address] [place], [address], 05/09/2019 19:40:35 05/09/20 19 05/09/2019 urine sedim ent urine epithelial 0-4 none seen abnormal Not Available [facility] (Outpatient) [address] [place], [address], 05/09/2019 19:40:35 05/09/20 19 05/09/2019 urine sedim ent mucus 2+ /hpf none seen abnormal Not Available [facility] (Outpatient) [address] [place], [address], 05/09/2019 19:40:35 05/09/20 19 05/09/2019 urine sedim ent bacteria 1+ none seen abnormal Not Available [facility] (Outpatient) [address] [place], [address], 05/09/2019 19:40:35 05/09/20 19 05/09/2019 urine sedim ent crystals 1+ AMORP HOUS Not Available [facility] (Outpatient) [address] [place], [address], 05/09/2019 19:40:35 05/09/20 19 05/10/2019 urina lysis , refle x cultu re color Yellow yellow Not Available [facility] (Outpatient) [address] [place], [address], 05/10/2019 08:27:19 05/09/2005/10/2019 urina lysis , refle x cultu re clarity Clear Not Available [facility] (Outpatient) [address] [place], [address], 05/10/2019 08:27:19 05/09/2005/10/2019 urina lysis , refle x cultu re glucose Negati ve negati ve Not Available [facility] (Outpatient) [address] [place], [address], 05/10/2019 08:27:19 05/09/2005/10/2019 urina lysis , refle x cultu re bili 1+ negati ve abnormal Not Available [facility] (Outpatient) [address] [place], [address], 05/10/2019 08:27:19 05/09/2005/10/2019 urina lysis , refle x cultu re ketones Trace negati ve abnormal Not Available [facility] (Outpatient) [address] [place], [address], 05/10/2019 08:27:19 05/09/2005/10/2019 urina lysis , refle x cultu re specific gravity >1.030 1.005- 1.030 Not Available [facility] (Outpatient) [address] [place], [address], 05/10/2019 08:27:19 05/09/2005/10/2019 urina lysis , refle x cultu re blood Negati ve negati ve Not Available [facility] (Outpatient) [address] [place], [address], 05/10/2019 08:27:19 05/09/2005/10/2019 urina lysis , refle x cultu re pH 5.5 5.0-8. 0 Not Available [facility] (Outpatient) [address] [place], [address], 05/10/2019 08:27:19 05/09/2005/10/2019 urina lysis , refle x cultu re protein 1+ negati ve abnormal Not Available [facility] (Outpatient) [address] [place], [address], 05/10/2019 08:27:19 05/09/2005/10/2019 urina lysis , refle x cultu re nitrite Negati ve negati ve Not Available [facility] (Outpatient) [address] [place], [address], 05/10/2019 08:27:19 05/09/2005/10/2019 urina lysis , refle x cultu re leukocyte esterase, ur Negati ve negati ve Not Available [facility] (Outpatient) [address] [place], [address], 05/10/2019 08:27:19 05/09/2005/09/2019 cultu re, urine special requests None Not Available [facility] (Outpatient) [address] [place], [address], 05/11/2019 09:00:23 05/09/20 19 05/10/2019 cultu re, urine gram stain Rare GRAM POSITI VE RODS Not Available [facility] (Outpatient) [address] [place], [address], 05/11/2019 09:00:23 05/09/20 19 05/11/2019 cultu re, urine urine culture abnormal >100, 000 colon y formi ng units per mL MIXED ELDER (3 OR MORE COLON Y TYPES ) Cultu re indic ates conta minat ion. Pleas e resub lexi if neces andres. Not Available [facility] (Outpatient) [address] [place], [address], 05/11/2019 09:00:23 04/03/20 15 04/03/2015 scree ana- [...] view. Densit y - 2 Code: G0202, 86198 POS - VMG Electr onical ly signed Readin g Physic kerry: Jerardo brush MD [facility] (Imaging) [address] [place], [address], 05/27/2016 15:36:45 04/20/20 15 04/20/2015 MAMMO , [...] in one year: POS: VMG Code: G0206, 30039 Electr onical ly signed Readin g Physic kerry: Joey Golden [facility] (Imaging) [address] [place], [address], 05/27/2016 15:36:45 05/28/20 16 05/27/2016 MAMMO , [...] Readin g Physic kerry: [facility] [address] , [place], [address], 05/29/2017 10:42:14 05/31/20 18 kennedi patel am No observ ation record ed. [email or web address] Not Available 2017 13:32:54 06/25/20 18 06/22/2018 cardi ac stres s test No observ ation record ed. [facility] [address], [place], [address], 07/20/2018 07:58:55 06/30/20 18 06/22/2018 exerc ise stres s test No observ ation record ed. 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 Bones: No acute bony abnorm ality. IMPRES NICOLE: 1. No acute intrac ranial findin gs. 2. Asymme tric left business management professor ior nasoph petty al soft tissue fullne [...] Fax Final result AMA L FURCOL O [facility] [address] [place] [address], [address], 05/10/2019 08:38:02 05/09/2005/09/2019 CT, head, w/o contr ast No observ ation record ed. [address], [address], 05/10/2019 08:38:02 Result Notes Documentation Provider Name [...] Electronically signed Reading Physician: Joey Bentley, EUGENIA [address] [place] [address], [phone], [facility] 05/29/2017 10:42:14 Ct, Head, W/o Contrast : [...] lesion. TOTAL CTDIvol: 58.4 mGy POS - [id number] Interpreted by: Jerardo Lopez MD Signed by: Jerardo Lopez MD 05/09/19 CC Recipients: Ama Franz DO - Fax Final result AMA Franz D.O. [address] [place] [address], [phone], [facility] 05/10/2019 08:38:02 Problems Name Problem SNOMED Code Status Onset Date Resolution Date Notes Provider Name and Address Organization Details Recorded Time Benign essential hypertension 8708917 [facility] 13[facility]17 Problem Notes None recorded. Procedures Surgical History Date Name Laterality Status Provider Name and Address Organization Details Recorded Time Total Hysterectomy completed Xander Bentley NP [address] [place], [address], [facility] 06/28/2014 15:32:49 Imaging Results None recorded. Procedure [...] index (BMI) Body weight Heart rate Systolic And Diastolic Provider Name and Address Organization Details Last Updated DateTime 03/27/2015 149.225 cm 35.9 kg/m2 62002.69 4068 g 84 /min 108/62 mm[Hg] Oneida Jones MA [facility] 5 10:52:55 Date Recorded Body height Body weight Body mass index (BMI) Heart rate Systolic And Diastolic Provider Name and Address Organization Details Last Updated DateTime 05/27/2016 149.23 cm 19981.84 g 37.4 kg/m2 72 /min 152/92 mm[Hg] Oneida Jones MA [facility] 6 15:32:45 Date Recorded Body height Body mass index (BMI) Body weight Heart rate Systolic And Diastolic Provider Name and Address Organization Details Last Updated DateTime 05/29/2017 174.63 cm 26 kg/m2 96266.66 g 56 /min 142/94 mm[Hg] Oneida Jones MA [facility] 7 10:37:28 Date Recorded Body weight Provider Name an d Address Organization Details Last Updated DateTime 05/31/2018 00772.82 g Aracely Pope [facility] 05/31/2018 10:35:24 Date Recorded Body mass index (BMI) Body height Heart rate Heart rate Heart rate Systolic And Diastolic Systolic And Diastolic Systolic And Diastolic Provider Name and Address Organization Details Last Updated DateTime 8 23.1 kg/m2 174.63 cm 63 /min 63 /min 70 /min 144/108 mm[Hg] 146/110 mm[Hg] 142/110 mm[Hg] Oneida Jones MA [facility] 8 10:50:12 Social History Question Answer Notes LastModified by Organizat ion Details LastModified Time Tobacco Smoking Status Never Smoker Oneida Hutchinson LPN [facility] 06/28/2014 15:19:18 How Much Tobacco Do You Chew? None Information not available 03/27/2015 What Type Of Diet Are You Following? REGULAR [email or web address] Information not available 06/28/2014 Education 4 Year College [email or web address] Information not available 06/28/2014 How Many Days In The Past Year Have You Had A Heavy Drinking Consumption (4+ Female, 5+ Male)? 0 Information not available 03/27/2015 Live Alone Or With Others? With Others With Son Information not available 06/28/2014 Patient Has Health Care Proxy Signed And In Chart No 05/29/17 [email or web address] Information not available 06/28/2014 Marital Status Moved From [facility] To 2008 Information not available 06/28/2014 Mosquito Repellent Used Routinely Yes Information not available 05/29/2017 What Was The Date Of Your Most Recent Tobacco Screening? 05/31/2018 Information not available 03/23/2019 How Many Children Do You Have? 2 [email or web address] Information not available 06/28/2014 Seat Belts Used [...] 03/27/2015 What is your occupation? [employer] [email or web address] Information not available 06/28/2014 Mental Status None [...] SNOMED-CT Code Diagnosis ICD10 Code Diagnosis Note [id number] Ama Franz D.O. , [facility] [address] [place] [address] 06/28/2014 15:01:22 06/29/2014 12:06:47 Benign essential hypertension 2022880 Blood pressure NOT at goal. been off meds 1 month unsure of dose but will restart at 50 mg Will get labs RTO 1 month Biceps tendinitis 015156225 R bicep tendonitis given handout with exercises to start advised ice after activity, work RTO 1 month [id number] Ama Franz D.O. [facility], OFFICE [address] [place] [address] 08/09/2014 08:22:01 08/09/2014 08:54:30 Screening for malignant neoplasm of colon 911613217 Referral for a DIRECT booked colonoscop y. 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 , [facility] [place]ICE [address] [place] [address] 03/27/2015 10:38:09 03/27/2015 11:22:54 Screening mammography 29897560 Screening for malignant neoplasm of colon 656417260 Referral for a DIRECT booked colonoscop y. [...] take chronic narcotics should be referred to [facility] for a propofol procedure due to possible inability to sedate adequately with conscious sedation.] Lifestyle [id number] Adult [facility] th examination [id number] see Risk Assessment and Lifestyle Change Counseling section above HM: Due for mammo, colonoscop y, labs no pap- d/t ZEENAT Counseling [id number] Benign ess ential hypertension 3512402 At goal LDL at goal HDL a bit low- encouraged more regular exercise C/W losartan Sweating 770314567 likel y hormonal will check labs below [id number] Ama GAONA, [facility], OFFICE [address] [place] [address] 05/27/2016 15:26:39 05/28/2016 09:03:40 Adult health examination [id number] Z00.00 see Risk Assessment and Lifestyle Change Counseling section above HM: mammo - will get todaycolon oscopy 05/16/15 with 10 yr repeatdue labs- will get today no pap- d/t ZEENAT Benign ess ential hypertension 7956147 I10 BP elevated-w as running late for apptwill check outside of officeGOal < 140/90get labs today Screening mammography 24 802699 Z12.31 today Atrophic vaginitis 83054 000 N95.2 Obesity 058827880 E66.9 BMI 37 Discussed weight loss with exercise and diet will refer for MNT Skin lesion 60467412 L98 .9 L hip? herpescx submitted Mastitis 59717345 N61 tender L breast, firm aeorlalast mammo 05/15will get today [id number] Didier Meeks OD [facility], [facility] [address] [facility] [place] [address] 09/16/2016 09:03:35 09/16/2016 10:06:27 Presbyopia 02036404 H52.4 Regular astigmatism 6890 5002 H52.223 Pterygium 40268336 H11.0 02 Nasally-no t visually significan t [id number] Ama Franz D.O. , [facility] OFFICE [address] [place] [address] 05/29/2017 10:25:31 05/29/2017 11:07:36 Benign essential hypertension 8362580 I10 BP not at goal of < 140/90had stopped losartanwi ll c/w dc and start lisinopril 10 mgrto 4 weeks Adult heal th examination 835956954 Z00.00 see Risk Assessment and Lifestyle Change Counseling section aboveHM: Pap todayBMP utd, Lipid dueColon 05/16/ w/10 yr repeatMamm o 05/2016 Counseling 131347252 Z71 .9 Screening for malignant neoplasm of cervix [id number] Z12.4 Impaired f asting glycemia [id number] R73.01 FBS 107- down from 114 discussed reducing breads, pasta, rice and jello and juice [id number] Ama Franz D.O. , [facility] [place] [address] [place] [address] 05/31/2018 10:30:54 05/31/2018 11:19:32 Screening mammography [id number] Z12.31 Palpitations [id number] R0 0.2 Benign ess ential hypertension [id number] I10 Unintentio nal weight loss [id number] R63.4 EKG: Q wave abnormal 164 071632 R94.31 Health Concerns Section Related Observation LastModified by Organization Detai ls LastModified Time None Recorded Concern Status LastModified by Organization Details LastModified Time None Recorded Advance Directives Directive None Recorded Payers Insurance Date Sequence Insurance Name Policy Number Policy Allen Covered Member ID Allen Member ID Guarantor Name 11/07/2016 1 [facility] [id number] Aarti Boone [id number] Aarti Bonoe 11/07/2016 1 [place] [facility] Aarti Boone [id number] Aarti Boone 05/31/2018 1 [place] [facility] Aarti Boone [id number] Aarti Boone 06/10/2018 1 [facility] [id number] Aarti Boone [id number] Aarti Boone 11/17/2016 1 [place] [facility] Aarti Boone [id number] Aarti Boone 11/07/2016 1 [place] [facility] Aarti Boone [id number] 3 Aarti Boone 03/12/2015 1 *SELF PAY* Otto Boone 11/07/2016 1 [facility] (MEDICAID HMO) [id number] Aarti Boone [id number] Aarti Boone Notes Date Note Type Note Provider Name and Address Organization Details Recorded Time 5 text/html Physical Exam/FemaleReported bypatient.PHAPatient is here for a Personal Health Appraisal. She describes her health status as good. Patient's health is last year. Risk Assessment and Lifestyle Change Counseling-female 50-59Reported bypatient.Coronary Artery Disease Risk Assessment:Family History of Coronary Artery Disease;Does not participate in regular exercise program;Personal history of hypertension; No personal history of diabetes; No use of tobacco; No history of peripheral vascular disease, AAA, or carotid disease; No personal history of coronary artery disease Breast Cancer Risk Assessment:No family history of breast cancer; Has been to term Colon Cancer Risk Assessment:No family history of colon polyps or cancer Cervical Cancer Risk Assessment:No abnormal pap smears Diet:Counseled about eating a diet low in trans and saturated fats and high in fiber, fruits and vegetables; Discussed the value of a Mediterranean diet , and eating more fruits and vegetables Exercise counseling:Discussed the importance of daily physical activity; Discussed the importance of weight bearing exercise Safety:Counseled about protecting skin from the sun and lowering the risk of skin cancer Advanced DirectivesDiscussed the importance of a health care proxy and advanced directives Emergerncy Department and Urgent Care:Counseled about appropriate use of the emergency room and availability of urgent care at [facility] [place] Xander Bentley NP [address] [place] [address], [phone], [facility] 03/27/2015 12:31:24 6 text/html Physical Exam/FemaleReported by PatientHPIFor pha, patient reportspatient is here for a wellness visit. she describes her health status as good. patient's health is __ last year.. Risk Assessment and Lifestyle Change Counseling 50-64Reported by PatientRisk AssessmenFor coronary artery disease risk assessment, patient reportsfamily history of coronary artery diseasebut reportsno personal history of diabetes,no history of peripheral vascular disease, aaa, or carotid disease, andno personal history of coronary artery disease. For breast cancer risk assessment, patient reportsno family history of breast cancer. For colon cancer risk assessment, patient reportsno family history of colon polyps or cancer.Diet CounselingFor diet, patient reportscounseled about eating a diet low in trans and saturated fats and high in fiber, fruits and vegetablesanddiscussed the value of a mediterranean diet , and eating more fruits and vegetables.Physical Activity CounselingForexercise counseling:, patient reportsdiscussed the importance of daily physical activityanddiscussed the importance of weight bearing exercise.Safety Counseling:For safety, patient reportscounseled about protecting skin from the sun and lowering the risk of skin cancer. Xander Bentley NP [address] [place] [address], [phone], [facility] 05/27/2016 16:48:20 7 text/html Comprehensive Eye ExamReported by PatientComprehensive Eye Exam:For quality, patient reports2 year examandno blurred vision. For location, patient reportsbilateral. For context, patient reportscurrently wears glasses. For modifying factors, patient reportswears glasses for readers only. For associated symptoms, patient reportsno redness,no itching,no floaters, andno dryness. Didier Meeks, LATRICIA [address] [place] [address], [phone], [facility] 09/16/2016 10:00:58 7 text/html Physical Exam/FemaleReported by PatientHPIFor pha, patient reportspatient is here for a wellness visit. she describes her health status as good. patient's health is __ last year.. Risk Assessment and Lifestyle Change Counseling 50-64Reported by PatientRisk AssessmenFor coronary artery disease risk assessment, patient reportsfamily history of coronary artery diseasebut reportsno personal history of diabetes,no history of peripheral vascular disease, aaa, or carotid disease, andno personal history of coronary artery disease. For breast cancer risk assessment, patient reportsno family history of breast cancer. For colon cancer risk assessment, patient reportsno family history of colon polyps or cancer.Diet CounselingFor diet, patient reportscounseled about eating a diet low in trans and saturated fats and high in fiber, fruits and vegetablesanddiscussed the value of a mediterranean diet , and eating more fruits and vegetables.Physical Activity CounselingForexercise counseling:, patient reportsdiscussed the importance of daily physical activityanddiscussed the importance of weight bearing exercise.Safety Counseling:For safety, patient reportscounseled about protecting skin from the sun and lowering the risk of skin cancer. VMG HypertensionReported by PatientHPIFor compliance, patient reportsnoncompliant with medications(stopped losartan 5 days ago- bc was not feeling well with med after she started new bottole . sweating at night. feels a bit better since stopping.). For self care, patient reportsnot doing home bp monitoring. For context, patient reportsno ischemic heart disease,no kidney disease,no history of cva,no congestive heart failure,no history of transient ischemic attacks,no peripheral vascular disease, andno history of diabetes(impaired fasting glucose). For control, patient reportspatient understands medications are to lower blood pressure. For ability to manage self care, patient reportspatient feels confident in ability to self manage condition. Xander Bentley NP [address] [place] [address], [phone], 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 05/31/2018 13:33:20 OBGyn Episode No OBEpisode recorded.
== END 2025-03-23 09:30 | disposition home or self-care (01) ==
LOC: HO.HGI 08:46
PROVIDERS: PCP Internal Medicine; Visit Provider Nurse Practitioner Family
DX: K76.0 Fatty (change of) liver, not elsewhere classified (principal); A04.8 Other specified bacterial intestinal infections; E66.811 Obesity, class 1; E66.09 Other obesity due to excess calories; Z68.30 Body mass index [BMI] 30.0-30.9, adult; I10 Essential (primary) hypertension
CPT/HCPCS: 99214

== ENCOUNTER → 2025-03-23 08:46 | Outpatient (BNVA) | payer MEDICARE, SELFPAY | PROVIDERS: PCP Internal Medicine; Visit Provider Nurse Practitioner Family | DX: K76.0 Fatty (change of) liver, not elsewhere classified (principal); A04.8 Other specified bacterial intestinal infections; E66.811 Obesity, class 1; E66.09 Other obesity due to excess calories; I10 Essential (primary) hypertension; Z68.32 Body mass index [BMI] 32.0-32.9, adult | CPT/HCPCS: 99212 ==

== ENCOUNTER 2025-04-17 15:00 | Outpatient (AMB) | payer MEDICARE, SELFPAY ==
[2025-04-17 15:02] VITALS: BP 132/80; PULSE 78; RESP 18; TEMP 36.3; O2SAT 96; BMI 33.1
--- NOTE | 2025-04-17 15:02 | A.OFFPC_ITS ---
Vital Signs 04/17/25 15:02 Height 5 ft Weight 169 lb 8 oz BMI 33.1 BP 132/80 Blood Pressure Location Lt brachial Position Sitting Respiration 18 Pulse 78 Pulse Source Pulse Oximeter Temp 97.3 F Temp Source Temporal Artery Scan Pulse Oximetry (%) 96 Oxygen Delivery Method Room Air Intake Visit Reasons: htn/choledocholithiasis Lunchroom Attendant Required: No Accompanied by: Self / Same As Patient Allergies No Known Allergies Allergy (Verified 04/17/25 15:35) Medication List - Last Reconciled 04/17/25 by Silvana Taylor MD bisacodyl 5 mg PO ONCE 1 day bismuth subsalicylate 524 mg (2 x 262 mg) PO QID 14 days Lactobacillus acidophilus 10,000 mmu cells PO BID losartan 50 mg PO DAILY 90 days metronidazole 500 mg PO TID omeprazole 20 mg PO BID polyethylene glycol 3350 (Miralax) 238 grams PO ONCE tetracycline 500 mg PO QID 14 days [wrist splint wear as much as possible throughout the day & all night] Tobacco use date assessed: 04/17/25 Fall risk assessment: No Falls in past year Last assessed Fall Risk: 04/17/25 Dental Screening Dental Screen Date: 04/17/25 Did you have a dental visit in the last 12 months?: No Did you have a dental problem in the last 6 months where you did not have access to dental care?: No Was dental information given to patient?: No HPI HPI Comments History of Present Illness Details The patient is a 64-year-old female presenting for a follow-up on multiple chronic conditions and preventative care. The patient has a history of hypertension, currently managed with losartan. She reports no allergies to medications. The patient was diagnosed with cirrhosis, which was identified through an ultrasound showing cirrhotic changes. She denies alcohol consumption and has never been a smoker. She is awaiting further evaluation with a subway operator to manage her diet. The patient has a history of cholecystectomy with complications due to a retained gallstone, leading to infection and bacteremia. She underwent an ERCP to address these complications. The patient reports osteoarthritis with significant knee and joint pain, and notes deformities in her bones. She has been referred to rheumatology in the past but did not follow up due to lack of communication from the clinic. The patient has been informed of being on the borderline of prediabetes, with a recent blood sugar level of 108 mg/dL. She reports significant hair loss and suspects a vitamin deficiency, as suggested by her sister. She maintains a diet low in red meat and fried foods, but enjoys bread. The patient experiences gastrointestinal symptoms, specifically an urgent need for bowel movements without constipation. She has a history of kidney stones, which led to hospitalization due to complications and infection. [facility] Medical History (Updated 04/17/25 @ 15:57 by Silvana Taylor MD) Positive H. pylori test Metabolic dysfunction-associated steatotic liver disease (MASLD) Bloating Bilateral primary osteoarthritis of knee Right tennis elbow Degenerative disc disease, lumbar Cough Blurry vision Class 1 obesity with body mass index (BMI) of 30.0 to 30.9 in adult Hypertension Tortuosity of artery Transaminitis Pure hypercholesterolemia Physical exam Brain lesion Hair loss New daily persistent headache Polyarthralgia Obstructive jaundice Surgical History Hx of colonoscopy History of removal of calculus of renal pelvis through percutaneous nephrostomy History of endoscopy H/O hysterectomy for benign disease Family History Father CAD (coronary artery disease) Mother Stomach cancer Daughter Uterine cancer Son Intestinal disease Social History Housing: House Alcohol intake: current Alcohol intake frequency: a few times a month Alcohol type: beer, wine and hard liquor Patient Tobacco Use Status: Never used Tobacco e-Cigarette/Vaping Use: Never Used Second Hand Smoke Exposure: No service: No Current occupational status: employed 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 Current occupational exposures/hazards: No Cognitive needs: No Hearing needs: No Vision needs: Yes (only for reading) Questionnaire PHQ-9 Over the last 2 weeks, how often have you been bothered by any of the following problems? 1. Little interest or pleasure in doing things: not at all 2. Feeling down, depressed, or hopeless: not at all 3. Trouble falling or staying asleep, or sleeping too much: several days 4. Feeling tired or having little energy: several days 5. Poor appetite or overeating: not at all 6. Feeling bad about yourself - or that you are a failure or have let yourself or your family down: not at all 7. Trouble concentrating on things, such as reading the newspaper or watching television: not at all 8. Moving or speaking so slowly that other people could have noticed. Or the opposite - being so fidgety or restless that you have been moving around a lot more than usual: not at all 9. Thoughts that you would be better off or of hurting yourself in some way: not at all Total score: 2 Depression Screening Interpretation: Negative Depression Screening Done: Yes 77028 - PHQ-9 Billing: Yes Source: Developed by Drs. Eran Eid, Malika Hutchinson, Juan Connell and colleagues, with an educational paula from [facility]. Thrive Questionnaire Date Thrive assessed: 04/17/25 I am a: Patient What is your living situation today?: I have a steady place to live Within the past 12 months, did the food you bought not last and you didn't have the money to get more?: Sometimes True Within the past 12 months, did you worry whether your food would run out before you got money to buy more?: Sometimes True Do you have trouble paying for medicines?: Yes Do you have trouble getting transportation to medical appointments?: No Do you have trouble paying your heating and electricity bill?: Yes Do you have trouble taking care of your child, family member or friend?: No Do you have trouble with day-to-day activities such as bathing, preparing meals, shopping, managing finances, etc.?: No Are you currently unemployed and looking for a job?: No Are you interested in more education?: I choose not to answer this question Please select the resources that you would like help with: Food and Paying for medicine Currently or been in a relationship where the following occur: No concerns reported THRIVE Score: 3 AUDIT C Alcohol Use Questionnaire (AUDIT-C) 1. How often do you have a drink containing alcohol?: Never Total Score: 0 Score Reviewed/Action Taken: No MG-7 AMB Questionnaire MG-7 Date MG - 7 assessed: 04/17/25 Feeling nervous, anxious, or on edge: 0 = Not at all Not being able to stop or control worryin = Several days Worrying too much about different things: 1 = Several days Trouble relaxin = Several days Being so restless that it is hard to sit still: 0 = Not at all Becoming easily annoyed or irritable: 1 = Several days Feeling afraid as if something awful might happen: 0 = Not at all Total MG-7 score (0-4 normal; 5-9 mild; 10-14 moderate; 15-21 severe): 4 Source: Developed by Drs. Eran Eid, Malika Hutchinson, Juan Connell and colleagues, with an educational paula from [facility]. MG-7 Assessment Billing MG-7 Assessment Tool: MG-7 Assessment 39896 Review of Systems Const All systems reviewed & are unremarkable except as noted in HPI and below Card Denies chest pain at rest, Denies chest pain with activity, Denies edema, Denies irregular heart rhythm, Denies claudication, Denies dyspnea, Denies dyspnea on exertion, Denies orthopnea, Denies paroxysmal nocturnal dyspnea and Denies slow heart rate Resp Denies cough, Denies dyspnea and Denies dyspnea on exertion Physical exam (Primary Care) Vital Signs: Last Vital Signs Temp 97.3 F 04/17/25 15:02 Pulse 78 04/17/25 15:02 Resp 18 04/17/25 15:02 BP 132/80 04/17/25 15:02 Pulse Ox 96 04/17/25 15:02 Oxygen Delivery Method Room Air 04/17/25 15:02 BMI result Body Mass Index 33.1 Tobacco/Smoking Status: Tobacco use Status Tobacco use date assessed 04/17/25 04/17/25 15:04 Patient Tobacco Use Status Never used Tobacco 04/17/25 15:04 e-Cigarette/Vaping Use Never Used 04/17/25 15:04 PHQ-9: PHQ-9 Score PHQ-9: Total score 2 04/17/25 15:25 Depression Screening Interpretation: Negative Thrive Assessment: Date of Thrive Assessment Date Thrive assessed 04/17/25 04/17/25 15:04 Currently or been in a relationship where the following occur: No concerns reported Resp Effort & Inspection: normal respiratory effort Auscultation: clear to auscultation bilaterally Cardio Jugular venous distension: no JVD Rate: regular rate Rhythm: regular rhythm Heart sounds: S1 normal heart sound present and S2 normal heart sound present Extrem General: Yes full ROM Coding Level of Care Code Est Pt Level 4 (08879) Complex EM visit Add On G2211 Diagnoses Hypertension, unspecified type I10 Hypertension type: unspecified Cirrhosis K74.60 Polyarthralgia M25.50 Occipital headache R51.9 Impaired glucose tolerance R73.02 Additional Codes MG-7 Assessment Billing - MG-7 Assessment Tool: MG-7 Assessment 38602 ([id number]) PHQ-9 - 98954 - PHQ-9 Billing: Yes ([id number]) Time Spent (min) 23 Assessment & Plan Assessment & Plan (1) Hypertension: Code(s): I10 - Essential (primary) hypertension Category: Medical Qualifiers: Hypertension type: unspecified Qualified Code(s): I10 - Essential (primary) hypertension (2) Cirrhosis: Code(s): K74.60 - Unspecified cirrhosis of liver Category: Medical (3) Polyarthralgia: Code(s): M25.50 - Pain in unspecified joint Category: Medical (4) Occipital headache: Code(s): R51.9 - Headache, unspecified Category: Medical (5) Impaired glucose tolerance: Code(s): R73.02 - Impaired glucose tolerance (oral) Category: Medical Plan The patient will continue management of hypertension with losartan and monitor blood pressure regularly. For cirrhosis, further evaluation with a subway operator is pending to assist with dietary management. A hepatitis panel will be conducted to rule out any underlying liver conditions. The patient is advised to follow up with rheumatology for osteoarthritis management, given the significant joint pain and bone deformities reported. For prediabetes, lifestyle modifications including diet and exercise are recommended to manage blood sugar levels. The patient is encouraged to take multivitamins to address suspected vitamin deficiency and hair loss. Gastrointestinal symptoms will be monitored, and the patient is advised to discuss these with a pantry goods maker. The patient will undergo an MRI for occipital headache evaluation and a hepatitis panel as part of the diagnostic workup. Patient was informed and verbally consented to the use of an ambient scribe for clinic note documentation during this visit. Orders: Orders MR head/brain wo con Today R51.9 - Headache, unspecified XR DEXA axial skeleton Today Z78.0 - Asymptomatic menopausal state MM tomosynthesis screening BI Today Z12.31 - Encounter for screening mammogram for malignant neoplasm of breast Hepatitis A,B,C Profile Today K74.60 - Unspecified cirrhosis of liver Lipid Panel 6 Months E78.5 - Hyperlipidemia, unspecified Comprehensive [place]. Panel Fast 6 Months I10 - Essential (primary) hypertension Referrals Rheumatology Referral M25.50 - Pain in unspecified joint
--- OUTSIDE RECORDS SUMMARY | 2025-04-17 15:40 | XMS_ITS | Encounter Summary ---
Author Organization [facility] Address [address] [place] [phone] Phone Care Team Providers Care Cops Name Role Phone Silvana Funes MD Primary Care Provid er Encounter Details Date Type Department Care Team (Late st Contact Info) Description 03/27/2022 Procedure Pass [facility], Ct Scan - [address] [address] Social History Tobacco Use Types Packs/Day Years [...] 4:14 PM EDT Emmanuel Carvalho RN * [place] Suicide Severity Rating Scale (Screener/Recent Self-Report) Question [...] documented as of this encounter Care Teams Cops Relationship Specialty Start Date End Date Silvana Funes MD [address] [place] [address] PCP - General Internal Medicine 03/04/21 documented as of this encounter Additional Source Comments The information contained in this document represents components of the legal health record. It is not the complete legal health record.[facility]
== END 2025-04-17 15:57 | disposition home or self-care (01) ==
LOC: HO.HMCH 15:01
PROVIDERS: PCP Internal Medicine; Visit Provider Internal Medicine
DX: I10 Essential (primary) hypertension (principal); K74.60 Unspecified cirrhosis of liver; M25.50 Pain in unspecified joint; R51.9 Headache, unspecified; R73.02 Impaired glucose tolerance (oral)

== ENCOUNTER → 2025-04-17 15:00 | Outpatient (BNVA) | payer MEDICARE, SELFPAY | PROVIDERS: PCP Internal Medicine; Visit Provider Internal Medicine | DX: I10 Essential (primary) hypertension (principal); K74.60 Unspecified cirrhosis of liver; M25.50 Pain in unspecified joint; R51.9 Headache, unspecified; R73.02 Impaired glucose tolerance (oral) | CPT/HCPCS: 96127; 99212 ==

== ENCOUNTER 2025-04-27 14:58 | Inpatient (IN) | payer MEDICARE, SELFPAY ==
[2025-04-27] VITALS (24 sets, daily range): BP systolic 84–198; BP diastolic 38–110; PULSE 74–130; RESP 14–40; TEMP 36.8–40.6; O2SAT 90–99; BMI 33.7
--- NOTE | ~2025-04-27 | XR_ITS ---
CLINICAL HISTORY: sob 1 view chest x-ray Comparison: CR/SR - XR CHEST 2 VIEWS - 09/08/23 19:01 EST Findings: The lungs are clear. Normal size heart. No acute fracture. IMPRESSION: 1. No acute findings. This document has been electronically signed by: Brunilda Staton MD on 04/27/2025 22:04:58
--- NOTE | ~2025-04-27 | CT_ITS ---
CLINICAL HISTORY: abdominal pain CT abdomen and pelvis with contrast Comparison: US/DC/SR - US ABDOMEN LIMITED - 12/26/24 11:11 EDT Findings: No consolidation or effusion. Status post cholecystectomy. Moderate central pneumobilia. No hydronephrosis ornephrolithiasis. Atrophic liver with nodular contour and mild splenomegaly spleen measuring 14 cm. No focal lesion. No bowel obstruction, pneumoperitoneum, or pneumatosis. Mild sigmoid diverticulosis. Pelvic contents unremarkable. Normal appendix. The bones are intact. IMPRESSION: No acute findings. Atrophic liver with nodular contour and mild splenomegaly, likely a sequelae of hepatic cirrhosis. Status post cholecystectomy with moderate central pneumobilia. Mild sigmoid diverticulosis. This document has been electronically signed by: Brunilda Staton MD on 04/27/2025 20:28:38
--- NOTE | 2025-04-27 15:19 | ED.GENADULT ---
HPI - General Adult General Chief complaint: General Medical Stated complaint: Shakiness, headache Time Seen by Provider: 04/27/25 18:44 Source: patient Mode of arrival: ambulatory Limitations: language barrier History of Present Illness ED Provider: Dr. Quintero HPI narrative: 64-year-old female history of cirrhosis, cholecystectomy, hypertension, hyperlipidemia presented hospital today for evaluation of epigastric abdominal pain with chills for past 2 days. Patient stated that she has been having nausea and vomiting for the past couple of days as well. Patient did not feel well. She is also complaining of dysuria. Patient denies any vaginal discharge. Patient denies any coughing. Denies any chest pain or shortness of breath. Related Data Previous Rx's ?Medication ?Instructions ?Recorded wrist splint #2 ea 01/20/23 losartan 50 mg tablet 50 mg PO DAILY 90 days #90 tabs 03/01/25 bismuth subsalicylate 262 mg tablet 524 mg (2 x 262 mg) PO QID 14 days 03/08/25 #112 tabs metronidazole 500 mg tablet 500 mg PO TID #42 tabs 03/08/25 omeprazole 20 mg tablet,delayed 20 mg PO BID #28 tabs 03/08/25 release tetracycline 500 mg capsule 500 mg PO QID 14 days #56 caps 03/08/25 Lactobacillus acidophilus 100 mg 10,000 mmu cells PO BID #60 caps 03/23/25 (1 billion cell) capsule bisacodyl 5 mg tablet,delayed 5 mg PO ONCE 1 day #4 tabs 03/23/25 release polyethylene glycol 3350 17 238 g PO ONCE #238 grams 03/23/25 gram/dose oral powder (Miralax) Allergies Allergy/AdvReac Type Severity Reaction Status Date / Time No Known Allergies Allergy Verified 04/27/25 15:19 Review of Systems Review of Systems: Pertinent review of systems as mentioned in HPI. All other system otherwise negative. [facility] Past Medical History [facility] Narrative: Medical history as mentioned in [facility] Medical History Positive H. pylori test Metabolic dysfunction-associated steatotic liver disease (MASLD) Bloating Bilateral primary osteoarthritis of knee Right tennis elbow Degenerative disc disease, lumbar Cough Blurry vision Class 1 obesity with body mass index (BMI) of 30.0 to 30.9 in adult Hypertension Tortuosity of artery Transaminitis Pure hypercholesterolemia Physical exam Brain lesion Hair loss New daily persistent headache Polyarthralgia Obstructive jaundice Surgical History Hx of colonoscopy History of removal of calculus of renal pelvis through percutaneous nephrostomy History of endoscopy H/O hysterectomy for benign disease Family History Family History Father CAD (coronary artery disease) Mother Stomach cancer Daughter Uterine cancer Son Intestinal disease Social History Social History Housing: House Alcohol intake: never Patient Tobacco Use Status: Never used Tobacco Smoked in Last 30 Days: No e-Cigarette/Vaping Use: Never Used Second Hand Smoke Exposure: No Use of substances other than those prescribed or required for medical reasons: No Advance Directives: No Advance Directives Information Provided: No service: No Current occupational status: employed 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 [employer] Current occupational exposures/hazards: No Cognitive needs: No Hearing needs: No Vision needs: Yes (only for reading) Physical Exam ED Exam Exam: General: Pleasant, no distress, interacting appropriately Head: Normacephalic, atraumatic ENT: oral mucosa moist, neck supple, no tracheal deviation Cardiovascular: regular rate, regular rhythm, no murmurs, rubbing, gallops Respiratory: CTAB, no wheeze, rales, rhonchi Gastrointestinal: Soft, non distended, diffuse abdominal tenderness on palpation Neurological: Awake and alert, no facial droop noted Skin: Warm and dry Psychiatric: Appropriate mood and thoughts Vital Signs: Vital Signs - 24 hr 04/27/25 15:17 04/27/25 17:26 04/27/25 19:10 Temperature 99.3 F 98.4 F Pulse Rate 114 H 95 87 Respiratory Rate 18 18 16 Blood Pressure 121/71 106/60 102/59 L Pulse Oximetry 95 93 96 Oxygen Delivery Method Room Air Room Air Room Air 04/27/25 19:32 04/27/25 19:51 04/27/25 20:23 Temperature 98.2 F Pulse Rate 80 80 75 Respiratory Rate 14 20 14 Blood Pressure 99/57 L 107/54 L 113/54 L Pulse Oximetry 96 95 96 Oxygen Delivery Method Room Air Room Air Room Air 04/27/25 20:45 04/27/25 21:10 04/27/25 21:31 Temperature 98.8 F 99.2 F Pulse Rate 74 74 Respiratory Rate 14 14 Blood Pressure 118/54 L 105/58 L 128/68 Pulse Oximetry 98 96 Oxygen Delivery Method Room Air Room Air 04/27/25 22:02 04/27/25 22:05 04/27/25 22:14 Temperature 100.8 F H Pulse Rate 126 H Respiratory Rate 40 H 34 H Blood Pressure 194/110 H 194/110 H Pulse Oximetry 99 Oxygen Delivery Method BiPAP 04/27/25 22:17 04/27/25 22:18 04/27/25 22:36 Temperature Pulse Rate 120 H 119 H 124 H Respiratory Rate 38 H Blood Pressure 198/64 H 119/66 Pulse Oximetry Oxygen Delivery Method 04/27/25 22:39 04/27/25 22:41 04/27/25 22:43 Temperature 104.5 F H Pulse Rate 126 H 126 H 130 H Respiratory Rate 27 H Blood Pressure 116/57 L 116/57 L 101/49 L Pulse Oximetry 94 Oxygen Delivery Method BiPAP 04/27/25 23:02 04/27/25 23:09 04/27/25 23:11 Temperature 105.1 F H Pulse Rate 121 H 121 H Respiratory Rate Blood Pressure 84/38 L 89/40 L Pulse Oximetry Oxygen Delivery Method 04/27/25 23:20 Temperature Pulse Rate 116 H Respiratory Rate Blood Pressure 91/48 L Pulse Oximetry Oxygen Delivery Method BMI result Body Mass Index 33.7 Course Course Course Narrative: This is an RME: Additional HPI, ROS, PE not included below will be deferred to primary provider. RME assessment and note performed by: Malinda Ramirez PA-C This is a [id number]-female, with a hx of HTN, prior CBD stones, who presents to the ER with complaints of shakiness and chills, vomiting x 2 days Reports that she has no CP or SOB. Admits to having diffuse abdominal pain. Recent admission in October 2024 at [facility] - which is scanned into patient's chart. Plan: Labs, EKG, further ER eval needed Medications Administered Generic Name Dose Route Start Last Admin Trade Name Freq PRN Reason Stop Dose Admin Nitroglycerin 100 mg in 250 mls @ 0 mls/hr 04/27/25 22:15 04/27/25 22:43 Nitroglycerin/D5w IVCONT 0 mcg/min .Q0M LAVELLE 0 mls/hr Protocol Titration Per Protocol Vancomycin HCl 2,000 mg in 500 mls @ 250 mls/hr 04/27/25 22:55 04/27/25 23:01 Vancomycin/Ns IV 04/28/25 00:54 250 mls/hr ONCE ONE Administration Norepinephrine Bitartrate 8 mg in 250 mls @ 0 mls/hr 04/27/25 23:00 04/27/25 23:20 Levophed IVCONT 0.11 mcg/kg/min .Q0M LAVELLE 15.65 mls/hr Protocol Titration Per Protocol Discontinued Medications Generic Name Dose Route Start Last Admin Trade Name Freq PRN Reason Stop Dose Admin Albuterol Sulfate 7.5 mg/ 0 mg 04/27/25 22:13 04/27/25 22:17 Albuterol/Ipratropium 3 ml INHALE 04/27/25 22:14 10 each ONCE ONE Administration Furosemide 20 mg 04/27/25 22:00 04/27/25 22:05 Furosemide 20 Mg/2 Ml Vial IVPUSH 04/27/25 22:01 20 mg ONCE ONE Administration Protocol Sodium Chloride 2,277 mls @ 2,277 mls/hr 04/27/25 18:48 04/27/25 21:20 Ns 30 ml/kg infuse over 1 hr (2277 ml) 04/27/25 19:47 Infused IV Infusion .Q1H STA Piperacillin Sod/Tazobactam 100 mls @ 200 mls/hr 04/27/25 18:49 04/27/25 19:43 Sod 4.5 gm/ Sodium Chloride IV 04/27/25 19:18 Infused ONCE ONE Infusion Acetaminophen 1,000 mg in 100 mls @ 400 mls/hr 04/27/25 22:04 04/27/25 22:58 Ofirmev IV 04/27/25 22:18 Infused ONCE ONE Infusion Ketorolac Tromethamine 15 mg 04/27/25 22:38 04/27/25 22:43 Ketorolac Tromethamine 15 Mg/Ml Vial IVPUSH 04/27/25 22:39 15 mg ONCE ONE Administration Morphine Sulfate 4 mg 04/27/25 21:46 04/27/25 21:57 Morphine Sulfate 4 Mg/Ml Cartridge IVPUSH 04/27/25 21:47 4 mg ONCE ONE Administration Protocol Procedures Central Line Placement Right Femoral: Time Out Performed: Yes Patient Placed on Monitor/Pulse Ox: Yes MD Prep: mask, gown and gloves Central Line Prep: Chlorhexidine scrub Local Anesthetic: lidocaine 1% Amount of anesthesia used (mL): 5 Ultrasound Used for Placement: Yes Central Line Lumen Inserted: triple Post Procedure: sutured in place, good blood return, all ports aspirated, flushed, capped and sterile dressing applied Patient Tolerated Procedure: well and no complications Complications: none Medical Decision Making Medical Decision Making MDM Narrative: 64-year-old female history of hypertension hyperlipidemia liver cirrhosis presented hospital today for evaluation of fever or chills for the past couple of days with nausea vomiting and epigastric pain. Given patient's risk factor we will obtain CT imaging of the abdomen and pelvis. She did get abdominal lab work performed. Noticeable for leukocytosis 13.3. Patient does have 16% bands. Blood culture lactic acid will be ordered 30 cc/kg bolus IV fluid be given. Patient will be started on Zosyn IV empirically. Sepsis alert has been called for the patient. Patient does have elevated bilirubin at 4.2. Slight bump in transaminitis. Patient's UA does show signs of a UTI. Patient is likely has urosepsis. Blood pressure stable at this time. Patient's CT abdomen and pelvis was unremarkable on exam. I was notified by nursing staff that patient appears to be in respiratory distress. Patient is a appears to be tachypneic tachycardic and wheezing. Patient was placed on BiPAP. DuoNeb treatment was given. Given patient's presentation I suspect patient may be having pulmonary edema. Her blood pressure was noted to be hypertensive and 190 systolic. Patient was placed on nitroglycerin drip. Patient was then weaned off nitroglycerin drip however she still having some shortness of breath. I did perform a bedside POCUS ultrasound she does have signs of B lines indicative of pulmonary edema. Suspect this may be from the IV fluid that was given in her hypertension. Patient's blood pressure became hypotensive. Systolic in the 80s. Patient was started on Levophed. I did broaden her antibiotic to IV clindamycin and IV vancomycin. She already received IV Zosyn. At this time patient is on Levophed. Blood pressure in the low 100 systolic map above 65. Temperature has improved from 105-102.9. She received some IV Tylenol and IV Toradol. Patient will be admitted to the ICU team. Differential Diagnosis Differential Diagnoses: The differential diagnosis associated with the presentation includes Sepsis, UTI, colitis, pneumonia, choledocholithiasis Consult Healthcare Provider Health Associate Lab Data MDM Lab Attestation statement: I reviewed the patient's lab results. 04/27/25 15:48 04/27/25 15:48 Labs: Lab Results 04/27/25 04/27/25 04/27/25 Range/Units 15:48 19:07 22:15 WBC 13.3 H (4.8-10.8) X10*3/uL RBC 4.66 (4.20-5.50) X10*6/uL Hgb 14.7 (12.0-16.0) g/dl Hct 41.3 (37.0-47.0) % MCV 88.6 (80.0-98.0) fL MCH 31.5 (27.0-33.0) pg MCHC 35.6 H (31.0-35.0) g/dl RDW 13.0 (11.0-16.0) % Plt Count 110 L (160-400) X10*3/uL MPV 11.4 (9.4-12.3) fL Immature Gran % (Auto) Cancelled Neut % (Auto) Cancelled Lymph % (Auto) Cancelled Murray % (Auto) Cancelled Eos % (Auto) Cancelled Baso % (Auto) Cancelled Lymph # (Auto) Cancelled Murray # (Auto) Cancelled Eos # (Auto) Cancelled Baso # (Auto) Cancelled Abs Immat Gran (auto) Cancelled Absolute Neuts (auto) Cancelled Absolute Nucleated RBC 0.000 (0.0-0.012) X10*3/uL Nucleated RBC % (auto) 0.0 (0.0-0.2) /100WBC Neutrophils % (Manual) 80 H (45-73) % Band Neutrophils % 16 H (3-5) % Lymphocytes % (Manual) 3 L (20-40) % Monocytes % (Manual) 1 L (2-11) % Abs Neuts (Manual) 12.8 H (2.0-8.3) X10*3/uL Lymphocytes # (Manual) 0.4 L (1.2-4.9) X10*3/uL Monocytes # (Manual) 0.1 (0.1-1.2) X10*3/uL Toxic Vacuolation PRESENT Dohle Bodies PRESENT Platelet Estimate SLIGHTLY DECREASED (NORMAL) Large Platelets PRESENT Plt Morphology Comment NOTED RBC Morphology NOTED Polychromasia 1+ (0-2) /OIF VBG pH (7.32-7.43) VBG pCO2 mmHg VBG pO2 mmHg VBG HCO3 (22-26) mmol/L VBG O2 Saturation % VBG Base Excess mmol/L Sodium 131 L (135-145) mmol/L Potassium 3.8 (3.3-5.1) mmol/L Chloride 98 (96-108) mmol/L Carbon Dioxide 22 (22-29) mmol/L Anion Gap 15 (12-20) BUN 25 H (9-16) mg/dL Creatinine 1.21 (0.5-1.4) mg/dL Estim Creat Clear Calc 40.6 Estimated GFR 45 Random Glucose 192 H (60-115) mg/dL Lactic Acid 1.4 (0.5-2.0) mmol/L Calcium 10.1 (8.4-10.2) mg/dL Magnesium 1.8 (1.6-2.6) mg/dL Total Bilirubin 4.2 H (0.0-1.0) mg/dL Direct Bilirubin 2.7 H (0.0-0.5) mg/dL AST 84 H (5-31) U/L ALT 106 H (0-31) U/L Alkaline Phosphatase 169 H (39-117) U/L Troponin I High Sens 12.4 9.9 (<3.5-17.0) ng/L B-Natriuretic Peptide (<100) pg/mL Total Protein 7.1 (6.5-8.0) g/dL Albumin 3.9 (3.5-5.0) g/dL Lipase 21 (8-78) U/L Urine Color Dark Yellow Urine Appearance Turbid Urine pH 5.5 (5.0-9.0) Ur Specific Hondo 1.015 (1.005-1.025) Urine Protein 300 (3+) H (Neg-Trace) mg/dL Urine Glucose (UA) Negative (Negative) mg/dL Urine Ketones 15 (Negative) mg/dL Urine Blood Large (3+) H (Negative) Urine Nitrite Positive H (Negative) Ur Leukocyte Esterase Large (3+) H (Negative) Urine RBC 11-20 H (0-2) /HPF Urine WBC >50 H (0-5) /HPF Ur Squamous Epith Cells 6-10 (0-2) /HPF Urine Bacteria 2+ (None Seen) Hyaline Casts 3-5 (0-2) /LPF COVID-19 (CAL) Negative (Negative) COVID-19 Clin Com See Note Influenza Type A (KATHYA) Negative (Negative) Influenza Type B (KATHYA) Negative (Negative) Influenza A & B Note See Note 04/27/25 04/27/25 Range/Units 22:24 22:27 WBC (4.8-10.8) X10*3/uL RBC (4.20-5.50) X10*6/uL Hgb (12.0-16.0) g/dl Hct (37.0-47.0) % MCV (80.0-98.0) fL MCH (27.0-33.0) pg MCHC (31.0-35.0) g/dl RDW (11.0-16.0) % Plt Count (160-400) X10*3/uL MPV (9.4-12.3) fL Immature Gran % (Auto) Neut % (Auto) Lymph % (Auto) Murray % (Auto) Eos % (Auto) Baso % (Auto) Lymph # (Auto) Murray # (Auto) Eos # (Auto) Baso # (Auto) Abs Immat Gran (auto) Absolute Neuts (auto) Absolute Nucleated RBC (0.0-0.012) X10*3/uL Nucleated RBC % (auto) (0.0-0.2) /100WBC Neutrophils % (Manual) (45-73) % Band Neutrophils % (3-5) % Lymphocytes % (Manual) (20-40) % Monocytes % (Manual) (2-11) % Abs Neuts (Manual) (2.0-8.3) X10*3/uL Lymphocytes # (Manual) (1.2-4.9) X10*3/uL Monocytes # (Manual) (0.1-1.2) X10*3/uL Toxic Vacuolation Dohle Bodies Platelet Estimate (NORMAL) Large Platelets Plt Morphology Comment RBC Morphology Polychromasia /OIF VBG pH 7.19 L* (7.32-7.43) VBG pCO2 43 mmHg VBG pO2 81 mmHg VBG HCO3 17 L (22-26) mmol/L VBG O2 Saturation 92.0 % VBG Base Excess -10.4 mmol/L Sodium (135-145) mmol/L Potassium (3.3-5.1) mmol/L Chloride (96-108) mmol/L Carbon Dioxide (22-29) mmol/L Anion Gap (12-20) BUN (9-16) mg/dL Creatinine (0.5-1.4) mg/dL Estim Creat Clear Calc Estimated GFR Random Glucose (60-115) mg/dL Lactic Acid (0.5-2.0) mmol/L Calcium (8.4-10.2) mg/dL Magnesium (1.6-2.6) mg/dL Total Bilirubin (0.0-1.0) mg/dL Direct Bilirubin (0.0-0.5) mg/dL AST (5-31) U/L ALT (0-31) U/L Alkaline Phosphatase (39-117) U/L Troponin I High Sens (<3.5-17.0) ng/L B-Natriuretic Peptide 143 H (<100) pg/mL Total Protein (6.5-8.0) g/dL Albumin (3.5-5.0) g/dL Lipase (8-78) U/L Urine Color Urine Appearance Urine pH (5.0-9.0) Ur Specific Hondo (1.005-1.025) Urine Protein (Neg-Trace) mg/dL Urine Glucose (UA) (Negative) mg/dL Urine Ketones (Negative) mg/dL Urine Blood (Negative) Urine Nitrite (Negative) Ur Leukocyte Esterase (Negative) Urine RBC (0-2) /HPF Urine WBC (0-5) /HPF Ur Squamous Epith Cells (0-2) /HPF Urine Bacteria (None Seen) Hyaline Casts (0-2) /LPF COVID-19 (CAL) (Negative) COVID-19 Clin Com Influenza Type A (KATHYA) (Negative) Influenza Type B (KATHYA) (Negative) Influenza A & B Note Independent Interpretation I performed an independent interpretation of an: EKG, Plain X-Ray and CT Scan Radiology Impression Discussion of test interpretation with radiology: I have reviewed the radiologist's reading. Critical Care Time Critical Care Time Critical Care Time: Yes Total Critical Care Time: 75 Attestation: Time is exclusive of separately billable procedures. Time includes: direct patient care, patient reassessment, coordination of patient care, interpretation of data (laboratory data, pulse oximetry, arterial blood gases and chest xrays), review of patient's medical records, medical consultation and documentation of patient care. Procedures excluded from critical care time: central intravenous line placement and electrocardiography. Discharge Plan Discharge Clinical Impression: Acute UTI Sepsis Qualifiers: Sepsis type: sepsis due to unspecified organism Sepsis acute organ dysfunction status: with acute organ dysfunction Severe sepsis acute organ dysfunction type: unspecified Severe sepsis shock status: with septic shock Qualified Code(s): A41.9 - Sepsis, unspecified organism Patient Disposition: Admitted As Inpatient Print Language: Macedonian
--- NOTE | 2025-04-27 15:21 | ECG_ITS ---
Test Reason : ABD PAIN Blood Pressure : */* mmHG Vent. Rate : 112 BPM Atrial Rate : 112 BPM P-R Int : 154 ms QRS Dur : 84 ms QT Int : 344 ms P-R-T Axes : 31 85 29 degrees QTcB Int : 469 ms Sinus tachycardia Indeterminate axis Possible Lateral infarct , age undetermined Inferior infarct (cited on or before 08-Jan-2022) Abnormal ECG When compared with ECG of 08-Jan-2022 16:46, Vent. rate has increased by 61 bpm Questionable change in QRS duration Borderline criteria for Lateral infarct are now Present Referred By: Malinda Ramirez Electronically Signed By: SANTI CAMP
[2025-04-27 15:58] LABS: Appearance Urine Turbid; Glucose Urine UA Negative (Negative); Hematocrit 41.3 % (37.0-47.0); Mean Corpuscular Volume 88.6 fL (80.0-98.0); NRBC Abs Auto 0.000 X10*3/uL (0.0-0.012); NRBC Pct Auto 0.0 /100WBC (0.0-0.2); PH 5.5 (5.0-9.0); PLT CLUMP 1; Red Blood Count 4.66 X10*6/uL (4.20-5.50); Specific Gravity - Urine 1.015 (1.005-1.025); UMIC TRIGGER UACC YES
[2025-04-27 16:00] LABS: Hemoglobin 14.7 g/dl (12.0-16.0); Mean Corpuscular HGB Conc 35.6 g/dl (31.0-35.0); Mean Corpuscular Hemoglobin 31.5 pg (27.0-33.0)
[2025-04-27 16:02] LABS: Platelet Count 110 X10*3/uL (160-400); White Blood Count 13.3 X10*3/uL (4.8-10.8)
[2025-04-27 16:05] LABS: UACC Culture Trigger YES
[2025-04-27 16:09] LABS: COVID-19 Test Negative (Negative); IDNOW Serial# 6674DD1D
[2025-04-27 16:13] LABS: IDNOW Serial# 08D9AD1C; Influenza B2 Negative (Negative)
[2025-04-27 16:20] LABS: Alanine Aminotransferase 106 U/L (0-31); Albumin Level 3.9 g/dL (3.5-5.0); Alkaline Phosphatase 169 U/L (39-117); Anion Gap 15 (12-20); Aspartate Amino Transferase 84 U/L (5-31); Blood Urea Nitrogen 25 mg/dL (9-16); Calcium 10.1 mg/dL (8.4-10.2); Carbon Dioxide 22 mmol/L (22-29); Chloride 98 mmol/L (96-108); Creatinine Clr Calc Pharmacy 40.6; Estimated Glomerular Filt Rate 45; Lipase 21 U/L (8-78); Magnesium 1.8 mg/dL (1.6-2.6); Potassium 3.8 mmol/L (3.3-5.1); Sodium 131 mmol/L (135-145); Total Protein 7.1 g/dL (6.5-8.0); Troponin-I High Sensitivity 12.4 ng/L (<3.5-17.0)
[2025-04-27 17:05] LABS: Neutrophils Percent Manual 80 % (45-73)
[2025-04-27 17:06] LABS: Band Neutrophils Percent 16 % (3-5); Lymphocytes Absolute Manual 0.4 X10*3/uL (1.2-4.9); Lymphocytes Percent Manual 3 % (20-40); Monocytes Absolute Manual 0.1 X10*3/uL (0.1-1.2); Monocytes Percent Manual 1 % (2-11); Neutrophils Absolute Manual 12.8 X10*3/uL (2.0-8.3)
[2025-04-27 17:21] LABS: RBC Morphology NOTED
[2025-04-27 17:22] LABS: Dohle Bodies PRESENT; Large Platelet PRESENT; Polychromasia 1+ (0-2) /OIF; Toxic Vacuolation PRESENT
--- NOTE | 2025-04-27 17:35 | PC.NURSE ---
Addendum entered by Sumaya Queen RN 04/27/25 17:36: Patient is a 20-[id number]-female, with a hx of HTN, prior CBD stones, who presents to the ER with complaints of shakiness and chills, vomiting x 2 days with assoc epigstric pain. Patient alert and oriented, hot to the touch. Lungs essentially clear bilat. Respirations even and non-labored. Abdomen soft, distended, with positive bowel sounds. C/o epigatric pain/burning. Positive pedal pulses with no edema. Original Note: Medical History Positive H. pylori test Metabolic dysfunction-associated steatotic liver disease (MASLD) Bloating Bilateral primary osteoarthritis of knee Right tennis elbow Degenerative disc disease, lumbar Cough Blurry vision Class 1 obesity with body mass index (BMI) of 30.0 to 30.9 in adult Hypertension Tortuosity of artery Transaminitis Pure hypercholesterolemia Physical exam Brain lesion Hair loss New daily persistent headache Polyarthralgia Obstructive jaundice
[2025-04-27] MEDS: SODIUM CHLORIDE 2277 ML IV (19:08)
--- NOTE | 2025-04-27 21:20 | PC.NURSE ---
2119: IV fluids complete at this time, pt in no apparent distress 2133: Obtaining VS at this time, pt reporting sudden abd pain 04/09, pt shivering, oral temp of 99.2, provider Steve Quintero made aware @2135, pt walked to the bathroom w/ 1 assist 2137: pt returned from bathroom, positioned for comfort, attempting to obtain VS, pt reporting SOB SPO2 between 90-91% on room air 2139: provider Steve Quintero at the bedside w/ medical driver, pt placed on monitor, rectal temp obtained 100.8, respiratory called to the bedside 2156: pt moved to room ED22, given 4 mg morphine, placed on Bipap
[2025-04-27] MEDS: Furosemide 20 MG/2 ML VIAL IVPUSH (22:05)
[2025-04-27] MEDS: Albuterol Sulfate 7.5 MG, Albuterol/Iprat 2.5/0.5MG 3 ML 3 ML INHALE (22:17)
[2025-04-27] MEDS: Nitroglycerin/D5W 100 MG/250 ML INFUS..BTL IVCONT (22:17)
[2025-04-27 22:31] LABS: Venous Blood Gas Refer to POC result
[2025-04-27 22:32] LABS: VBG HCO3 17 mmol/L (22-26); VBG O2 % Saturation 92.0 %
--- NOTE | 2025-04-27 22:35 | PC.RT ---
pt moved front front main to ED 22 acutely due to resp distress and unstable. Placed on bipap per MD f/b bronch protocol . sepsis alert/uti. metabolic acidosis
[2025-04-27 22:48] LABS: Troponin-I High Sensitivity 9.9 ng/L (<3.5-17.0)
--- NOTE | 2025-04-27 22:49 | PC.NURSE ---
assumed care of pt, pt placed on bipab, RT at bedside, provider at bedside, pt medicated per MAR, nitro drip d/c per provider, temp sensing kerr placed.
[2025-04-27 22:50] LABS: B Type Natriuretic Peptide 143 pg/mL (<100)
[2025-04-27] MEDS: vancomycin/NS 2,000 MG/500 ML PLAST..BAG 250 MG IV (23:01)
[2025-04-28] VITALS (44 sets, daily range): BP systolic 82–155; BP diastolic 46–82; PULSE 58–97; RESP 13–28; TEMP 36.1–38.7; O2SAT 94–98; BMI 33.7
[2025-04-28] MEDS: Hydrocortisone Sod Succ/PF 100 MG VIAL IVPUSH (00:10)
--- NOTE | 2025-04-28 00:27 | PC.NURSE ---
care assumed by this rn and additional rn at 2200. at which time rt and md at bedside pt placed on bipap @ 30%. pt medicated according to mar per md charge aide made aware
--- NOTE | 2025-04-28 00:39 | PC.NURSE ---
provider and translator and interpreter at bedside, central line paced, pt confirms feeling better, 02 is 96% on bipap. pt son at bedside
--- NOTE | 2025-04-28 01:52 | P.HPCC_ITS ---
History of Present Illness Date of Service: 04/28/25 Attending physician on admission: Roxy Barraza Chief Complaint: Epigastric pain Ms. Boone is a 64-year-old female?with history of MAFLD, CBD stones with prior stenting, obesity, hypertension, transaminitis, hypercholesterolemia, brain lesion, polyarthralgia, obstructive jaundice who presented to the emergency room? with complaint of epigastric pain, nausea, vomiting,? dysuria, chills x2 days. The patient was most recently admitted at [facility] in October 2024 for cholangitis secondary to recurrent choledocholithiasis with tortuous angulated distal bile duct. On arrival to the ER, blood pressure was? 121/71, heart rate 114, temp? 99.3?. O2 sat? 95% on ? room air. Laboratory data significant for? WBC 13.3, platelet 110, sodium 131, BUN 25, glucose 192, total bilirubin 4.2, direct bili 2.7, AST 84, ALT 106, alk-phos 169, BNP 143, lipase 21, lactic acid 1.4. VBG 7.19 43 81 17. Urinalysis indicative of a UTI. Influenza negative. Imaging: CXR unremarkable.? CT abdomen/pelvis:? hepatic cirrhosis, no acute findings. ED Course:? The patient received hydrocortisone 100 mg, clindamycin 600 mg, Toradol 15 mg, DuoNeb, acetaminophen 1000 mg, furosemide 20 mg, morphine 4 mg, Zosyn 4.5 g, vancomycin 2000 mg.? She received a total of 2277 mL NS. She was placed on BiPAP.? She became febrile ( T-max 105.1 degrees ) and hypertensive up to 190s/100s and was started on a nitroglycerin drip.? Soon after she became hypotensive. The nitroglycerin drip was stopped and a Levophed drip was started for hypotension. Review of Systems 2 Review of Systems: Yes all other systems are reviewed and are negative Constitutional: Constitutional: Reports no additional constitutional complaints PMFSH Past Medical History Medical History Positive H. pylori test Metabolic dysfunction-associated steatotic liver disease (MASLD) Bloating Bilateral primary osteoarthritis of knee Right tennis elbow Degenerative disc disease, lumbar Cough Blurry vision Class 1 obesity with body mass index (BMI) of 30.0 to 30.9 in adult Hypertension Tortuosity of artery Transaminitis Pure hypercholesterolemia Physical exam Brain lesion Hair loss New daily persistent headache Polyarthralgia Obstructive jaundice Family History Family History Father CAD (coronary artery disease) Mother Stomach cancer Daughter Uterine cancer Son Intestinal disease Surgical History Surgical History Hx of colonoscopy History of removal of calculus of renal pelvis through percutaneous nephrostomy History of endoscopy H/O hysterectomy for benign disease Social History Social History Household Members: Family Housing: House Do you presently have visiting nurse or other home services: No Alcohol intake: never Patient Tobacco Use Status: Never used Tobacco Smoked in Last 30 Days: No e-Cigarette/Vaping Use: Never Used Second Hand Smoke Exposure: No Use of substances other than those prescribed or required for medical reasons: No Currently Displaying Signs/Symptoms of Drug Intoxication Withdrawal: No Have you been hit, kicked, punched, or otherwise hurt by someone within the past year? 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 [employer] Current occupational exposures/hazards: No Cognitive needs: No Hearing needs: No Vision needs: Yes (only for reading) Meds Allergies Allergy/AdvReac Type Severity Reaction Status Date / Time No Known Allergies Allergy Verified 04/27/25 15:19 Active Medications: Current Medications Norepinephrine Bitartrate (Levophed) 8 mg in 250 mls @ 0 mls/hr IVCONT .Q0M LAVELLE; Protocol Last Titration: 04/28/25 01:22 Dose: 0.21 mcg/kg/min, 29.89 mls/hr Pharmacy Consult (Consult Rx Vancomycin Dosing) 1 each MISCELLANE DAILY PRN PRN Reason: Consult order Sodium Chloride (0.9 % Sodium Chloride Flush 3 Ml Syringe) 3 ml IVFLUSH QSHIFT LAVELLE Physical Exam 2 Vital Signs: Vital Signs: Last Vital Signs Temp 100.8 F H 04/28/25 01:08 Pulse 90 04/28/25 01:22 Resp 14 04/28/25 01:08 BP 101/52 L 04/28/25 01:22 Pulse Ox 97 04/28/25 01:08 O2 Del Method BiPAP 04/28/25 01:08 BMI result Body Mass Index 33.7 Const: General: no acute distress and alert Orientation/consciousness: p atient oriented x3 (answering appropriately.) HEENT: Head: Yes normocephalic and Yes atraumatic General nose exam: Normal external nose present (Nares patent, septum midline, sinuses nontender bilaterally.) Mouth: Normal oral and palatal mucosa present (No thrush, tongue in midline, mucosa moist.) Throat: Yes other (No erythema, no exudate.) Neck: Neck: Yes supple (no thyromegaly, trachea midline.) Carotids: normal carotid upstroke Resp: Auscultation: clear to auscultation bilaterally (normal work of breathing, no accessory muscle use) Cardio: Jugular venous distension: no JVD Rate: regular rate Rhythm: r egular rhythm Heart sounds: no gallops, no murmurs and no rubs Peripheral pulses: Peripheral pulses 2+ throughout GI: Palpation (GI): Soft to palpation (nondistended.) and nontender Neuro: General: patient oriented x3 (answering appropriately.) Extrem: General: Yes full ROM, Yes capillary refill normal and Yes no clubbing, cyanosis or edema Psych: Affect: normal affect Attitude: cooperative Results Labs 04/27/25 15:48 04/27/25 15:48 Labs: Laboratory Results - last 24 hr 04/27/25 04/27/25 04/27/25 15:48 19:07 22:24 MCV 88.6 MCH 31.5 MCHC 35.6 H RDW 13.0 Plt Count 110 L MPV 11.4 Immature Gran % (Auto) Cancelled Neut % (Auto) Cancelled Lymph % (Auto) Cancelled Ness % (Auto) Cancelled Eos % (Auto) Cancelled Baso % (Auto) Cancelled Lymph # (Auto) Cancelled Ness # (Auto) Cancelled Eos # (Auto) Cancelled Baso # (Auto) Cancelled Abs Immat Gran (auto) Cancelled Absolute Neuts (auto) Cancelled Absolute Nucleated RBC 0.000 Nucleated RBC % (auto) 0.0 Neutrophils % (Manual) 80 H Band Neutrophils % 16 H Lymphocytes % (Manual) 3 L Monocytes % (Manual) 1 L Abs Neuts (Manual) 12.8 H Lymphocytes # (Manual) 0.4 L Monocytes # (Manual) 0.1 Toxic Vacuolation PRESENT Dohle Bodies PRESENT Platelet Estimate SLIGHTLY DECREASED Large Platelets PRESENT Plt Morphology Comment NOTED RBC Morphology NOTED Polychromasia 1+ (0-2) VBG pH 7.19 L* VBG pCO2 43 VBG pO2 81 VBG HCO3 17 L VBG O2 Saturation 92.0 VBG Base Excess -10.4 Anion Gap 15 Estim Creat Clear Calc 40.6 Estimated GFR 45 Random Glucose 192 H Lactic Acid 1.4 Calcium 10.1 Magnesium 1.8 Total Bilirubin 4.2 H Direct Bilirubin 2.7 H AST 84 H ALT 106 H Alkaline Phosphatase 169 H B-Natriuretic Peptide Total Protein 7.1 Albumin 3.9 Lipase 21 Urine Color Dark Yellow Urine Appearance Turbid Urine pH 5.5 Ur Specific [place] 1.015 Urine Protein 300 (3+) H Urine Glucose (UA) Negative Urine Ketones 15 Urine Blood Large (3+) H Urine Nitrite Positive H Ur Leukocyte Esterase Large (3+) H Urine RBC 11-20 H Urine WBC >50 H Ur Squamous Epith Cells 6-10 Urine Bacteria 2+ Hyaline Casts 3-5 COVID-19 (CAL) Negative COVID-19 Clin Com See Note Influenza Type A (KATHYA) Negative Influenza Type B (KATHYA) Negative Influenza A & B Note See Note 04/27/25 22:27 MCV MCH MCHC RDW Plt Count MPV Immature Gran % (Auto) Neut % (Auto) Lymph % (Auto) Ness % (Auto) Eos % (Auto) Baso % (Auto) Lymph # (Auto) Ness # (Auto) Eos # (Auto) Baso # (Auto) Abs Immat Gran (auto) Absolute Neuts (auto) Absolute Nucleated RBC Nucleated RBC % (auto) Neutrophils % (Manual) Band Neutrophils % Lymphocytes % (Manual) Monocytes % (Manual) Abs Neuts (Manual) Lymphocytes # (Manual) Monocytes # (Manual) Toxic Vacuolation Dohle Bodies Platelet Estimate Large Platelets Plt Morphology Comment RBC Morphology Polychromasia VBG pH VBG pCO2 VBG pO2 VBG HCO3 VBG O2 Saturation VBG Base Excess Anion Gap Estim Creat Clear Calc Estimated GFR Random Glucose Lactic Acid Calcium Magnesium Total Bilirubin Direct Bilirubin AST ALT Alkaline Phosphatase B-Natriuretic Peptide 143 H Total Protein Albumin Lipase Urine Color Urine Appearance Urine pH Ur Specific [place] Urine Protein Urine Glucose (UA) Urine Ketones Urine Blood Urine Nitrite Ur Leukocyte Esterase Urine RBC Urine WBC Ur Squamous Epith Cells Urine Bacteria Hyaline Casts COVID-19 (CAL) COVID-19 Clin Com Influenza Type A (KATHYA) Influenza Type B (KATHYA) Influenza A & B Note Assessment and Plan (1) Sepsis: Qualifiers: Sepsis acute organ dysfunction status: with acute organ dysfunction S epsis type: sepsis due to unspecified organism Severe sepsis acute organ dysfunction type: unspecified Severe sepsis shock status: with septic shock Q ualified Code(s): A41.9 - Sepsis, unspecified organism; R65.21 - Severe sepsis with septic shock Status: Acute (2) Acute UTI: Status: Acute (3) Transaminitis: Status: Acute Plan 64-year-old female history of cirrhosis, cholecystectomy, hypertension, hyperlipidemia? admitted for management of urosepsis c/b flash pulmonary edema. Neuro: ?No acute issues. Cardiac: Septic shock- patient febrile T-max 105.1 c/b hypertension d/t flash pulmonary edema after volume resuscitation in ED c/b hypotension after treatment with nitroglycerin. Continue Levophed. Titrate off as able. Pulmonary:? acute respiratory distress d/t flash pulmonary edema after receiving fluid bolus for sepsis. Given nitroglycerin in ED. Now on BiPAP. ? Titrate off as able. Renal: ?No acute issues.?BUN appears to be at about baseline. Endo: ??No acute issues. GI: ??No acute issues.? Underlying cirrhosis.? ID: Evidence of sepsis: Patient is febrile, leukocytosis, UA indicative of UTI. Volume resuscitated with 30 mL/kg crystalloids in ED. Cultures pending. Empiric antibiotics given in ED. Heme/Onc: Thrombocytopenia.? No chemical DVT prophylaxis. Psych:? No acute issues. Miscellaneous: no acute issues Prophylaxis: Pneumatic boots Diet:? NPO? Patient's care was discussed in detail with Dr. Barraza. She is aware of all the above as well as the plan of care for this patient. Total time managing care of this patient today: 60 minutes.
--- NOTE | 2025-04-28 02:23 | PC.NURSE ---
wash cloths with ice water and ice packs placed on pt, temp went down to 101.2, provider d/c cooling blanket plan.
--- NOTE | 2025-04-28 02:24 | PC.NURSE ---
verbal report given to Meredith in ICU, pt transported to ICU. Staff assisted in transfer into bed, pt tolerated well, RT met us there with Bipap.
[2025-04-28 04:29] LABS: VBG HCO3 16 mmol/L (22-26); VBG O2 % Saturation 84.0 %
[2025-04-28 04:48] LABS: Hematocrit 38.9 % (37.0-47.0); Hemoglobin 13.2 g/dl (12.0-16.0); Mean Corpuscular HGB Conc 33.9 g/dl (31.0-35.0); Mean Corpuscular Hemoglobin 31.1 pg (27.0-33.0); Mean Corpuscular Volume 91.5 fL (80.0-98.0); NRBC Abs Auto 0.000 X10*3/uL (0.0-0.012); NRBC Pct Auto 0.0 /100WBC (0.0-0.2); Platelet Count 125 X10*3/uL (160-400); Red Blood Count 4.25 X10*6/uL (4.20-5.50)
[2025-04-28 04:53] LABS: Venous Blood Gas Refer to POC result
[2025-04-28 04:56] LABS: WBC ABN SCTR FOR CBC 1
[2025-04-28 04:58] LABS: White Blood Count 38.1 X10*3/uL (4.8-10.8)
[2025-04-28 05:08] LABS: Band Neutrophils Percent 20 % (3-5); Lymphocytes Absolute Manual 0.8 X10*3/uL (1.2-4.9); Lymphocytes Percent Manual 2 % (20-40); Metamyelocytes Absolute 0.4 X10*3/uL; Metamyelocytes Percent 1 %; Monocytes Absolute Manual 1.9 X10*3/uL (0.1-1.2); Monocytes Percent Manual 5 % (2-11); Neutrophils Absolute Manual 35.1 X10*3/uL (2.0-8.3); Neutrophils Percent Manual 72 % (45-73)
[2025-04-28 05:11] LABS: Albumin Level 3.3 g/dL (3.5-5.0); Anion Gap 16 (12-20); Blood Urea Nitrogen 29 mg/dL (9-16); Burr Cells 3+ (>5) /OIF; Calcium 8.6 mg/dL (8.4-10.2); Carbon Dioxide 17 mmol/L (22-29); Chloride 106 mmol/L (96-108); Creatinine Clr Calc Pharmacy 29.8; Dohle Bodies PRESENT; Estimated Glomerular Filt Rate 31; Large Platelet PRESENT; Magnesium 1.8 mg/dL (1.6-2.6); Polychromasia 1+ (0-2) /OIF; Potassium 3.2 mmol/L (3.3-5.1); RBC Morphology NOTED; Sodium 136 mmol/L (135-145); Toxic Vacuolation PRESENT
--- NOTE | 2025-04-28 06:15 | PC.ADMIT ---
Pt admitted to ICU from ED at approx 0145. Initial assessment: A&Ox4, calm/cooperative, SEARS, afebrile. tumbler operator utilized. NSR on tele, HR 70-90s. Levophed gtt titrated to maintain MAP > 65. Weaned from BiPAP to 2L NC; denies SOB/dyspnea. Tolerating small amount of PO intake. Indwelling catheter placed in ED, UOP as charted. Skin intact; pt able to reposition self in bed. Pt aware of plan of care. Bed locked in lowest position, alarm on, call kinsey within reach. See EMR/flowsheet for further details.
--- NOTE | 2025-04-28 06:40 | PHA.PROG ---
Admission Date/Time: April 28, 2025 00:15 Indication: Other Weight in k.9 kg Adjusted body weight in Kg: Pateros body weight in Kg: Obesity Dosing Indication % IBW: Serum Creatinine - Last 168 Hours 04/27/25 04/28/25 15:48 04:20 Creatinine 1.21 1.65 H Estimated CrCl and GFR - Last 168 Hours 04/27/25 04/28/25 15:48 04:20 Estim Creat Clear Calc 40.6 29.8 Estimated GFR 45 31 Vancomycin Loading Dose: 2000 mg Current Vancomycin Dosing Regimen: 100 mg Q12H Vancomycin Monitoring using AUC goal of 400 - 600 range with trough as surrogate marker: Predicted AUC 534 and trough 17.2 Date and Time for next Vancomycin Level to be drawn: 04/29 @2100 Pharmacist Comments on Vancomycin Plan: Vancomycin dosing will take advantage of [employer] as a clinical decision support tool that uses Bayesian modeling to calculate individual patient's pharmacokinetic parameters and forecast the patient's drug concentration time course with the target goal AUC 24 range of 400 - 600 mg/L/hr.
[2025-04-28] MEDS: Albumin Human 25 % 50 ML 100 ML IV (07:36)
[2025-04-28] MEDS: 0.9 % Sodium Chloride Flush 3 ML SYRINGE IVFLUSH ×3 (07:39→23:02)
[2025-04-28] MEDS: Potassium Chloride Packet 20 MEQ PACKET 40 MEQ PO (07:41)
[2025-04-28] MEDS: Potassium Phosphate/NS 15 MMOL/250 ML PLAST..BAG 62.5 MMOL IV ×2 (07:49→12:18)
--- NOTE | 2025-04-28 08:23 | PHA.MEDREC ---
Addendum entered by Kerrie Barney RPh 04/28/25 08:25: reviewed by [facility]. Original Note: Pharmacy Consult ? Medication Reconciliation Pharmacy has completed the medication reconciliation. Spoke to patient through nurse interpreting to confirm med list. Patient states she is only taking Losartan 50 mg Daily, last dose was yesterday.
--- NOTE | 2025-04-28 14:52 | MHC.CM.PN ---
Met with pt using interpretor to review d/c planning needs: pt resides with family, has no services or DME and verbalizes no barriers to care. PCP Dr Santos: HCP copy requested. Family to transport pt to home. No additional needs identified. CM to follow
--- NOTE | 2025-04-28 18:41 | PC.NURSE ---
Patient alert and oriented x4, attempted to stop Levophed, stopped for less than 1hour and initaited at same rate per MD, increased as per MD and continues on same rate, unable to titrate off Levophed. Patient had episode of bradycardia to 45 this AM and no further instances noted.
[2025-04-29] VITALS (23 sets, daily range): BP systolic 118–173; BP diastolic 51–80; PULSE 61–93; RESP 16–25; TEMP 36.2–38.3; O2SAT 93–97; BMI 33.6
[2025-04-29 04:56] LABS: Hemoglobin 11.3 g/dl (12.0-16.0); Mean Corpuscular Volume 91.0 fL (80.0-98.0); NRBC Abs Auto 0.000 X10*3/uL (0.0-0.012); NRBC Pct Auto 0.0 /100WBC (0.0-0.2); PLT CLUMP 1; SCAN SMEAR FLAG 1
[2025-04-29 04:57] LABS: Hematocrit 33.5 % (37.0-47.0); Imm Gran Abs Auto 0.05 X10*3/uL (0.00-0.03); Imm Gran Pct Auto 0.4 % (0.0-0.4); Lymphocytes Absolute Auto 1.0 X10*3/uL (1.2-4.9); MANUAL DIFF FLAG SCAN; Mean Corpuscular HGB Conc 33.7 g/dl (31.0-35.0); Mean Corpuscular Hemoglobin 30.7 pg (27.0-33.0); Red Blood Count 3.68 X10*6/uL (4.20-5.50)
[2025-04-29 05:00] LABS: White Blood Count 12.3 X10*3/uL (4.8-10.8)
[2025-04-29 05:15] LABS: Albumin Level 2.8 g/dL (3.5-5.0); Anion Gap 13 (12-20); Blood Urea Nitrogen 26 mg/dL (9-16); Calcium 8.6 mg/dL (8.4-10.2); Carbon Dioxide 20 mmol/L (22-29); Chloride 111 mmol/L (96-108); Creatinine Clr Calc Pharmacy 43.9; Estimated Glomerular Filt Rate 49; Magnesium 2.1 mg/dL (1.6-2.6); Potassium 4.0 mmol/L (3.3-5.1); Sodium 140 mmol/L (135-145)
[2025-04-29 05:18] LABS: Platelet Count 74 X10*3/uL (160-400)
[2025-04-29] MEDS: Albumin Human 25 % 100 ML IV ×2 (06:07→12:07)
[2025-04-29] MEDS: Potassium Phosphate/NS 15 MMOL/250 ML PLAST..BAG 62.5 MMOL IV (07:58)
[2025-04-29] MEDS: 0.9 % Sodium Chloride Flush 3 ML SYRINGE IVFLUSH (07:59)
--- NOTE | 2025-04-29 08:11 | P.PNCC_ITS ---
Subjective Subjective Date of Service: 04/29/25 Interval History: no significant overnight events, now off vasopressors Critical Care Time (minutes): 60 Physical Exam 2 Vital Signs: Vital Signs: Last Vital Signs Temp 99.9 F 04/29/25 05:00 Pulse 73 04/29/25 07:00 Resp 21 H 04/29/25 07:00 BP 123/61 04/29/25 07:00 Pulse Ox 95 04/29/25 07:00 O2 Del Method Room Air 04/29/25 07:00 O2 Flow Rate 2 04/29/25 06:00 BMI result Body Mass Index 33.6 Const: General: cooperative, healthy appearing, comfortable, no acute distress, well developed, alert, awake and Physically active O rientation/consciousness: patient oriented x3 HEENT: Head: Yes normal to inspection, Yes normocephalic and Yes atraumatic Eyes: General: appearance normal, both eyes and all related structures Neck: Neck: Yes normal visual inspection, Yes full ROM, Yes trachea midline and Yes supple Chest: Chest palpation & inspection: normal inspection of the chest Resp: Other: no appreciable overt rales, rhonchi, wheezing Effort & Inspection: normal respiratory effort Cardio: Rate: regular rate Rhythm: regular rhythm GI: Inspection: Yes normal to inspection, No Abdominal wall edema and No distended Palpation (GI): Soft to palpation, not firm, nontender, no guarding and not rigid Skin: General skin exam: no rashes or lesions noted Neuro: General: patient oriented x3, tone normal, moves all extremities and no focal motor deficits Extrem: General: Yes normal to inspection, Yes full ROM, Yes capillary refill normal and Yes no clubbing, cyanosis or edema Psych: Appearance: grossly normal Objective Data Labs 04/29/25 04:30 04/29/25 04:30 Labs: Laboratory Results - last 24 hr 04/29/25 04:30 WBC 12.3 H RBC 3.68 L Hgb 11.3 L Hct 33.5 L MCV 91.0 MCH 30.7 MCHC 33.7 RDW 13.5 Plt Count 74 L D MPV 11.6 Immature Gran % (Auto) 0.4 Neut % (Auto) 83.8 H Lymph % (Auto) 8.0 L [place] % (Auto) 7.3 Eos % (Auto) 0.2 Baso % (Auto) 0.3 Lymph # (Auto) 1.0 L [place] # (Auto) 0.9 Eos # (Auto) 0.0 Baso # (Auto) 0.0 Abs Immat Gran (auto) 0.05 H Absolute Neuts (auto) 10.3 H Absolute Nucleated RBC 0.000 Nucleated RBC % (auto) 0.0 Smear Tech's Comments VERIFIED Sodium 140 Potassium 4.0 D Chloride 111 H Carbon Dioxide 20 L Anion Gap 13 BUN 26 H Creatinine 1.12 Estim Creat Clear Calc 43.9 Estimated GFR 49 Random Glucose 123 H Calcium 8.6 Phosphorus 2.2 L Magnesium 2.1 Albumin 2.8 L Microbiology Microbiology Results: Microbiology 04/27/25 Unknown Urine clean catch - Clean Catch Midstream Urine Culture - Final Escherichia coli 04/27/25 19:07 Blood - Venous Blood Culture - Preliminary Prelim: GNR Gram Stain only 04/27/25 19:07 Blood - Venous Blood Culture - Preliminary Prelim: GNR Gram Stain only Progress Note: A&P Assessment and plan (1) Septic shock: Status: Acute (2) Urinary tract infection: Status: Acute Plan Patient is a 64 Y F w/ hypertension, hyperlipidemia, cirrhosis, recent cholangitis s/p cholecystectomy, presenting to ED on 04/27 w/ nausea, vomiting, dysuria; ED work-up suggestive of urinary tract infection; ED course c/b flash pulmonary edema, place on BiPAP, nitroglycerin gtt, though later developing hypotension, started on vasopressors N: no acute issues CV: shock, c/f septic shock, s/p norepinephrine gtt, to closely monitor R: flash pulmonary edema, resolved GI: no acute issues; regular diet; cirrhosis : urinary tract infection, c/b bacteremia, septic shock; to monitor renal indices H: mild thrombocytopenia, to monitor; chemical DVT prophylaxis ID: urinary tract infection, c/b bacteremia, septic shock; empiric vanc/cefepime; UCx 04/27 w/ e. coli, BCx 04/27 E: no acute issues P: no acute issues S: daily updates given to daughter/HCP Quality Stroke Does the patient have a stroke diagnosis?: No VTE Prior VTE?: No VTE Risk Level:: Medical - moderate - high VTE Device Contraindication: N/A - Device Ordered VTE Drug Contraindication: Treatment Not Tolerated
[2025-04-29] MEDS: cefEPime HCl/D5W 2 GM/50 ML PIGGYBACK IV ×2 (08:28→20:18)
--- NOTE | 2025-04-29 18:17 | PC.NURSE ---
Patient alert and oriented, no c/o nausea, vomiting or pain, Vss, RA, voiding in the commode total urine output 800ml of dark yellow urine this shift. Patient had one episode of loose stool on the bedside commode. Stand by assist oob to the commode with mild dyspnea on exertion. Patient reports poor appetite but able to tolerate food. Family at bedside throughout the day.
--- NOTE | 2025-04-29 21:27 | PC.NURSE ---
Pt transported from ICU at 2120, assign room [id number].
--- NOTE | 2025-04-29 21:38 | PC.NURSE ---
with assistance of computer clerk this RN explained process of TLC removal and transfer to med/tele , pt tolerated removal of TLC and was instructed to lay flat for 1 hour. report given to Michell MARTIN. pt sent to floor wiht belongings including cell phone, glasses and phone renal dialysis technician.
--- NOTE | 2025-04-29 22:00 | HE.PHANOTE ---
re [facility] patients level came back this evening at 6.3. patients level is sub therapeutic. patient has only received a load of 2 grams and one dose of 1 gram. will increase frequency of Q24H to Q12H. renal function crcl shows as 40.6, 29.8, 43.9 and because of this dosing chosen was Q24H. suspect the crcl is falsely low, maybe because patient is under 5 feet? crcl formula is usually with patients over 5 feet? will see if increased frequency will allow for level to increase. getting another level after two doses of Q12H to ensure safety and efficacy. level due 04/30 @2100. predicted AUC 579
[2025-04-30] VITALS (7 sets, daily range): BP systolic 135–186; BP diastolic 68–82; PULSE 60–71; RESP 16–20; TEMP 36.2–37.5; O2SAT 92–98
[2025-04-30] MEDS: 0.9 % Sodium Chloride Flush 3 ML SYRINGE IVFLUSH ×4 (01:34→21:39)
[2025-04-30 08:04] LABS: MANUAL DIFF FLAG NO
[2025-04-30 08:09] LABS: Mean Corpuscular Volume 89.6 fL (80.0-98.0); NRBC Abs Auto 0.000 X10*3/uL (0.0-0.012); NRBC Pct Auto 0.0 /100WBC (0.0-0.2); PLT CLUMP 1; SCAN SMEAR FLAG 1
[2025-04-30 08:12] LABS: Hematocrit 34.3 % (37.0-47.0); Hemoglobin 11.7 g/dl (12.0-16.0); Imm Gran Abs Auto 0.14 X10*3/uL (0.00-0.03); Imm Gran Pct Auto 1.6 % (0.0-0.4); Lymphocytes Absolute Auto 1.1 X10*3/uL (1.2-4.9); Mean Corpuscular HGB Conc 34.1 g/dl (31.0-35.0); Mean Corpuscular Hemoglobin 30.5 pg (27.0-33.0); Red Blood Count 3.83 X10*6/uL (4.20-5.50)
[2025-04-30 08:15] LABS: Platelet Count 72 X10*3/uL (160-400); White Blood Count 8.9 X10*3/uL (4.8-10.8)
[2025-04-30 08:21] LABS: Anion Gap 13 (12-20); Blood Urea Nitrogen 21 mg/dL (9-16); Calcium 9.2 mg/dL (8.4-10.2); Carbon Dioxide 21 mmol/L (22-29); Chloride 110 mmol/L (96-108); Creatinine Clr Calc Pharmacy 57.7; Estimated Glomerular Filt Rate > 60; Magnesium 2.2 mg/dL (1.6-2.6); Potassium 3.9 mmol/L (3.3-5.1); Sodium 140 mmol/L (135-145)
[2025-04-30] MEDS: cefEPime HCl/D5W 2 GM/50 ML PIGGYBACK IV ×2 (08:48→21:37)
--- NOTE | 2025-04-30 09:44 | HO.PM.IMPN ---
Subjective Subjective Date of Service: 04/30/25 Review of Systems Follow up ICU tx for UTI requiring vasopressors feeling better today eating, no nausea or vomiting Physical Exam Exam: Exam: Appearing in no acute distress lung sounds are clear to auscultation heart regular rate rhythm, clear S1, S2 positive bowel sounds, abdomen is soft, nontender neuro patient is alert x3, no focal deficits Vital Signs: Vital Signs: Last Vital Signs Temp 97.5 F 04/30/25 08:00 Pulse 60 04/30/25 08:00 Resp 18 04/30/25 08:00 BP 175/79 H 04/30/25 08:00 Pulse Ox 95 04/30/25 08:00 O2 Del Method Room Air 04/30/25 08:00 O2 Flow Rate 2 04/29/25 06:00 BMI result Body Mass Index 33.6 Objective Data Active Medications Heparin Sodium (Porcine) (Heparin Sodium,Porcine 5,000 Unit/Ml Vial) 5,000 unit SUBCUT Q8H LAVELLE On Hold: 04/29/25 05:42 Last Admin: 04/28/25 23:02 Dose: 5,000 unit Documented By: ETHAN Cefepime HCl (Maxipime) 2 gm in 50 mls @ 100 mls/hr IV Q12H [facility] Last Infusion: 04/30/25 09:25 Dose: Infused Documented By: JOHANNA Losartan Potassium (Losartan Potassium 50 Mg Tablet) 50 mg PO DAILY [facility]; Protocol Last Admin: 04/30/25 08:48 Dose: 50 mg Documented By: JOHANNA Sodium Chloride (0.9 % Sodium Chloride Flush 3 Ml Syringe) 3 ml IVFLUSH QSHIFT [facility] Last Admin: 04/30/25 08:46 Dose: 3 ml Documented By: JOHANNA Labs 04/30/25 07:25 04/30/25 07:25 Labs: Laboratory Results - last 24 hr 04/29/25 04/30/25 21:26 07:25 MCV 89.6 MCH 30.5 MCHC 34.1 RDW 13.3 Plt Count 72 L MPV 11.8 Immature Gran % (Auto) 1.6 H Neut % (Auto) 77.7 H Lymph % (Auto) 12.4 L Harper % (Auto) 7.2 Eos % (Auto) 0.8 Baso % (Auto) 0.3 Lymph # (Auto) 1.1 L Harper # (Auto) 0.6 Eos # (Auto) 0.1 Baso # (Auto) 0.0 Abs Immat Gran (auto) 0.14 H Absolute Neuts (auto) 6.9 Absolute Nucleated RBC 0.000 Nucleated RBC % (auto) 0.0 Anion Gap 13 Estim Creat Clear Calc 57.7 Estimated GFR > 60 Random Glucose 104 Calcium 9.2 D Phosphorus 1.7 L Magnesium 2.2 Random Vancomycin 6.3 L Microbiology Microbiology Results: Microbiology 04/27/25 19:07 Blood Culture - Final Blood - Venous Escherichia coli 04/27/25 19:07 Blood Culture - Final Blood - Venous Escherichia coli 04/27/25 Unknown Urine Culture - Final Urine clean catch - Clean Catch Midstream Escherichia coli Assessment and Plan (1) Septic shock: Status: Acute Plan 64 year old women tx from ICU 04/29 and treated for Septic shock secondary to UTI and bacteremia requiring vasopressors, bipap due to Flash pulmonary edema Septic shock. Resolved admitted to ICU initially stable VS aand labs s/p vasopressors Flash pulmonary edema and Hypertensive urgency. Resolved treated with IV lasix, IV nitro drip abd Bipap Blood pressure now stable and losartan has been continued currently on room air Nausea and vomiting resolved appetite good Ecoli UTI continue cefepime Ecoli bacteremia continue cefepime MAFLD Chronic HTN stable BP continue losartan Obesity. BMI 33.6 Discussed importance of weight management as this may be contributing to worsening of other comorbidities DVT prophylaxis with heparin Full code Quality Stroke Does the patient have a stroke diagnosis?: No VTE Prior VTE?: No VTE Risk Level:: Medical - moderate - high VTE Device Contraindication: N/A - Device Ordered VTE Drug Contraindication: Treatment Not Tolerated
[2025-05-01 04:00] VITALS: BP 183/86; PULSE 64; RESP 16; TEMP 36.7; O2SAT 96
[2025-05-01 04:30] VITALS: BP 160/72
--- NOTE | 2025-05-01 07:32 | PM.DS ---
DS: Providers Provider Date of Service: 05/01/25 Date of admission: 04/28/25 00:15 Date of discharge: 05/01/25 Primary care physician: Silvana Taylor MD DS: Diagnosis Discharge Diagnosis (1) Septic shock: Status: Acute DS: Summary Hospital Course Hospital Course: History and physical as per admitting provider. Ms. Boone is a 64-year-old female?with history of MAFLD, CBD stones with prior stenting, obesity, hypertension, transaminitis, hypercholesterolemia, brain lesion, polyarthralgia, obstructive jaundice who presented to the emergency room? with complaint of epigastric pain, nausea, vomiting,? dysuria, chills x2 days. The patient was most recently admitted at [facility] in October 2024 for cholangitis secondary to recurrent choledocholithiasis with tortuous angulated distal bile duct. On arrival to the ER, blood pressure was? 121/71, heart rate 114, temp? 99.3?. O2 sat? 95% on ? room air. Laboratory data significant for? WBC 13.3, platelet 110, sodium 131, BUN 25, glucose 192, total bilirubin 4.2, direct bili 2.7, AST 84, ALT 106, alk-phos 169, BNP 143, lipase 21, lactic acid 1.4. VBG 7.19 43 81 17. Urinalysis indicative of a UTI. Influenza negative.Imaging: CXR unremarkable.? CT abdomen/pelvis:? hepatic cirrhosis, no acute findings.ED Course:? The patient received hydrocortisone 100 mg, clindamycin 600 mg, Toradol 15 mg, DuoNeb, acetaminophen 1000 mg, furosemide 20 mg, morphine 4 mg, Zosyn 4.5 g, vancomycin 2000 mg.? She received a total of 2277 mL NS. She was placed on BiPAP.? She became febrile ( T-max 105.1 degrees ) and hypertensive up to 190s/100s and was started on a nitroglycerin drip.? Soon after she became hypotensive. The nitroglycerin drip was stopped and a Levophed drip was started for hypotension. 64-year-old woman treated for septic shock secondary to UTI and E coli bacteremia requiring vasopressors. Patient developed flash pulmonary edema and required BiPAP. Patient was treated in the ICU. She initially was treated with IV Lasix, IV nitroglycerin drip and BiPAP. Her blood pressure had stabilized and her losartan was continued. The patient was subsequently transferred out of ICU and at this time patient is stable for discharge home. Discussed case with patient's family Hypertension. Elevated blood pressures, losartan increased to 100 mg daily Nausea and vomiting. Resolved. Good appetite, taking p.o. E coli bacteremia secondary to E coli UTI. Treated with IV cefepime while inpatient, discharged home with Ceftin to complete a total of 14 day treatment. MAFLD. Chronic Obesity. BMI 33.6. Discussed importance of weight management as this may be contributing to worsening of other comorbidities Time Attestation Discharge Coordination Time (in mins): 42 Quality: Safe Use of Opioids Does Pt have an Active Cancer Diagnosis on the Problem List?: No Quality: Stroke Does the patient have a stroke diagnosis?: No Physical Exam Exam: Exam: Appearing in no acute distress head is normocephalic atraumatic eyes pupils are PERRLA sclera is anicteric mouth throat mucous membranes are intact and moist neck is supple no lymphadenopathy, no JVD noted lung sounds are clear to auscultation heart regular rate rhythm, clear S1, S2 positive bowel sounds, abdomen is soft, nontender neuro patient is alert x3, no focal deficits Vital Signs: Vital Signs: Last Vital Signs Temp 98.0 F 05/01/25 04:00 Pulse 64 05/01/25 04:00 Resp 16 05/01/25 04:00 BP 160/72 H 05/01/25 04:30 Pulse Ox 96 05/01/25 04:00 O2 Del Method Room Air 05/01/25 04:00 O2 Flow Rate 2 04/29/25 06:00 BMI result Body Mass Index 33.6 DS: Data Data Completed and Pending Labs on day of discharge: Laboratory Results - last 24 hr 04/30/25 07:25 WBC 8.9 RBC 3.83 L Hgb 11.7 L Hct 34.3 L MCV 89.6 MCH 30.5 MCHC 34.1 RDW 13.3 Plt Count 72 L MPV 11.8 Immature Gran % (Auto) 1.6 H Neut % (Auto) 77.7 H Lymph % (Auto) 12.4 L [place] % (Auto) 7.2 Eos % (Auto) 0.8 Baso % (Auto) 0.3 Lymph # (Auto) 1.1 L [place] # (Auto) 0.6 Eos # (Auto) 0.1 Baso # (Auto) 0.0 Abs Immat Gran (auto) 0.14 H Absolute Neuts (auto) 6.9 Absolute Nucleated RBC 0.000 Nucleated RBC % (auto) 0.0 Sodium 140 Potassium 3.9 Chloride 110 H Carbon Dioxide 21 L Anion Gap 13 BUN 21 H Creatinine 0.85 Estim Creat Clear Calc 57.7 Estimated GFR > 60 Random Glucose 104 Calcium 9.2 D Phosphorus 1.7 L Magnesium 2.2 Discharge Plan Discharge Anticipated Discharge Date/Time: 05/01/25 07:29 Patient Disposition: Home, Self-Care Discharge Diagnosis: E coli UTI E coli bacteremia Septic shock Referrals: Silvana Funes MD [Primary Care Provider, Internal Medicine] - 1 Week Discharge Medications: New cefuroxime axetil 500 mg tablet 500 mg PO BID Qty: 24 0RF losartan 50 mg Tablet 100 mg PO DAILY Qty: 60 0RF Protocol: Hold for SBP< HOLD for SBP < : 90 Continued (DME) wrist splint See Rx Instructions .Route .MEDSUPPLY Qty: 2 0RF Rx Instructions: wear as much as possible throughout the day & all night Discontinued losartan 50 mg tablet 50 mg PO DAILY 90 Days Qty: 90 3RF Discharge Orders: Discharge Order (Routine); Ordered 05/01/25 Ordered By: Stefani Palacios Diet: Advance to usual diet Activity on Discharge: As tolerated Stand Alone Forms: Patient Portal Discharge page Print Language: Ugandan Care Plan Goals: Complete course of antibiotics for E coli UTI and E coli bacteremia Health Concerns: E coli UTI E coli bacteremia Septic shock Plan of Treatment: Follow up with primary care provider as needed Take all medications as prescribed Assessment: See discharge summary
[2025-05-01 07:43] VITALS: BP 165/67; PULSE 59; RESP 17; TEMP 36.7; O2SAT 93
[2025-05-01 08:13] LABS: Hematocrit 34.9 % (37.0-47.0); Hemoglobin 12.0 g/dl (12.0-16.0); Mean Corpuscular HGB Conc 34.4 g/dl (31.0-35.0); Mean Corpuscular Hemoglobin 30.7 pg (27.0-33.0); Mean Corpuscular Volume 89.3 fL (80.0-98.0); NRBC Abs Auto 0.000 X10*3/uL (0.0-0.012); NRBC Pct Auto 0.0 /100WBC (0.0-0.2); Red Blood Count 3.91 X10*6/uL (4.20-5.50); White Blood Count 9.1 X10*3/uL (4.8-10.8)
[2025-05-01 08:16] LABS: Platelet Count 92 X10*3/uL (160-400)
[2025-05-01 08:32] LABS: Anion Gap 13 (12-20); Blood Urea Nitrogen 21 mg/dL (9-16); Calcium 9.5 mg/dL (8.4-10.2); Carbon Dioxide 21 mmol/L (22-29); Chloride 111 mmol/L (96-108); Creatinine Clr Calc Pharmacy 57.7; Estimated Glomerular Filt Rate > 60; Magnesium 2.1 mg/dL (1.6-2.6); Potassium 3.6 mmol/L (3.3-5.1); Sodium 141 mmol/L (135-145)
[2025-05-01 08:33] LABS: Band Neutrophils Percent 3 % (3-5); Eosinophils Absolute Manual 0.2 X10*3/uL (0.0-0.4); Eosinophils Percent Manual 2 % (0-4); Lymphocytes Absolute Manual 1.5 X10*3/uL (1.2-4.9); Lymphocytes Percent Manual 17 % (20-40); Metamyelocytes Absolute 0.1 X10*3/uL; Metamyelocytes Percent 1 %; Monocytes Absolute Manual 0.5 X10*3/uL (0.1-1.2); Monocytes Percent Manual 6 % (2-11); Myelocytes Absolute 0.1 X10*/uL; Myelocytes Percent 1 %; Neutrophils Absolute Manual 6.6 X10*3/uL (2.0-8.3); Neutrophils Percent Manual 70 % (45-73)
[2025-05-01 08:34] LABS: RBC Morphology NOTED
[2025-05-01 08:35] LABS: Macrocytosis 1+ (5-14) /OIF; Toxic Vacuolation PRESENT
[2025-05-01] MEDS: cefEPime HCl/D5W 2 GM/50 ML PIGGYBACK IV (08:36)
[2025-05-01] MEDS: 0.9 % Sodium Chloride Flush 3 ML SYRINGE IVFLUSH (08:36)
--- NOTE | 2025-05-01 09:40 | MHC.CM.PN ---
Second IMM given 05/01. Pt with is medically cleared for discharge home self-care, pts family to transport her home today.
== END 2025-05-01 11:38 | disposition home or self-care (01) | DRG 871 ==
LOC: HO.ED 04-28 00:07 → HO.EDOVER 04-28 00:59 → HO.ICU 04-28 01:12 → HO.IMC 04-29 20:47
PROVIDERS: Internal Medicine Critical Care Medicine; Physician Assistant Medical; Admitting Provider Nurse Practitioner Family; Emergency Provider Student in an Organized Health Care Education/Training Program; PCP Internal Medicine; Visit Provider Nurse Practitioner Acute Care
DX: A41.9 Sepsis, unspecified organism (principal); J81.0 Acute pulmonary edema; R65.21 Severe sepsis with septic shock; N39.0 Urinary tract infection, site not specified; B96.20 Unspecified Escherichia coli [E. coli] as the cause of diseases classified elsewhere; K76.0 Fatty (change of) liver, not elsewhere classified; I16.0 Hypertensive urgency; K74.60 Unspecified cirrhosis of liver; E78.5 Hyperlipidemia, unspecified; I10 Essential (primary) hypertension; E66.9 Obesity, unspecified; Z68.33 Body mass index [BMI] 33.0-33.9, adult; Z71.3 Dietary counseling and surveillance; Z20.822 Contact with and (suspected) exposure to COVID-19
CPT/HCPCS: 36415; 71045; 74177; 80048; 80076; 80202; 81001; 82040; 82803; 83605; 83690; 83735; 83880; 84100; 84484; 85007; 85025; 85027; 87040; 87077; 87086; 87088; 87186; 87205; 87502; 87635; 93005; 94640; 99285; J0131; J0692; J0736; J1644; J1720; J1885; J1938; J2270; J2305; J2543; J3373; J3374; P9047

== ENCOUNTER → 2025-04-27 15:21 | Outpatient (BNV) | payer MEDICARE, SELFPAY | PROVIDERS: Admitting Provider Nurse Practitioner Family; Emergency Provider Student in an Organized Health Care Education/Training Program; PCP Internal Medicine; Visit Provider Internal Medicine | DX: R00.0 Tachycardia, unspecified (principal); I25.2 Old myocardial infarction | CPT/HCPCS: 93010 ==

== ENCOUNTER → 2025-04-27 18:52 | Outpatient (BNV) | payer MEDICARE, SELFPAY | PROVIDERS: Emergency Provider Student in an Organized Health Care Education/Training Program; PCP Internal Medicine; Visit Provider Student in an Organized Health Care Education/Training Program | DX: R16.2 Hepatomegaly with splenomegaly, not elsewhere classified (principal); R06.02 Shortness of breath | CPT/HCPCS: 71045; 74177 ==

== ENCOUNTER → 2025-04-28 00:15 | Outpatient (BNV) | payer MEDICARE, SELFPAY | PROVIDERS: Admitting Provider Nurse Practitioner Family; Emergency Provider Student in an Organized Health Care Education/Training Program; PCP Internal Medicine; Visit Provider Nurse Practitioner Acute Care | DX: A41.9 Sepsis, unspecified organism (principal); R65.21 Severe sepsis with septic shock | CPT/HCPCS: 99232 ==

== ENCOUNTER → 2025-04-28 00:15 | Outpatient (BNV) | payer MEDICARE, SELFPAY | PROVIDERS: Admitting Provider Nurse Practitioner Family; Emergency Provider Student in an Organized Health Care Education/Training Program; PCP Internal Medicine; Visit Provider Nurse Practitioner Family | DX: A41.9 Sepsis, unspecified organism (principal); R65.21 Severe sepsis with septic shock; N39.0 Urinary tract infection, site not specified; R74.01 Elevation of levels of liver transaminase levels | CPT/HCPCS: 99223 ==

== ENCOUNTER 2025-05-05 07:51 | Outpatient (AMB) | payer MEDICARE, SELFPAY ==
--- NOTE | 2025-05-05 07:52 | MHC.PC.OV ---
Vital Signs 05/05/25 07:53 Height 4 ft 11 in Weight 162 lb BMI 32.7 BP 140/82 H Blood Pressure Location Lt brachial Position Sitting Pulse 74 Pulse Source Pulse Oximeter Pulse Oximetry (%) 96 Oxygen Delivery Method Room Air Intake Visit Reasons: tcm 05/[address] Burns epigastric pain Firearms Expert Required: Yes Firearms Expert Language: [place] Verdean Allergies No Known Allergies Allergy (Verified 05/05/25 07:53) Tobacco use date assessed: 04/17/25 Fall risk assessment: No Falls in past year Last assessed Fall Risk: 05/05/25 Dental Screening Dental Screen Date: 04/17/25 HPI HPI Comments History of Present Illness Details 64 y/o Female patient who presents to the clinic today for TCM. Pt was admitted at [facility] [place] 04/28 - 05/01 for an evaluation and treatment of septic shock secondary to UTI and E-coli Bacteremia. During the hospital stay her Blood pressure was elevated, and Losartan was increased to 100 mg daily. Discharged home with Ceftin to complete a total of 14 day treatment course. Today patient reports still feeling weak, tired and unable to return to work. Patient asking for FMLA forms signed. [facility] Medical History Positive H. pylori test Metabolic dysfunction-associated steatotic liver disease (MASLD) Bloating Bilateral primary osteoarthritis of knee Right tennis elbow Degenerative disc disease, lumbar Cough Blurry vision Class 1 obesity with body mass index (BMI) of 30.0 to 30.9 in adult Hypertension Tortuosity of artery Transaminitis Pure hypercholesterolemia Physical exam Brain lesion Hair loss New daily persistent headache Polyarthralgia Obstructive jaundice Surgical History Hx of colonoscopy History of removal of calculus of renal pelvis through percutaneous nephrostomy History of endoscopy H/O hysterectomy for benign disease Family History Father CAD (coronary artery disease) Mother Stomach cancer Daughter Uterine cancer Son Intestinal disease Social History Household Members: Family Housing: House Do you presently have visiting nurse or other home services: No Alcohol intake: never Patient Tobacco Use Status: Never used Tobacco Tobacco use type: Cigarette e-Cigarette/Vaping Use: Never Used Second Hand Smoke Exposure: No service: No Current occupational status: employed 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 1. Little interest or pleasure in doing things: not at all 2. Feeling down, depressed, or hopeless: not at all 3. Trouble falling or staying asleep, or sleeping too much: several days 4. Feeling tired or having little energy: several days 5. Poor appetite or overeating: not at all 6. Feeling bad about yourself - or that you are a failure or have let yourself or your family down: not at all 7. Trouble concentrating on things, such as reading the newspaper or watching television: not at all 8. Moving or speaking so slowly that other people could have noticed. Or the opposite - being so fidgety or restless that you have been moving around a lot more than usual: not at all 9. Thoughts that you would be better off or of hurting yourself in some way: not at all Total score: 2 Depression Screening Interpretation: Negative Depression Screening Done: Yes Source: Developed by Drs. Eran Eid, Malika Hutchinson, Juan Connell and colleagues, with an educational paula from [employer]. Thrive Questionnaire Date Thrive assessed: 04/28/25 I am a: Patient What is your living situation today?: I have a steady place to live Within the past 12 months, did the food you bought not last and you didn't have the money to get more?: Sometimes True Within the past 12 months, did you worry whether your food would run out before you got money to buy more?: Sometimes True Do you have trouble paying for medicines?: Yes Do you have trouble getting transportation to medical appointments?: No Do you have trouble paying your heating and electricity bill?: Yes Do you have trouble taking care of your child, family member or friend?: No Do you have trouble with day-to-day activities such as bathing, preparing meals, shopping, managing finances, etc.?: No Are you currently unemployed and looking for a job?: No Are you interested in more education?: I choose not to answer this question Currently or been in a relationship where the following occur: No concerns reported THRIVE Score: 3 AUDIT C Alcohol Use Questionnaire (AUDIT-C) 1. How often do you have a drink containing alcohol?: Never 3. How often do you have six or more drinks on one occasion?: Never Total Score: 0 MG-7 AMB Questionnaire MG-7 Date MG - 7 assessed: 04/17/25 Source: Developed by Drs. Eran Eid, Malika Hutchinson, Juan Connell and colleagues, with an educational paula from [employer]. Review of Systems Const All systems reviewed & are unremarkable except as noted in HPI and below Physical exam (Primary Care) Vital Signs: Last Vital Signs Pulse 74 05/05/25 07:53 BP 140/82 H 05/05/25 07:53 Pulse Ox 96 05/05/25 07:53 Oxygen Delivery Method Room Air 05/05/25 07:53 BMI result Body Mass Index 32.7 Tobacco/Smoking Status: Tobacco use Status Tobacco use date assessed 04/17/25 05/05/25 07:58 Patient Tobacco Use Status Never used Tobacco 05/05/25 07:58 Tobacco use type Cigarette 05/05/25 07:58 e-Cigarette/Vaping Use Never Used 05/05/25 07:58 PHQ-9: PHQ-9 Score PHQ-9: Total score 2 05/05/25 07:58 Depression Screening Interpretation: Negative Thrive Assessment: Date of Thrive Assessment Date Thrive assessed 04/28/25 05/05/25 07:58 Currently or been in a relationship where the following occur: No concerns reported Const General: no acute distress Nutritional Appearance: overweight Orientation/consciousness: patient oriented x3 Resp Effort & Inspection: normal respiratory effort Auscultation: clear to auscultation bilaterally Cardio Heart sounds: S1 normal heart sound present and S2 normal heart sound present Neuro General: patient oriented x3, gait normal and moves all extremities Psych Speech and movement: Normal speech and movement present Coding Level of Care Code TCM Mod MDM <= 7 Days Diagnoses Septic shock A41.9; R65.21 Urinary tract infection N39.0 Hypertension, unspecified type I10 Hypertension type: unspecified Time Spent (min) 20 Assessment & Plan Assessment & Plan (1) Septic shock: Code(s): A41.9 - Sepsis, unspecified organism; R65.21 - Severe sepsis with septic shock Category: Medical Plan: Resolved. Continue on Antibiotics until completion. Monitor for signs and symptoms of Infection. (2) Urinary tract infection: Code(s): N39.0 - Urinary tract infection, site not specified Category: Medical Plan: Resolved. Continue on Antibiotics until completion. Monitor for signs and symptoms of Infection. (3) Hypertension: Code(s): I10 - Essential (primary) hypertension Category: Medical Qualifiers: Hypertension type: unspecified Qualified Code(s): I10 - Essential (primary) hypertension Plan: Stable. Continue on Losartan 100 mg as prescribed. Monitor BPs at home and keep a Log. F/U with PCP as scheduled. Plan I assigned [place] Paperwork for 30 days. Starting 04/27 - 05/29. Paperwork returned to patient.
[2025-05-05 07:53] VITALS: BP 140/82; PULSE 74; O2SAT 96; BMI 32.7
--- OUTSIDE RECORDS SUMMARY | 2025-05-05 07:54 | XMS_ITS | Encounter Summary ---
Author Organization [facility] Address [address] [place] [id number] Phone Care Team Providers Care Concrete Engineer Name Role Phone Silvana Funes MD Primary Care Provid er Encounter Details Date Type Department Care Team (Late st Contact Info) Description 03/27/2022 Procedure Pass [facility], Ct Scan - [address] [address] Social History Tobacco Use Types Packs/Day Years [...] 4:14 PM EDT Emmanuel Carvalho RN * [place] Suicide Severity Rating Scale (Screener/Recent Self-Report) Question [...] documented as of this encounter Care Teams Concrete Engineer Relationship Specialty Start Date End Date Silvana Funes MD [address] [place] [address] PCP - General Internal Medicine 03/04/21 documented as of this encounter Additional Source Comments The information contained in this document represents components of the legal health record. It is not the complete legal health record.[facility]
--- OUTSIDE RECORDS SUMMARY | 2025-05-05 07:54 | XMS_ITS | Encounter Summary ---
Author Organization [facility] Address [address] [place] [address] Phone Care Team Providers Care Financial Processing Clerk Name Role Phone Silvana Funes MD Primary Care Provid er Encounter Details Date Type Department Care Team (Late st Contact Info) Description 10/24/2024 Procedure Pass [facility] Endoscopy Admitting Dept Virtual Department [address] [place] [address] Social History Tobacco Use Types Packs/Day Years Used Date Smoking Tobacco: Never Smokeless Tobacco: Never Alcohol Use Standard Drinks/Week Comments Yes 1 (1 standard drink = 0.6 oz pur e alcohol) Education Answer Date Recorded Are you interested in more education? Not on racheal e 12/26/2022 Are you concerned about learning? Not on file 12/26/2022 No 12/26/2022 No 12/26/2022 Digital Access Answer Date Recorded No 01/24/2023 No 01/24/2023 Reliable internet access at home? Not on file 01/24/2023 Device with a working camera? Not on file Intimate Partner Violence Answer Date R ecorded Are you denied basic needs s uch as food, clothing, or medical care? No 10/23/2024 In the past 12 months have y ou been in a relationship with a person who hurts, threatens, or tries to control you? No 10/23/2024 Are you denied basic needs s uch as food, clothing, or medical care? No 10/23/2024 In the past 12 months have y ou been in a relationship with a person who hurts, threatens, or tries to control you? No 10/23/2024 Comments Unknown Sex and Gender Information Value Date Recorded Sex Assigned at Female 05/09/2019 2:44 PM EDT Legal Sex Female 10:35 PM EDT Gender Identity Female 05/09/2019 2:44 PM EDT Sexual Orientation Not on file documented as of this encounter Plan of Treatment Not on file documented as of this encounter Visit Diagnoses Not on filedocumented in this encounter Additional Health Concerns Infection Onset Date Last Indicated Resolved Time CoV-Risk Comment:Per note documentation 10/24/2024 10/24/2024 9:18 AM EST documented as of this encounter Care Teams Financial Processing Clerk Relationship Specialty Start Date End Date Silvana Funes MD [address] [place] [address] PCP - General Internal Medicine 03/04/21 documented as of this encounter Additional Source Comments The information contained in this document represents components of the legal health record. It is not the complete legal health record.[facility]
--- OUTSIDE RECORDS SUMMARY | 2025-05-05 07:54 | XMS_ITS | Encounter Summary ---
Author Organization [facility] Address [address] [place] [address] Phone Care Team Providers Care Clay House Worker Name Role Phone Guille Conklin MD Unavailable Silvana Funes MD Primary Care Provid er Encounter Details Date Type Department Care Team (Late st Contact Info) Description 03/04/2021 Procedure Pass [facility], [facility] - [facility] [address] [place] [address] Social History Tobacco Use Types Packs/Day Years [...] Date of Assessment Author No Risk Indicated 03/04/2021 6:08 PM EDT Avni Dowell, MARIO * [place] Suicide Severity Rating Scale (Screener/Recent Self-Report) Question Answer Date of Assessment Author 1. Wish to be (Past 1 Month) No 021 6:08 PM EDT Avni Dowell, RN 2. Non-Specific Active Suici sharon Thoughts (Past 1 Month) No 03/04/2021 6:08 PM EDT Maxim Dowell, RN 6. Suicidal Behavior (Lifetime) No 1 6:08 PM EDT Avni Dowell RN documented as of this encounter Plan of Treatment Not on file documented as of this encounter Visit Diagnoses Not on filedocumented in this encounter Additional Health Concerns Infection Onset Date Last Indicated Resolved Time CoV-Risk Comment:Per note documentation 10/24/2024 10/24/2024 5 9:18 AM EST documented as of this encounter Care Teams Clay House Worker Relationship Specialty Start Date End Date Silvana Funes MD [address] [place] [address] PCP - General Internal Medicine 03/04/21 Guille Conklin MD [address] [place] [address], [facility] [address] [place] [address] [email or web address] Historical LMR Provider 06/20/17 09/07/21 documented as of this encounter Additional Source Comments The information contained in this document represents components of the legal health record. It is not the complete legal health record.[facility]
--- OUTSIDE RECORDS SUMMARY | 2025-05-05 07:54 | XMS_ITS | Encounter Summary ---
Author Organization [facility] Address [address] [place] [address] Phone Care Team Providers Care Hat And Cap Parts Cutter Hand Name Role Phone Silvana Funes MD Primary Care Provid er Encounter Details Date Type Department Care Team (Late st Contact Info) Description 03/27/2022 Procedure Pass [facility], [address] [address] Social History Tobacco Use Types Packs/Day Years [...] 4:14 PM EDT Emmanuel Carvalho RN * [place] Suicide Severity Rating Scale (Screener/Recent Self-Report) Question [...] documented as of this encounter Care Teams Hat And Cap Parts Cutter Hand Relationship Specialty Start Date End Date Silvana Funes MD [address] [place] [address] PCP - General Internal Medicine 03/04/21 documented as of this encounter Additional Source Comments The information contained in this document represents components of the legal health record. It is not the complete legal health record.[facility]
--- OUTSIDE RECORDS SUMMARY | 2025-05-05 07:54 | XMS_ITS | Encounter Summary ---
Author Organization [facility] Address [address] [place] [address] Phone Care Team Providers Care Pulvi Mixer Operator Name Role Phone Silvana Funes MD Primary Care Provid er Encounter Details Date Type Department Care Team (Late st Contact Info) Description 03/27/2022 Procedure Pass [facility], Ct Scan - [address] [address] Social History Tobacco Use Types Packs/Day Years [...] 4:14 PM EDT Emmanuel Carvalho RN * [place] Suicide Severity Rating Scale (Screener/Recent Self-Report) Question [...] documented as of this encounter Care Teams Pulvi Mixer Operator Relationship Specialty Start Date End Date Silvana Funes MD [address] [place] [address] PCP - General Internal Medicine 03/04/21 documented as of this encounter Additional Source Comments The information contained in this document represents components of the legal health record. It is not the complete legal health record.[facility]
--- OUTSIDE RECORDS SUMMARY | 2025-05-05 07:54 | XMS_ITS | Encounter Summary ---
Author Organization [facility] Address [address] [place] [address] Phone Care Team Providers Care Percolator Operator Name Role Phone Guille Conklin MD Unavailable Ana Paula Franz DO Primary Care Provider [phone] Marti Balderas MD Primary Care Provider [phone] Pcp, Unknown Primary Care Provider [facility] Silvana Funes MD Primary Care Provid er Reason for Referral * - Closed Specialty Diagnoses / Procedures Referred By Olimpia mckay Referred To Contact Diagnoses Abnormal electrocardiogram Procedures Stress Test Exercise Ana Paula Franz DO Phone: tel: fax: [email or web address] Referral ID Status Reason Start Date Expiration Date Visits Re quested Visits Authorized [id number] Closed 06/03/2018 06/03/2019 1 1 Encounter Details Date Type Department Care Team (Latest Contact Info) Description 06/03/2018 Transcribe [facility] [address] [facility] [address], [address] [place] [address] Nisreen Jordan NP [address] [place] [address] Abnormal electrocardiogram (Primary Dx) Social History Tobacco Use Types Packs/Day Years Used Date Smoking Tobacco: Never Assessed Comments Unknown Sex and Gender Information Value Date Recorded Sex Assigned at Female 05/09/2019 2:44 PM EDT Legal Sex Female 10:35 PM EDT Gender Identity Female 05/09/2019 2:44 PM EDT Sexual Orientation Not on file documented as of this encounter Plan of Treatment Not on file documented as of this encounter Results * Stress Test Exercise (06/22/2018 3:42 PM EDT) Anatomical Region Laterality Modality Heart Ultrasound Narrative 06/25/2018 1:55 PM EDT Response to Stress Exercise Stress Test Report: Reason for termination: fatigue Summary: Resting ECG: SR HR 65 BPM, T wave inversion III Functional capacity: fair Heart rate response to exercise: appropriate Blood pressure response to exercise: baseline no Chest pain: none Arrhythmias: none Conclusion: Patient exercised for 5:01 minutes on a standard Hans protocol achieving 72% MPHR and 7 METS. Test terminated due to fatigue. Summary: 1. EKG: No EKG evidence of ischemia meeting criteria 2. Symptoms: No exertional chest pain or symptoms concerning for angina 3. Exercise physiology: Normal heart rate and hypertensive BP response to exercise. Max HR 117 BPM with normal HR recovery. Max BP 220/80 from baseline BP of 126/80. Fair functional capacity for age noted. 4. Arrhythmia: None Conclusion: Suboptimal ETT due to inability to achieve target HR. but no EKG changes based on HR achieved. Vital signs at baseline at time of discharge from the lab. EKG reviewed with Dr. Morel. If further workup is indicated, can consider pharmacological nuclear stress test. Tawana Florentino NP, MPH . us Ana Paula Franz DO CV STRESS ORDERABLES Final Res ult documented in this encounter Visit Diagnoses Diagnosis Abnormal electrocardiogram- Primary Nonspecific abnormal electrocardiogram (ECG) (EKG) Abnormal electrocardiogram Nonspecific abnormal electrocardiogram (ECG) (EKG) documented in this encounter Additional Health Concerns Infection Onset Date Last Indicated Resolved Time CoV-Risk Comment:Per note documentation 10/24/2024 10/24/2024 9:18 AM EST documented as of this encounter Care Teams Percolator Operator Relationship Specialty Start Date End Date Ana Paula Franz DO [address] [place] [address] PCP - General Internal Medicine 06/03/18 05/09/19 Marti Balderas MD [address] [place] [address], 2nd [place] [address] PCP - General Internal Medicine 05/10/19 01/17/20 Pcp, Unknown PCP - General 01/18/20 03/03/21 Silvana Funes MD [address] [place] [address] PCP - General Internal Medicine 03/04/21 Guille Conklin MD [address] [facility], [address] [place] [address] Historical LMR Provider 06/20/17 09/07/21 documented as of this encounter Additional Source Comments The information contained in this document represents components of the legal health record. It is not the complete legal health record.[facility]
--- OUTSIDE RECORDS SUMMARY | 2025-05-05 07:54 | XMS_ITS | Encounter Summary ---
Author Organization [facility] Address [address] [place] [address] Phone Care Team Providers Care Tractor Expert Name Role Phone Silvana Funes MD Primary Care Provid er Encounter Details Date Type Department Care Team (Late st Contact Info) Description 10/27/2024 Procedure Pass [facility] [address] [place] [address] Social History Tobacco Use Types Packs/Day Years [...] Diagnoses Not on filedocumented in this encounter Care Teams Tractor Expert Relationship Specialty Start Date End Date Silvana Funes MD [address] [place] [address] PCP - General Internal Medicine 03/04/21 documented as of this encounter Additional Source Comments The information contained in this document represents components of the legal health record. It is not the complete legal health record.[facility]
--- OUTSIDE RECORDS SUMMARY | 2025-05-05 07:54 | XMS_ITS | Encounter Summary ---
Author Organization [facility] Address [address] [facility] [address] [place] [address] Phone Care Team Providers Care Printing Press Machinist Name Role Phone Guille Conklin MD Unavailable Marti Balderas MD Primary Care Provider [phone] Pcp, Unknown Primary Care Provider Unavailabl e Silvana Funes MD Primary Care Provid er Encounter Details Date Type Department Care Team (Late st Contact Info) Description 05/10/2019 Ancillary Orders Virtual Department [address] [place] [address] Deonte Iasacs MD [address] [place] [id number] [email or web address] Elevated alkaline phosphatase level Social History Tobacco Use Types Packs/Day Years [...] documented as of this encounter Results * US ABDOMEN LIMITED RIGHT UPPER QUADRANT (05/10/2019 10:02 AM EDT) Anatomical Region Laterality Modality Abdomen Ultrasound 05/10/2019 10:1 5 AM EDT Impressions 05/10/2019 10:17 AM EDT 1. Mild intra and extrahepatic biliary dilatation. No evidence of choledocholithiasis. 2. Gallbladder is not definitively visualized. It may be filled with multiple shadowing gallstones obscuring the lumen and wall. CT abdomen is recommended. 3. Hepatic steatosis. POS [id number] Narrative 05/10/2019 10:17 AM EDT COMPARISON: None. LIMITED ABDOMEN ULTRASOUND FINDINGS: Liver: Inhomogeneous and mildly echogenic. No masses. Mild intrahepatic ductal dilatation. Gallbladder/Biliary Tree: Gallbladder is not definitively visualized. It may be filled with multiple shadowing gallstones obscuring the lumen and wall. The common bile duct measures 1 cm which is dilated. Pancreas: Imaged pancreas normal. The pancreatic tail is obscured by bowel gas. Right Kidney: No hydronephrosis. Proximal abdominal aorta/IVC: Unremarkable. Procedure Note Jerardo Lopez MD - 05/10/2019 COMPARISON: None. LIMITED ABDOMEN ULTRASOUND FINDINGS: Liver: Inhomogeneous and mildly echogenic. No masses. Mild intrahepaticductal dilatation. Gallbladder/Biliary Tree: Gallbladder is not definitively visualized. Itmay be filled with multiple shadowing gallstones obscuring the lumen andwall. The common bile duct measures 1 cm which is dilated. Pancreas: Imaged pancreas normal. The pancreatic tail is obscured bybowel gas. Right Kidney: No hydronephrosis. Proximal abdominal aorta/IVC: Unremarkable. IMPRESSION: 1. Mild intra and extrahepatic biliary dilatation. No evidence ofcholedocholithiasis. 2. Gallbladder is not definitively visualized. It may be filled withmultiple shadowing gallstones obscuring the lumen and wall. CT abdomen isrecommended. 3. Hepatic steatosis. POS [id number] us Deonte Isaacs MD IM US ABDOMEN Final R esult documented in this encounter Visit Diagnoses Diagnosis Elevated alkaline phosphatase level Elevated alkaline phosphatase level documented in this encounter Additional Health Concerns Infection Onset Date Last Indicated Resolved Time CoV-Risk Comment:Per note documentation 10/24/2024 10/24/2024 9:18 AM EST documented as of this encounter Care Teams Printing Press Machinist Relationship Specialty Start Date End Date Marti Balderas MD [address] [place] [address], 2[address] [place] [address] PCP - General Internal Medicine 05/10/19 01/17/20 Pcp, Unknown PCP - General 01/18/20 03/03/21 Silvana Funes MD [address] [place] [address] PCP - General Internal Medicine 03/04/21 Guille Conklin MD [address] [facility], [address] [place] [address] [email or web address] Historical LMR Provider 06/20/17 09/07/21 documented as of this encounter Additional Source Comments The information contained in this document represents components of the legal health record. It is not the complete legal health record.[facility]
--- OUTSIDE RECORDS SUMMARY | 2025-05-05 07:54 | XMS_ITS | Encounter Summary ---
Author Organization [facility] Address [address] [place] [address] Phone Care Team Providers Care Missile Tracking Technician Name Role Phone Silvana Funes MD Primary Care Provid er Encounter Details Date Type Department Care Team (Late st Contact Info) Description 03/27/2022 Procedure Pass [facility] [address] [place] [address] Social History Tobacco Use Types Packs/Day Years [...] 4:14 PM EDT Emmanuel Carvalho RN * [place] Suicide Severity Rating Scale (Screener/Recent Self-Report) Question [...] documented as of this encounter Care Teams Missile Tracking Technician Relationship Specialty Start Date End Date Silvana Funes MD [address] [place] [address] PCP - General Internal Medicine 03/04/21 documented as of this encounter Additional Source Comments The information contained in this document represents components of the legal health record. It is not the complete legal health record.[facility]
--- OUTSIDE RECORDS SUMMARY | 2025-05-05 07:54 | XMS_ITS | Encounter Summary ---
Author Organization [facility] Address [address] [facility] [address] [place] [address] Phone Care Team Providers Care Addictions Recovery Specialist Name Role Phone Silvana Funes MD Primary Care Provid er Encounter Details Date Type Department Care Team (Late st Contact Info) Description 10/23/2024 Procedure Pass [facility], Ct Scan - [address] [address] Social History Tobacco Use Types Packs/Day Years [...] Date of Assessment Author No Risk Indicated 10/23/2024 5:45 PM Shayla Kim RN * [place] Suicide Severity Rating Scale (Screener/Recent Self-Report) Question Answer Date of Assessment Author 1. Wish to be (Past 1 Month) No 025 5:45 PM Shayla Juan RN 2. Non-Specific Active Suici sharon Thoughts (Past 1 Month) No 10/23/2024 5:45 PM Shayla Juan RN 6. Suicidal Behavior (Lifetime) No 5:45 PM Shayla Juan RN documented as of this encounter Plan of Treatment Not on file documented as of this encounter Visit Diagnoses Not on filedocumented in this encounter Additional Health Concerns Infection Onset Date Last Indicated Resolved Time CoV-Risk Comment:Per note documentation 10/24/2024 10/24/2024 9:18 AM EST documented as of this encounter Care Teams Addictions Recovery Specialist Relationship Specialty Start Date End Date Silvana Fnues MD [address] [place] [address] PCP - General Internal Medicine 03/04/21 documented as of this encounter Additional Source Comments The information contained in this document represents components of the legal health record. It is not the complete legal health record.[facility]
--- OUTSIDE RECORDS SUMMARY | 2025-05-05 07:54 | XMS_ITS | Clinical Summary ---
Author Organization [facility] Address [address] [facility] [address] [facility] [address] [place] [address] Phone Care Team Providers Care Online Health And Fitness Coach Name Role Phone Silvana Funes MD Primary Care Provid er Allergies No known active allergies Medications meclizine (ANTIVERT) 25 mg tablet Take 25 mg by mouth 3 (three) times a day as needed. 01/09/2022 Active losartan (COZAAR) 50 MG tablet Take 1 tablet (50 mg total) by mouth daily. Orally 30 tablet 2 10/30/2024 Active Active Problems Problem Noted Date Diagnosed Date Hypertension 10/26/2024 Assessment & Plan (10/29/2024 5:38 PM EST): Restarted patient's home medications. Continue to monitor blood pressure. Still mildly elevated at this time but she is hospitalized and this is not completely unexpected. Assessment & Plan (10/24/2024 3:21 AM EST): She has not been able to get her prescription for 3 months she reports We will no restart today, but I have ordered her home Rx on hold and it could be restarted postoperativly if appropriate She should be discharged with a rx for such if needed Assessment & Plan (03/27/2022 7:25 PM EDT): Hold antihypertensives in the setting of maintaining permissive hypertension for possible stroke Class 1 obesity 10/26/2024 Thrombocytopenia 10/25/2024 Assessment & Plan (10/29/2024 5:38 PM EST): Likely secondary to shock and severe sepsis. Will monitor closely. No active signs of bleeding. Choledocholithiasis 10/24/2024 Assessment & Plan (10/29/2024 5:38 PM EST): Appreciate GI evaluation. Will need GI follow-up as an outpatient. Assessment & Plan (10/24/2024 3:21 AM EST): This is now her third episode of similar. First was in 2019, second episode treated with biliary stenting at [facility] [place]20[place] and now again presenting with CBD stones. Interestingly she reports no history of abdominal surgery and ultrasound in [address] in 2020 and again now report no visualized gallbladder. She will be n.p.o. 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 She no longer has local pain and her blood pressure is controlled. These are usually benign and treatment options include observation, surgery (combined approach with neurosurgery and ENT) or radiosurgery. The next step is to determine whether or not this is producing catecholamines as that would push towards operative treatment. I would like for her to collect 24-hour urine sample for catecholamines and metanephrines. We can also check serum metanephrines. I can follow-up with her once this information is available. We also discussed the MRA findings of infundibulum versus aneurysm and I believe this is an infundibulum. I reassured her that she need not worry about aneurysm and no surveillance imaging is needed for that. Resolved Problems Problem Noted Date Diagnosed Date Resolved Date Suppurative cholangitis 10/25/2024 03/0 08/2024 SANJUANITA (acute kidney injury) 10/25/2024 Lactic acidosis 10/25/2024 10/29/2024 Shock liver 10/25/2024 10/30/2024 Assessment & Plan (10/29/2024 5:38 PM EST): Continues to slowly resolve. Blood pressure stable. Acute respiratory failure with hypoxia 10/25/2024 10/26/2024 Abnormal LFTs 10/25/2024 10/30/2024 Assessment & Plan (10/29/2024 5:38 PM EST): Related to shock liver above. Trending in the right direction. Elevated INR 10/25/2024 10/30/2024 Assessment & Plan (10/29/2024 5:38 PM EST): Also related to shock liver, also trending in the right direction. No acute intervention needed. Metabolic acidosis 10/25/2024 Severe sepsis 10/24/2024 10/29/2024 Acute obstructive cholangitis 10/24/2024 10/30/2024 Assessment & Plan (10/29/2024 5:38 PM EST): Intervention with ERCP and now draining. Pain almost entirely resolved. Antibiotics for 2 weeks given bacteremia. Blood culture surveillance from 10/27 are still negative, and therefore will transition to oral antibiotics today for complete 14-day course. Appreciate infectious disease consultation and plan. Stroke-like symptoms 03/27/2022 025 Assessment & Plan (03/27/2022 7:41 PM EDT): word finding difficulty and dizziness today while at work. 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 She states she has tried to stay hydrated, had coffee before the episode happened. Has had episodes of dizziness in the past and sometimes requires meclizine The patient denies any unilateral weakness or numbness, visual change, or difficulty swallowing she and her son states that she is being followed by a doctor Rach at [facility] for what they described is a benign tumor, gets serial MRIs, I could not access the [facility] records CT CTA on arrival show no masses or acute pathology My attending physician spoke with the [place] provider[place] [facility] [place] although the note is not in the chart, MRI was recommended. Plan -MRI, I will also order contrast given her elevated history of brain mass -We will request records from [facility] -Echocardiogram -Neurochecks -TSH -orthostatic vital signs -PT OT -Aspirin statin -lipid panel A1c -environmental monitoring specialist -Follow-up [facility] [place] TIA (transient ischemic attack) 03/27/2022 10/29/2024 Hepatitis 10/29/2024 Assessment & Plan (03/27/2022 7:26 PM EDT): Patient was seen in our ED last year on 03/04 for abnormal LFTs, fever, obstructive LFT pattern, CT showed congenitally absent gallbladder as well as diffuse thickening of the colonic wall She had been sent to [facility] at that time for ERCP that stent was placed and later removed. Patient follows with gastroenterology and states this is stable, transaminitis is chronic Platelet count on arrival 116, last year prior to her ERCP platelet count was 177. We are requesting medical records as above, I suspect that the thrombocytopenia is chronic. Denies regular alcohol intake Immunizations Immunization Administration Dates Next Due COVID-19 (Pre-06/22) Moderna Vaccine, mRNA, PF 1 10/05/2020 Social History Tobacco Use Types Packs/Day Years [...] PM EDT Sexual Orientation Not on file Last Filed Vital Signs Vital Sign Reading Time Taken Comments Blood Pressure 164/81 10/30/2024 8:05 AM EST Pulse 62 10/30/2024 8:05 AM EST Temperature 36.6 C (97.9 F) 10/30/2024 7:20 AM EST Respiratory Rate 16 10/30/2024 7:20 AM EST Oxygen Saturation 96% 10/30/2024 7:20 AM EST Inhaled Oxygen Concentration - - Weight 79.9 kg (176 lb 1.6 oz) 10/30/2024 6:00 A M EST Height 152.4 cm (5') 10/23/2024 5:42 PM EST Body Mass Index 34.39 10/23/2024 5:42 PM EST Plan of Treatment Health Maintenance Due Date Last Done Comments Adult Td,Tdap Booster 1958 BLOOD PRESSURE 1958 DEPRESSION SCREENING 1970 HEPATITIS C SCREENING 1976 PNEUMOCOCCAL VACCINES (50+ years) (1 of 2 - PCV) 1977 MAMMOGRAM 1998 COLOGUARD 11/30/2003 COLONOSCOPY 11/30/2003 COLORECTAL CANCER SCREENING 11/30/2003 FIT TEST 11/30/2003 FOBT 11/30/2003 SIGMOIDOSCOPY 11/30/2003 VIRTUAL COLONOSCOPY 11/30/2003 ZOSTER VACCINES (1 of 2) 2008 RSV VACCINE (1 - Risk 60-74 years 1-dose series) 2018 OSTEOPOROSIS SCREENING INITIAL (ONE-TIME) 11/30/2023 INFLUENZA VACCINE (#1) 2025 COVID-19 VACCINE ( season) 2025 08/04/2021, 02/05/2021, 01/15/2021 CREATININE LEVEL 10/30/2025 10/30/2024, 08/2024, 10/28/2024, Additional history exists POTASSIUM LEVEL 10/30/2025 10/30/2024, 03/0 08/2024, 10/28/2024, Additional history exists LIPID PANEL 03/28/2027 03/28/2022 SCREENING FOR DIABETES 10/30/2027 10/29/2024 SMOKING STATUS SCREENING (Once After 26 Yrs) Completed 10/24/2024 HEPATITIS A VACCINES Aged Out No long er eligible based on patient's age to complete this topic HIB VACCINES Aged Out No longer eligi ble based on patient's age to complete this topic MENINGOCOCCAL VACCINES (ACWY) Aged Out No longer eligible based on patient's age to complete this topic MENINGOCOCCAL VACCINES (B) Aged Out N o longer eligible based on patient's age to complete this topic Medical Devices Not on file Procedures Procedure Name Priority Date/Time Associated Diagnosis Comments COMPREHENSIVE METABOLIC PANEL Routine 10/30/2024 4:18 AM EST LIPID PANEL Routine 03/28/2022 6:21 AM EDT from Last 3 Months or Most Recently Relevant to Health Maintenance Results * (ABNORMAL) Comprehensive metabolic panel (10/30/2024 4:18 AM EST) SODIUM 138 133 - 146 mmol/L [facility] POTASSIUM 3.7 3.3 - 5.1 mmol/L [facility] CHLORIDE 103 96 - 108 mmol/L [facility] CO2 24 21 - 35 mmol/L [facility] BUN 24(H) 6 - 19 mg/dL [facility] CREATININE 1.40 0.5 - 1.5 mg/dL [facility] GLUCOSE 142(H) 70 - 99 mg/dL [facility] ALBUMIN 3.1(L) 3.9 - 4.8 g/dL [facility] TOTAL PROTEIN 6.0(L) 6.5 - 8.0 g/dL [facility] CALCIUM 9.4 8.4 - 10.3 mg/dL [facility] ALKALINE PHOSPHATASE 169(H) 39 - 117 U/L [facility] TOTAL BILIRUBIN 1.4(H) 0.0 - 1.2 mg/dL [facility] AST 29 0 - 37 U/L [facility] ALT 84(H) 0 - 40 U/L [facility] GLOBULIN 2.9 1 - 4.8 g/dL [facility] EGFR 42(L) >59 mL/min/1.7 3m2 [facility] Comment:Estimated glomerular filtration rate calculated using the CKD-EPI refit equation. ANION GAP 15 10 - 20 mmol/L [facility] Blood 10/30/2024 4:18 AM EST 10/30/2024 4:33 AM EST us Eran Partida PA-C, MS LAB BLOOD ORDERABLES Fi nal Result [address] [address] * (ABNORMAL) Lipid panel (03/28/2022 6:21 AM EDT) HDL 61 mg/dL [facility] Comment: Interpretation <40 mg/dL: Low HDL cholesterol (major risk factor for CHD) Greater than or equal to 60 mg/dL: High HDL cholesterol ( negative risk factor for CHD) HDL - cholesterol is affected by a number of factors, e.g. smoking, excerise, hormones, sex and age. CHOLESTEROL 164 0 - 240 mg/dL [facility] TRIGLYCERIDES 62 30 - 160 mg/dL [facility] LDL 91 50 - 129 mg/dL [facility] Comment: LDL levels in terms of risk for coronary heart disease: <100 mg/dL: Optimal 100-129 mg/dL: Near or above optimal 130-159 mg/dL: Borderline high 160-189 mg/dL: High >190 mg/dL: Very High CARDIAC RISK RATIO 2.7(L) 3.3 - 4.4 C [facility] Blood 03/28/2022 6:21 AM EDT 03/28/2022 6:44 AM EDT us Ceci Flynn NP LAB BLOOD ORDERABLES Fi nal Result [address] [place] [address] from Last 3 Months or Most Recently Relevant to Health Maintenance Insurance MEDICARE A MEDICARE A MEDICARE A MEDICARE A MEDICARE A MEDICARE A MEDICARE A MEDICARE A MEDICARE A Advance Directives For more information, please contact: [phone] (9AM - 5PM 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 Healthcare Proxy 10/30/2024 * Full Code (Latest Code Status on File) Date Activated Date Inactivated Comments 10/24/2024 2:56 AM Question Answer Comments Code Status Confirmed With: Patient * Full Code Date Activated Date Inactivated Comments 03/27/2022 10:34 PM 10/24/2024 2:56 AM Question Answer Comments Code Status Confirmed With: PatientFamily Healthcare Agents on File Name Relationship Healthcare Agent Relationshi p Communication Tiki Boone Sister Alternate Health care Agent (Proxy form on file) Dago Llamas Child .Primary Health Care Agent (Proxy form on file) Care Teams Online Health And Fitness Coach Relationship Specialty Start Date End Date Silvana Funes MD [address] [place] [address] PCP - General Internal Medicine 03/04/21 Additional Source Comments The information contained in this document represents components of the legal health record. It is not the complete legal health record.[facility]
--- OUTSIDE RECORDS SUMMARY | 2025-05-05 07:54 | XMS_ITS | Encounter Summary ---
Author Organization [facility] Address [address] [facility] [address] [place] [address] Phone Care Team Providers Care Director Of Respiratory Therapy Name Role Phone Silvana Funes MD Primary Care Provid er Encounter Details Date Type Department Care Team (Late st Contact Info) Description 03/28/2022 Procedure Pass [facility], [address] [address] Social History Tobacco Use Types Packs/Day Years [...] documented as of this encounter Care Teams Director Of Respiratory Therapy Relationship Specialty Start Date End Date Silvana Funes MD [address] [place] [address] PCP - General Internal Medicine 03/04/21 documented as of this encounter Additional Source Comments The information contained in this document represents components of the legal health record. It is not the complete legal health record.[facility]
== END 2025-05-05 08:20 | disposition home or self-care (01) ==
LOC: HO.HMCH 07:51
PROVIDERS: PCP Internal Medicine; Visit Provider Nurse Practitioner Family
DX: A41.9 Sepsis, unspecified organism (principal); R65.21 Severe sepsis with septic shock; N39.0 Urinary tract infection, site not specified; I10 Essential (primary) hypertension

== ENCOUNTER → 2025-05-05 07:51 | Outpatient (BNVA) | payer MEDICARE, SELFPAY | PROVIDERS: PCP Internal Medicine; Visit Provider Nurse Practitioner Family | DX: I10 Essential (primary) hypertension (principal); N39.0 Urinary tract infection, site not specified; Z86.19 Personal history of other infectious and parasitic diseases | CPT/HCPCS: 96127; 99495 ==

== ENCOUNTER → 2025-05-09 17:46 | Outpatient (BNV) | payer MEDICARE, SELFPAY | PROVIDERS: PCP Internal Medicine; Visit Provider Radiology Diagnostic Radiology | DX: R51.9 Headache, unspecified (principal); R22.1 Localized swelling, mass and lump, neck | CPT/HCPCS: 70551 ==

== ENCOUNTER 2025-05-09 17:47 | Outpatient (REF) | payer MEDICARE, SELFPAY ==
--- NOTE | ~2025-05-09 | MR_ITS ---
EXAMINATION: MR BRAIN WITHOUT IV CONTRAST HISTORY: R51.9 - Headache, unspecified TECHNIQUE: Sagittal T1 and FLAIR, and axial T1, FLAIR, T2, gradient echo, and diffusion weighted MR images of the brain were obtained. COMPARISON: Comparison is made with the prior examination dated 12/05/2021. FINDINGS: The pituitary is normal in size. The cerebellar tonsils are normally located. Again seen are scattered periventricular and subcortical white matter hyperintensities on the FLAIR and T2-weighted images. These are nonspecific but often seen in the setting of small vessel ischemic disease. There is no mass effect or midline shift. No intra or extra-axial fluid collections are identified. There are no foci of restricted diffusion. Again seen is a 1.3 cm mass of The left jugular foramen. Normal vascular flow voids are noted in the basilar and carotid arteries. The visualized paranasal sinuses are clear. MR/MR head/brain wo con IMPRESSION: 1. No acute intracranial abnormality. 2. 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
== END 2025-05-09 17:48 | disposition home or self-care (01) ==
LOC: HO.MRI 17:47
PROVIDERS: PCP Internal Medicine; Visit Provider Internal Medicine
DX: R51.9 Headache, unspecified (principal)
CPT/HCPCS: 70551

== ENCOUNTER 2025-05-10 07:57 | Outpatient (REF) | payer MEDICARE, SELFPAY ==
[2025-05-10 10:03] LABS: HBS Num1 0.92 mIU/mL (0-7.99); HBc Num1 0.14 S/CO (0.00-0.79); HBsAGNum1 0.47 S/CO (0.00-0.99); Hepatitis A Antibody IgM 0.38 Index (0-0.79); Hepatitis B Surface Antigen Negative (Negative); ~HepC Num1 0.09 S/CO (0.00-0.79); ~Hepatitis A Antibody IgM Nonreactive (Nonreactive); ~Hepatitis B Surface Antibody NONREACTIVE (Nonreactive); ~Hepatitis C Antibody Nonreactive (Nonreactive)
== END 2025-05-10 07:58 | disposition home or self-care (01) ==
LOC: HO.LAB 07:57
PROVIDERS: Visit Provider Internal Medicine
DX: Z11.59 Encounter for screening for other viral diseases (principal); K74.60 Unspecified cirrhosis of liver; Z72.89 Other problems related to lifestyle
CPT/HCPCS: 36415; 86704; 86706; 86709; 86803; 87340

== ENCOUNTER 2025-05-17 07:50 | Day surgery (SDC) | payer MEDICARE, SELFPAY ==
--- OUTSIDE RECORDS SUMMARY | 2025-05-09 12:16 | XMS_ITS | Encounter Summary ---
Author Organization [facility] Address [address] [facility] [address] [place] [address] Phone Care Team Providers Care University Services Program Associate Name Role Phone Guille Conklin MD Unavailable Ana Paula Franz DO Primary Care Provider [phone] Marti Balderas MD Primary Care Provider [phone] Pcp, Unknown [facility] Silvana Funes MD Primary Care Provid er Reason for Referral * - Closed Specialty Diagnoses / Procedures Referred By Olimpia mckay Referred To Contact Diagnoses Abnormal electrocardiogram Procedures Stress Test Exercise Ana Paula Franz DO Phone: tel: fax: [email or web address] Referral ID Status Reason Start Date Expiration Date Visits Re quested Visits Authorized [id number] Closed 06/03/2018 06/03/2019 1 1 Encounter Details Date Type Department Care Team (Latest Contact Info) Description 06/03/2018 Transcribe [facility] [address] [facility] [address], [address] [place] [address] Nisreen Jordan NP [address] [place] [address] Abnormal electrocardiogram (Primary Dx) Social History Tobacco [...] Florentino NP, MPH . us Ana Paula Frazn DO CV STRESS ORDERABLES Final Res ult documented in this encounter Visit Diagnoses Diagnosis Abnormal electrocardiogram- Primary Nonspecific abnormal electrocardiogram (ECG) (EKG) Abnormal electrocardiogram Nonspecific abnormal electrocardiogram (ECG) (EKG) documented in this encounter Additional Health Concerns Infection Onset Date Last Indicated Resolved Time CoV-Risk Comment:Per note documentation 10/24/2024 10/24/2024 9:18 AM EST documented as of this encounter Care Teams University Services Program Associate Relationship Specialty Start Date End Date Ana Paula Franz DO [address] [place] [address] PCP - General Internal Medicine 06/03/18 05/09/19 Marti Balderas MD [address] [place] [address], 2nd [place] [address] PCP - General Internal Medicine 05/10/19 01/17/20 Pcp, Unknown PCP - General 01/18/20 03/03/21 Silvana Funes MD [address] [place] [address] PCP - General Internal Medicine 03/04/21 Guille Conklin MD [address] [facility], [address] [place] [address] Historical LMR Provider 06/20/17 09/07/21 documented as of this encounter Additional Source Comments The information contained in this document represents components of the legal health record. It is not the complete legal health record.[facility]
--- OUTSIDE RECORDS SUMMARY | 2025-05-09 12:16 | XMS_ITS | Clinical Summary ---
Author Organization [facility] Address [address] [facility] [address] [place] [address] Phone Care Team Providers Care Resource Engineer Name Role Phone Silvana Funes MD [...] second episode treated with biliary stenting at 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 Plan -MRI, I will also order contrast given her elevated history of brain mass -We will request records from [facility] -Echocardiogram -Neurochecks -TSH -orthostatic vital signs -PT OT -Aspirin statin -lipid panel A1c -postpartum nurse -Follow-up [facility] neurology consult TIA (transient ischemic attack) 03/27/2022 10/29/2024 Hepatitis 10/29/2024 Assessment & Plan (03/27/2022 7:26 PM EDT): Patient was seen in our ED last year on 03/04 for abnormal LFTs, fever, obstructive LFT pattern, CT showed congenitally absent gallbladder as well as diffuse thickening of the colonic wall She had been sent to [facility] at that time for ERCP that [...] EST) SODIUM 138 133 - 146 mmol/L [facility] POTASSIUM 3.7 3.3 - 5.1 mmol/L [facility] CHLORIDE 103 96 - 108 mmol/L [facility] CO2 24 21 - 35 mmol/L [facility] BUN 24(H) 6 - 19 mg/dL [facility] CREATININE 1.40 0.5 - 1.5 mg/dL [facility] GLUCOSE 142(H) 70 - 99 mg/dL [facility] ALBUMIN 3.1(L) 3.9 - 4.8 g/dL [facility] TOTAL PROTEIN 6.0(L) 6.5 - 8.0 g/dL [facility] CALCIUM 9.4 8.4 - 10.3 mg/dL [facility] ALKALINE PHOSPHATASE 169(H) 39 - 117 U/L [facility] TOTAL BILIRUBIN 1.4(H) 0.0 - 1.2 mg/dL [facility] AST 29 0 - 37 U/L [facility] ALT 84(H) 0 - 40 U/L [facility] GLOBULIN 2.9 1 - 4.8 g/dL [facility] EGFR 42(L) >59 mL/min/1.7 3m2 [facility] Comment:Estimated glomerular filtration rate calculated using the CKD-EPI refit equation. ANION GAP 15 10 - 20 mmol/L [facility] Blood 10/30/2024 4:18 AM EST 10/30/2024 4:33 AM EST us Eran Partida PA-C, MS LAB BLOOD ORDERABLES Fi nal Result [address] [address] * (ABNORMAL) Lipid panel (03/28/2022 6:21 AM EDT) HDL 61 mg/dL [facility] Comment: Interpretation <40 mg/dL: Low HDL cholesterol (major risk factor for CHD) Greater than or equal to 60 mg/dL: High HDL cholesterol ( negative risk factor for CHD) HDL - cholesterol is affected by a number of factors, e.g. smoking, excerise, hormones, sex and age. CHOLESTEROL 164 0 - 240 mg/dL [facility] TRIGLYCERIDES 62 30 - 160 mg/dL [facility] LDL 91 50 - 129 mg/dL [facility] Comment: LDL levels in terms of risk for coronary heart disease: <100 mg/dL: Optimal 100-129 mg/dL: Near or above optimal 130-159 mg/dL: Borderline high 160-189 mg/dL: High >190 mg/dL: Very High CARDIAC RISK RATIO 2.7(L) 3.3 - 4.4 [facility] Blood 03/28/2022 6:21 AM EDT 03/28/2022 6:44 AM EDT us Ceci Flynn NP LAB BLOOD ORDERABLES Fi nal Result [address] [place] [address] from Last 3 Months or Most Recently Relevant to Health Maintenance Insurance MEDICARE A Member Subscriber Plan / Payer (Ef fective 2023-Present) Name:Aarti Boone Member ID:[id number] Relation to Subscriber:Self Name:Aarti Boone Subscriber ID:[id number] Payer ID:[id number] Group ID:Not on file Type:Medicare Address: [facility] [address] [place] [address] MEDICARE A Member Subscriber Plan / Payer (Ef fective 2023-Present) Name:Aarti Boone Member ID:[id number] Relation to Subscriber:Self Name:Aarti Boone Subscriber ID:[id number] Payer ID:[id number] Group ID:Not on file Type:Medicare Address: [facility] [address] [place] [address] MEDICARE A Member Subscriber Plan / Payer (Ef fective 2023-Present) Name:Aarti Boone Member ID:[id number] Relation to Subscriber:Self Name:Aarti Boone Subscriber ID:[id number] Payer ID:[id number] Group ID:Not on file Type:Medicare Address: [facility] [address] [place], [place] [id number] MEDICARE A Member Subscriber Plan / Payer (Ef fective 2023-) Name:Aarti Boone Member ID:[id number] Relation to Subscriber:Self Name:Aarti Boone Subscriber ID:[id number] Payer ID:[id number] Group ID:Not on file Type:Medicare Address: [facility] [address] [place] [address] MEDICARE A Member Subscriber Plan / Payer ( fective 2023-) Name:Aarti Boone Member ID:[id number] Relation to Subscriber:Self Name:Aarti Boone Subscriber ID:[id number] Payer ID:[id number] Group ID:Not on file Type:Medicare Address: [facility] [address] [place] [address] MEDICARE A Member Subscriber Plan / Payer (Ef fective 2023-) Name:Aarti Boone Member ID:[id number] Relation to Subscriber:Self Name:Aarti Boone Subscriber ID:[id number] Payer ID:[id number] Group ID:Not on file Type:Medicare Address: [facility] [address] [place] [address] MEDICARE A MEDICARE A MEDICARE A Advance Directives For more information, please contact: [phone] (9AM - 5PM [facility], Thursday-Thursday) Documents on File Type Date Recorded Patient Clerical Adviser Expl anation Healthcare Proxy 10/30/2024 * Full [...] Agent (Proxy form on file) Care Teams Resource Engineer Relationship Specialty Start Date End Date Silvana Funes MD [address] [place] [address] PCP - General Internal Medicine 03/04/21 Additional Source Comments The information contained in this document represents components of the legal health record. It is not the complete legal health record.[facility]
--- OUTSIDE RECORDS SUMMARY | 2025-05-09 12:16 | XMS_ITS | Encounter Summary ---
Author Organization [facility] Address [address] [place] [address] Phone Care Team Providers Care Sample Paster Name Role Phone Silvana Funes MD Primary Care Provid er Encounter Details Date Type Department Care Team (Late st Contact Info) Description 03/27/2022 Procedure Pass [facility], [address] [address] Social History Tobacco Use Types Packs/Day Years [...] 4:14 PM EDT Emmanuel Carvalho RN * [place] Suicide Severity Rating Scale (Screener/Recent Self-Report) Question [...] documented as of this encounter Care Teams Sample Paster Relationship Specialty Start Date End Date Silvana Funes MD [address] [place] [address] PCP - General Internal Medicine 03/04/21 documented as of this encounter Additional Source Comments The information contained in this document represents components of the legal health record. It is not the complete legal health record.[facility]
--- OUTSIDE RECORDS SUMMARY | 2025-05-09 12:16 | XMS_ITS | Encounter Summary ---
Author Organization [facility] Address [address] [place] [address] Phone Care Team Providers Care Corporate Webmaster Name Role Phone Silvana Funes MD Primary Care Provid er Encounter Details Date Type Department Care Team (Late st Contact Info) Description 03/27/2022 Procedure Pass [facility] [address] [place] [address] Social History Tobacco Use Types Packs/Day Years [...] 4:14 PM EDT Emmanuel Carvalho RN * [place] Suicide Severity Rating Scale (Screener/Recent Self-Report) Question [...] documented as of this encounter Care Teams Corporate Webmaster Relationship Specialty Start Date End Date Silvana Funes MD [address] [place] [address] PCP - General Internal Medicine 03/04/21 documented as of this encounter Additional Source Comments The information contained in this document represents components of the legal health record. It is not the complete legal health record.[facility]
--- OUTSIDE RECORDS SUMMARY | 2025-05-09 12:16 | XMS_ITS | Encounter Summary ---
Author Organization [facility] Address [address] [place] [address] Phone Care Team Providers Care Supervisor Coil Winding Name Role Phone Silvana Funes MD Primary Care Provid er Encounter Details Date Type Department Care Team (Late st Contact Info) Description 03/27/2022 Procedure Pass [facility], Ct Scan - [address] [address] Social History Tobacco Use Types Packs/Day Years [...] 4:14 PM EDT Emmanuel Carvalho RN * [place] Suicide Severity Rating Scale (Screener/Recent Self-Report) Question [...] documented as of this encounter Care Teams Supervisor Coil Winding Relationship Specialty Start Date End Date Silvana Funes MD [address] [place] [address] PCP - General Internal Medicine 03/04/21 documented as of this encounter Additional Source Comments The information contained in this document represents components of the legal health record. It is not the complete legal health record.[facility]
--- OUTSIDE RECORDS SUMMARY | 2025-05-09 12:16 | XMS_ITS | Encounter Summary ---
Author Organization [facility] Address [address] [facility] [address] [place] [address] Phone Care Team Providers Care Freight Clerk Name Role Phone Silvana Funes MD Primary Care Provid er Encounter Details Date Type Department Care Team (Late st Contact Info) Description 10/24/2024 Procedure Pass [facility] Admitting Dept Virtual Department [address] [place] [address] Social History Tobacco Use Types Packs/Day Years [...] documented as of this encounter Care Teams Freight Clerk Relationship Specialty Start Date End Date Silvana Funes MD [address] [place] [address] PCP - General Internal Medicine 03/04/21 documented as of this encounter Additional Source Comments The information contained in this document represents components of the legal health record. It is not the complete legal health record.[facility]
--- OUTSIDE RECORDS SUMMARY | 2025-05-09 12:16 | XMS_ITS | Encounter Summary ---
Author Organization [facility] Address [address] [place] [address] Phone Care Team Providers Care Cellophane Tester Name Role Phone Silvana Funes MD Primary Care Provid er Encounter Details Date Type Department Care Team (Late st Contact Info) Description 03/27/2022 Procedure Pass [facility], Ct Scan - [address] [address] Social History Tobacco Use Types Packs/Day Years [...] 4:14 PM EDT Emmanuel Carvalho RN * [place] Suicide Severity Rating Scale (Screener/Recent Self-Report) Question [...] documented as of this encounter Care Teams Cellophane Tester Relationship Specialty Start Date End Date Silvana Funes MD [address] [place] [address] PCP - General Internal Medicine 03/04/21 documented as of this encounter Additional Source Comments The information contained in this document represents components of the legal health record. It is not the complete legal health record.[facility]
--- OUTSIDE RECORDS SUMMARY | 2025-05-09 12:16 | XMS_ITS | Encounter Summary ---
Author Organization [facility] Address [address] [facility] [address] [place] [address] Phone Care Team Providers Care Professor Of Marketing Name Role Phone Silvana Funes MD Primary Care Provid er Encounter Details Date Type Department Care Team (Late st Contact Info) Description 10/27/2024 Procedure Pass [facility] [address] [place] [address] Social History Tobacco Use Types Packs/Day Years [...] on filedocumented in this encounter Care Teams Professor Of Marketing Relationship Specialty Start Date End Date Silvana Funes MD [address] [place] [address] PCP - General Internal Medicine 03/04/21 documented as of this encounter Additional Source Comments The information contained in this document represents components of the legal health record. It is not the complete legal health record.[facility]
--- OUTSIDE RECORDS SUMMARY | 2025-05-09 12:16 | XMS_ITS | Encounter Summary ---
Author Organization [facility] Address [address] [facility] [address] [place] [address] Phone Care Team Providers Care Art Consultant Name Role Phone Silvana Funes MD Primary Care Provid er Encounter Details Date Type Department Care Team (Late st Contact Info) Description 03/28/2022 Procedure Pass [facility], [address] [address] Social History Tobacco Use Types Packs/Day Years [...] documented as of this encounter Care Teams Art Consultant Relationship Specialty Start Date End Date Silvana Funes MD [address] [place] [address] PCP - General Internal Medicine 03/04/21 documented as of this encounter Additional Source Comments The information contained in this document represents components of the legal health record. It is not the complete legal health record.[facility]
--- OUTSIDE RECORDS SUMMARY | 2025-05-09 12:16 | XMS_ITS | Encounter Summary ---
Author Organization [facility] Address [address] [facility] [address] [place] [address] Phone Care Team Providers Care Iridologist Name Role Phone Silvana Funes MD Primary Care Provid er Encounter Details Date Type Department Care Team (Late st Contact Info) Description 10/23/2024 Procedure Pass [facility], Ct Scan - [address] [address] Social History Tobacco Use Types Packs/Day Years [...] 10/23/2024 5:45 PM Shayla Kim RN * [place] Suicide Severity Rating Scale (Screener/Recent Self-Report) Question [...] documented as of this encounter Care Teams Iridologist Relationship Specialty Start Date End Date Silvana Funes MD [address] [place] [address] PCP - General Internal Medicine 03/04/21 documented as of this encounter Additional Source Comments The information contained in this document represents components of the legal health record. It is not the complete legal health record.[facility]
--- OUTSIDE RECORDS SUMMARY | 2025-05-09 12:16 | XMS_ITS | Encounter Summary ---
Author Organization [facility] Address [address] [facility] [address] [place] [address] Phone Care Team Providers Care Casino Controller Name Role Phone Guille Conklin MD Unavailable Marti Balderas MD Primary Care Provider [phone] Pcp, Unknown Primary Care Provider Unavailabl e Silvana Funes MD Primary Care Provid er Encounter Details Date Type Department Care Team (Late st Contact Info) Description 05/10/2019 Ancillary Orders Virtual Department [address] [place] [address] Deonte Isaacs MD [address] [place] [address] [email or web address] Elevated alkaline phosphatase level Social History [...] abdomen is recommended. 3. Hepatic steatosis. POS [id number] Narrative 05/10/2019 10:17 AM EDT COMPARISON: None. [...] CT abdomen isrecommended. 3. Hepatic steatosis. POS [id number] us Deonte Isaacs MD IM US ABDOMEN Final R esult documented in this encounter Visit Diagnoses Diagnosis Elevated alkaline phosphatase level Elevated alkaline phosphatase level documented in this encounter Additional Health Concerns Infection Onset Date Last Indicated Resolved Time CoV-Risk Comment:Per note documentation 10/24/2024 10/24/2024 9:18 AM EST documented as of this encounter Care Teams Casino Controller Relationship Specialty Start Date End Date Marti Balderas MD [address] [place] [address], 2nd [place] [address] PCP - General Internal Medicine 05/10/19 01/17/20 Pcp, Unknown PCP - General 01/18/20 03/03/21 Silvana Funes MD [address] [place] [address] PCP - General Internal Medicine 03/04/21 Guille Conklin MD [address] [facility], [address] [place] [address] [email or web address] Historical LMR Provider 06/20/17 09/07/21 documented as of this encounter Additional Source Comments The information contained in this document represents components of the legal health record. It is not the complete legal health record.[facility]
--- OUTSIDE RECORDS SUMMARY | 2025-05-09 12:16 | XMS_ITS | Encounter Summary ---
Author Organization [facility] Address [address] [place] [address] Phone Care Team Providers Care Supervisor Channel Process Name Role Phone Guille Conklin MD Unavailable Silvana Funes MD Primary Care Provid er Encounter Details Date Type Department Care Team (Late st Contact Info) Description 03/04/2021 Procedure Pass [facility], Ct Scan - [facility] [address] [place] [address] Social History Tobacco Use Types Packs/Day Years [...] 6:08 PM EDT Avni Dowell, MARIO * [place] Suicide Severity Rating Scale (Screener/Recent Self-Report) Question [...] as of this encounter Care Teams Supervisor Channel Process Relationship Specialty Start Date End Date Silvana Funes MD [address] [place] [address] PCP - General Internal Medicine 03/04/21 Guille Conklin MD [address] [place] [address], [facility] [address] [place] [address] [email or web address] Historical LMR Provider 06/20/17 09/07/21 documented as of this encounter Additional Source Comments The information contained in this document represents components of the legal health record. It is not the complete legal health record.[facility]
--- NOTE | 2025-05-15 13:52 | P.CONAN_ITS ---
Documented by User: Shayla Nj NP 05/15/25 13:59 HPI - Anesthesia Eval Consult details Narrative: 64 yr old female for upper endoscopy, colonoscopy Admitted 04/28-05/01/25 to [facility] for E coli UTI/bacteremia, septic shock- patient febrile T-max 105.1 c/b hypertension d/t flash pulmonary edema after volume resuscitation in ED, required ICU care during stay. Saw PCP for HFU 05/05/25, advised to continue antibxs through completion. 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 pylori test (Acute) Metabolic dysfunction-associated steatotic liver disease (MASLD) (Acute) Bloating (Acute) Transaminitis (Acute) Abnormal ultrasound of abdomen (Acute) Choledocholithiasis (Acute) Left knee pain (Acute) COVID-19 (Acute) Ulnar neuropathy of both upper extremities (Acute) Bilateral primary osteoarthritis of knee (Acute) Class 1 obesity with body mass index (BMI) of 31.0 to 31.9 in adult (Acute) Brain aneurysm (Acute) Cough (Acute) TIA (transient ischemic attack) (Acute) Hospital discharge follow-up (Acute) Thyroid nodule (Acute) Blurry vision (Acute) Class 1 obesity with body mass index (BMI) of 30.0 to 30.9 in adult (Acute) Hypertension (Acute) Tortuosity of artery (Acute) Pure hypercholesterolemia (Acute) Physical exam (Acute) Brain lesion (Acute) Hair loss (Acute) New daily persistent headache (Acute) Polyarthralgia (Acute) Obstructive jaundice (Acute) Past Medical History Medical History (Updated 05/15/25 @ 15:09 by Sarah Palencia, MARIO) Positive H. pylori test Metabolic dysfunction-associated steatotic liver disease (MASLD) Bloating Bilateral primary osteoarthritis of knee Right tennis elbow Degenerative disc disease, lumbar Cough Blurry vision Class 1 obesity with body mass index (BMI) of 30.0 to 30.9 in adult Hypertension Tortuosity of artery Transaminitis Pure hypercholesterolemia Brain lesion Hair loss New daily persistent headache Polyarthralgia Obstructive jaundice Family History Family History Father CAD (coronary artery disease) Mother Stomach cancer Daughter Uterine cancer Son Intestinal disease Surgical History Surgical History (Updated 05/17/25 @ 08:13 by Altagracia Nguyen RN) History of cholecystectomy Hx of colonoscopy History of removal of calculus of renal pelvis through percutaneous nephrostomy History of endoscopy H/O hysterectomy for benign disease Social History Social History Household Members: Family Housing: House Do you presently have visiting nurse or other home services: No Alcohol intake: never Patient Tobacco Use Status: Never used Tobacco Tobacco use type: Cigarette e-Cigarette/Vaping Use: Never Used Second Hand Smoke Exposure: No Advance Directives: No Advance Directives Information Provided: Yes service: No Current occupational status: employed 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 [employer] Current occupational exposures/hazards: No Cognitive needs: No Hearing needs: No Vision needs: Yes (only for reading) Meds Allergies Allergy/AdvReac Type Severity Reaction Status Date / Time No Known Allergies Allergy Verified 05/05/25 07:53 Exam Pertinent Lab Results Pertinent Lab Results: Laboratory Tests 05/01/25 07:34 WBC 9.1 RBC 3.91 L Hgb 12.0 Hct 34.9 L Plt Count 92 L D Sodium 141 Potassium 3.6 BUN 21 H Creatinine 0.85 Documented by User: Soraida Alexandra MD 05/17/25 08:21 [facility] Past Medical History Medical History (Updated 05/15/25 @ 15:09 by Sarah Palencia RN) Positive H. pylori test Metabolic dysfunction-associated steatotic liver disease (MASLD) Bloating Bilateral primary osteoarthritis of knee Right tennis elbow Degenerative disc disease, lumbar Cough Blurry vision Class 1 obesity with body mass index (BMI) of 30.0 to 30.9 in adult Hypertension Tortuosity of artery Transaminitis Pure hypercholesterolemia Brain lesion Hair loss New daily persistent headache Polyarthralgia Obstructive jaundice Family History Family History Father CAD (coronary artery disease) Mother Stomach cancer Daughter Uterine cancer Son Intestinal disease Family history of problems with anesthesia: No Surgical History Surgical History (Updated 05/17/25 @ 08:13 by Altagracia Nguyen RN) History of cholecystectomy Hx of colonoscopy History of removal of calculus of renal pelvis through percutaneous nephrostomy History of endoscopy H/O hysterectomy for benign disease History of Problems with Anesthesia: No Social History Social History Household Members: Family Housing: House Do you presently have visiting nurse or other home services: No Alcohol intake: never Patient Tobacco Use Status: Never used Tobacco Tobacco use type: Cigarette e-Cigarette/Vaping Use: Never Used Second Hand Smoke Exposure: No Advance Directives: No Advance Directives Information Provided: Yes service: No Current occupational status: employed 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 [employer] Current occupational exposures/hazards: No Cognitive needs: No Hearing needs: No Vision needs: Yes (only for reading) Meds Allergies Allergy/AdvReac Type Severity Reaction Status Date / Time No Known Allergies Allergy Verified 05/05/25 07:53 Exam Airway Mallampati Class: II TM Dist: >3cm Neck ROM: Full Heart: rrr Lungs: cta Assessment and Plan Assessment Anesthesia Assessment: Anesthesia Plan Discussed and Chart Reviewed Final Anesthetic Review Family History of Problems with Anesthesia: No History of Problems with Anesthesia: No NPO: Yes ASA Class: II Final Preanesthetic Review: No Changes in Pt Med Stat, Meds/Allgs Chart Reviewed and Consent Obtained/Reviewed Patient Risk: Low Procedure Risk: Intermediate Anesthetic Plan Anesthetic Plan: MAC: Disposition: Standard PACU
[2025-05-15 15:14] VITALS: BMI 32.6
[2025-05-17 08:07] VITALS: BMI 31.8
[2025-05-17 08:19] VITALS: BP 129/70; PULSE 73; RESP 16; TEMP 36.2; O2SAT 95
[2025-05-17] MEDS: Lactated Ringers 1,000 ML 100 ML IVCONT (08:41)
--- NOTE | 2025-05-17 09:04 | P.HPSUR_ITS ---
Pre-Procedural Eval Section A - 24 Hr Update-Section A only Date of Service: 05/17/25 Section B - Complete if H&P > 30 days Chief Complaint: Functional dyspepsia,screening Relevant Family History (Specify if Yes): No Relevant Social History: None Present Medications: see Short Stay Collaborative assessment Medical History: Significant History (Positive H. pylori test Metabolic dysfunction-associated steatotic liver disease (MASLD) Bloating Bilateral primary osteoarthritis of knee Right tennis elbow Degenerative disc disease, lumbar Cough Blurry vision Class 1 obesity with body mass index (BMI) of 30.0 to 30.9 in adult Hypertension Tortuos) History of Previous Operations: Relevant previous surgery/procedure and date(s) (Hx of colonoscopy History of removal of calculus of renal pelvis through percutaneous nephrostomy History of endoscopy H/O hysterectomy for benign diseas) Allergies: Allergies Allergy/AdvReac Type Severity Reaction Status Date / Time No Known Allergies Allergy Verified 05/05/25 07:53 Review of Systems Sugical H&P ROS: Negative: Constitution, Cardiovascular, Respiratory, Neurological, Psychiatric, Hem-Onc, Allergic/Immunologic, Gastrointestinal, Genitourinary, Musculoskeletal, Integumentary, Endocrine and Eyes/Ears/Nose/Thro at Exam Surgical H&P Exam: Normal: HEENT, Normal: Heart, Normal: Lungs, Normal: Extremities, Normal: Abdomen, Normal: Skin and Normal: Neurological Plan Diagnosis/Plan: Unchanged I have reviewed the history and physical and performed a pertinent physical examination on my patient. No changes have occurred unless specified. Time Spent With Patient Time: Total time managing care of this patient today ____ minutes.
--- NOTE | 2025-05-17 09:43 | HO.OPN-COLON ---
Colonoscopy Operative Note Operative Note Date of Service: 05/17/25 Narrative: Operative Information Procedure Description: EGD, Colonoscopy Indication: dyspepsia and screening Anesthesia: MAC FLEXIBLE TRANSORAL UPPER GASTROINTESTINAL ENDOSCOPY AND COLONOSCOPY PROCEDURE NOTE UPPER ENDOSCOPY Consent: Indications for the procedure and potential complications of bleeding, perforation, reaction to medications and missed diagnosis were discussed with the patient and informed consent was obtained. Instrument: Olympus GIF H 190 J mid size upper endoscope Monitoring: Vital signs and clinical assessment, continuous EKG monitoring, Pulse oximetry, Carbon Dioxide monitoring and blood pressure monitoring were done throughout the procedure. Procedure: The patient was placed in the left lateral decubitis position and pre-procedure medications were administered and a bite block was placed. The endoscope was inserted into the mouth and advanced under direct vision to the third part of duodenum. A careful inspection was made as the upper endoscope was withdrawn including a retroflexed examination of the proximal stomach; Findings and interventions are described below. Findings: Larynx:normal Esophagus: GE junction at 35 cm, diaphragm hiatus at 35 cm, lax LES with tongue of barretts appearing mucosa noted, brushings taken, small varices noted which collapsed with air. Stomach: Patchy erythema and few erosions at antrum. Biopsies were obtained incl for h pylori culture. Grade 2 flap valve on retroflexed examination of the cardia. Duodenum: Normal bulb and descending duodenum, Intervention: Biopsies as noted above, brushings COLONOSCOPY Instrument: Olympus variable stiffness pediatric scope 190L Colonoscopy Monitoring: Vital signs and clinical assessment, continuous EKG monitoring, Pulse oximetry, Carbon Dioxide monitoring and blood pressure monitoring were done throughout the procedure. Colon withdrawal time was 10 minutes. Procedure: The patient was placed in the left lateral decubitis position and pre-procedure medications were administered. After a digital rectal examination of the ano-rectum, the video colonoscope was inserted into the rectum and advanced through the colon to the cecum/TI. The colonoscope was slowly withdrawn in a retrograde panoramic fashion and the colon mucosa was carefully examined including a retroflexed view of the rectum. Findings and interventions are described below. Procedure Difficulty:moderate Findings: Terminal Ileum-normal, bx taken Bx taken from right, left and rectum Cecum: edema noted of the mucosa Ascending Colon: patchy erythema and granular mucosa Transverse Colon -normal Descending Colon: 6-7 mm sessile polyp removed with cold snare Sigmoid Colon: patchy erythema and granular mucosa with diverticula noted Rectum: Retroflexion with small internal hemorrhoids, grade I Anorectum - normal Colon preparation: [place] Bowel Preparation Scale Right colon; 2 Transverse colon: 2 Left colon; 2 (0 = Unprepared colon segment with mucosa not seen due to solid stool that cannot be cleared. 1 = Portion of mucosa of the colon segment seen, but other areas of the colon segment not well seen due to staining, residual stool and/or opaque liquid. 2 = Minor amount of residual staining, small fragments of stool and/or opaque liquid, but mucosa of colon segment seen well. 3 = Entire mucosa of colon segment seen well with no residual staining, small fragments of stool or opaque liquid) Impression and Post Procedure Diagnosis: Endoscopy Findings: esophgeal varices esophagitis gastritis lax LES Colonoscopy Findings: diverticulosis colon polyp internal hemorrhoids non specific colitis Plan: Await Pathology results Repeat Colonoscopy in 5 years or earlier if clinically indicated High fiber diet leaflet avoid straining at stool, epsom salts and sitz bath, anusol supps or cream consider repeat imaging of liver and portal vein doppler r/o PVT Above findings were reviewed with the patient and relevant handouts were provided if indicated.
[2025-05-17 09:50] VITALS: BP 96/46; PULSE 70; RESP 24; TEMP 36.3; O2SAT 97
[2025-05-17 10:05] VITALS: BP 98/50; PULSE 54; RESP 14; O2SAT 99
[2025-05-17 10:20] VITALS: BP 119/47; PULSE 59; RESP 14; TEMP 36.4; O2SAT 99
[2025-05-17 12:52] LABS: CDiff Gene PCR POSITIVE (Negative)
[2025-05-17 12:53] LABS: CDIFF Internal ctrl Dots and bkg OK (V); CDiff Toxin Negative (Negative)
[2025-05-18 07:27] LABS: E. coli EAEC Not Detected (Not Detect.); E. coli EPEC Not Detected (Not Detect.); E. coli ETEC Not Detected (Not Detect.); E. coli STEC Not Detected (Not Detect.); Shigella sp./EIEC Not Detected (Not Detect.)
[2025-05-24 01:08] LABS: Lactoferrin, Fecal, Quant. 18.26 mcg/mL (<7.25)
== END 2025-05-17 11:18 | disposition home or self-care (01) ==
PROVIDERS: PCP Internal Medicine; Visit Provider Internal Medicine Gastroenterology
PROC: (CPT 45380; principal; 2025-05-17 09:20)
DX: Z12.11 Encounter for screening for malignant neoplasm of colon (principal); D12.4 Benign neoplasm of descending colon; K52.9 Noninfective gastroenteritis and colitis, unspecified; K57.30 Diverticulosis of large intestine without perforation or abscess without bleeding; K64.8 Other hemorrhoids; K30 Functional dyspepsia; I85.00 Esophageal varices without bleeding; B96.81 Helicobacter pylori [H. pylori] as the cause of diseases classified elsewhere; K22.4 Dyskinesia of esophagus; K20.80 Other esophagitis without bleeding; K29.60 Other gastritis without bleeding; I10 Essential (primary) hypertension; E78.5 Hyperlipidemia, unspecified; E78.00 Pure hypercholesterolemia, unspecified; K76.0 Fatty (change of) liver, not elsewhere classified; Z86.19 Personal history of other infectious and parasitic diseases; Z79.899 Other long term (current) drug therapy
CPT/HCPCS: 45380; 43239; 83631; 87081; 87205; 87324; 87493; 87507; 88305; 88313; 88342; J2704

== ENCOUNTER → 2025-05-17 07:50 | Outpatient (BNV) | payer MEDICARE, SELFPAY | PROVIDERS: PCP Internal Medicine; Visit Provider Internal Medicine Gastroenterology | DX: Z12.11 Encounter for screening for malignant neoplasm of colon (principal); K52.9 Noninfective gastroenteritis and colitis, unspecified; K57.90 Diverticulosis of intestine, part unspecified, without perforation or abscess without bleeding; K64.0 First degree hemorrhoids; D12.4 Benign neoplasm of descending colon; K30 Functional dyspepsia; I85.00 Esophageal varices without bleeding; K20.90 Esophagitis, unspecified without bleeding; K29.70 Gastritis, unspecified, without bleeding; K22.4 Dyskinesia of esophagus | CPT/HCPCS: 43239; 45380; 45385 ==

== ENCOUNTER 2025-06-06 16:41 | Outpatient (AMB) | payer MEDICARE, SELFPAY ==
[2025-06-06 16:47] VITALS: BP 122/88; PULSE 60; TEMP 36.3; O2SAT 98; BMI 32.2
--- NOTE | 2025-06-06 16:47 | MHC.PC.OV ---
Vital Signs 06/06/25 16:47 Height 5 ft Weight 165 lb 2 oz BMI 32.2 BP 122/88 Blood Pressure Location Lt brachial Position Sitting Pulse 60 Pulse Source Pulse Oximeter Temp 97.3 F Temp Source Temporal Artery Scan Pulse Oximetry (%) 98 Oxygen Delivery Method Room Air Intake Visit Reasons: follow up Chemist Pharmaceutical Required: No Accompanied by: Daughter Allergies No Known Allergies Allergy (Verified 06/06/25 17:02) Medication List - Last Reconciled 06/06/25 by Silvana Taylor MD losartan 100 mg See Protocol PO DAILY vancomycin (Vancocin) 125 mg PO QID 10 days [wrist splint wear as much as possible throughout the day & all night] Tobacco use date assessed: 06/06/25 Fall risk assessment: No Falls in past year Last assessed Fall Risk: 06/06/25 Dental Screening Dental Screen Date: 06/06/25 Did you have a dental visit in the last 12 months?: No Did you have a dental problem in the last 6 months where you did not have access to dental care?: No Was dental information given to patient?: No HPI HPI Comments History of Present Illness Details The patient is a 64-year-old female presenting for follow-up on cirrhosis recently diagnosed. The patient has a history of Helicobacter pylori infection and tubular adenoma, which were identified during a colonoscopy performed last month. She is scheduled for a follow-up appointment with gastroenterology to address these findings. The patient reports a history of hypertension, which is currently well-controlled with medication. She was previously taking a higher dose of her antihypertensive medication but has recently run out of her prescription. She also complaints of low back pain and would like to try accupuncture. The patient was hospitalized last month for five days, during which she was diagnosed with Clostridium difficile infection. She is currently on a course of vancomycin to treat this infection. Denies any fever or diarrhea. The patient has been informed of a serious liver condition, specifically hepatic cirrhosis, with associated splenomegaly. She expresses concern about the severity of her liver condition and its implications for her prognosis. The patient has diverticulosis, which was noted during her recent imaging studies. [facility] Medical History (Updated 06/07/25 @ 08:33 by Silvana Taylor MD) Positive H. pylori test Metabolic dysfunction-associated steatotic liver disease (MASLD) Bloating Bilateral primary osteoarthritis of knee Right tennis elbow Degenerative disc disease, lumbar Cough Blurry vision Class 1 obesity with body mass index (BMI) of 30.0 to 30.9 in adult Hypertension Tortuosity of artery Transaminitis Pure hypercholesterolemia Brain lesion Hair loss New daily persistent headache Polyarthralgia Obstructive jaundice Surgical History History of cholecystectomy Hx of colonoscopy History of removal of calculus of renal pelvis through percutaneous nephrostomy History of endoscopy H/O hysterectomy for benign disease Family History Father CAD (coronary artery disease) Mother Stomach cancer Daughter Uterine cancer Son Intestinal disease Social History Household Members: Family Housing: House Do you presently have visiting nurse or other home services: No Alcohol intake: never Patient Tobacco Use Status: Never used Tobacco Tobacco use type: Cigarette e-Cigarette/Vaping Use: Never Used Second Hand Smoke Exposure: No service: No Current occupational status: employed 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 1. Little interest or pleasure in doing things: not at all 2. Feeling down, depressed, or hopeless: not at all 3. Trouble falling or staying asleep, or sleeping too much: several days 4. Feeling tired or having little energy: several days 5. Poor appetite or overeating: not at all 6. Feeling bad about yourself - or that you are a failure or have let yourself or your family down: not at all 7. Trouble concentrating on things, such as reading the newspaper or watching television: not at all 8. Moving or speaking so slowly that other people could have noticed. Or the opposite - being so fidgety or restless that you have been moving around a lot more than usual: not at all 9. Thoughts that you would be better off or of hurting yourself in some way: not at all Total score: 2 Depression Screening Interpretation: Negative Depression Screening Done: Yes 21172 - PHQ-9 Billing: Yes Source: Developed by Drs. Eran Eid, Malika Hutchinson, Juan Connell and colleagues, with an educational paula from [employer]. Thrive Questionnaire Date Thrive assessed: 04/17/25 I am a: Patient What is your living situation today?: I have a steady place to live Within the past 12 months, did the food you bought not last and you didn't have the money to get more?: Sometimes True Within the past 12 months, did you worry whether your food would run out before you got money to buy more?: Sometimes True Do you have trouble paying for medicines?: Yes Do you have trouble getting transportation to medical appointments?: No Do you have trouble paying your heating and electricity bill?: Yes Do you have trouble taking care of your child, family member or friend?: No Do you have trouble with day-to-day activities such as bathing, preparing meals, shopping, managing finances, etc.?: No Are you currently unemployed and looking for a job?: No Are you interested in more education?: I choose not to answer this question Currently or been in a relationship where the following occur: No concerns reported THRIVE Score: 3 AUDIT C Alcohol Use Questionnaire (AUDIT-C) 1. How often do you have a drink containing alcohol?: Never 3. How often do you have six or more drinks on one occasion?: Never Total Score: 0 Score Reviewed/Action Taken: No MG-7 AMB Questionnaire MG-7 Date MG - 7 assessed: 04/17/25 Feeling nervous, anxious, or on edge: 0 = Not at all Not being able to stop or control worryin = Several days Worrying too much about different things: 1 = Several days Trouble relaxin = Several days Being so restless that it is hard to sit still: 0 = Not at all Becoming easily annoyed or irritable: 1 = Several days Feeling afraid as if something awful might happen: 0 = Not at all Total MG-7 score (0-4 normal; 5-9 mild; 10-14 moderate; 15-21 severe): 4 Source: Developed by Drs. Eran Eid, Juan Fitzgerald and colleagues, with an educational paula from [employer]. MG-7 Assessment Billing MG-7 Assessment Tool: MG-7 Assessment 34190 Review of Systems Const All systems reviewed & are unremarkable except as noted in HPI and below Card Denies chest pain at rest, Denies chest pain with activity, Denies edema, Denies irregular heart rhythm, Denies claudication, Denies dyspnea, Denies dyspnea on exertion, Denies orthopnea, Denies paroxysmal nocturnal dyspnea and Denies slow heart rate Resp Denies cough, Denies dyspnea and Denies dyspnea on exertion Physical exam (Primary Care) Vital Signs: Last Vital Signs Temp 97.3 F 06/06/25 16:47 Pulse 60 06/06/25 16:47 BP 122/88 06/06/25 16:47 Pulse Ox 98 06/06/25 16:47 Oxygen Delivery Method Room Air 06/06/25 16:47 BMI result Body Mass Index 32.2 BMI Assessment/Plan discussion: High BMI High, discussed plan: lifestyle, weight reduction, dietary and physical activity Tobacco/Smoking Status: Tobacco use Status Tobacco use date assessed 06/06/25 06/06/25 16:51 Patient Tobacco Use Status Never used Tobacco 06/06/25 16:51 Tobacco use type Cigarette 06/06/25 16:51 e-Cigarette/Vaping Use Never Used 06/06/25 16:51 PHQ-9: PHQ-9 Score PHQ-9: Total score 2 06/06/25 17:05 Depression Screening Interpretation: Negative Thrive Assessment: Date of Thrive Assessment Date Thrive assessed 04/17/25 06/06/25 16:51 Currently or been in a relationship where the following occur: No concerns reported Resp Effort & Inspection: normal respiratory effort Auscultation: clear to auscultation bilaterally Cardio Jugular venous distension: no JVD Rate: regular rate Rhythm: regular rhythm Heart sounds: S1 normal heart sound present and S2 normal heart sound present Extrem General: Yes full ROM Coding Level of Care Code Est Pt Level 4 (62017) Complex EM visit Add On G2211 Diagnoses Lumbar pain M54.50 Hypertension, unspecified type I10 Hypertension type: unspecified Cirrhosis K74.60 Clostridioides difficile infection A49.8 Additional Codes MG-7 Assessment Billing - MG-7 Assessment Tool: MG-7 Assessment 44456 ([id number]) PHQ-9 - 96311 - PHQ-9 Billing: Yes ([id number]) Time Spent (min) 28 Assessment & Plan Assessment & Plan (1) Lumbar pain: Code(s): M54.50 - Low back pain, unspecified Category: Medical (2) Hypertension: Code(s): I10 - Essential (primary) hypertension Category: Medical Qualifiers: Hypertension type: unspecified Qualified Code(s): I10 - Essential (primary) hypertension (3) Cirrhosis: Code(s): K74.60 - Unspecified cirrhosis of liver Category: Medical (4) Clostridioides difficile infection: Code(s): A49.8 - Other bacterial infections of unspecified site Category: Medical Plan: Continue Vancomycin for completion Plan Plan 1. Essential (primary) hypertension I10 The patient's hypertension is currently well-controlled, and she will continue with her current medication regimen once her prescription is refilled. 2. Other bacterial infections of unspecified site A49.8 The patient is on a course of vancomycin to treat the Clostridium difficile infection, with no current symptoms of diarrhea reported. 3. Unspecified cirrhosis of liver K74.60 HCC 28 The patient is advised to follow up with her healthcare provider to discuss the severity of her hepatic cirrhosis and potential management options. 4. Low back pain, unspecified M54.50 Start Accupuncture if insurance approves. Orders: Referrals Ophthalmology Referral H53.8 - Other visual disturbances Medications: New [accupuncture] As directed 1 ea 0RF M54.50 - Low back pain, unspecified Changed From losartan 100 mg See Protocol PO DAILY 60 tabs 0RF To losartan 100 mg See Protocol PO DAILY 180 tabs 1RF 90 days
--- OUTSIDE RECORDS SUMMARY | 2025-06-06 18:58 | XMS_ITS | Encounter Summary ---
Author Organization [facility] Address [address] [place] [id number] Phone Care Team Providers Care Personal Attendant Name Role Phone Silvana Funes MD Primary Care Provid er Encounter Details Date Type Department Care Team (Late st Contact Info) Description 03/27/2022 Procedure Pass [facility], Ct Scan - [address] [address] Social History Tobacco Use Types Packs/Day Years [...] 4:14 PM EDT Emmanuel Carvalho RN * [place] Suicide Severity Rating Scale (Screener/Recent Self-Report) Question [...] documented as of this encounter Care Teams Personal Attendant Relationship Specialty Start Date End Date Silvana Funes MD [address] [place] [address] PCP - General Internal Medicine 03/04/21 documented as of this encounter Additional Source Comments The information contained in this document represents components of the legal health record. It is not the complete legal health record.[facility]
--- OUTSIDE RECORDS SUMMARY | 2025-06-06 18:58 | XMS_ITS | Encounter Summary ---
Author Organization [facility] Address [address] [facility] [address] [place] [address] Phone Care Team Providers Care Machine Quilt Stuffer Name Role Phone Silvana Funes MD Primary Care Provid er Encounter Details Date Type Department Care Team (Late st Contact Info) Description 10/24/2024 Procedure Pass [facility] Endoscopy Admitting Dept Virtual Department [address] [place] [address] Social History Tobacco Use Types Packs/Day Years [...] documented as of this encounter Care Teams Machine Quilt Stuffer Relationship Specialty Start Date End Date Silvana Funes MD [address] [place] [address] PCP - General Internal Medicine 03/04/21 documented as of this encounter Additional Source Comments The information contained in this document represents components of the legal health record. It is not the complete legal health record.[facility]
--- OUTSIDE RECORDS SUMMARY | 2025-06-06 18:58 | XMS_ITS | Encounter Summary ---
Author Organization [facility] Address [address] [facility] [address] [place] [address] Phone Care Team Providers Care Clothing Presser Name Role Phone Silvana Funes MD Primary Care Provid er Encounter Details Date Type Department Care Team (Late st Contact Info) Description 03/28/2022 Procedure Pass [facility], [address] [address] Social History Tobacco Use Types Packs/Day Years [...] documented as of this encounter Care Teams Clothing Presser Relationship Specialty Start Date End Date Silvana Funes MD [address] [place] [address] PCP - General Internal Medicine 03/04/21 documented as of this encounter Additional Source Comments The information contained in this document represents components of the legal health record. It is not the complete legal health record.[facility]
--- OUTSIDE RECORDS SUMMARY | 2025-06-06 18:58 | XMS_ITS | Encounter Summary ---
Author Organization [facility] Address [address] [facility] [address] [place] [address] Phone Care Team Providers Care Digging Machine Operator Name Role Phone Guille Conklin MD Unavailable Marti Balderas MD Primary Care Provider [phone] Pcp, Unknown Primary Care Provider Unavailabl e Silvana Funes MD Primary Care Provid er Encounter Details Date Type Department Care Team (Late st Contact Info) Description 05/10/2019 Ancillary Orders Virtual Department [address] [place] [address] Deonte Isaacs MD [address] [place] [address] [email or web address] Elevated alkaline phosphatase level Social History [...] abdomen is recommended. 3. Hepatic steatosis. POS [id number] Narrative 05/10/2019 10:17 AM EDT COMPARISON: None. [...] CT abdomen isrecommended. 3. Hepatic steatosis. POS [id number] us Deonte Isaacs MD IM US ABDOMEN Final R esult documented in this encounter Visit Diagnoses Diagnosis Elevated alkaline phosphatase level Elevated alkaline phosphatase level documented in this encounter Additional Health Concerns Infection Onset Date Last Indicated Resolved Time CoV-Risk Comment:Per note documentation 10/24/2024 10/24/2024 9:18 AM EST documented as of this encounter Care Teams Digging Machine Operator Relationship Specialty Start Date End Date Marti Balderas MD [address] [place] [address], [address] [place] [address] PCP - General Internal Medicine 05/10/19 01/17/20 Pcp, Unknown PCP - General 01/18/20 03/03/21 Silvana Funes MD [address] [place] [address] PCP - General Internal Medicine 03/04/21 Guille Conklin MD [address] [facility], [address] [place] [address] [email or web address] Historical LMR Provider 06/20/17 09/07/21 documented as of this encounter Additional Source Comments The information contained in this document represents components of the legal health record. It is not the complete legal health record.[facility]
--- OUTSIDE RECORDS SUMMARY | 2025-06-06 18:58 | XMS_ITS | Encounter Summary ---
Author Organization [facility] Address [address] [facility] [address] [place] [address] Phone Care Team Providers Care Prop Worker Name Role Phone Silvana Funes MD Primary Care Provid er Encounter Details Date Type Department Care Team (Late st Contact Info) Description 10/27/2024 Procedure Pass [facility] [address] [place] [address] Social History Tobacco Use Types Packs/Day Years [...] on filedocumented in this encounter Care Teams Prop Worker Relationship Specialty Start Date End Date Silvana Funes MD [address] [place] [address] PCP - General Internal Medicine 03/04/21 documented as of this encounter Additional Source Comments The information contained in this document represents components of the legal health record. It is not the complete legal health record.[facility]
--- OUTSIDE RECORDS SUMMARY | 2025-06-06 18:58 | XMS_ITS | Encounter Summary ---
Author Organization [facility] Address [address] [place] [address] Phone Care Team Providers Care Director Of Partner Marketing Name Role Phone Guille Conklin MD Unavailable Silvana Funes MD Primary Care Provid er Encounter Details Date Type Department Care Team (Late st Contact Info) Description 03/04/2021 Procedure Pass [facility], Ct Scan - [facility] [address] [place] [address] Social History Tobacco Use Types Packs/Day Years [...] 6:08 PM EDT Avni Dowell, MARIO * [place] Suicide Severity Rating Scale (Screener/Recent Self-Report) Question [...] of this encounter Care Teams Director Of Partner Marketing Relationship Specialty Start Date End Date Silvana Funes MD [address] [place] [address] PCP - General Internal Medicine 03/04/21 Guille Conklin MD [address] [place] [address], [facility] [address] [place] [address] [email or web address] Historical LMR Provider 06/20/17 09/07/21 documented as of this encounter Additional Source Comments The information contained in this document represents components of the legal health record. It is not the complete legal health record.[facility]
--- OUTSIDE RECORDS SUMMARY | 2025-06-06 18:58 | XMS_ITS | Encounter Summary ---
Author Organization [facility] Address [address] [place] [address] Phone Care Team Providers Care Fresh Foods Technician Name Role Phone Silvana Funes MD Primary Care Provid er Encounter Details Date Type Department Care Team (Late st Contact Info) Description 03/27/2022 Procedure Pass [facility], Ct Scan - [address] [address] Social History Tobacco Use Types Packs/Day Years [...] 4:14 PM EDT Emmanuel Carvalho RN * [place] Suicide Severity Rating Scale (Screener/Recent Self-Report) Question [...] documented as of this encounter Care Teams Fresh Foods Technician Relationship Specialty Start Date End Date Silvana Funes MD [address] [place] [address] PCP - General Internal Medicine 03/04/21 documented as of this encounter Additional Source Comments The information contained in this document represents components of the legal health record. It is not the complete legal health record.[facility]
--- OUTSIDE RECORDS SUMMARY | 2025-06-06 18:58 | XMS_ITS | Encounter Summary ---
Author Organization [facility] Address [address] [facility] [address] [place] [address] Phone Care Team Providers Care Case Filler Name Role Phone Guille Conklin MD Unavailable Ana Paula Franz DO Primary Care Provider [phone] Marti Balderas MD Primary Care Provider [phone] Pcp, Unknown Primary Care [facility] Silvana Funes MD Primary Care Provid er Reason for Referral * - Closed Specialty Diagnoses / Procedures Referred By Olimpia mckay Referred To Contact Diagnoses Abnormal electrocardiogram Procedures Stress Test Exercise Ana Paula Franz DO Phone: tel: fax: [email or web address] Referral ID Status Reason Start Date Expiration Date Visits Re quested Visits Authorized [id number] Closed 06/03/2018 06/03/2019 1 1 Encounter Details Date Type Department Care Team (Latest Contact Info) Description 06/03/2018 Transcribe [facility] [address] [facility] [address], [address] [place] [address] Nisreen Jordan NP [address] [place] [address] Abnormal electrocardiogram (Primary Dx) Social History Tobacco [...] documented as of this encounter Care Teams Case Filler Relationship Specialty Start Date End Date Ana Paula Franz DO [address] [place] [address] PCP - General Internal Medicine 06/03/18 05/09/19 Marti Balderas MD [address] [place] [address], [address] [place] [address] PCP - General Internal Medicine 05/10/19 01/17/20 Pcp, Unknown PCP - General 01/18/20 03/03/21 Silvana Funes MD [address] [place] [address] PCP - General Internal Medicine 03/04/21 Guille Conklin MD [address] [facility], [address] [place] [address] Historical LMR Provider 06/20/17 09/07/21 documented as of this encounter Additional Source Comments The information contained in this document represents components of the legal health record. It is not the complete legal health record.[facility]
--- OUTSIDE RECORDS SUMMARY | 2025-06-06 18:58 | XMS_ITS | Encounter Summary ---
Author Organization [facility] Address [address] [place] [address] Phone Care Team Providers Care Ampoule Washing Machine Operator Name Role Phone Silvana Funes MD Primary Care Provid er Encounter Details Date Type Department Care Team (Late st Contact Info) Description 03/27/2022 Procedure Pass [facility], [address] [address] Social History Tobacco Use Types Packs/Day Years [...] 4:14 PM EDT Emmanuel Carvalho RN * [place] Suicide Severity Rating Scale (Screener/Recent Self-Report) Question [...] documented as of this encounter Care Teams Ampoule Washing Machine Operator Relationship Specialty Start Date End Date Silvana Funes MD [address] [place] [address] PCP - General Internal Medicine 03/04/21 documented as of this encounter Additional Source Comments The information contained in this document represents components of the legal health record. It is not the complete legal health record.[facility]
--- OUTSIDE RECORDS SUMMARY | 2025-06-06 18:58 | XMS_ITS | Encounter Summary ---
Author Organization [facility] Address [address] [facility] [address] [place] [address] Phone Care Team Providers Care Office Technologist Name Role Phone Silvana Funes MD Primary Care Provid er Encounter Details Date Type Department Care Team (Late st Contact Info) Description 10/23/2024 Procedure Pass [facility], Ct Scan - [address] [address] Social History Tobacco Use Types Packs/Day Years [...] 10/23/2024 5:45 PM Shayla Kim RN * [place] Suicide Severity Rating Scale (Screener/Recent Self-Report) Question [...] documented as of this encounter Care Teams Office Technologist Relationship Specialty Start Date End Date Silvana Funes MD [address] [place] [address] PCP - General Internal Medicine 03/04/21 documented as of this encounter Additional Source Comments The information contained in this document represents components of the legal health record. It is not the complete legal health record.[facility]
--- OUTSIDE RECORDS SUMMARY | 2025-06-06 18:58 | XMS_ITS | Encounter Summary ---
Author Organization [facility] Address [address] [place] [address] Phone Care Team Providers Care Community Education Coordinator Name Role Phone Silvana Funes MD Primary Care Provid er Encounter Details Date Type Department Care Team (Late st Contact Info) Description 03/27/2022 Procedure Pass [facility] [address] [place] [address] Social History Tobacco Use Types Packs/Day Years [...] 4:14 PM EDT Emmanuel Carvalho RN * [place] Suicide Severity Rating Scale (Screener/Recent Self-Report) Question [...] documented as of this encounter Care Teams Community Education Coordinator Relationship Specialty Start Date End Date Silvana Funes MD [address] [place] [address] PCP - General Internal Medicine 03/04/21 documented as of this encounter Additional Source Comments The information contained in this document represents components of the legal health record. It is not the complete legal health record.[facility]
--- OUTSIDE RECORDS SUMMARY | 2025-06-06 18:58 | XMS_ITS | Clinical Summary ---
Author Organization [facility] Address [address] [facility] [address] [place] [address] Phone Care Team Providers Care Grievance And Appeals Specialist Name Role Phone Silvana Funes MD [...] second episode treated with biliary stenting at [facility] [place] and now again presenting with [...] reviewed the films and information with Ms. 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 Plan -MRI, I will also order contrast given her elevated history of brain mass -We will request records from [facility] -Echocardiogram -Neurochecks -TSH -orthostatic vital signs -PT OT -Aspirin statin -lipid panel A1c -firearms inspector -Follow-up [facility] neurology consult TIA (transient ischemic attack) 03/27/2022 10/29/2024 Hepatitis 10/29/2024 Assessment & Plan (03/27/2022 7:26 PM EDT): Patient was seen in our ED last year on 03/04 for abnormal LFTs, fever, obstructive LFT pattern, CT showed congenitally absent gallbladder as well as diffuse thickening of the colonic wall She had been sent to [facility] at that time for ERCP that [...] EST) SODIUM 138 133 - 146 mmol/L [facility] POTASSIUM 3.7 3.3 - 5.1 mmol/L [facility] CHLORIDE 103 96 - 108 mmol/L [facility] CO2 24 21 - 35 mmol/L [facility] BUN 24(H) 6 - 19 mg/dL [facility] CREATININE 1.40 0.5 - 1.5 mg/dL [facility] GLUCOSE 142(H) 70 - 99 mg/dL [facility] ALBUMIN 3.1(L) 3.9 - 4.8 g/dL [facility] TOTAL PROTEIN 6.0(L) 6.5 - 8.0 g/dL [facility] CALCIUM 9.4 8.4 - 10.3 mg/dL [facility] ALKALINE PHOSPHATASE 169(H) 39 - 117 U/L [facility] TOTAL BILIRUBIN 1.4(H) 0.0 - 1.2 mg/dL [facility] AST 29 0 - 37 U/L [facility] ALT 84(H) 0 - 40 U/L [facility] GLOBULIN 2.9 1 - 4.8 g/dL [facility] EGFR 42(L) >59 mL/min/1.7 3m2 [facility] Comment:Estimated glomerular filtration rate calculated using the CKD-EPI refit equation. ANION GAP 15 10 - 20 mmol/L [facility] Blood 10/30/2024 4:18 AM EST 10/30/2024 4:33 AM EST us Eran Partida PA-C, MS LAB BLOOD ORDERABLES Fi nal Result [address] [address] * (ABNORMAL) Lipid panel (03/28/2022 6:21 AM EDT) HDL 61 mg/dL [facility] Comment: Interpretation <40 mg/dL: Low HDL cholesterol (major risk factor for CHD) Greater than or equal to 60 mg/dL: High HDL cholesterol ( negative risk factor for CHD) HDL - cholesterol is affected by a number of factors, e.g. smoking, excerise, hormones, sex and age. CHOLESTEROL 164 0 - 240 mg/dL [facility] TRIGLYCERIDES 62 30 - 160 mg/dL [facility] LDL 91 50 - 129 mg/dL [facility] Comment: LDL levels in terms of risk for coronary heart disease: <100 mg/dL: Optimal 100-129 mg/dL: Near or above optimal 130-159 mg/dL: Borderline high 160-189 mg/dL: High >190 mg/dL: Very High CARDIAC RISK RATIO 2.7(L) 3.3 - 4.4 [facility] Blood 03/28/2022 6:21 AM EDT 03/28/2022 6:44 AM EDT us Ceci Flynn NP LAB BLOOD ORDERABLES Fi nal Result [address] [place] [address] from Last 3 Months or Most Recently Relevant to Health Maintenance Insurance MEDICARE A MEDICARE A MEDICARE A MEDICARE A MEDICARE A MEDICARE A MEDICARE A MEDICARE A MEDICARE A Advance Directives For more information, please contact: [phone] (9AM - 5PM [facility], Thursday-Thursday) Documents on File Type Date Recorded Patient Service Center Manager Expl anation Healthcare Proxy 10/30/2024 * Full [...] Agent (Proxy form on file) Care Teams Grievance And Appeals Specialist Relationship Specialty Start Date End Date Silvana Funes MD [address] [place] [address] PCP - General Internal Medicine 03/04/21 Additional Source Comments The information contained in this document represents components of the legal health record. It is not the complete legal health record.[facility]
== END 2025-06-06 17:29 | disposition home or self-care (01) ==
LOC: HO.HMCH 16:42
PROVIDERS: PCP Internal Medicine; Visit Provider Internal Medicine
DX: M54.50 Low back pain, unspecified (principal); I10 Essential (primary) hypertension; K74.60 Unspecified cirrhosis of liver; A49.8 Other bacterial infections of unspecified site

== ENCOUNTER → 2025-06-06 16:41 | Outpatient (BNVA) | payer MEDICARE, SELFPAY | PROVIDERS: PCP Internal Medicine; Visit Provider Internal Medicine | DX: I10 Essential (primary) hypertension (principal); M54.50 Low back pain, unspecified; K74.60 Unspecified cirrhosis of liver; K57.90 Diverticulosis of intestine, part unspecified, without perforation or abscess without bleeding; H53.8 Other visual disturbances | CPT/HCPCS: 96127; 99212 ==

== ENCOUNTER 2025-06-07 14:51 | Outpatient (AMB) | payer MEDICARE, SELFPAY ==
--- NOTE | 2025-06-07 14:56 | A.OFFVIS_ITS ---
Vital Signs 06/07/25 14:57 Height 5 ft Weight 165 lb BMI 32.2 BP 170/75 H Blood Pressure Location Lt brachial Position Sitting Pulse 67 Pulse Oximetry (%) 96 Oxygen Delivery Method Room Air Intake Visit Reasons: FOLLOW UP Intake Note: Patient follow up for abdominal bloating Patient cc: abdominal bloating and acid reflux on and off. Denies any other GI issues. Digital Analytics Manager Required: Yes Digital Analytics Manager Language: Derivatives Trader Services: Digital Analytics Manager Present Digital Analytics Manager Name: EDITH Pfeiffer MA Accompanied by: Family/Other Allergies No Known Allergies Allergy (Verified 06/07/25 14:56) HPI HPI FOLLOW UP: Details: Patient is a 64-year-old albanian-speaking female with PMH of obesity, hypertension, hyperlipidemia and headaches. F/u on endoscopy & colonoscopy results, medication mgmt, ongoing concerns re: cirrhosis, clarification of GI findings, and review of recent tx for H. pylori. She is accompanied by her daughter and YADIRA. Pt remains relatively stable since last GI consult. GI sx: mild, with heartburn and regurgitation each ~1x/wk; no increased frequency or severity. Pt compliant with prescribed abx regimen for H. pylori, despite pharmacy delay; tolerating current regimen (4x daily) better vs prior regimens (12x daily). No new GI bleeds, abd pain, or change in bowel habits; stool mostly formed, regular BM 2x/day. No EtOH use; diet mod ongoing?pt eating carefully. Has upcoming nutrition appt. No evidence for new hepatic decompensation reported. No hx of respiratory disease. Expressed anxiety regarding long-term prognosis. No recent hospitalizations or flares PFSH Medical History (Updated 06/07/25 @ 19:30 by Esme Molina CNP) Barretts esophagus Tubular adenoma of colon Positive H. pylori test Metabolic dysfunction-associated steatotic liver disease (MASLD) Bloating Bilateral primary osteoarthritis of knee Right tennis elbow Degenerative disc disease, lumbar Cough Blurry vision Class 1 obesity with body mass index (BMI) of 30.0 to 30.9 in adult Hypertension Tortuosity of artery Transaminitis Pure hypercholesterolemia Brain lesion Hair loss New daily persistent headache Polyarthralgia Obstructive jaundice Surgical History History of cholecystectomy Hx of colonoscopy History of removal of calculus of renal pelvis through percutaneous nephrostomy History of endoscopy H/O hysterectomy for benign disease Family History Father CAD (coronary artery disease) Mother Stomach cancer Daughter Uterine cancer Son Intestinal disease Social History Household Members: Family Housing: House Do you presently have visiting nurse or other home services: No Alcohol intake: never Patient Tobacco Use Status: Never used Tobacco Tobacco use type: Cigarette e-Cigarette/Vaping Use: Never Used Second Hand Smoke Exposure: No service: No Current occupational status: employed 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 [employer] Current occupational exposures/hazards: No Cognitive needs: No Hearing needs: No Vision needs: Yes (only for reading) Review of Systems Const Reports as per HPI ENT Reports as per HPI Card Reports as per HPI Resp Reports as per HPI GI Reports as per HPI Reports as per HPI Physical Exam Vital Signs: Last Vital Signs Pulse 67 06/07/25 14:57 BP 170/75 H 06/07/25 14:57 Pulse Ox 96 06/07/25 14:57 Oxygen Delivery Method Room Air 06/07/25 14:57 BMI result Body Mass Index 32.2 Const General: healthy appearing, no acute distress and well developed Nutritional Appearance: average body habitus Orientation/consciousness: patient oriented x3 HEENT Head: Yes normal to inspection, Yes normocephalic and Yes atraumatic Face and sinus: Yes normal facial exam Eyes General: appearance normal, both eyes and all related structures Neck Neck: Yes normal visual inspection Resp Effort & Inspection: normal respiratory effort, able to speak in complete sentences, no tracheal deviation and symmetric chest movement Cardio Jugular venous distension: no JVD GI Auscultation: normal bowel sounds Neuro General: patient oriented x3 Gait exam (Neuro): Normal gait present Psych Appearance: grossly normal Mental Status: mental status grossly normal Speech and movement: Normal speech and movement present Affect: normal affect Attitude: cooperative Thought process: Normal thought process present Thought content: Normal thought content present Insight: Good insight present (Psych) Judgement: Good judgement present (Psych) Results Reviewed Results Reviewed: Operative Note Date of Service: 05/17/25 Narrative: Operative Information Procedure Description: EGD, Colonoscopy Indication: dyspepsia and screening Anesthesia: MAC FLEXIBLE TRANSORAL UPPER GASTROINTESTINAL ENDOSCOPY AND COLONOSCOPY PROCEDURE NOTE UPPER ENDOSCOPY Procedure: The patient was placed in the left lateral decubitis position and pre-procedure medications were administered and a bite block was placed. The endoscope was inserted into the mouth and advanced under direct vision to the third part of duodenum. A careful inspection was made as the upper endoscope was withdrawn including a retroflexed examination of the proximal stomach; Findings and interventions are described below. Findings: Larynx:normal Esophagus: GE junction at 35 cm, diaphragm hiatus at 35 cm, lax LES with tongue of barretts appearing mucosa noted, brushings taken, small varices noted which collapsed with air. Stomach: Patchy erythema and few erosions at antrum. Biopsies were obtained incl for h pylori culture. Grade 2 flap valve on retroflexed examination of the cardia. Duodenum: Normal bulb and descending duodenum, Intervention: Biopsies as noted above, brushings COLONOSCOPY Procedure: The patient was placed in the left lateral decubitis position and pre-procedure medications were administered. After a digital rectal examination of the ano-rectum, the video colonoscope was inserted into the rectum and advanced through the colon to the cecum/TI. The colonoscope was slowly withdrawn in a retrograde panoramic fashion and the colon mucosa was carefully examined including a retroflexed view of the rectum. Findings and interventions are described below. Procedure Difficulty:moderate Findings: Terminal Ileum-normal, bx taken Bx taken from right, left and rectum Cecum: edema noted of the mucosa Ascending Colon: patchy erythema and granular mucosa Transverse Colon -normal Descending Colon: 6-7 mm sessile polyp removed with cold snare Sigmoid Colon: patchy erythema and granular mucosa with diverticula noted Rectum: Retroflexion with small internal hemorrhoids, grade I Anorectum - normal Colon preparation: Swisher Bowel Preparation Scale Right colon; 2 Transverse colon: 2 Left colon; 2 Impression and Post Procedure Diagnosis: Endoscopy Findings: esophgeal varices esophagitis gastritis lax LES Colonoscopy Findings: diverticulosis colon polyp internal hemorrhoids non specific colitis Plan: Await Pathology results Repeat Colonoscopy in 5 years or earlier if clinically indicated High fiber diet leaflet avoid straining at stool, epsom salts and sitz bath, anusol supps or cream consider repeat imaging of liver and portal vein doppler r/o PVT Above findings were reviewed with the patient and relevant handouts were provided if indicated. PATHOLOGY Collected: 05/17/25 Location: [facility] Received: 05/17/25 Diagnosis A. Stomach, antrum, biopsy: Gastric antral and body mucosa with mild chronic inflammation and very rare forms of Helicobacter pylori identified on immunostain; negative for intestinal metaplasia and dysplasia (see comment). B. Terminal ileum, biopsy: Ileal mucosa within normal limits; negative for active or chronic ileitis. C. Colon, right, biopsy: Active colitis, patchy, with mild activity (see comment). D. Colon, left, biopsy: Active colitis with mild activity (see comment). E. Colon, descending, polypectomy: Tubular adenoma; negative for high-grade dysplasia. F. Rectum, biopsy: Active colitis, patchy, with mild activity (see comment). COMMENT (A): Note is made of the patient's history of a positive H. pylori test and subsequent antibiotic therapy. COMMENT (C,D,F): The overall findings are non-specific. No granulomas or chronic mucosal injury is identified. The differential diagnosis includes infection, medication effect or idiopathic inflammatory bowel disease. Clinical History Pre-Op Dx: Functional dyspepsia, screening Post-Op Dx: Gastritis, Barretts, esophagitis, varices, diverticulosis, colon polyp, hemorrhoids Assessment & Plan Assessment & Plan (1) Metabolic dysfunction-associated steatotic liver disease (MASLD): Comment: Fibrosis stage III, Child-Colon Score (03/08/2025) 5 points, Child Class A Code(s): K76.0 - Fatty (change of) liver, not elsewhere classified Category: Medical Plan: Stable; no decomp, no hx GI bleed or ascites; routine surveillance. Imaging/labs confirm cirrhosis, pt aware. Discussed NAFLD as primary etiology?progression from fatty liver to cirrhosis in context of obesity, hyperlipidemia, and absence of EtOH , viral hepatitis or autoimmune etiology. Emphasized that cirrhosis can develop insidiously over years, often undetected until advanced. Understands goal is to prevent progression/HCC. Additional testing: -Routine hepatic labs, surveillance U/S as per cirrhosis protocol (10/2025). -Routine monitor of lipids Medications: - Initiate Carvedilol (beta channing)?start 1 tab BID PO for primary variceal bleed prophylaxis. Advise monitoring for bradycardia, dizziness, fatigue. - Continue losartan for BP as prior. Lifestyle Recommendations: Emphasize sustained Wt loss, diet low in fat/fried foods, increase fruits/veggies/whole grains, maintain physical activity; avoid EtOH; basic MV OK, avoid vitamin A excess; continue with nutrition consult. Referrals / Coordination of Care: Nutrition (appt Dec), primary for ongoing mgmt, Rheumatology (pending bone density); recommend periodic surveillance for HCC/complications (coordinate w/ PCP). F/up Plan: 6 wks post-H. pylori retest, earlier if decomp or sx (bleeding, ascites, jaundice); labs prn; pulse oximeter recommended for HR check w/ Carvedilol initiation. (2) Tubular adenoma of colon: Comment: 05/17/25 Colonoscopy complete with adequate prep-diverticulosis,6-7 mm TA (descending), internal hemorrhoids, non specific colitis. Recommendations for repeat in 5 years (2029) Code(s): D12.6 - Benign neoplasm of colon, unspecified Category: Medical Plan: Post-polypectomy (precancerous); no current bleeding; regular BMs. Surveillance interval determined by histopathology, Repeat due 2029. No CA; focus on GI health. Additional testing: None currently indicated. Medications: None added for hemorrhoids. Lifestyle Recommendations: Maintain adequate fiber/H2O to prevent constipation. Referrals / Coordination of Care: N/A. F/up Plan: Colonoscopy in 5 yrs unless new symptoms or bleeding. (3) Barretts esophagus: Comment: 05/17/25 EGD: esophageal varices, esophagitis, Barretts, gastritis, lax LES. Recommendations for repeat in 5 years (2029) Code(s): K22.70 - Reina's esophagus without dysplasia Category: Medical Qualifiers: Reina's esophagus type: without dysplasia Qualified Code(s): K22.70 - Reina's esophagus without dysplasia Plan: EGD?Reina?s, gastritis requires acid suppression. Recent abx course for H. pylori, 2 doses remaining; minimal sx (heartburn 1x/wk, rare regurg); healing phase.H. pylori?confirm eradication. Additional testing: Plan H. pylori retest (breath) ~4 wks post-abx (2nd week Jul). Medications: - Starte Sucralfate PO up to BID PRN for sx relief, ensuring 2h separation from other meds (e.g., losartan). - Hold PPI until post-HP retesting; will adjust after repeat testing. Lifestyle Recommendations: Continue diet mod to limit reflux triggers (caffeine, late meals, spicy/fatty foods); elevate HOB; maintain Wt loss efforts. Referrals / Coordination of Care: Heating And Cooling Systems Engineer f/u Dec F/up Plan: Return after H. pylori retest (mid-Jul), review sx, initiate/adjust acid suppression as needed. Plan Pt provided w/ evidence-based handouts on cirrhosis and lifestyle mgmt; strongly encouraged to write down questions for next f/u. No pending acute MRI-related concerns (brain MRI unremarkable; to f/u with ordering provider) Follow-up in 6 weeks or sooner as needed Time: I spent a total of 60 minutes on the date of encounter which includes: Preparing to see the patient (reviewed previous documentation, test results and medical history) Performing a medically appropriate exam and/or evaluation Ordering medications, tests, and procedures Documenting clinical information in the health record Time allotted for questions Orders: Orders H Pylori Breath Test Today A04.8 - Other specified bacterial intestinal infections US abdomen complete 4 Months K74.60 - Unspecified cirrhosis of liver, K76.0 - Fatty (change of) liver, not elsewhere classified Medications: New sucralfate Take on tablet two times daily as needed. Take an empty stomach. Avoid antacids within 30 minutes. 1 g PO BID 90 tabs 1RF carvedilol Take one tablet twice daily with a meal/food 3.125 mg PO BID 60 tabs 0RF Coding Level of Care Code Established Pt Est Pt Level 5 (41362) Patient Type Established Diagnoses Metabolic dysfunction-associated steatotic liver disease (MASLD) K76.0 Tubular adenoma of colon D12.6 Reina's esophagus without dysplasia K22.70 Reina's esophagus type: without dysplasia
[2025-06-07 14:57] VITALS: BP 170/75; PULSE 67; O2SAT 96; BMI 32.2
== END 2025-06-07 16:08 | disposition home or self-care (01) ==
LOC: HO.HGI 14:52
PROVIDERS: PCP Internal Medicine; Visit Provider Nurse Practitioner Family
DX: K76.0 Fatty (change of) liver, not elsewhere classified (principal); D12.6 Benign neoplasm of colon, unspecified; K22.70 Barrett's esophagus without dysplasia
CPT/HCPCS: 99215

== ENCOUNTER → 2025-06-07 14:51 | Outpatient (BNVA) | payer MEDICARE, SELFPAY | PROVIDERS: PCP Internal Medicine; Visit Provider Nurse Practitioner Family | DX: D12.6 Benign neoplasm of colon, unspecified (principal); K76.0 Fatty (change of) liver, not elsewhere classified; K22.70 Barrett's esophagus without dysplasia; R14.0 Abdominal distension (gaseous); K21.9 Gastro-esophageal reflux disease without esophagitis; I10 Essential (primary) hypertension | CPT/HCPCS: 99212 ==

== ENCOUNTER 2025-06-20 14:47 | Outpatient (AMB) | payer MEDICARE, SELFPAY ==
--- NOTE | 2025-06-20 14:51 | A.OFFVIS_ITS ---
Vital Signs 06/20/25 14:59 Height 5 ft Weight 162 lb 11.218 oz BMI 31.8 BP 132/80 Blood Pressure Location Lt brachial Position Sitting Pulse 65 Pulse Source Pulse Oximeter Pulse Oximetry (%) 98 Oxygen Delivery Method Room Air Intake Visit Reasons: joint pain Intake Note: Patient presents for joint pain follow up. Patient c/o Lt hip pain, RT shoulder pain and bilateral knee pain. Rough Patcher Required: Yes Rough Patcher Language: Sharepoint Engineer Services: Rough Patcher Present Rough Patcher Name: Edwige [id number] Information Interpreted: non-clinical & clinical Allergies No Known Allergies Allergy (Verified 06/20/25 14:58) Medication List - Last Reconciled 06/20/25 by Shania Ellington MD [accupuncture As directed] carvedilol 3.125 mg PO BID losartan 100 mg See Protocol PO DAILY 90 days sucralfate 1 g PO BID vancomycin (Vancocin) 125 mg PO QID 10 days [wrist splint wear as much as possible throughout the day & all night] HPI Comments Details: Patient is a 64-year-old female with hypertension complicated by TIA, GERD secondary to H pylori status post eradication, hypercholesterolemia, cirrhosis complicated by obstructive jaundice and choledocholithiasis, and polyarticular osteoarthritis here today for follow up. Interval History: Patient last seen 07/15/[address] 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 I called patient and referred her to Hand surgery. She was unable to make the appointment. - She states that she has been having bilateral knee pain. Worse with walking. She states that the parking at her job is quite far from her work place. She has to walk a substantial distance. Recently she has been having right shoulder pain. States that she has been has been using a machine to chop onions. Using her right shoulder a lot Today, - Not on any DMARDs - Currently complaining of right shoulder pain - Also bilateral knee pain, left hip pain, and hand pain - Does not recall being referred to hand surgery Rheumatologic History: Initial hx:This is a 62-year-old female who presents for evaluation of multiple joint pain. Patient states that she has had diffuse joint pain for many years. 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 She has pain in her lower back radiating to her hips. She also has bilateral knee pain as well as bilateral hand pain. She feels that she has reduced strength in her hands especially the right hand. She also has right elbow pain Current Rheumatology Medication(s): [facility] Medical History (Updated 06/07/25 @ 19:30 by Esme Molina CNP) Barretts esophagus Tubular adenoma of colon Positive H. pylori test Metabolic dysfunction-associated steatotic liver disease (MASLD) Bloating Bilateral primary osteoarthritis of knee Right tennis elbow Degenerative disc disease, lumbar Cough Blurry vision Class 1 obesity with body mass index (BMI) of 30.0 to 30.9 in adult Hypertension Tortuosity of artery Transaminitis Pure hypercholesterolemia Brain lesion Hair loss New daily persistent headache Polyarthralgia Obstructive jaundice Surgical History History of cholecystectomy Hx of colonoscopy History of removal of calculus of renal pelvis through percutaneous nephrostomy History of endoscopy H/O hysterectomy for benign disease Family History Father CAD (coronary artery disease) Mother Stomach cancer Daughter Uterine cancer Son Intestinal disease Social History Household Members: Family Housing: House Do you presently have visiting nurse or other home services: No Alcohol intake: never Patient Tobacco Use Status: Never used Tobacco Tobacco use type: Cigarette e-Cigarette/Vaping Use: Never Used Second Hand Smoke Exposure: No service: No Current occupational status: employed 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 [employer] Current occupational exposures/hazards: No Cognitive needs: No Hearing needs: No Vision needs: Yes (only for reading) Review of Systems Narrative Review of Systems Constitutional: Denies fever, chills, weight loss ENT: Denies vision changes, eye pain or eye redness, dental caries, dry mouth GI: Denies nausea, vomiting, diarrhea, abdominal pain, change in BM Pulm: Denies SOB, JAIN, hemoptysis, wheezing Cards: Denies chest pain, palpitations Skin: Denies Raynaud's, rash, nail changes, photosensitivity, SENIOR ACCOUNT DIRECTOR: Denies headaches, weakness, paresthesias, recurrent falls MSK: as per HPI All other systems reviewed and are unremarkable except noted above Physical Exam Exam Exam: Vital signs reviewed Physical Examination CONSTITUITIONAL Patient alert and cooperative. Well appearing and in no apparent painful distress MSK Hands * Right Hand: Able to make a fist. No swelling or tenderness to palpation of the MCPs, PIPs or DIPs. * Left Hand: Able to make a fist. No swelling or tenderness to palpation of the MCPs, PIPs or DIPs. * Herbedens nodes noted bilaterally * Bilateral 1st CMC joint positive grind test Wrists * Right Wrist: Full ROM to flexion and extension. No swelling or TTP * Left Wrist: Full ROM to flexion and extension. No swelling or TTP Elbows * Right Elbow: Full ROM. No swelling or TTP. No TTP of the medial epicondyle. No TTP of the lateral epicondyle * Left Elbow: Full ROM. No swelling or TTP. No TTP of the medial epicondyle. No TTP of the lateral epicondyle Shoulders * Right shoulder: No swelling noted. No TTP of the AC joint. No TTP of the subacromial bursa. No TTP of the posterior shoulder * Left shoulder: No swelling noted. No TTP of the AC joint. No TTP of the subacromial bursa. No TTP of the posterior shoulder * Decreased ROM R>L Hip bursa: No tenderness to palpation bilaterally Knees * Right knee: Full ROM. No swelling noted. No TTP of the knee joint line. No TTP of pes anserine bursa * Left knee: Full ROM. No swelling noted. No TTP of the knee joint line. No TTP of pes anserine bursa. * Crepitations felt bilaterally Ankles * Right ankle: Good ankle dorsiflexion and plantar flexion. No swelling. No TTP of the ankle joint * Left ankle: Good ankle dorsiflexion and plantar flexion. No swelling. No TTP of the ankle joint Feet * Right foot: Negative squeeze test * Left foot: Negative squeeze test Tender points? * No tenderness to palpation of the bilateral trapezius, supraspinatus, anterior costochondral junctions, bilateral suboccipital muscle insertions SKIN No rashes Vital Signs: Last Vital Signs Pulse 65 06/20/25 14:59 BP 132/80 06/20/25 14:59 Pulse Ox 98 06/20/25 14:59 Oxygen Delivery Method Room Air 06/20/25 14:59 BMI result Body Mass Index 31.8 Office Procedures AMB Joint Injection/Aspiration Joint Injection/Aspiration Details: Procedure was explained to the patient and informed consent was obtained. ? Risks associated with the procedure were discussed with the patient including but not limited to bleeding, infection, drug reactions and reactions to the topical anesthetic. Patient made aware of signs to look out for infectious complications. The area of interest was identified and confirmed with patient. ?This was subsequently cleaned with chlorhexidine x 2. ? The area was then anesthetized using ethyl chloride spray. 40 mg Kenalog with 1 cc 1% lidocaine was injected without issue. ?Minimal to no bleeding. ?Patient tolerated procedure. Primary Site: right shoulder Prep: site was prepped using aseptic technique and ethochloride spray was applied Injected: 40 mg of, Kenalog, with 1 mL of, 1% plain lidocaine and in the subcromial space Procedure: The patient tolerated the procedure well Coding 42304 - Glenohumeral/Tronchanteric Bursa/Intraarticular Procedure code (CPT) selection complete Office Meds lidocaine (PF) 10 mg/mL (1 %) injection solution Performing Provider: Shania Ellington MD [place] [facility] Administered by: Giovanna Still RN on 06/20/25 15:55 Dose Route Admin Location Dispensed Lot Number Expiration Date [facility] [employer] 1 mL Infiltration right subacromial bursa 2 mL [id number] 01/28/27 63 [id number] [employer] Total Dispensed Waste 2 mL 50 % Kenalog 40 mg/mL suspension for injection Performing Provider: Shania Ellington MD Performing Location: [facility] Administered by: Giovanna Still RN on 06/20/25 15:55 Dose Route Admin Location Dispensed Lot Number Expiration Date [facility] [employer] 40 mg intrabursal right subacromial bursa 1 mL [id number] 02/27/27 70 [id number] [employer] Total Dispensed Waste 1 mL 0 % Results Reviewed Results Reviewed: Laboratory Tests 05/01/25 07:34 WBC 9.1 RBC 3.91 L Hgb 12.0 Hct 34.9 L Plt Count 92 L D Sodium 141 Potassium 3.6 Chloride 111 H Carbon Dioxide 21 L BUN 21 H Creatinine 0.85 Laboratory Tests 03/02/25 09:27 JEANMARIE Screen NEGATIVE XR Bilateral Knees 12/2022 FINDINGS: RIGHT KNEE: Bony alignment and mineralization are normal. The lateral, medial and patellofemoral joint space compartments are well-maintained. There is mild peripheral osteophyte formation of the medial and patellofemoral joint space compartments. There is chondrocalcinosis. No fracture, dislocation or significant joint effusion is seen. There is no foreign body. LEFT KNEE: Bony alignment and mineralization are normal. The lateral, medial and patellofemoral joint space compartments are well-maintained. There is mild peripheral osteophyte formation of the medial and patellofemoral joint space compartments. No fracture, dislocation or significant joint effusion is seen. No foreign body is noted. IMPRESSION: 1. There is mild osteoarthritic change of the medial and patellofemoral joint space compartments of the right knee. 2. There is right knee chondrocalcinosis, which can be associated with CPPD. 3. There is mild osteoarthritic change of the medial and patellofemoral joint space compartments of the left knee. 4. No fracture, dislocation or significant joint effusion is seen of the bilateral knees. Assessment & Plan Assessment & Plan (1) Polyarticular osteoarthritis: Code(s): M15.9 - Polyosteoarthritis, unspecified Plan: #Polyarticular OA Patient is a 64-year-old female with polyarticular osteoarthritis here today for follow up. Has several complaints including bilateral knee pain, hip pain and right shoulder pain. Discussed topical diclofenac 3 times a day Plan - Topical diclofenac 1% tid (bilateral knees) - s/p right shoulder subacromial bursa injection - PT referral for right shoulder - RTC 6 months Plan I spent 30 minutes reviewing the record and labs, taking a history, examining the patient, discussing the treatment plan, ordering diagnostic work up and documenting in the medical record Orders: Orders PT Evaluation and Treatment Today M25.511 - Pain in right shoulder AMB Joint Injection/Aspiration Today M75.51 - Bursitis of right shoulder Coding Level of Care Code Est Pt Level 4 (87869) Diagnoses Polyarticular osteoarthritis M15.9 CPT Codes Coding - Joint 7: 35845 - Glenohumeral/Tronchanteric Bursa/Intraarticular ([id number])
[2025-06-20 14:59] VITALS: BP 132/80; PULSE 65; O2SAT 98; BMI 31.8
--- OUTSIDE RECORDS SUMMARY | 2025-06-20 19:57 | XMS_ITS | Encounter Summary ---
Author Organization [facility] Address [address] [place] [address] Phone Care Team Providers Care Plant Tender Name Role Phone Silvana Funes MD Primary Care Provid er Encounter Details Date Type Department Care Team (Late st Contact Info) Description 03/27/2022 Procedure Pass [facility] [address] [place] [address] Social History Tobacco Use Types Packs/Day Years [...] 4:14 PM EDT Emmanuel Carvalho RN * [place] Suicide Severity Rating Scale (Screener/Recent Self-Report) Question [...] documented as of this encounter Care Teams Plant Tender Relationship Specialty Start Date End Date Silvana Funes MD [address] [place] [address] PCP - General Internal Medicine 03/04/21 documented as of this encounter Additional Source Comments The information contained in this document represents components of the legal health record. It is not the complete legal health record.[facility]
--- OUTSIDE RECORDS SUMMARY | 2025-06-20 19:57 | XMS_ITS | Encounter Summary ---
Author Organization [facility] Address [address] [facility] [address] [place] [address] Phone Care Team Providers Care Manager Image Name Role Phone Silvana Funes MD Primary Care Provid er Encounter Details Date Type Department Care Team (Late st Contact Info) Description 10/23/2024 Procedure Pass [facility], Ct Scan - [address] [address] Social History Tobacco Use Types Packs/Day Years [...] 10/23/2024 5:45 PM Shayla Kim RN * [place] Suicide Severity Rating Scale (Screener/Recent Self-Report) Question [...] documented as of this encounter Care Teams Manager Image Relationship Specialty Start Date End Date Silvana Funes MD [address] [place] [address] PCP - General Internal Medicine 03/04/21 documented as of this encounter Additional Source Comments The information contained in this document represents components of the legal health record. It is not the complete legal health record.[facility]
--- OUTSIDE RECORDS SUMMARY | 2025-06-20 19:57 | XMS_ITS | Encounter Summary ---
Author Organization [facility] Address [address] [facility] [address] [place] [address] Phone Care Team Providers Care Sports Medicine Trainer Name Role Phone Guille Conklin MD Unavailable Marti Balderas MD Primary Care Provider [phone] Pcp, Unknown Primary Care Provider Unavailabl e Silvana Funes MD Primary Care Provid er Encounter Details Date Type Department Care Team (Late st Contact Info) Description 05/10/2019 Ancillary Orders Virtual Department [address] [place] [address] Deonte Isaacs MD [address] [place] [address] [email or web address] Elevated alkaline phosphatase level Social History [...] abdomen is recommended. 3. Hepatic steatosis. POS [id number] Narrative 05/10/2019 10:17 AM EDT COMPARISON: None. [...] CT abdomen isrecommended. 3. Hepatic steatosis. POS [id number] us Deonte Isaacs MD IM US ABDOMEN Final R esult documented in this encounter Visit Diagnoses Diagnosis Elevated alkaline phosphatase level Elevated alkaline phosphatase level documented in this encounter Additional Health Concerns Infection Onset Date Last Indicated Resolved Time CoV-Risk Comment:Per note documentation 10/24/2024 10/24/2024 9:18 AM EST documented as of this encounter Care Teams Sports Medicine Trainer Relationship Specialty Start Date End Date Marti Balderas MD [address] [place] [address], [address] [place] [address] PCP - General Internal Medicine 05/10/19 01/17/20 Pcp, Unknown PCP - General 01/18/20 03/03/21 Silvana Funes MD [address] [place] [address] PCP - General Internal Medicine 03/04/21 Guille Conklin MD [address] [facility], [address] [place] [address] [email or web address] Historical LMR Provider 06/20/17 09/07/21 documented as of this encounter Additional Source Comments The information contained in this document represents components of the legal health record. It is not the complete legal health record.[facility]
--- OUTSIDE RECORDS SUMMARY | 2025-06-20 19:57 | XMS_ITS | Encounter Summary ---
Author Organization [facility] Address [address] [place] [address] Phone Care Team Providers Care Rubber Mill Operator Name Role Phone Silvana Funes MD Primary Care Provid er Encounter Details Date Type Department Care Team (Late st Contact Info) Description 03/27/2022 Procedure Pass [facility], [address] [address] Social History Tobacco Use Types Packs/Day Years [...] 4:14 PM EDT Emmanuel Carvalho RN * [place] Suicide Severity Rating Scale (Screener/Recent Self-Report) Question [...] documented as of this encounter Care Teams Rubber Mill Operator Relationship Specialty Start Date End Date Silvana Funes MD [address] [place] [address] PCP - General Internal Medicine 03/04/21 documented as of this encounter Additional Source Comments The information contained in this document represents components of the legal health record. It is not the complete legal health record.[facility]
--- OUTSIDE RECORDS SUMMARY | 2025-06-20 19:57 | XMS_ITS | Encounter Summary ---
Author Organization [facility] Address [address] [facility] [address] [place] [address] Phone Care Team Providers Care Gill Box Fixer Name Role Phone Silvana Funes MD Primary Care Provid er Encounter Details Date Type Department Care Team (Late st Contact Info) Description 03/28/2022 Procedure Pass [facility], [address] [address] Social History Tobacco Use Types Packs/Day Years [...] documented as of this encounter Care Teams Gill Box Fixer Relationship Specialty Start Date End Date Silvana Funes MD [address] [place] [address] PCP - General Internal Medicine 03/04/21 documented as of this encounter Additional Source Comments The information contained in this document represents components of the legal health record. It is not the complete legal health record.[facility]
--- OUTSIDE RECORDS SUMMARY | 2025-06-20 19:57 | XMS_ITS | Clinical Summary ---
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 Plan -MRI, I will also order contrast given her elevated history of brain mass -We will request records from [facility] -Echocardiogram -Neurochecks -TSH -orthostatic vital signs -PT OT -Aspirin statin -lipid panel A1c -hospital monitor -Follow-up [facility] neurology consult TIA (transient ischemic attack) 03/27/2022 10/29/2024 Hepatitis 10/29/2024 Assessment & Plan (03/27/2022 7:26 PM EDT): Patient was seen in our ED last year on 03/04 for abnormal LFTs, fever, obstructive LFT pattern, CT showed congenitally absent gallbladder as well as diffuse thickening of the colonic wall She had been sent to [facility] at that time for ERCP that [...] 11/30/2003 ZOSTER VACCINES (1 of 2) 2008 OSTEOPOROSIS SCREENING INITIAL (ONE-TIME) 11/30/2023 INFLUENZA VACCINE (#1) 2025 COVID-19 VACCINE ( season) 2025 08/04/2021, 02/05/2021, 01/15/2021 CREATININE LEVEL 10/30/2025 10/30/2024, 08/2024, 10/28/2024, Additional history exists POTASSIUM LEVEL 10/30/2025 10/30/2024, 03/0 08/2024, 10/28/2024, Additional history exists LIPID PANEL 03/28/2027 03/28/2022 SCREENING FOR DIABETES 10/30/2027 10/29/2024 RSV VACCINE (1 - 1-dose 75+ series) 2033 SMOKING STATUS SCREENING (Once After 26 Yrs) [...] EST) SODIUM 138 133 - 146 mmol/L [facility] POTASSIUM 3.7 3.3 - 5.1 mmol/L [facility] CHLORIDE 103 96 - 108 mmol/L [facility] CO2 24 21 - 35 mmol/L [facility] BUN 24(H) 6 - 19 mg/dL [facility] CREATININE 1.40 0.5 - 1.5 mg/dL [facility] GLUCOSE 142(H) 70 - 99 mg/dL [facility] ALBUMIN 3.1(L) 3.9 - 4.8 g/dL [facility] TOTAL PROTEIN 6.0(L) 6.5 - 8.0 g/dL [facility] CALCIUM 9.4 8.4 - 10.3 mg/dL [facility] ALKALINE PHOSPHATASE 169(H) 39 - 117 U/L [facility] TOTAL BILIRUBIN 1.4(H) 0.0 - 1.2 mg/dL [facility] AST 29 0 - 37 U/L [facility] ALT 84(H) 0 - 40 U/L [facility] GLOBULIN 2.9 1 - 4.8 g/dL [facility] EGFR 42(L) >59 mL/min/1.7 3m2 [facility] Comment:Estimated glomerular filtration rate calculated using the CKD-EPI refit equation. ANION GAP 15 10 - 20 mmol/L [facility] Blood 10/30/2024 4:18 AM EST 10/30/2024 4:33 AM EST us Eran Partida PA-C, MS LAB BLOOD ORDERABLES Fi nal Result Performing Organization Address City/[facility]/ZIP Co de Phone Number [address] [address] * (ABNORMAL) Lipid panel (03/28/2022 6:21 AM EDT) HDL 61 mg/dL [facility] Comment: Interpretation <40 mg/dL: Low HDL cholesterol (major risk factor for CHD) Greater than or equal to 60 mg/dL: High HDL cholesterol ( negative risk factor for CHD) HDL - cholesterol is affected by a number of factors, e.g. smoking, excerise, hormones, sex and age. CHOLESTEROL 164 0 - 240 mg/dL [facility] TRIGLYCERIDES 62 30 - 160 mg/dL [facility] LDL 91 50 - 129 mg/dL [facility] Comment: LDL levels in terms of risk for coronary heart disease: <100 mg/dL: Optimal 100-129 mg/dL: Near or above optimal 130-159 mg/dL: Borderline high 160-189 mg/dL: High >190 mg/dL: Very High CARDIAC RISK RATIO 2.7(L) 3.3 - 4.4 [facility] Blood 03/28/2022 6:21 AM EDT 03/28/2022 6:44 AM EDT us Ceci Flynn NP LAB BLOOD ORDERABLES Fi nal Result [address] [address] from Last 3 Months or Most Recently Relevant to Health Maintenance Insurance MEDICARE A MEDICARE A MEDICARE A MEDICARE A MEDICARE A MEDICARE A MEDICARE A MEDICARE A MEDICARE A Advance Directives For more information, please contact: [phone] (9AM - 5PM [facility], Thursday-Thursday) Documents on File Type Date Recorded Patient Ribbon Winder Expl anation Healthcare Proxy 10/30/2024 * Full [...] Agent (Proxy form on file) Care Teams Hands Parter Relationship Specialty Start Date End Date Silvana Funes MD [address] [place] [address] PCP - General Internal Medicine 03/04/21 Additional Source Comments The information contained in this document represents components of the legal health record. It is not the complete legal health record.[facility]
--- OUTSIDE RECORDS SUMMARY | 2025-06-20 19:57 | XMS_ITS | Encounter Summary ---
Author Organization [facility] Address [address] [place] [address] Phone Care Team Providers Care Ortho Assistant Name Role Phone Silvana Funes MD Primary Care Provid er Encounter Details Date Type Department Care Team (Late st Contact Info) Description 03/27/2022 Procedure Pass [facility], Ct Scan - [address] [address] Social History Tobacco Use Types Packs/Day Years [...] 4:14 PM EDT Emmanuel Carvalho RN * [place] Suicide Severity Rating Scale (Screener/Recent Self-Report) Question [...] documented as of this encounter Care Teams Ortho Assistant Relationship Specialty Start Date End Date Silvana Funes MD [address] [place] [address] PCP - General Internal Medicine 03/04/21 documented as of this encounter Additional Source Comments The information contained in this document represents components of the legal health record. It is not the complete legal health record.[facility]
--- OUTSIDE RECORDS SUMMARY | 2025-06-20 19:57 | XMS_ITS | Encounter Summary ---
Author Organization [facility] Address [address] [facility] [address] [place] [address] Phone Care Team Providers Care Obiee Architect Name Role Phone Silvana Funes MD Primary Care Provid er Encounter Details Date Type Department Care Team (Late st Contact Info) Description 10/24/2024 Procedure Pass [facility] Endoscopy Admitting Dept Virtual Department [address] [place] [address] Social History Tobacco Use Types Packs/Day Years [...] documented as of this encounter Care Teams Obiee Architect Relationship Specialty Start Date End Date Silvana Funes MD [address] [place] [address] PCP - General Internal Medicine 03/04/21 documented as of this encounter Additional Source Comments The information contained in this document represents components of the legal health record. It is not the complete legal health record.[facility]
--- OUTSIDE RECORDS SUMMARY | 2025-06-20 19:57 | XMS_ITS | Encounter Summary ---
Author Organization [facility] Address [address] [facility] [address] [place] [address] Phone Care Team Providers Care Occasional Caregiver Name Role Phone Guille Conklin MD Unavailable Ana Paula Franz DO Primary Care Provider [phone] Marti Balderas MD Primary Care Provider [phone] Pcp, Unknown [facility] Silvana Funes MD Primary Care Provid er Reason for Referral * - Closed Specialty Diagnoses / Procedures Referred By Olimpia mckay Referred To Contact Diagnoses Abnormal electrocardiogram Procedures Stress Test Exercise Ana Paula Franz DO Phone: tel: fax: [email or web address] Referral ID Status Reason Start Date Expiration Date Visits Re quested Visits Authorized [id number] Closed 06/03/2018 06/03/2019 1 1 Encounter Details Date Type Department Care Team (Latest Contact Info) Description 06/03/2018 Transcribe [facility] [address] [facility] [address] [facility] [place] [address] Nisreen Jordan NP [address] [place] [address] Abnormal electrocardiogram (Primary Dx) Social History Tobacco [...] documented as of this encounter Care Teams Occasional Caregiver Relationship Specialty Start Date End Date Ana Paula Franz DO [address] [place] [address] PCP - General Internal Medicine 06/03/18 05/09/19 Marti Balderas MD [address] [place] [address], [address] [place] [address] PCP - General Internal Medicine 05/10/19 01/17/20 Pcp, Unknown PCP - General 01/18/20 03/03/21 Silvana Funes MD [address] [place] [address] PCP - General Internal Medicine 03/04/21 Guille Conklin MD [address] [facility], [address] [place] [address] Historical LMR Provider 06/20/17 09/07/21 documented as of this encounter Additional Source Comments The information contained in this document represents components of the legal health record. It is not the complete legal health record.[facility]
--- OUTSIDE RECORDS SUMMARY | 2025-06-20 19:57 | XMS_ITS | Encounter Summary ---
Author Organization [facility] Address [address] [facility] [address] [place] [address] Phone Care Team Providers Care Cage/Vault Supervisor Name Role Phone Silvana Funes MD Primary Care Provid er Encounter Details Date Type Department Care Team (Late st Contact Info) Description 10/27/2024 Procedure Pass [facility] [address] [place] [address] Social History Tobacco Use Types Packs/Day Years [...] on filedocumented in this encounter Care Teams Cage/Vault Supervisor Relationship Specialty Start Date End Date Silvana Funes MD [address] [place] [address] PCP - General Internal Medicine 03/04/21 documented as of this encounter Additional Source Comments The information contained in this document represents components of the legal health record. It is not the complete legal health record.[facility]
--- OUTSIDE RECORDS SUMMARY | 2025-06-20 19:57 | XMS_ITS | Encounter Summary ---
Author Organization [facility] Address [address] [place] [address] Phone Care Team Providers Care Manager Simulation Name Role Phone Guille Conklin MD Unavailable Silvana Funes MD Primary Care Provid er Encounter Details Date Type Department Care Team (Late st Contact Info) Description 03/04/2021 Procedure Pass [facility], Ct Scan - [facility] [address] [place] [address] Social History Tobacco Use Types Packs/Day Years [...] 6:08 PM EDT Avni Dowell, MARIO * [place] Suicide Severity Rating Scale (Screener/Recent Self-Report) Question [...] as of this encounter Care Teams Manager Simulation Relationship Specialty Start Date End Date Silvana Funes MD [address] [place] [address] PCP - General Internal Medicine 03/04/21 Guille Conklin MD [address] [place] [address], [facility] [address] [place] [address] [email or web address] Historical LMR Provider 06/20/17 09/07/21 documented as of this encounter Additional Source Comments The information contained in this document represents components of the legal health record. It is not the complete legal health record.[facility]
--- OUTSIDE RECORDS SUMMARY | 2025-06-20 19:57 | XMS_ITS | Encounter Summary ---
Author Organization [facility] Address [address] [place] [address] Phone Care Team Providers Care Industrial Green Systems Designer Name Role Phone Silvana Funes MD Primary Care Provid er Encounter Details Date Type Department Care Team (Late st Contact Info) Description 03/27/2022 Procedure Pass [facility], Ct Scan - [address] [address] Social History Tobacco Use Types Packs/Day Years [...] 4:14 PM EDT Emmanuel Carvalho RN * [place] Suicide Severity Rating Scale (Screener/Recent Self-Report) Question [...] documented as of this encounter Care Teams Industrial Green Systems Designer Relationship Specialty Start Date End Date Silvana Funes MD [address] [place] [address] PCP - General Internal Medicine 03/04/21 documented as of this encounter Additional Source Comments The information contained in this document represents components of the legal health record. It is not the complete legal health record.[facility]
== END 2025-06-20 15:40 | disposition home or self-care (01) ==
LOC: HO.RHES 14:48
PROVIDERS: PCP Internal Medicine; Visit Provider Student in an Organized Health Care Education/Training Program
DX: M75.51 Bursitis of right shoulder (principal); M15.0 Primary generalized (osteo)arthritis
CPT/HCPCS: 20610; 99213

== ENCOUNTER → 2025-06-20 14:47 | Outpatient (BNVA) | payer MEDICARE, SELFPAY | PROVIDERS: PCP Internal Medicine; Visit Provider Student in an Organized Health Care Education/Training Program | DX: M15.9 Polyosteoarthritis, unspecified (principal) | CPT/HCPCS: 20610; 99212; J2003; J3301 ==

== ENCOUNTER 2025-07-10 09:00 | Outpatient (REF) | payer MEDICARE, SELFPAY ==
--- OUTSIDE RECORDS SUMMARY | 2025-07-11 11:48 | XMS_ITS | Encounter Summary ---
Author Organization [facility] Address [address] [place] [address] Phone Care Team Providers Care Package Dyeing Machine Operator Name Role Phone Silvana Funes MD Primary Care Provid er Encounter Details Date Type Department Care Team (Late st Contact Info) Description 03/27/2022 Procedure Pass [facility] [address] [place] [address] Social History Tobacco Use Types Packs/Day Years [...] 4:14 PM EDT Emmanuel Carvalho RN * [place] Suicide Severity Rating Scale (Screener/Recent Self-Report) Question [...] documented as of this encounter Care Teams Package Dyeing Machine Operator Relationship Specialty Start Date End Date Silvana Funes MD [address] [place] [address] PCP - General Internal Medicine 03/04/21 documented as of this encounter Additional Source Comments The information contained in this document represents components of the legal health record. It is not the complete legal health record.[facility]
--- OUTSIDE RECORDS SUMMARY | 2025-07-11 11:48 | XMS_ITS | Encounter Summary ---
Author Organization [facility] Address [address] [place] [address] Phone Care Team Providers Care Cyber Transport Systems Specialist Name Role Phone Silvana Funes MD Primary Care Provid er Encounter Details Date Type Department Care Team (Late st Contact Info) Description 03/27/2022 Procedure Pass [facility], Ct Scan - [address] [address] Social History Tobacco Use Types Packs/Day Years [...] PM EDT Emmanuel Carvalho RN * [place] Suicide Severity Rating Scale (Screener/Recent Self-Report) Question [...] documented as of this encounter Care Teams Cyber Transport Systems Specialist Relationship Specialty Start Date End Date Silvana Funes MD [address] [place] [address] PCP - General Internal Medicine 03/04/21 documented as of this encounter Additional Source Comments The information contained in this document represents components of the legal health record. It is not the complete legal health record.[facility]
--- OUTSIDE RECORDS SUMMARY | 2025-07-11 11:48 | XMS_ITS | Encounter Summary ---
Author Organization [facility] Address [address] [place] [address] Phone Care Team Providers Care Event Attendant Name Role Phone Silvana Funes MD Primary Care Provid er Encounter Details Date Type Department Care Team (Late st Contact Info) Description 03/27/2022 Procedure Pass [facility], [address] [address] Social History Tobacco Use Types Packs/Day Years [...] 4:14 PM EDT Emmanuel Carvalho RN * [place] Suicide Severity Rating Scale (Screener/Recent Self-Report) Question [...] documented as of this encounter Care Teams Event Attendant Relationship Specialty Start Date End Date Silvana Funes MD [address] [place] [address] PCP - General Internal Medicine 03/04/21 documented as of this encounter Additional Source Comments The information contained in this document represents components of the legal health record. It is not the complete legal health record.[facility]
--- OUTSIDE RECORDS SUMMARY | 2025-07-11 11:48 | XMS_ITS | Clinical Summary ---
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 She had been sent to [facility] at that time for ERCP that [...] Date/Time Associated Diagnosis Comments COMPREHENSIVE METABOLIC PANEL (CMP) Routine 10/30/2024 4:18 AM EST LIPID PANEL Routine 03/28/2022 6:21 AM EDT from Last 3 Months or Most Recently Relevant to Health Maintenance Results * (ABNORMAL) Comprehensive metabolic panel (10/30/2024 4:18 AM EST) SODIUM 138 133 - 146 mmol/L [facility] POTASSIUM 3.7 3.3 - 5.1 mmol/L [facility] CHLORIDE 103 96 - 108 mmol/L [facility] CO2 24 21 - 35 mmol/L [facility] BUN 24(H) 6 - 19 mg/dL [facility] CREATININE 1.40 0.5 - 1.5 mg/dL [facility] GLUCOSE 142(H) 70 - 99 mg/dL [facility] ALBUMIN 3.1(L) 3.9 - 4.8 g/dL [facility] TOTAL PROTEIN 6.0(L) 6.5 - 8.0 g/dL [facility] CALCIUM 9.4 8.4 - 10.3 mg/dL [facility] ALKALINE PHOSPHATASE 169(H) 39 - 117 U/L [facility] TOTAL BILIRUBIN 1.4(H) 0.0 - 1.2 mg/dL [facility] AST 29 0 - 37 U/L [facility] ALT 84(H) 0 - 40 U/L [facility] GLOBULIN 2.9 1 - 4.8 g/dL [facility] EGFR 42(L) >59 mL/min/1.7 3m2 [facility] Comment:Estimated glomerular filtration rate calculated using the CKD-EPI refit equation. ANION GAP 15 10 - 20 mmol/L [facility] Blood 10/30/2024 4:18 AM EST 10/30/2024 4:33 AM EST us Eran Partida PA-C, MS LAB BLOOD BKR ORDERABLE S Final Result Performing Organization Address City/[facility] Co de Phone Number [address] [address] * (ABNORMAL) Lipid panel (03/28/2022 6:21 AM EDT) HDL 61 mg/dL [facility] Comment: Interpretation <40 mg/dL: Low HDL cholesterol (major risk factor for CHD) Greater than or equal to 60 mg/dL: High HDL cholesterol ( negative risk factor for CHD) HDL - cholesterol is affected by a number of factors, e.g. smoking, excerise, hormones, sex and age. CHOLESTEROL 164 0 - 240 mg/dL [facility] TRIGLYCERIDES 62 30 - 160 mg/dL [facility] LDL 91 50 - 129 mg/dL [facility] Comment: LDL levels in terms of risk for coronary heart disease: <100 mg/dL: Optimal 100-129 mg/dL: Near or above optimal 130-159 mg/dL: Borderline high 160-189 mg/dL: High >190 mg/dL: Very High CARDIAC RISK RATIO 2.7(L) 3.3 - 4.4 [facility] Blood 03/28/2022 6:21 AM EDT 03/28/2022 6:44 AM EDT us Ceci Flynn HEALTH EVALUATOR LAB BLOOD BKR ORDERABLE S Final Result Performing Organization Address City/[facility]/ZIP Co de Phone Number [address] [place] [address] from Last 3 Months or Most Recently Relevant to Health Maintenance Insurance MEDICARE A MEDICARE A MEDICARE A MEDICARE A MEDICARE A MEDICARE A MEDICARE A MEDICARE A MEDICARE A Advance Directives For more information, please contact: [phone] (9AM - 5PM [facility], Thursday-Thursday) Documents on File Type Date Recorded Patient Drywall Stripper Expl anation Healthcare Proxy 10/30/2024 * Full [...] Agent (Proxy form on file) Care Teams Muffler Hand Relationship Specialty Start Date End Date Silvana Funes MD [address] [place] [address] PCP - General Internal Medicine 03/04/21 Additional Source Comments The information contained in this document represents components of the legal health record. It is not the complete legal health record.[facility]
--- OUTSIDE RECORDS SUMMARY | 2025-07-11 11:48 | XMS_ITS | Encounter Summary ---
Author Organization [facility] Address [address] [facility] [address] [place] [address] Phone Care Team Providers Care Transport Tank Technician Name Role Phone Silvana Funes MD Primary Care Provid er Encounter Details Date Type Department Care Team (Late st Contact Info) Description 10/24/2024 Procedure Pass [facility] Endoscopy Admitting Dept Virtual Department [address] [place] [address] Social History Tobacco Use Types Packs/Day Years [...] documented as of this encounter Care Teams Transport Tank Technician Relationship Specialty Start Date End Date Silvana Funes MD [address] [place] [address] PCP - General Internal Medicine 03/04/21 documented as of this encounter Additional Source Comments The information contained in this document represents components of the legal health record. It is not the complete legal health record.[facility]
--- OUTSIDE RECORDS SUMMARY | 2025-07-11 11:48 | XMS_ITS | Encounter Summary ---
Author Organization [facility] Address [address] [facility] [address] [place] [address] Phone Care Team Providers Care Senior Sql Server Dba Name Role Phone Guille Conklin MD Unavailable Ana Paula Franz DO Primary Care Provider [phone] Marti Balderas MD Primary Care Provider [phone] Pcp, Unknown [facility] Silvana Funes MD Primary Care Provid er Reason for Referral * - Closed Specialty Diagnoses / Procedures Referred By Olimpia mckay Referred To Contact Diagnoses Abnormal electrocardiogram Procedures Stress Test Exercise Ana Paula Franz DO Phone: tel: fax: [email or web address] Referral ID Status Reason Start Date Expiration Date Visits Re quested Visits Authorized [id number] Closed 06/03/2018 06/03/2019 1 1 Encounter Details Date Type Department Care Team (Latest Contact Info) Description 06/03/2018 Transcribe [facility] [address] [facility] 3rd Floor, [address] [place] [address] Nisreen Jordan NP [address] [place] [address] Abnormal electrocardiogram (Primary Dx) Social History Tobacco [...] documented as of this encounter Care Teams Senior Sql Server Dba Relationship Specialty Start Date End Date Ana Paula Franz DO [address] [place] [address] PCP - General Internal Medicine 06/03/18 05/09/19 Marti Balderas MD [address] [place] [address], 2nd [place] [address] PCP - General Internal Medicine 05/10/19 01/17/20 Pcp, Unknown PCP - General 01/18/20 03/03/21 Silvana Funes MD [address] [place] [address] PCP - General Internal Medicine 03/04/21 Guille Conklin MD [address] [facility], [address] [place] [address] Historical LMR Provider 06/20/17 09/07/21 documented as of this encounter Additional Source Comments The information contained in this document represents components of the legal health record. It is not the complete legal health record.[facility]
--- OUTSIDE RECORDS SUMMARY | 2025-07-11 11:48 | XMS_ITS | Encounter Summary ---
Author Organization [facility] Address [address] [facility] [address] [place] [address] Phone Care Team Providers Care Gis Software Developer Name Role Phone Silvana Funes MD Primary Care Provid er Encounter Details Date Type Department Care Team (Late st Contact Info) Description 03/28/2022 Procedure Pass [facility], [address] [address] Social History Tobacco Use Types Packs/Day Years [...] documented as of this encounter Care Teams Gis Software Developer Relationship Specialty Start Date End Date Silvana Funes MD [address] [place] [address] PCP - General Internal Medicine 03/04/21 documented as of this encounter Additional Source Comments The information contained in this document represents components of the legal health record. It is not the complete legal health record.[facility]
--- OUTSIDE RECORDS SUMMARY | 2025-07-11 11:48 | XMS_ITS | Encounter Summary ---
Author Organization [facility] Address [address] [facility] [address] [place] [address] Phone Care Team Providers Care Skein Winder Name Role Phone Guille Conklin MD Unavailable Marti Balderas MD Primary Care Provider [phone] Pcp, Unknown Primary Care Provider Unavailabl e Silvana Funes MD Primary Care Provid er Encounter Details Date Type Department Care Team (Late st Contact Info) Description 05/10/2019 Ancillary Orders Virtual Department [address] [place] [address] Deonte Isaacs MD [address] [place] [address] [email or web address] Elevated alkaline phosphatase level Social History [...] abdomen is recommended. 3. Hepatic steatosis. POS [id number] Narrative 05/10/2019 10:17 AM EDT COMPARISON: None. [...] CT abdomen isrecommended. 3. Hepatic steatosis. POS [id number] us Deonte Isaacs MD IM US ABDOMEN Final R esult documented in this encounter Visit Diagnoses Diagnosis Elevated alkaline phosphatase level Elevated alkaline phosphatase level documented in this encounter Additional Health Concerns Infection Onset Date Last Indicated Resolved Time CoV-Risk Comment:Per note documentation 10/24/2024 10/24/2024 9:18 AM EST documented as of this encounter Care Teams Skein Winder Relationship Specialty Start Date End Date Marti Balderas MD [address] [place] [address], 2[address] [place] [address] PCP - General Internal Medicine 05/10/19 01/17/20 Pcp, Unknown PCP - General 01/18/20 03/03/21 Silvana Funes MD [address] [place] [address] PCP - General Internal Medicine 03/04/21 Guille Conklin MD [address] [facility], [address] [place] [address] [email or web address] Historical LMR Provider 06/20/17 09/07/21 documented as of this encounter Additional Source Comments The information contained in this document represents components of the legal health record. It is not the complete legal health record.[facility]
--- OUTSIDE RECORDS SUMMARY | 2025-07-11 11:48 | XMS_ITS | Encounter Summary ---
Author Organization [facility] Address [address] [facility] [address] [place] [address] Phone Care Team Providers Care Dampener Name Role Phone Silvana Funes MD Primary Care Provid er Encounter Details Date Type Department Care Team (Late st Contact Info) Description 10/23/2024 Procedure Pass [facility], Ct Scan - [address] [address] Social History Tobacco Use Types Packs/Day Years [...] 10/23/2024 5:45 PM Shayla Kim RN * [place] Suicide Severity Rating Scale (Screener/Recent Self-Report) Question Answer Date of Assessment Author 1. Wish to be (Past 1 Month) No 025 5:45 PM Shayla Juan RN 2. Non-Specific Active Suici sharon Thoughts (Past 1 Month) No 10/23/2024 5:45 PM Sujatha Juan RN 6. Suicidal Behavior (Lifetime) No 5:45 PM Shayla Juan RN documented as of this encounter Plan of Treatment Not on file documented as of this encounter Visit Diagnoses Not on filedocumented in this encounter Additional Health Concerns Infection Onset Date Last Indicated Resolved Time CoV-Risk Comment:Per note documentation 10/24/2024 10/24/2024 9:18 AM EST documented as of this encounter Care Teams Dampener Relationship Specialty Start Date End Date Silvana Funes MD [address] [place] [address] PCP - General Internal Medicine 03/04/21 documented as of this encounter Additional Source Comments The information contained in this document represents components of the legal health record. It is not the complete legal health record.[facility]
--- OUTSIDE RECORDS SUMMARY | 2025-07-11 11:48 | XMS_ITS | Encounter Summary ---
Author Organization [facility] Address [address] [place] [address] Phone Care Team Providers Care Securities Teller Name Role Phone Silvana Funes MD Primary Care Provid er Encounter Details Date Type Department Care Team (Late st Contact Info) Description 03/27/2022 Procedure Pass [facility], Ct Scan - [address] [address] Social History Tobacco Use Types Packs/Day Years [...] 4:14 PM EDT Emmanuel Carvalho RN * [place] Suicide Severity Rating Scale (Screener/Recent Self-Report) Question [...] documented as of this encounter Care Teams Securities Teller Relationship Specialty Start Date End Date Silvana Funes MD [address] [place] [address] PCP - General Internal Medicine 03/04/21 documented as of this encounter Additional Source Comments The information contained in this document represents components of the legal health record. It is not the complete legal health record.[facility]
--- OUTSIDE RECORDS SUMMARY | 2025-07-11 11:49 | XMS_ITS | Encounter Summary ---
Author Organization [facility] Address [address] [place] [address] Phone Care Team Providers Care Voice Engineer Name Role Phone Guille Conklin MD Unavailable Silvana Funes MD Primary Care Provid er Encounter Details Date Type Department Care Team (Late st Contact Info) Description 03/04/2021 Procedure Pass [facility], Ct Scan - [facility] [address] [place] [address] Social History Tobacco Use Types Packs/Day Years [...] 6:08 PM EDT Avni Dowell, MARIO * [place] Suicide Severity Rating Scale (Screener/Recent Self-Report) Question [...] documented as of this encounter Care Teams Voice Engineer Relationship Specialty Start Date End Date Silvana Funes MD [address] [place] [address] PCP - General Internal Medicine 03/04/21 Guille Conklin MD [address] [place] [address], [facility] [address] [place] [address] [email or web address] Historical LMR Provider 06/20/17 09/07/21 documented as of this encounter Additional Source Comments The information contained in this document represents components of the legal health record. It is not the complete legal health record.[facility]
--- OUTSIDE RECORDS SUMMARY | 2025-07-11 11:49 | XMS_ITS | Encounter Summary ---
Author Organization [facility] Address [address] [facility] [address] [place] [address] Phone Care Team Providers Care Hydraulic Auto Jack Mechanic Name Role Phone Silvana Funes MD Primary Care Provid er Encounter Details Date Type Department Care Team (Late st Contact Info) Description 10/27/2024 Procedure Pass [facility] [address] [place] [address] Social History Tobacco Use Types Packs/Day Years [...] on filedocumented in this encounter Care Teams Hydraulic Auto Jack Mechanic Relationship Specialty Start Date End Date Silvana Funes MD [address] [place] [address] PCP - General Internal Medicine 03/04/21 documented as of this encounter Additional Source Comments The information contained in this document represents components of the legal health record. It is not the complete legal health record.[facility]
== END 2025-07-10 09:01 | disposition home or self-care (01) ==
LOC: HO.LNP 09:00
PROVIDERS: PCP Internal Medicine; Visit Provider Nurse Practitioner Family
DX: A04.8 Other specified bacterial intestinal infections (principal)
CPT/HCPCS: 83013

== ENCOUNTER 2025-08-16 11:18 | Outpatient (AMB) | payer MEDICARE, SELFPAY ==
[2025-08-16 11:43] VITALS: BMI 31.6
--- NOTE | 2025-08-16 11:43 | MHC.AMNUTRGE ---
VS Expanded 08/16/25 11:43 08/16/25 12:06 Height 5 ft 5 ft Weight 162 lb 0.4 oz 162 lb BMI 31.6 31.6 Intake Visit Reasons: Fatty (change of) liver, not elsewhere classified Allergies No Known Allergies Allergy (Verified 07/10/25 09:32) Nutrition Presentation Details: Pt presents for MNT for fatty liver Patient reports working on dietary meal modifications, was 190 lb a year ago. Patient reports having 3-4 small meals a day Food frequency Fish 0 to once a week Fruits twice a day Vegetables 1 at least daily Dairy: Choosing alternative may have 1 a day Beverages: Water, juices, sometimes soda Alcohol intake: Abstains Smoking: Denies CZP-Hnlrkiu-Vb.Jeor Equation Height: 5 ft Weight: 162 lb Resting Metabolic Rate: 1200.86 Calculated Activity Level: Sedentary Calories Needed to Maintain Weight: 1441.03 Diagnosis Nutrition problem #1: overweight/obesity As related to (etiology) #1: diagnosis (Fatty liver) As evidenced by (sign/symptom) #1: high BMI (31.6 on mb,) [facility] Medical History (Updated 08/16/25 @ 14:43 by Ashley Palacios, RD, LDN) Barretts esophagus Tubular adenoma of colon Positive H. pylori test Metabolic dysfunction-associated steatotic liver disease (MASLD) Bloating Bilateral primary osteoarthritis of knee Right tennis elbow Degenerative disc disease, lumbar Cough Blurry vision Class 1 obesity with body mass index (BMI) of 30.0 to 30.9 in adult Hypertension Tortuosity of artery Transaminitis Pure hypercholesterolemia Brain lesion Hair loss New daily persistent headache Polyarthralgia Obstructive jaundice Surgical History History of cholecystectomy Hx of colonoscopy History of removal of calculus of renal pelvis through percutaneous nephrostomy History of endoscopy H/O hysterectomy for benign disease Family History Father CAD (coronary artery disease) Mother Stomach cancer Daughter Uterine cancer Son Intestinal disease Social History Household Members: Family Housing: House Do you presently have visiting nurse or other home services: No Alcohol intake: never Patient Tobacco Use Status: Never used Tobacco Tobacco use type: Cigarette e-Cigarette/Vaping Use: Never Used Second Hand Smoke Exposure: No service: No Current occupational status: employed 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 [employer] Current occupational exposures/hazards: No Cognitive needs: No Hearing needs: No Vision needs: Yes (only for reading) Assessment & Plan Assessment & Plan (1) Metabolic dysfunction-associated steatotic liver disease (MASLD): Code(s): K76.0 - Fatty (change of) liver, not elsewhere classified Category: Medical Plan: current wt: 74 kg ( August 24 ) est kcal needs as per MSJ: 1400 est protein needs as per 1 to 1.2 g/kg BW: 70-88 est fluid needs as per 30 ml/kg BW: 2000 Recommended fiber > 12 g /day and gradually increase up to 25-28 g /day or as tolerated Recommended sodium intake: Less than 2000 mg per day related to cirrhosis Nutrition topics discussed : Reviewed (R), Pt verbalized understanding (V) , not applicable (N/A) R, : Healthy Plate Method Concept: R, : Carbohydrates: food sources of carbohydrates, relationship of carbohydrates to blood glucose, fatty liver GI health. Recommended total amount of carbohydrates per meals and snack. Differences between simple carbohydrates and complex carbohydrates R,: Lean protein foods including vegan , vegetarian sources of protein. Benefits of protein (including but not limited to healing, nutritional value , benefits in weight loss, glucose control R, V, N/A: Fats : Source of fats, benefits of fats. Difference between saturated and unsaturated fats. Saturated fats and its contribution to inflammation R, V, N/A: Fiber: food sources and role of fiber in the diet (including but not limited to its role as a prebiotic, benefits in constipation, role in IBS , role in glucose control and cholesterol level) R, V, N/A: Hydration: role of hydration and prevention of dehydration or over hydration. Foods and water content. R, V, N/A: Vitamins and Minerals in foods and supplements R, V, N/A: Interpreting food labels, including serving size, macronutrients, vitamins, minerals, allergens, ingredient list , % daily value Patient Instructions: Choose low-sodium food options hand low to fat cooking methods Follow healthy plate method id at dinnertime Choose a fruit instead of fruit juices, and drink water with meals Coding Level of Care Code Nutr Indiv Intake (06599) Diagnoses Metabolic dysfunction-associated steatotic liver disease (MASLD) K76.0 Time Spent (min) 30
[2025-08-16 12:06] VITALS: BMI 31.6
--- OUTSIDE RECORDS SUMMARY | 2025-08-16 15:00 | XMS_ITS | Encounter Summary ---
Author Organization [facility] Address [address] [place] [address] Phone Care Team Providers Care Financial Solutions Advisor Name Role Phone Silvana Funes MD Primary Care Provid er Encounter Details Date Type Department Care Team (Late st Contact Info) Description 03/27/2022 Procedure Pass [facility] [address] [place] [address] Social History Tobacco Use Types Packs/Day Years [...] 4:14 PM EDT Emmanuel Carvalho RN * [place] Suicide Severity Rating Scale (Screener/Recent Self-Report) Question [...] as of this encounter Care Teams Financial Solutions Advisor Relationship Specialty Start Date End Date Silvana Funes MD [address] [place] [address] PCP - General Internal Medicine 03/04/21 documented as of this encounter Additional Source Comments The information contained in this document represents components of the legal health record. It is not the complete legal health record.[facility]
--- OUTSIDE RECORDS SUMMARY | 2025-08-16 15:00 | XMS_ITS | Encounter Summary ---
Author Organization [facility] Address [email or web address] [place] [address] Phone Care Team Providers Care Medical Massage Therapist Name Role Phone Silvana Funes MD Primary Care Provid er Encounter Details Date Type Department Care Team (Late st Contact Info) Description 03/27/2022 Procedure Pass [facility], Ct Scan - [address] [address] Social History Tobacco Use Types Packs/Day Years [...] 4:14 PM EDT Emmanuel Carvalho RN * [place] Suicide Severity Rating Scale (Screener/Recent Self-Report) Question Answer Date of Assessment Author 1. Wish to be (Past 1 Month) No 03/27/2022 4:14 PM EDT Emamnuel Madrigal Ma, RN 2. Non-Specific Active Suicidal [...] documented as of this encounter Care Teams Medical Massage Therapist Relationship Specialty Start Date End Date Silvana Funes MD [address] [place] [address] PCP - General Internal Medicine 03/04/21 documented as of this encounter Additional Source Comments The information contained in this document represents components of the legal health record. It is not the complete legal health record.[facility]
--- OUTSIDE RECORDS SUMMARY | 2025-08-16 15:00 | XMS_ITS | Encounter Summary ---
Author Organization [facility] Address [address] [facility] [address] [place] [address] Phone Care Team Providers Care Joint Yarner Name Role Phone Guille Conklin MD Unavailable Marti Balderas MD Primary Care Provider [phone] Pcp, Unknown Primary Care Provider Unavailabl e Silvana Funes MD Primary Care Provid er Encounter Details Date Type Department Care Team (Late st Contact Info) Description 05/10/2019 Ancillary Orders Virtual Department [address] [place] [address] Deonte Isaacs MD [address] [place] [address] [email or web address] Elevated alkaline phosphatase level Social History Tobacco [...] abdomen is recommended. 3. Hepatic steatosis. POS [id number] Narrative 05/10/2019 10:17 AM EDT COMPARISON: None. [...] CT abdomen isrecommended. 3. Hepatic steatosis. POS [id number] us Deonte Isaacs MD IM US ABDOMEN Final R esult documented in this encounter Visit Diagnoses Diagnosis Elevated alkaline phosphatase level Elevated alkaline phosphatase level documented in this encounter Additional Health Concerns Infection Onset Date Last Indicated Resolved Time CoV-Risk Comment:Per note documentation 10/24/2024 10/24/2024 9:18 AM EST documented as of this encounter Care Teams Joint Yarner Relationship Specialty Start Date End Date Marti Balderas MD [address] [place] [address], [address] [place] [address] PCP - General Internal Medicine 05/10/19 01/17/20 Pcp, Unknown PCP - General 01/18/20 03/03/21 Silvana Funes MD [address] [place] [address] PCP - General Internal Medicine 03/04/21 Guille Conklin MD [address] [facility], [address] [place] [address] [email or web address] Historical LMR Provider 06/20/17 09/07/21 documented as of this encounter Additional Source Comments The information contained in this document represents components of the legal health record. It is not the complete legal health record.[facility]
--- OUTSIDE RECORDS SUMMARY | 2025-08-16 15:00 | XMS_ITS | Encounter Summary ---
Author Organization [facility] Address [address] [facility] [address] [place] [address] Phone Care Team Providers Care Property Assistant Name Role Phone Guille Conklin MD Unavailable Ana Paula Franz DO Primary Care Provider [phone] Marti Balderas MD Primary Care Provider [phone] Pcp, Unknown Primary Care Provider [facility] Silvana Funes MD Primary Care Provid er Reason for Referral * - Closed Specialty Diagnoses / Procedures Referred By Olimpia mckay Referred To Contact Diagnoses Abnormal electrocardiogram Procedures Stress Test Exercise Ana Paula Franz DO Phone: tel: fax: [email or web address] Referral ID Status Reason Start Date Expiration Date Visits Re quested Visits Authorized [id number] Closed 06/03/2018 06/03/2019 1 1 Encounter Details Date Type Department Care Team (Latest Contact Info) Description 06/03/2018 Transcribe Orders [facility] [address], [address] [place] [address] Nisreen Jordan NP [address] [place] [address] Abnormal electrocardiogram (Primary Dx) Social History Tobacco [...] documented as of this encounter Care Teams Property Assistant Relationship Specialty Start Date End Date Ana Paula Franz DO [address] [place] [address] PCP - General Internal Medicine 06/03/18 05/09/19 Marti Balderas MD [address] [place] [address], [address] [place] [address] PCP - General Internal Medicine 05/10/19 01/17/20 Pcp, Unknown PCP - General 01/18/20 03/03/21 Silvana Funes MD [address] [place] [address] PCP - General Internal Medicine 03/04/21 Guille Conklin MD [address] [facility], [address] [place] [address] Historical LMR Provider 06/20/17 09/07/21 documented as of this encounter Additional Source Comments The information contained in this document represents components of the legal health record. It is not the complete legal health record.[facility]
--- OUTSIDE RECORDS SUMMARY | 2025-08-16 15:00 | XMS_ITS | Encounter Summary ---
Author Organization [facility] Address [address] [place] [address] Phone Care Team Providers Care Maritime Engineer Name Role Phone Silvana Funes MD Primary Care Provid er Encounter Details Date Type Department Care Team (Late st Contact Info) Description 03/27/2022 Procedure Pass [facility], Ct Scan - [address] [address] Social History Tobacco Use Types Packs/Day Years [...] 4:14 PM EDT Emmanuel Carvalho RN * [place] Suicide Severity Rating Scale (Screener/Recent Self-Report) Question [...] documented as of this encounter Care Teams Maritime Engineer Relationship Specialty Start Date End Date Silvana Funes MD [address] [place] [address] PCP - General Internal Medicine 03/04/21 documented as of this encounter Additional Source Comments The information contained in this document represents components of the legal health record. It is not the complete legal health record.[facility]
--- OUTSIDE RECORDS SUMMARY | 2025-08-16 15:00 | XMS_ITS | Encounter Summary ---
Author Organization [facility] Address [address] [place] [address] Phone Care Team Providers Care Drum Maker Name Role Phone Silvana Funes MD Primary Care Provid er Encounter Details Date Type Department Care Team (Late st Contact Info) Description 03/27/2022 Procedure Pass [facility], [address] [address] Social History Tobacco Use Types Packs/Day Years [...] 4:14 PM EDT Emmanuel Carvalho RN * [place] Suicide Severity Rating Scale (Screener/Recent Self-Report) Question [...] documented as of this encounter Care Teams Drum Maker Relationship Specialty Start Date End Date Silvana Funes MD [address] [place] [address] PCP - General Internal Medicine 03/04/21 documented as of this encounter Additional Source Comments The information contained in this document represents components of the legal health record. It is not the complete legal health record.[facility]
--- OUTSIDE RECORDS SUMMARY | 2025-08-16 15:00 | XMS_ITS | Clinical Summary ---
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 neurology was called although the note is not in the chart, MRI was recommended. Plan -MRI, I will also order contrast given her elevated history of brain mass -We will request records from [facility] -Echocardiogram -Neurochecks -TSH -orthostatic vital signs -PT OT -Aspirin statin -lipid panel A1c -youth nutritional monitor -Follow-up [facility] neurology consult TIA (transient ischemic attack) 03/27/2022 10/29/2024 Hepatitis 10/29/2024 Assessment & Plan (03/27/2022 7:26 PM EDT): Patient was seen in our ED last year on 03/04 for abnormal LFTs, fever, obstructive LFT pattern, CT showed congenitally absent gallbladder as well as diffuse thickening of the colonic wall She had been sent to [facility] at that time for ERCP that [...] EST) SODIUM 138 133 - 146 mmol/L [facility] POTASSIUM 3.7 3.3 - 5.1 mmol/L [facility] CHLORIDE 103 96 - 108 mmol/L [facility] CO2 24 21 - 35 mmol/L [facility] BUN 24(H) 6 - 19 mg/dL [facility] CREATININE 1.40 0.5 - 1.5 mg/dL [facility] GLUCOSE 142(H) 70 - 99 mg/dL [facility] ALBUMIN 3.1(L) 3.9 - 4.8 g/dL [facility] TOTAL PROTEIN 6.0(L) 6.5 - 8.0 g/dL [facility] CALCIUM 9.4 8.4 - 10.3 mg/dL [facility] ALKALINE PHOSPHATASE 169(H) 39 - 117 U/L [facility] TOTAL BILIRUBIN 1.4(H) 0.0 - 1.2 mg/dL [facility] AST 29 0 - 37 U/L [facility] ALT 84(H) 0 - 40 U/L [facility] GLOBULIN 2.9 1 - 4.8 g/dL [facility] EGFR 42(L) >59 mL/min/1.[address] [facility] Comment:Estimated glomerular filtration rate calculated using the CKD-EPI refit equation. ANION GAP 15 10 - 20 mmol/L [facility] Blood 10/30/2024 4:18 AM EST 10/30/2024 4:33 AM EST us Eran Partida PA-C, MS LAB BLOOD BKR ORDERABLE S Final Result Performing Organization Address City/[facility] Co de Phone Number [address] [address] * (ABNORMAL) Lipid panel (03/28/2022 6:21 AM EDT) HDL 61 mg/dL [facility] Comment: Interpretation <40 mg/dL: Low HDL cholesterol (major risk factor for CHD) Greater than or equal to 60 mg/dL: High HDL cholesterol ( negative risk factor for CHD) HDL - cholesterol is affected by a number of factors, e.g. smoking, excerise, hormones, sex and age. CHOLESTEROL 164 0 - 240 mg/dL [facility] TRIGLYCERIDES 62 30 - 160 mg/dL [facility] LDL 91 50 - 129 mg/dL [facility] Comment: LDL levels in terms of risk for coronary heart disease: <100 mg/dL: Optimal 100-129 mg/dL: Near or above optimal 130-159 mg/dL: Borderline high 160-189 mg/dL: High >190 mg/dL: Very High CARDIAC RISK RATIO 2.7(L) 3.3 - 4.4 C [facility] Blood 03/28/2022 6:21 AM EDT 03/28/2022 6:44 AM EDT us Ceci Flynn MINE PATROL LAB BLOOD BKR ORDERABLE S Final Result Performing Organization Address City/[facility]/ZIP Co de Phone Number [address] [place] [address] from Last 3 Months or Most Recently Relevant to Health Maintenance Insurance MEDICARE A MEDICARE A MEDICARE A MEDICARE A MEDICARE A MEDICARE A MEDICARE A MEDICARE A MEDICARE A Advance Directives For more information, please contact: [phone] (9AM - 5PM [facility], Thursday-Thursday) Documents on File Type Date Recorded Patient Aerial Planting And Cultivation Manager Expl anation Healthcare Proxy 10/30/2024 * [...] Agent (Proxy form on file) Care Teams Wine Consultant Relationship Specialty Start Date End Date Silvana Funes MD [address] [place] [address] PCP - General Internal Medicine 03/04/21 Additional Source Comments The information contained in this document represents components of the legal health record. It is not the complete legal health record.[facility]
--- OUTSIDE RECORDS SUMMARY | 2025-08-16 15:00 | XMS_ITS | Encounter Summary ---
Author Organization [facility] Address [address] [facility] [address] [place] [address] Phone Care Team Providers Care Watch And Clock Repairer Name Role Phone Silvana Funes MD Primary Care Provid er Encounter Details Date Type Department Care Team (Late st Contact Info) Description 03/28/2022 Procedure Pass [facility], [address] [address] Social History Tobacco Use Types Packs/Day Years [...] documented as of this encounter Care Teams Watch And Clock Repairer Relationship Specialty Start Date End Date Silvana Funes MD [address] [place] [address] PCP - General Internal Medicine 03/04/21 documented as of this encounter Additional Source Comments The information contained in this document represents components of the legal health record. It is not the complete legal health record.[facility]
--- OUTSIDE RECORDS SUMMARY | 2025-08-16 15:00 | XMS_ITS | Encounter Summary ---
Author Organization [facility] Address [address] [place] [address] Phone Care Team Providers Care Regional Property Manager Name Role Phone Guille Conklin MD Unavailable Silvana Funes MD Primary Care Provid er Encounter Details Date Type Department Care Team (Late st Contact Info) Description 03/04/2021 Procedure Pass [facility], Ct Scan - [facility] [address] [place] [address] Social History Tobacco Use Types Packs/Day Years [...] 6:08 PM EDT Avni Dowell, MARIO * [place] Suicide Severity Rating Scale (Screener/Recent Self-Report) Question [...] documented as of this encounter Care Teams Regional Property Manager Relationship Specialty Start Date End Date Silvana Funes MD [address] [place] [address] PCP - General Internal Medicine 03/04/21 Guille Conklin MD [address] [place] [address], [facility] [address] [place] [address] [email or web address] Historical LMR Provider 06/20/17 09/07/21 documented as of this encounter Additional Source Comments The information contained in this document represents components of the legal health record. It is not the complete legal health record.[facility]
--- OUTSIDE RECORDS SUMMARY | 2025-08-16 15:01 | XMS_ITS | Encounter Summary ---
Author Organization [facility] Address [address] [facility] [address] [place] [address] Phone Care Team Providers Care Medical Engineer Name Role Phone Silvana Funes MD Primary Care Provid er Encounter Details Date Type Department Care Team (Late st Contact Info) Description 10/27/2024 Procedure Pass [employer] [facility] [address] [place] [address] Social History Tobacco Use Types Packs/Day Years [...] on filedocumented in this encounter Care Teams Medical Engineer Relationship Specialty Start Date End Date Silvana Funes MD [address] [place] [address] PCP - General Internal Medicine 03/04/21 documented as of this encounter Additional Source Comments The information contained in this document represents components of the legal health record. It is not the complete legal health record.[facility]
--- OUTSIDE RECORDS SUMMARY | 2025-08-16 15:01 | XMS_ITS | Encounter Summary ---
Author Organization [facility] Address [address] [place] [phone] Phone Care Team Providers Care Eyeglass Lens Cutter Name Role Phone Silvana Funes MD Primary Care Provid er Encounter Details Date Type Department Care Team (Late st Contact Info) Description 10/24/2024 Procedure Pass [facility] Endoscopy Admitting Dept Virtual Department [address] [place] [address] Social History Tobacco Use Types Packs/Day Years [...] documented as of this encounter Care Teams Eyeglass Lens Cutter Relationship Specialty Start Date End Date Silvana Funes MD [address] [place] [address] PCP - General Internal Medicine 03/04/21 documented as of this encounter Additional Source Comments The information contained in this document represents components of the legal health record. It is not the complete legal health record.[facility]
--- OUTSIDE RECORDS SUMMARY | 2025-08-16 15:01 | XMS_ITS | Encounter Summary ---
Author Organization [facility] Address [address] [address] [facility] [address] [place] [phone] Phone Care Team Providers Care [employer] Salesperson Name Role Phone Silvana Funes MD Primary Care Provid er Encounter Details Date Type Department Care Team (Late st Contact Info) Description 10/23/2024 Procedure Pass [facility], Ct Scan - [address] [address] Social History Tobacco Use Types Packs/Day Years [...] 10/23/2024 5:45 PM Shayla Kim RN * [place] Suicide Severity Rating Scale (Screener/Recent Self-Report) Question [...] documented as of this encounter Care Teams [employer] Salesperson Relationship Specialty Start Date End Date Silvana Funes MD [address] [place] [address] PCP - General Internal Medicine 03/04/21 documented as of this encounter Additional Source Comments The information contained in this document represents components of the legal health record. It is not the complete legal health record[facility]
== END 2025-08-16 12:13 | disposition home or self-care (01) ==
LOC: HO.ENCR 11:19
PROVIDERS: PCP Internal Medicine; Visit Provider Dietitian, Registered
DX: K76.0 Fatty (change of) liver, not elsewhere classified (principal)

== ENCOUNTER → 2025-08-16 11:18 | Outpatient (BNVA) | payer SELFPAY | PROVIDERS: PCP Internal Medicine; Visit Provider Dietitian, Registered | DX: Z71.3 Dietary counseling and surveillance (principal); K76.0 Fatty (change of) liver, not elsewhere classified | CPT/HCPCS: 97802 ==